=== PATIENT | female | born 1965 | race Caucasian/White ===

== ENCOUNTER → 2017-02-14 | Outpatient (CLI) | payer OTHER ==
[~2017-02-14] MED LIST: AMIT10TA6 PO; ASP81CT PO; ASPI-983 PO; CIPR-225 PO; CIPR500T78 PO; DICY20TA10 PO; DICY20TA57 PO; DOCU-143 PO; EZET1TAB21 PO; EZET1TAB44 PO; FENO145T2 PO; FISH OIL OMEGA1 EACH PO; FLUC200T45 PO; GABA-488 PO; GABA600T2 PO; GBPN300C PO; HYDR-1231 PO; HYDR-3781 PO; HYDR-3812 PO; HYDR-757 PO; HYDR12.5 PO; HYDR1TAB PO; HYOS0.1283 SL; IBP600T1 PO; INSU100V5 SQ; LEVE500T6 PO; LEVE500T99 PO; LEVO500T2 PO; LIRA0.6P SQ; LISI-552 PO; LISI1TAB PO; LISI1TAB8 PO; LISI20TA PO; MELO15TA39 PO; METF-380 PO; METF1000 PO; METR500T PO; MTF500T PO; OMEG-160 PO; OMEP20CA12 PO; ONDA-42 SL; ONDA4TAB8 PO; SITA1TAB3 PO; SITA1TAB6 PO; TAMS0.4C2 PO; TAMS0.4C98 PO; TMSL.4C PO; TRAM50TA2 PO; [UNRECOGNIZED DRUG - REMARK]
--- NOTE | 2017-02-14 18:04 | Diagnostic Imaging Report ---
EXAMINATION: Bilateral screening mammogram, 2D views with tomosynthesis The current study was also evaluated with a Computer Aided Detection (CAD) system. INDICATION: Screening. No current complaints stated on the questionnaire. COMPARISON: 06/13/2009. FINDINGS: There are scattered fibroglandular densities. There are multiple benign-appearing calcifications. Increased central right breast cluster of calcification is seen compared to 2008 with minimal heterogeneity. It is favored to be benign. However, better characterization with focal compression magnification views is recommended. The left breast demonstrates no suspicious lesion. IMPRESSION: Increased slightly heterogenous cluster of calcification in the central aspect of the right breast. Better characterization with focal compression magnification views is recommended. ACR BI-RADS Category 0: Incomplete. (Needs additional imaging evaluation). Result letter will be mailed to the patient. Note: At least 10% of breast cancer is not imaged by mammography. Dictated by: Dictated on workstation # [id number]
== END ==
LOC: RAD 09:15
PROVIDERS: ATTEND Nurse Practitioner Family
DX: Z12.31 Encounter for screening mammogram for malignant neoplasm of breast (principal)
CPT/HCPCS: 77067

== ENCOUNTER 2017-02-23 14:24 | Emergency (ER) | payer OTHER ==
[~2017-02-23] VITALS: Ht 157.5 cm; Wt 85.7 kg
[2017-02-23] MEDS ORDERED: SIMV40TA (15:03)
[2017-02-23] MEDS ORDERED: EZET10TA5 (15:03)
[2017-02-23] MEDS ORDERED: PANT40TA3 (15:03)
[2017-02-23] MEDS ORDERED: PROP15DR (15:03)
--- NOTE | 2017-02-23 15:39 | ED EENT ---
History of Present Illness General Chief Complaint: Dental Problems/Pain Stated Complaint: TOOTH PAIN Nursing Triage Note: C/O of rt lower jaw pain with swelling, hurts to swollow. Believes it is a tooth. HAs been trying to get in to dentist Source: patient, spouse Exam Limitations: no limitations History of Present Illness Time seen by provider: 15:39 Initial Comments 51-year-old female patient presents to the emergency room for complaints of right lower jaw pain and swelling. States she's been trying to get into a dentist for several weeks to have her tooth pulled but is unable to find anyone that will see her. Location Injury Occurred: denies known injury Timing/Duration: this morning Location: facial (right lower jaw), dental Prearrival Treatment: no prearrival treatment Modifying Factors: Worse With Other (worse with palpation and chewing) Allergies and Home Medications Allergies Coded Allergies: Phenytoin Sodium Extended (Unverified Allergy, Unknown, 02/23/17) Sulfa (Sulfonamide Antibiotics) (Unverified Allergy, Unknown, 01/02/16) phenytoin sodium (Unverified Allergy, Unknown, 08/09/15) Home Medications Amoxicillin 500 Mg Capsule, 1,000 MG PO TID, #42 Ref 0 Prescribed by: TERESA SANTIAGO on 02/23/17 1620 Aspirin 81 Mg Tablet.dr, 81 MG PO DAILY, (Reported) Ezetimibe 10 Mg Tablet, (Reported) Hydrochlorothiazide 12.5 Mg Capsule, 12.5 MG PO DAILY, (Reported) Insulin Determir 1,000 Units/10 Ml Soln, 28 UNITS SQ DAILY, (Reported) Insulin Determir 1,000 Units/10 Ml Soln, 30 UNITS SQ HS, (Reported) Levetiracetam 500 Mg Tablet, 500 MG PO BID, (Reported) Lisinopril 20 Mg Tablet, 20 MG PO DAILY, (Reported) Metformin HCl 1,000 Mg Tablet, 1,000 MG PO BID, (Reported) Eidson-3/Dha/Epa/Fish Oil 1 Each Capsule, 1,000 MG PO DAILY, (Reported) Omeprazole 20 Mg Capsule.dr, 20 MG PO DAILY, (Reported) Pantoprazole Sodium 40 Mg Tablet.dr, (Reported) Propylene Glycol/Peg 400 15 Ml Drops, (Reported) Simvastatin 40 Mg Tablet, (Reported) Review of Systems Constitutional: No chills, No dizziness, No fever, No malaise Eyes: No Symptoms Reported Ears: Denies Dizziness, Denies Pain, Denies Tinnitus Nose: denies congestion, denies epistaxis, denies pain Mouth: see HPI Throat: no symptoms reported Respiratory: no symptoms reported Cardiovascular: no symptoms reported Skin: no symptoms reported Neurological: No Symptoms Reported All Other Systems Reviewed Negative Unless Noted: Yes (Negative excepted noted.) Past Bjdpiok-Zjxhue-Qifotf Hx Patient Social History Alcohol Use: Denies Use Recreational Drug Use: No Smoking Status: Never a Smoker Recent Foreign Travel: No Contact w/Someone Who Travel: No Recent Infectious Disease Expo: No Recent Hopitalizations: No Immunizations Up To Date Tetanus Booster (TDap): More than 5yrs PED Vaccines UTD: No Seasonal Allergies Seasonal Allergies: No Surgeries HX Surgeries: Yes (c/s x2, bladder tie, cranial sx for tumor, lap louie, trigger finger) Surgeries: Abdominal, Bladder Surgery, Section, Gallbladder, Hysterectomy, Orthopedic Respiratory Hx Respiratory Disorders: No Cardiovascular Hx Cardiac Disorders: Yes Cardiac Disorders: High Cholesterol, Hypertension Neurological Hx Neurological Disorders: Yes Neurological Disorders: Brain Tumor, Neuropathy, Seizure Disorder Reproductive System Hx Reproductive Disorders: No 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, Menopausal Genitourinary Hx Genitourinary Disorders: Yes Genitourinary Disorders: Kidney Stones Gastrointestinal Hx Gastrointestinal Disorders: Yes Gastrointestinal Disorders: Diverticulosis Musculoskeletal Hx Musculoskeletal Disorders: Yes Musculoskeletal Disorders: Fibromyalgia Endocrine Hx Endocrine Disorders: Yes Endocrine Disorders: Diabetes, Insulin dep HEENT HX ENT Disorders: Yes HEENT Disorders: Macular Degeneration Cancer Hx Cancer: No Psychosocial Hx Psychiatric Problems: No Integumentary HX Skin/Integumentary Disorder: No Blood Transfusions Hx Blood Disorders: No Adverse Reaction to a Blood Tr: No Reviewed Nursing Assessment Reviewed/Agree w Nursing PMH: Yes Family Medical History Significant Family History: No Pertinent Family Hx Physical Exam Vital Signs Vital Sign - Last 12Hours 02/23/17 14:53 Temp 97.8 Pulse 100 Resp 18 B/P (MAP) 126/89 Pulse Ox 96 General Appearance: WD/WN, no apparent distress Eyes: bilateral eye normal inspection, bilateral eye PERRL, bilateral eye EOMI Ears: bilateral ear auricle normal, bilateral ear canal normal, bilateral ear TM normal Nose: normal inspection Mouth/Throat: pharynx normal, dental tenderness (right lower dental tenderness) , No excessive drooling, No mandibular swelling, No maxillary swelling Neck: full range of motion, supple, lymphadenopathy (R) (TTP.), No lymphadenopathy (L) Cardiovascular: regular rate, rhythm, no murmur Respiratory: lungs clear, normal breath sounds, no respiratory distress Neurologic/Psychiatric: alert, normal mood/affect, oriented x 3 Skin: normal color, warm/dry Progress/Results/Core Measures Results/Orders Vital Signs/I&O Blood Pressure Mean: 101 Departure Communication Progress Notes Patient seen and evaluated. Plan for discharge to home with oral amoxicillin. Patient states she has some hydrocodone from a previous surgery and does not need anything for pain. Impression Impression: Primary Impression: Dental infection Additional Impression: Dental caries Disposition: HOME, SELF-CARE Condition: Improved Departure-Patient Inst. Decision time for Depature: 15:55 Referrals: HERMILO SCHMIDT DDS,LOCAL PHYSICIAN (PCP) Primary Care Physician Patient Instructions: Dental Pain (DC) Add. Discharge Instructions: All discharge instructions reviewed with patient and/or family. Voiced understanding. Medications as instructed. Drink plenty of fluids. Ibuprofen 800 mg by mouth every 8 hours as needed for pain. Continue usual home medications. Soft diet. Ice pack or heating pads as needed for pain. Follow- up with the dentist of your choice or Dr. SCHMIDT for dental repair/ extraction. Return to the emergency department for worsened pain, swelling, difficulty swallowing, difficulty breathing, fever, or any other concerns. Scripts Amoxicillin (Amoxicillin) 500 Mg Capsule 1000 MG PO TID, #42 CAP 0 Refills Prov: TERESA SANTIAGO 02/23/17 TERESA SANTIAGO Feb 23, 2017 3:39 pm
[2017-02-23] MEDS ORDERED: AMOX500C2 PO ×2 (15:56→16:20)
[2017-02-23 17:40] VITALS: BP 137/81
--- OUTSIDE RECORDS SUMMARY | 2017-02-24 02:25 | XMS REPORT ---
Author Author SHERON WYNN Organization [employer] Address Unknown Phone Unavailable Care Team Providers Care Personalized Living Manager Name Role Phone SHERON WYNN CP Unavailable Allergies No Known Allergies Problems Problem Type Condition Code Onset Dates Condition Status Problem Renal and perinephric abscess 590.2 Active Problem Syncope and collapse 780.2 Active Problem Unspecified epilepsy without mention of intractable epilepsy 345.90 Active Problem Sciatica, right M54.31 Active Problem Renal stone N20.0 Active Problem Abdominal pain, unspecified abdominal location R10.9 Active Problem Epilepsy without status epilepticus, not intractable, unspecified G40.909 Active Problem Unspecified essential hypertension 401.9 Active Problem Type 2 diabetes mellitus with diabetic neuropathy E11.40 Active Problem Essential hypertension I10 Active Problem Thoracic or lumbosacral neuritis or radiculitis, unspecified 724.4 Active Problem Polyneuropathy in diabetes 357.2 Active Problem Headache 784.0 Active Problem Unspecified ganglion 727.43 Active Medications Medication Code System Code Instructions Start Date End Date Status Dosage Gabapentin [facility] [address]-56 300 MG Orally 3 times a day September 22, 2014 one tablet Results No Known Results Summary Purpose [employer] Submission
--- OUTSIDE RECORDS SUMMARY | 2017-02-24 02:26 | XMS REPORT ---
Author Author SHERON WYNN Organization [employer] Address Unknown Phone Unavailable Care Team Providers Care Panel Installer Name Role Phone SHERON WYNN CP Unavailable Allergies No Known Allergies Problems Problem Type Condition Code Onset Dates Condition Status Problem Type 2 diabetes mellitus with diabetic neuropathy E11.40 Active Problem Sciatica, right M54.31 Active Problem Renal stone N20.0 Active Problem Pain of upper abdomen R10.10 Active Problem Other acute pancreatitis K85.8 Active Problem Biliary dyskinesia K82.8 Active Problem Syncope, unspecified syncope type R55 Active Problem Abdominal pain, unspecified abdominal location R10.9 Active Problem Diverticulosis of large intestine without hemorrhage K57.30 Active Problem Chest pain, unspecified type R07.9 Active Problem Thoracic or lumbosacral neuritis or radiculitis, unspecified 724.4 Active Problem Renal and perinephric abscess 590.2 Active Problem Unspecified epilepsy without mention of intractable epilepsy 345.90 Active Problem Polyneuropathy in diabetes 357.2 Active Problem Epilepsy without status epilepticus, not intractable, unspecified G40.909 Active Problem Headache 784.0 Active Problem Essential hypertension I10 Active Medications No Known Medications Results No Known Results Summary Purpose [employer] Submission
--- OUTSIDE RECORDS SUMMARY | 2017-02-24 02:26 | XMS REPORT ---
Author Author SHERON WYNN [facility] Address [address] [place] [address] Care Team Providers Care Ornamental Bronze Worker Name Role Phone WYNN, SHERON Unavailable PROBLEMS Type Condition ICD9-CM Code EVS34-RB Code Onset Dates Condition Status SNOMED Code Problem Sciatica, right M54.31 Active 96133916 Problem Syncope, unspecified syncope type R55 Active 896784076 Problem Abdominal pain, unspecified abdominal location R10.9 Active 38374446 Problem Right knee injury, initial encounter S89.91XA Active 387078092 Problem Biliary dyskinesia K82.8 Active 580788781 Problem Diverticulosis of large intestine without hemorrhage K57.30 Active 468199960 Problem Chest pain, unspecified type R07.9 Active 26764290 Problem Pain of upper abdomen R10.10 Active 98550465 Problem Other acute pancreatitis K85.8 Active 830088909 Problem Polyneuropathy in diabetes 357.2 Active 18923858 Problem Headache 784.0 Active 94793164 Assessment Right knee injury, initial encounter S89.91XA Feb, Active 492342205 Problem Thoracic or lumbosacral neuritis or radiculitis, unspecified 724.4 Active 845779183 Problem Epilepsy without status epilepticus, not intractable, unspecified G40.909 Active 321554494 Problem Essential hypertension I10 Active 41819318 Problem Renal and perinephric abscess 590.2 Active 746594122 Problem Type 2 diabetes mellitus with diabetic neuropathy E11.40 Active 57171511 Problem Unspecified epilepsy without mention of intractable epilepsy 345.90 Active 72281089 Problem Renal stone N20.0 Active 04885242 ALLERGIES Substance Reaction Event Type Date Status SulfADIAZINE hives Drug Allergy Feb, Active Dilantin hives Drug Allergy Feb, Active SOCIAL HISTORY No smoking Hx information available PLAN OF CARE VITAL SIGNS Height 62 in 2016-03-07 Weight 189 lbs 2016-03-07 Heart Rate 83 bpm 2016-03-07 Respiratory Rate 16 2016-03-07 BMI 34.56 kg/m2 2016-03-07 Blood pressure systolic 130 mmHg 2016-03-07 Blood pressure diastolic 80 mmHg 2016-03-07 MEDICATIONS Medication Instructions Dosage Frequency Start Date End Date Duration Status hydrochlorothiazide-lisinopril 20-12.5 mg orally Once a day take 1 tablet 24h Aug, Active Gabapentin 300 MG Orally 3 times a day one tablet 8h Sep, Active Flexeril 10 mg by oral route 3 times a day 1 tablet 8h Sep, Active Keppra 500 MG Orally 2 times a day 1 tablet 12h Jun, Active Hydrochlorothiazide 12.5 MG Orally Once a day 1 capsule 24h Sep, 30 day(s) Active Metformin HCl 1000 MG Orally Twice a day 1 tablet with meals 12h November, Active Tamsulosin HCl 0.4 MG Orally Once a day 1 capsule 30 minutes after the same meal each day 24h Jun, Active Zofran ODT 4 MG Orally every 8 hrs as needed for nausea 1 tablet on the tongue and allow to dissolve November, Active Lisinopril 20 mg Orally Once a day 1 tablet 24h Sep, Active Levemir 100 UNIT/ML Subcutaneous 2 times a day 28 units in am & 30 units in pm 12h Jan, Active Fish Oil Concentrate 1000 mg 1 Capsule by Oral route 1 time per day Jul, Active Tramadol HCl 50 mg Orally every 8 hours, PRN abd pain 1 tablet November, Active Hydrocodone-Acetaminophen 5-325 MG Orally every 4 hrs 1 tablet as needed 4h Jan, Active Dicyclomine HCl 20 MG Orally Four times a day 1 tablet before meals and hs 6h Sep, Active Pen [place] 31G X 6 MM subcut Once a day inject 24h 30 Mar, 2015 Active Vytorin 10-40 MG Orally Once a day 1 tablet 24h Jun, Active amitriptyline 25 mg 1 tablet by Oral route 1 time per day take 1-2 hr before bed Aug, Active Ibuprofen 800 MG Orally Three times a day 1 tablet 8h Feb, Active Omeprazole 20 mg Orally 2 times a day take 1 capsule (20 mg) by oral route once daily before a meal 12h Aug, Active RESULTS No Results PROCEDURES Procedure Date Ordered Related Diagnosis Body Site Office Visit, Est Pt., Level 3 Mar 07, 2016 IMMUNIZATIONS No Known Immunizations
--- OUTSIDE RECORDS SUMMARY | 2017-02-24 02:26 | XMS REPORT ---
Author Author SHERON WYNN Organization [employer] Address Unknown Phone Unavailable Care Team Providers Care Lay Out Technician Name Role Phone SHERON WYNN CP Unavailable [...] Active Problem Unspecified ganglion 727.43 Active Medications No Known Medications Results No Known Results Summary Purpose [employer] Submission
--- OUTSIDE RECORDS SUMMARY | 2017-02-24 02:27 | XMS REPORT ---
Author Author SHERON WYNN Organization [employer] Address Unknown Phone Unavailable Care Team Providers Care Station Repairer Name Role Phone SHERON WYNN CP Unavailable Allergies, Adverse Reactions, Alerts Substance Reaction Event Type SulfADIAZINE hives Drug Allergy Dilantin hives Drug Allergy Problems Problem Type Condition Code Onset Dates Condition Status Problem Sciatica, right M54.31 Active Problem Syncope, unspecified syncope type R55 Active Problem Abdominal pain, unspecified abdominal location R10.9 Active Problem Right knee injury, initial encounter S89.91XA Active Problem Biliary dyskinesia K82.8 Active Problem Acute pain of right knee M25.561 Active Problem Diverticulosis of large intestine without hemorrhage K57.30 Active Problem Chest pain, unspecified type R07.9 Active Problem Pain of upper abdomen R10.10 Active Problem Other acute pancreatitis K85.8 Active Problem Polyneuropathy in diabetes 357.2 Active Problem Headache 784.0 Active Assessment Acute pain of right knee M25.561 Active Problem Thoracic or lumbosacral neuritis or radiculitis, unspecified 724.4 Active Problem Epilepsy without status epilepticus, not intractable, unspecified G40.909 Active Problem Essential hypertension I10 Active Problem Renal and perinephric abscess 590.2 Active Problem Type 2 diabetes mellitus with diabetic neuropathy E11.40 Active Problem Unspecified epilepsy without mention of intractable epilepsy 345.90 Active Problem Renal stone N20.0 Active Medications Medication Code System Code Instructions Start Date End Date Status Dosage Tamsulosin HCl [facility] [address]-71 0.4 MG Orally Once a day Jul 05, 2015 1 capsule 30 minutes after the same meal each day hydrochlorothiazide-lisinopril [facility] 0 20-12.5 mg orally Once a day Aug 25, 2014 take 1 tablet Fish Oil Concentrate [facility] [address] 1000 mg Jul 24, 2012 1 Capsule by Oral route 1 time per day Lisinopril [facility] [address]-90 20 mg Orally Once a day September 08, 2015 1 tablet Gabapentin [facility] [address]-05 300 MG Orally 3 times a day September 22, 2014 one tablet Keppra [facility] [address]-13 500 MG Orally 2 times a day Jun 15, 2014 1 tablet Hydrocodone-Acetaminophen [facility] [address]-36 5-325 MG Orally every 4 hrs January 26, 2016 1 tablet as needed Ibuprofen [facility] [address]-87 800 MG Orally Three times a day Mar 07, 2016 1 tablet Hydrochlorothiazide [facility] [address]-14 12.5 MG Orally Once a day September 08, 2015 1 capsule Vytorin [facility] [address]-31 10-40 MG Orally Once a day Jun 15, 2014 1 tablet Flexeril [place] 0 10 mg by oral route 3 times a day September 22, 2014 1 tablet amitriptyline [facility] [address]-25 25 mg Aug 25, 2014 1 tablet by Oral route 1 time per day take 1-2 hr before bed Levemir [facility] [address]-72 100 UNIT/ML Subcutaneous 2 times a day January 14, 2014 28 units in am & 30 units in pm Metformin HCl [facility] [address]-07 1000 MG Orally Twice a day November 24, 2015 1 tablet with meals Procedures Procedure Coding System Code Date Office Visit, Est Pt., Level 3 CPT-4 02038 Mar 29, 2016 Vital Signs Date/Time: Mar 29, 2016 Cardiac Monitoring Heart Rate 80 bpm Weight 194.0 lbs Height 62 in BMI 35.48 Index Blood Pressure Diastolic 78 mmHg Blood Pressure Systolic 140 mmHg Results No Known Results Summary Purpose [employer] Submission
--- OUTSIDE RECORDS SUMMARY | 2017-02-24 02:27 | XMS REPORT ---
Author Author SHERON WYNN Organization [employer] Address Unknown Phone Unavailable Care Team Providers Care Farm Operator Name Role Phone SHERON WYNN CP Unavailable Allergies No Known Allergies Problems Problem Type Condition Code Onset Dates Condition Status Problem Polyneuropathy in diabetes 357.2 Active Problem Unspecified ganglion 727.43 Active Problem Headache 784.0 Active Assessment Renal stone N20.0 Active Problem Thoracic or lumbosacral neuritis or radiculitis, unspecified 724.4 Active Problem Essential hypertension I10 Active Problem Epilepsy without status epilepticus, not intractable, unspecified G40.909 Active Problem Type 2 diabetes mellitus with diabetic neuropathy E11.40 Active Problem Unspecified epilepsy without mention of intractable epilepsy 345.90 Active Problem Renal and perinephric abscess 590.2 Active Problem Unspecified essential hypertension 401.9 Active Problem Syncope and collapse 780.2 Active Medications No Known Medications Procedures Procedure Coding System Code Date PATHOLOGY LAB PROCEDURE CPT-4 03538 Jun 20, 2015 Results No Known Results Summary Purpose [employer] Submission
--- OUTSIDE RECORDS SUMMARY | 2017-02-24 02:27 | XMS REPORT ---
Author Author SHERON WYNN Organization [employer] Address Unknown Phone Unavailable Care Team Providers Care Machine I Trimmer Name Role Phone SHERON WYNN CP Unavailable Allergies, Adverse Reactions, Alerts Substance Reaction Event Type SulfADIAZINE hives Drug Allergy Dilantin hives Drug Allergy Problems Problem Type Condition ICD-9 Code Onset Dates Condition Status Problem Headache 784.0 Active Problem Contact dermatitis and other eczema, due to unspecified cause 692.9 Active Problem Unspecified ganglion 727.43 Active Problem Dysuria 788.1 Active Problem Unspecified essential hypertension 401.9 Active Problem Cellulitis and abscess of face 682.0 Active Problem Unspecified epilepsy without mention of intractable epilepsy 345.90 Active Problem Renal and perinephric abscess 590.2 Active Problem Syncope and collapse 780.2 Active Problem Pain in joint, pelvic region and thigh 719.45 Active Assessment Cellulitis and abscess of face 682.0 Active Problem Thoracic or lumbosacral neuritis or radiculitis, unspecified 724.4 Active Problem Polyneuropathy in diabetes 357.2 Active Medications Medication Code System Code Instructions Start Date End Date Status Dosage Keppra [facility] [address]-82 500 mg Jun 15, 2014 1 tablet by Oral route 2 times per day Levemir [facility] [address]-88 100 unit/mL January 14, 2014 inject 5-30 Units 2 times per day 8units am 30 pm Victoza [facility] [address]-36 18 MG/3ML Subcutaneous Once a day 0.2 ml Fish Oil Concentrate [facility] [address] 1000 mg Jul 24, 2012 1 Capsule by Oral route 1 time per day Clindamycin HCl [facility] [address]-74 300 MG Orally every 8 hrs Feb 24, 2015 Mar 06, 2015 1 capsule Vytorin [facility] [address]-01 10-40 mg 1 tab(s) orally once a day Jun 15, 2014 1 tablet by Oral route 1 time per day Ibuprofen [facility] [address]-05 800 MG Orally Three times a day Feb 24, 2015 1 tablet Domo [facility] [address]-99 50-1,000 mg Jun 15, 2014 1 tablet by Oral route 2 times per day Procedures Procedure Coding System Code Date Office Visit, Yomi Pt., Level 2 CPT-4 88235 Feb 28, 2015 Vital Signs Date/Time: Feb 28, 2015 Temperature 98.2 F Weight 202 lbs Height 62 in BMI 36.94 Index Blood Pressure Diastolic 84 mmHg Blood Pressure Systolic 130 mmHg Cardiac Monitoring Heart Rate 80 bpm Results No Known Results Summary Purpose [employer] Submission
--- OUTSIDE RECORDS SUMMARY | 2017-02-24 02:27 | XMS REPORT ---
Author Author SHERON WYNN Organization [employer] Address Unknown Phone Unavailable Care Team Providers Care Curing Supervisor Name Role Phone SHERON WYNN CP Unavailable Allergies No Known Allergies Problems Problem Type Condition Code Onset Dates Condition Status Problem Polyneuropathy in diabetes 357.2 Active Problem Unspecified ganglion 727.43 Active Problem Headache 784.0 Active Assessment Left foot pain M79.672 Active Problem Thoracic or lumbosacral neuritis or [...] Medications Procedures Procedure Coding System Code Date X-RAY EXAM OF FOOT CPT-4 25474 May 03, 2015 Results No Known Results Summary Purpose [employer] Submission
--- OUTSIDE RECORDS SUMMARY | 2017-02-24 02:27 | XMS REPORT ---
Author Author SHERON WYNN [facility] Address [address] [place] [address] Care Team Providers Care Professor Of Violin Name Role Phone SHERON WYNN Unavailable PROBLEMS Type Condition ICD9-CM Code BUZ00-KO Code Onset Dates Condition Status SNOMED Code Problem Abdominal pain, unspecified abdominal location R10.9 Active 66618870 Problem Chest pain, unspecified type R07.9 Active 88081553 Problem Syncope, unspecified syncope type R55 Active 309040752 Problem Acute pain of right knee M25.561 Active 93033329 Assessment Acute pain of right knee M25.561 27 Mar, 2016 Active 110962966 Problem Right knee injury, initial encounter S89.91XA Active 048818344 Problem Other acute pancreatitis K85.8 Active 996123414 Problem Diverticulosis of large intestine without hemorrhage K57.30 Active 288322941 Problem Biliary dyskinesia K82.8 Active 375974390 Problem Pain of upper abdomen R10.10 Active 01434561 Problem Headache 784.0 Active 48790628 Problem Renal and perinephric abscess 590.2 Active 581840463 Problem Thoracic or lumbosacral neuritis or radiculitis, unspecified 724.4 Active 755621017 Problem Polyneuropathy in diabetes 357.2 Active 10806871 Problem Essential hypertension I10 Active 95658636 Problem Type 2 diabetes mellitus with diabetic neuropathy E11.40 Active 74448591 Problem Unspecified epilepsy without mention of intractable epilepsy 345.90 Active 80912228 Problem Renal stone N20.0 Active 88571401 Problem Epilepsy without status epilepticus, not intractable, unspecified G40.909 Active 562262457 Problem Sciatica, right M54.31 Active 48051397 ALLERGIES Unknown Allergies SOCIAL HISTORY No smoking Hx information available PLAN OF CARE VITAL SIGNS MEDICATIONS Unknown Medications RESULTS Name Result Date Reference Range MRI : Knee, Right w/o contrast 2016-04-07 Xray : Knee, Right 2016-04-07 PROCEDURES No Known procedures IMMUNIZATIONS No Known Immunizations
--- OUTSIDE RECORDS SUMMARY | 2017-02-24 02:27 | XMS REPORT ---
Author Author SHERON WYNN Organization [employer] Address Unknown Phone Unavailable Care Team Providers Care Help Desk Consultant Name Role Phone SHERON WYNN CP Unavailable [...]
--- OUTSIDE RECORDS SUMMARY | 2017-02-24 02:27 | XMS REPORT ---
Author Author SHERON WYNN [facility] eClinicalWorks Address Unknown Phone Unavailable Care Team Providers Care Drafter Seismograph Name Role Phone SHERON WYNN CP Unavailable Allergies, Adverse Reactions, Alerts Substance Reaction Event Type SulfADIAZINE hives Drug Allergy Dilantin hives Drug Allergy Problems Problem Type Condition Code Onset Dates Condition Status Problem Headache 784.0 Active Problem Renal and perinephric abscess 590.2 Active Problem Unspecified ganglion 727.43 Active Problem Type 2 diabetes mellitus with diabetic neuropathy E11.40 Active Problem Essential hypertension I10 Active Problem Renal stone N20.0 Active Problem Syncope and collapse 780.2 Active Problem Unspecified epilepsy without mention of intractable epilepsy 345.90 Active Problem Epilepsy without status epilepticus, not intractable, unspecified G40.909 Active Problem Unspecified essential hypertension 401.9 Active Assessment Renal stone N20.0 Active Problem Thoracic or lumbosacral neuritis or radiculitis, unspecified 724.4 Active Problem Polyneuropathy in diabetes 357.2 Active Medications Medication Code System Code Instructions Start Date End Date Status Dosage Keppra [facility] [address]-53 500 mg Jun 15, 2014 1 tablet by Oral route 2 times per day Vytorin [facility] [address]-97 10-40 mg 1 tab(s) orally once a day Jun 15, 2014 1 tablet by Oral route 1 time per day Levemir [facility] [address]-02 100 UNIT/ML Subcutaneous 2 times a day January 14, 2014 15 units in am & 30 units in pm Tamsulosin HCl [facility] [address]-57 0.4 MG Orally Once a day Jul 05, 2015 1 capsule 30 minutes after the same meal each day Victoza [facility] [address]-30 18 MG/3ML Subcutaneous Once a day 1.8 mg Fish Oil Concentrate [facility] 88479-91993 1000 mg Jul 24, 2012 1 Capsule by Oral route 1 time per day Janumet [facility] [address]-37 50-1,000 mg Jun 15, 2014 1 tablet by Oral route 2 times per day Ibuprofen [facility] [address]-01 800 MG Orally Three times a day Feb 24, 2015 1 tablet hydrochlorothiazide-lisinopril [facility] 0 20-12.5 mg orally Once a day Aug 25, 2014 take 1 tablet Pen [place] [facility] [address]-36 31G X 6 MM subcut Once a day Apr 06, 2015 inject Procedures Procedure Coding System Code Date Office Visit, Est Pt., Level 3 CPT-4 17636 Jul 05, 2015 URINALYSIS, AUTO, W/O SCOPE CPT-4 23546 Jul 05, 2015 Vital Signs Date/Time: Jul 05, 2015 Temperature 99.0 F Weight 203.0 lbs Height 62 in BMI 37.13 Index Blood Pressure Diastolic 88 mmHg Blood Pressure Systolic 116 mmHg Cardiac Monitoring Heart Rate 116 bpm Results Name Result Date Reference Range Unit Abnormality Flag UA LONG DIP (IN HOUSE) ----LAURYN trace [id number] ----NIT neg [id number] ----SG 1.025 20150705 ----KET neg [id number] ----SUZANNE neg [id number] ----GLU neg [id number] ----Odor no 20150705 ----pH 5.0 20150705 ----BLO trace-lysed 20150705 ----URO 0.2 20150705 ----Protein neg [id number] ----Lot # [id number] ----Exp date [id number] ----Clarity clear 20150705 ----Color yellow [id number] Summary Purpose eClinicalWorks Submission
--- OUTSIDE RECORDS SUMMARY | 2017-02-24 02:28 | XMS REPORT ---
Author Author SHERON WYNN [facility] eClinicalWorks Address Unknown Phone Unavailable Care Team Providers Care Lead Die Molder Name Role Phone SHERON WYNN CP Unavailable [...] Problem Unspecified essential hypertension 401.9 Active Assessment Diverticulitis of large intestine without perforation or abscess without bleeding K57.32 Active Problem Thoracic or lumbosacral neuritis or radiculitis, unspecified 724.4 Active Problem Polyneuropathy in diabetes 357.2 Active Medications Medication Code System Code Instructions Start Date End Date Status Dosage Metronidazole [facility] [address]-33 500 MG Orally Twice a day Aug 10, 2015 Aug 20, 2015 1 tablet Victoza [facility] [address]-97 18 MG/3ML Subcutaneous Once a day 1.8 mg Levemir [facility] [address]-81 100 UNIT/ML Subcutaneous 2 times a day January 14, 2014 15 units in am & 30 units in pm Fish Oil Concentrate [facility] [address]056 1000 mg Jul 24, 2012 1 Capsule by Oral route 1 time per day hydrochlorothiazide-lisinopril [facility] 0 20-12.5 mg orally Once a day Aug 25, 2014 take 1 tablet Ciprofloxacin HCl [facility] [address]-99 500 MG Orally Twice a day 1 tablet Cipro [facility] [address]-32 250 MG Orally every 12 hrs Aug 10, 2015 Aug 20, 2015 1 tablet Tamsulosin HCl [facility] [address]-90 0.4 MG Orally Once a day Jul 05, 2015 1 capsule 30 minutes after the same meal each day Janumet [facility] [address]-37 50-1,000 mg Jun 15, 2014 1 tablet by Oral route 2 times per day Metronidazole [facility] [address]-32 500 MG Orally Twice a day 1 tablet Vytorin [facility] [address]-38 10-40 mg 1 tab(s) orally once a day Jun 15, 2014 1 tablet by Oral route 1 time per day Hydrocodone-Acetaminophen [facility] [address]-75 5-325 MG Orally 4 times a day 1 tablet as needed Ibuprofen [facility] [address]-33 800 MG Orally Three times a day Feb 24, 2015 1 tablet Pen [place] [facility] [address]-53 31G X 6 MM subcut Once a day Apr 06, 2015 inject Keppra [facility] [address]-48 500 mg Jun 15, 2014 1 tablet by Oral route 2 times per day Procedures Procedure Coding System Code Date Office Visit, Est Pt., Level 3 CPT-4 45353 Aug 10, 2015 Vital Signs Date/Time: Aug 10, 2015 Temperature 97.6 F Weight 207.8 lbs Height 62 in BMI 38.00 Index Blood Pressure Diastolic 72 mmHg Blood Pressure Systolic 126 mmHg Cardiac Monitoring Heart Rate 86 bpm Results No Known Results Summary Purpose eClinicalWorks Submission
--- OUTSIDE RECORDS SUMMARY | 2017-02-24 02:28 | XMS REPORT ---
Author Author SHERON WYNN Organization [employer] Address Unknown Phone Unavailable Care Team Providers Care Chemical Mixer Name Role Phone SHERON WYNN CP Unavailable [...] Instructions Start Date End Date Status Dosage Levemir [facility] [address]-01 100 unit/mL January 14, 2014 inject 5-30 Units 2 times per day 8units am 30 pm Fish Oil Concentrate [facility] [address]777 1000 mg Jul 24, 2012 1 Capsule by Oral route 1 time per day Janumet [facility] [address]-50 50-1,000 mg Jun 15, 2014 1 tablet by Oral route 2 times per day Keppra [facility] [address]-93 500 mg Jun 15, 2014 1 tablet by Oral route 2 times per day Victoza [facility] [address]-62 18 MG/3ML Subcutaneous Once a day 0.2 ml Clindamycin HCl [facility] [address]-96 300 MG Orally every 8 hrs Feb 24, 2015 Mar 06, 2015 1 capsule Ibuprofen [facility] [address]-22 800 MG Orally Three times a day Feb 24, 2015 1 tablet Vytorin [facility] [address]-09 10-40 mg 1 tab(s) orally once a day Jun 15, 2014 1 tablet by Oral route 1 time per day Procedures Procedure Coding System Code Date ROCEPHIN 1 GM (IM) CPT-4 J0696 Feb 24, 2015 THER/PROPH/DIAG INJ, SC/IM CPT-4 10310 Feb 24, 2015 Office Visit, Est Pt., Level 3 CPT-4 40419 Feb 24, 2015 Vital Signs Date/Time: Feb 24, 2015 Temperature 98.6 F Weight 202.4 lbs Height 62 in BMI 37.02 Index Blood Pressure Diastolic 100 mmHg Blood Pressure Systolic 150 mmHg Cardiac Monitoring Heart Rate 84 bpm Results No Known Results Summary Purpose eClinicalWorks Submission
--- OUTSIDE RECORDS SUMMARY | 2017-02-24 02:28 | XMS REPORT ---
Author Author SHERON WYNN Organization [employer] Address Unknown Phone Unavailable Care Team Providers Care Mill Roll Operator Name Role Phone SHERON WYNN CP [...] 357.2 Active Problem Headache 784.0 Active Problem Thoracic or lumbosacral neuritis or radiculitis, unspecified 724.4 Active Problem Epilepsy without status epilepticus, not intractable, unspecified G40.909 Active Problem Essential hypertension I10 Active Problem Renal and perinephric abscess 590.2 Active Problem Type 2 diabetes mellitus with diabetic neuropathy E11.40 Active Problem Unspecified epilepsy without mention of intractable epilepsy 345.90 Active Problem Renal stone N20.0 Active Medications No Known Medications Results No Known Results Summary Purpose eClinicalWorks Submission
--- OUTSIDE RECORDS SUMMARY | 2017-02-24 02:28 | XMS REPORT ---
Author Author SHERON WYNN Organization [employer] Address Unknown Phone Unavailable Care Team Providers Care Delivery Stock Clerk Name Role Phone SHERON WYNN CP Unavailable Allergies No Known Allergies Problems Problem Type Condition Code Onset Dates Condition Status Problem Headache 784.0 Active Problem Contact dermatitis and other eczema, due to unspecified cause 692.9 Active Problem Unspecified ganglion 727.43 Active Problem Thoracic or lumbosacral neuritis or radiculitis, unspecified 724.4 Active Problem Polyneuropathy in diabetes 357.2 Active Problem Dysuria 788.1 Active Problem Unspecified essential hypertension 401.9 Active Problem Cellulitis and abscess of face 682.0 Active Problem Unspecified epilepsy without mention of intractable epilepsy 345.90 Active Problem Renal and perinephric abscess 590.2 Active Problem Syncope and collapse 780.2 Active Problem Pain in joint, pelvic region and thigh 719.45 Active Medications Medication Code System Code Instructions Start Date End Date Status Dosage Pen [place] [facility] [address]-53 31G X 6 MM subcut Once a day Apr 06, 2015 inject Levemir [facility] [address]-59 100 UNIT/ML Subcutaneous 2 times a day January 14, 2014 8 units in am & 30 units in pm Victoza [facility] [address]-92 18 MG/3ML Subcutaneous Once a day 1.8 mg Results No Known Results Summary Purpose eClinicalWorks Submission
--- OUTSIDE RECORDS SUMMARY | 2017-02-24 02:29 | XMS REPORT ---
Author Author SHERON WYNN Organization [employer] Address Unknown Phone Unavailable Care Team Providers Care Superintendent Stevedoring Name Role Phone SHERON WYNN CP Unavailable Allergies, Adverse Reactions, Alerts Substance Reaction Event Type SulfADIAZINE hives Drug Allergy Dilantin hives Drug Allergy Problems Problem Type Condition Code Onset Dates Condition Status Problem Polyneuropathy in diabetes 357.2 Active Problem Unspecified ganglion 727.43 Active Problem Headache 784.0 Active Problem Essential hypertension I10 Active Problem Epilepsy without status epilepticus, not intractable, unspecified G40.909 Active Problem Type 2 diabetes mellitus with diabetic neuropathy E11.40 Active Problem Unspecified epilepsy without mention of intractable epilepsy 345.90 Active Problem Renal and perinephric abscess 590.2 Active Problem Unspecified essential hypertension 401.9 Active Problem Syncope and collapse 780.2 Active Assessment Type 2 diabetes mellitus with diabetic neuropathy E11.40 Active Assessment Foot pain, left M79.672 Active Problem Thoracic or lumbosacral neuritis or radiculitis, unspecified 724.4 Active Medications Medication Code System Code Instructions Start Date End Date Status Dosage Keppra [facility] [address]-88 500 mg Jun 15, 2014 1 tablet by Oral route 2 times per day Gabapentin [facility] [address]-80 400 mg September 22, 2014 take 1 capsule by Oral route 3 times per day Fish Oil Concentrate [facility] [address]44-38549 1000 mg Jul 24, 2012 1 Capsule by Oral route 1 time per day Ibuprofen [facility] [address]-65 800 MG Orally Three times a day Feb 24, 2015 1 tablet Levemir [facility] [address]-17 100 UNIT/ML Subcutaneous 2 times a day January 14, 2014 15 units in am & 30 units in pm hydrochlorothiazide-lisinopril [facility] 0 20-12.5 mg orally Once a day Aug 25, 2014 take 1 tablet Pen [place] [facility] [address]-16 31G X 6 MM subcut Once a day Apr 06, 2015 inject Vytorin [facility] [address]-18 10-40 mg 1 tab(s) orally once a day Jun 15, 2014 1 tablet by Oral route 1 time per day Victoza [facility] [address]-75 18 MG/3ML Subcutaneous Once a day 1.8 mg Janumet [facility] [address]-50 50-1,000 mg Jun 15, 2014 1 tablet by Oral route 2 times per day metformin [place] 0 500 mg Aug 25, 2014 take 1 tablet by Oral route 1 time per day Procedures Procedure Coding System Code Date Office Visit, Est Pt., Level 3 CPT-4 43045 May 18, 2015 Vital Signs Date/Time: May 18, 2015 Temperature 97.8 F Weight 200 lbs Height 62 in BMI 36.58 Index Blood Pressure Diastolic 68 mmHg Blood Pressure Systolic 124 mmHg Cardiac Monitoring Heart Rate 68 bpm Results No Known Results Summary Purpose eClinicalWorks Submission
--- OUTSIDE RECORDS SUMMARY | 2017-02-24 02:29 | XMS REPORT ---
Author Author SHERON WYNN Organization [employer] Address Unknown Phone Unavailable Care Team Providers Care Audio Production Instructor Name Role Phone SHERON WYNN CP Unavailable [...] Active Problem Essential hypertension I10 Active Medications Medication Code System Code Instructions Start Date End Date Status Dosage Hydrocodone-Acetaminophen [facility] [address]-23 5-325 MG Orally every 4 hrs January 26, 2016 1 tablet as needed Results No Known Results Summary Purpose eClinicalWorks Submission
--- OUTSIDE RECORDS SUMMARY | 2017-02-24 02:29 | XMS REPORT ---
Author Author SHERON WYNN Organization e[employer] Address Unknown Phone Unavailable Care Team Providers Care Wool Broker Name Role Phone SHERON WYNN CP Unavailable [...] Problem Syncope and collapse 780.2 Active Assessment Essential hypertension I10 Active Assessment Left foot pain M79.672 Active Assessment Type 2 diabetes mellitus with diabetic neuropathy E11.40 Active Assessment Epilepsy without status epilepticus, not intractable, unspecified G40.909 Active Problem Thoracic or lumbosacral neuritis or radiculitis, unspecified 724.4 Active Medications Medication Code System Code Instructions Start Date End Date Status Dosage Victoza [facility] [address]-10 18 MG/3ML Subcutaneous Once a day 1.8 mg Levemir [facility] [address]-84 100 UNIT/ML Subcutaneous 2 times a day January 14, 2014 15 units in am & 30 units in pm hydrochlorothiazide-lisinopril [facility] 0 20-12.5 mg orally Once a day Aug 25, 2014 take 1 tablet Fish Oil Concentrate [facility] [address]93 1000 mg Jul 24, 2012 1 Capsule by Oral route 1 time per day Pen [place] [facility] [address]-59 31G X 6 MM subcut Once a day Apr 06, 2015 inject Janumet [facility] [address]-59 50-1,000 mg Jun 15, 2014 1 tablet by Oral route 2 times per day Keppra [facility] [address]-30 500 mg Jun 15, 2014 1 tablet by Oral route 2 times per day Ibuprofen [facility] [address]-58 800 MG Orally Three times a day Feb 24, 2015 1 tablet Vytorin [facility] [address]-67 10-40 mg 1 tab(s) orally once a day Jun 15, 2014 1 tablet by Oral route 1 time per day Procedures Procedure Coding System Code Date GLYCATED HEMOGLOBIN TEST CPT-4 92339 Apr 19, 2015 Office Visit, Est Pt., Level 3 CPT-4 31284 Apr 19, 2015 Vital Signs Date/Time: Apr 19, 2015 Temperature 98 F Weight 203 lbs Height 62 in BMI 37.13 Index Blood Pressure Diastolic 70 mmHg Blood Pressure Systolic 140 mmHg Cardiac Monitoring Heart Rate 74 bpm Results Name Result Date Reference Range Unit Abnormality Flag A1C (IN HOUSE) Summary Purpose eClinicalWorks Submission
--- OUTSIDE RECORDS SUMMARY | 2017-02-24 02:29 | XMS REPORT ---
Author Author SHERON WYNN Organization eClinicalWorks Address Unknown Phone Unavailable Care Team Providers Care Crimper Assembler Name Role Phone SHERON WYNN CP Unavailable [...] Start Date End Date Status Dosage Pen [place] [facility] [address]-65 31G X 6 MM subcut Once a day Apr 06, 2015 inject Levemir [facility] [address]-11 100 UNIT/ML Subcutaneous 2 times a day January 14, 2014 8 units in am & 30 units in pm Victoza [facility] [address]-46 18 MG/3ML Subcutaneous Once a day 1.8 mg Results No Known Results Summary Purpose eClinicalWorks Submission
--- OUTSIDE RECORDS SUMMARY | 2017-02-24 02:29 | XMS REPORT ---
Author Author SHERON WYNN Organization [employer] Address Unknown Phone Unavailable Care Team Providers Care Real Estate Processor Name Role Phone SHERON WYNN CP Unavailable Allergies No Known Allergies Problems Problem Type Condition Code Onset Dates Condition Status Problem Polyneuropathy in diabetes 357.2 Active Problem Unspecified ganglion 727.43 Active Problem Headache 784.0 Active Problem Thoracic [...] collapse 780.2 Active Medications No Known Medications Results No Known Results Summary Purpose eClinicalWorks Submission
--- OUTSIDE RECORDS SUMMARY | 2017-02-24 02:30 | XMS REPORT ---
Author Author SHERON WYNN [facility] eClinicalWorks Address Unknown Phone Unavailable Care Team Providers Care Line Cleaner Name Role Phone SHERON WYNN CP Unavailable Allergies, Adverse Reactions, Alerts Substance Reaction Event Type SulfADIAZINE hives Drug Allergy Dilantin hives Drug Allergy Problems Problem Type Condition Code Onset Dates Condition Status Problem Unspecified epilepsy without mention of intractable epilepsy 345.90 Active Problem Unspecified essential hypertension 401.9 Active Problem Syncope and collapse 780.2 Active Problem Abdominal pain, unspecified abdominal location R10.9 Active Problem Sciatica, right M54.31 Active Problem Diverticulosis of large intestine without hemorrhage K57.30 Active Problem Essential hypertension I10 Active Problem Epilepsy without status epilepticus, not intractable, unspecified G40.909 Active Problem Renal stone N20.0 Active Problem Type 2 diabetes mellitus with diabetic neuropathy E11.40 Active Problem Polyneuropathy in diabetes 357.2 Active Problem Headache 784.0 Active Assessment Diverticulosis of large intestine without hemorrhage K57.30 Active Problem Unspecified ganglion 727.43 Active Problem Thoracic or lumbosacral neuritis or radiculitis, unspecified 724.4 Active Problem Renal and perinephric abscess 590.2 Active Medications Medication Code System Code Instructions Start Date End Date Status Dosage Keppra [facility] [address]-65 500 MG Orally 2 times a day Jun 15, 2014 1 tablet Metronidazole [facility] [address]-77 500 MG Orally Twice a day November 07, 2015 November 17, 2015 1 tablet Fish Oil Concentrate [facility] [address]-93622 1000 mg Jul 24, 2012 1 Capsule by Oral route 1 time per day Vytorin [facility] [address]-37 10-40 MG Orally Once a day Jun 15, 2014 1 tablet Victoza [facility] [address]-02 18 MG/3ML Subcutaneous Once a day 1.8 mg Levemir [facility] [address]-52 100 UNIT/ML Subcutaneous 2 times a day January 14, 2014 18 units in am & 30 units in pm Lisinopril [facility] [address]-37 20 MG Orally Once a day September 08, 2015 1 tablet Mobic [facility] [address]-41 15 MG Orally Once a day September 22, 2014 1 tablet Cipro [facility] [address]-21 500 MG Orally Twice a day November 07, 2015 November 17, 2015 1 tablet Flexeril N[facility] 0 10 mg September 22, 2014 1 tablet by Oral route 3 times per day PRN muscle spasm Janumet [facility] [address]-04 50-1,000 mg Orally Twice a day Jun 15, 2014 1 tablet Omeprazole [facility] [address]-80 20 mg Orally 2 times a day Aug 25, 2014 take 1 capsule (20 mg) by oral route once daily before a meal Gabapentin [facility] [address]-87 300 MG Orally 3 times a day September 22, 2014 one tablet Hydrochlorothiazide [facility] [address]-71 12.5 MG Orally Once a day September 08, 2015 1 capsule Dicyclomine HCl [facility] [address]-15 20 MG Orally Four times a day September 08, 2015 1 tablet before meals and hs amitriptyline [facility] [address]-24 25 mg Aug 25, 2014 1 tablet by Oral route 1 time per day take 1-2 hr before bed Tamsulosin HCl [facility] [address]-57 0.4 MG Orally Once a day Jul 05, 2015 1 capsule 30 minutes after the same meal each day hydrochlorothiazide-lisinopril [facility] 0 20-12.5 mg orally Once a day Aug 25, 2014 take 1 tablet Pen [place] [facility] [address]-43 31G X 6 MM subcut Once a day Apr 06, 2015 inject Procedures Procedure Coding System Code Date Office Visit, Est Pt., Level 3 CPT-4 12690 November 07, 2015 Vital Signs Date/Time: November 07, 2015 Temperature 97.9 F Weight 201.0 lbs Height 62 in BMI 36.76 Index Blood Pressure Diastolic 80 mmHg Blood Pressure Systolic 130 mmHg Cardiac Monitoring Heart Rate 94 bpm Results No Known Results Summary Purpose eClinicalWorks Submission
--- OUTSIDE RECORDS SUMMARY | 2017-02-24 02:30 | XMS REPORT ---
Author Author SHERON WYNN [facility] [employer] Address Unknown Phone Unavailable Care Team Providers Care [employer] Name Role Phone SHERON WYNN CP Unavailable Allergies, Adverse Reactions, Alerts Substance Reaction Event Type SulfADIAZINE hives Drug Allergy Dilantin hives Drug Allergy Problems Problem Type Condition Code Onset Dates Condition Status Problem Polyneuropathy in diabetes 357.2 Active Problem Unspecified ganglion 727.43 Active Problem Headache 784.0 Active Assessment Renal and perinephric abscess 590.2 Active Problem Thoracic or lumbosacral neuritis or [...] Problem Syncope and collapse 780.2 Active Medications Medication Code System Code Instructions Start Date End Date Status Dosage Vytorin [facility] [address]-59 10-40 mg 1 tab(s) orally once a day Jun 15, 2014 1 tablet by Oral route 1 time per day Levaquin [facility] [address]-70 500 MG Orally Once a day [address] [facility] [address]-57 18 MG/3ML Subcutaneous Once a day 1.[address] [facility] [address]-05 100 UNIT/ML Subcutaneous 2 times a day January 14, 2014 15 units in am & 30 units in pm Ibuprofen [facility] [address]-99 800 MG Orally Three times a day Feb 24, [address] [facility] [address]-56 400 mg September 22, 2014 take 1 capsule by Oral route 3 times per day Keppra [facility] [address]-18 500 mg Jun 15, 2014 1 tablet by Oral route 2 times per day Pen Collison [facility] [address]-25 31G X 6 MM subcut Once a day Apr 06, [place] [address]-85 50-1,000 mg Jun 15, 2014 1 tablet by Oral route 2 times per day metformin NDC 0 500 mg Aug 25, 2014 take 1 tablet by Oral route 1 time per day hydrochlorothiazide-lisinopril NDC 0 20-12.5 mg orally Once a day Aug 25, 2014 take [place] [address] 1000 mg Jul 24, 2012 1 Capsule by Oral route 1 time per day Procedures Procedure Coding System Code Date URINALYSIS, AUTO, W/O SCOPE CPT-4 40435 Jun 21, 2015 Office Visit, Est Pt., Level 3 CPT-4 39230 Jun 21, 2015 Vital Signs Date/Time: Jun 21, 2015 Temperature 98.1 F Weight 203.1 lbs Height 62 in BMI 37.14 Index Blood Pressure Diastolic 72 mmHg Blood Pressure Systolic 130 mmHg Cardiac Monitoring Heart Rate 74 bpm Results Name Result Date Reference Range Unit Abnormality Flag UA LONG DIP (IN HOUSE) ----pH 5.0 20150621 ----BLO trace-lysed 20150621 ----SG 1.020 [id number] ----KET neg [id number] ----SUZANNE neg [id number] ----URO 0.2 [id number] ----Protein neg [id number] ----LAURYN neg [id number] ----NIT neg [id number] ----Clarity clear [id number] ----Color yellow [id number] ----Odor no [id number] ----GLU 1+ [id number] Summary Purpose [employer]ClinicalWorks Submission
--- OUTSIDE RECORDS SUMMARY | 2017-02-24 02:33 | XMS REPORT | Continuity of Care Document ---
Author Author [facility] Address Unknown Phone Unavailable Allergies Active Description Code Type Severity Reaction Onset Reported/Identified Relationship to Patient Clinical Status Yes Dilantin Drug Allergy 02/19/2011 Yes Dilantin Drug Allergy N/A N/A 02/19/2011 Yes sulfa drug Drug Allergy 02/19/2011 Yes phenytoin sodium [id number] Drug Allergy Unknown N/A 08/09/2015 Yes Phenytoin Sodium Extended [id number] Drug Allergy Unknown N /A 08/09/2015 Yes SULFA SULFA Unknown N/A 08/09/2015 Yes Sulfa (Sulfonamide Antibiotics) [id number] Drug Allergy Unknown N/A 01/02/2016 Medications Problems Date Dx Coded Attending Type Code Diagnosis Diagnosed By 03/18/2008 TAYLA ALONSO MD 250.00 DIABETES MELLITUS TYPE 2 03/18/2008 TAYLA ALONSO MD 250.80 HYPOGLY DIABETES UNSP 03/18/2008 TAYLA ALONSO MD 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 03/18/2008 250.00 DIABETES MELLITUS TYPE 2 03/18/2008 250.80 HYPOGLY DIABETES UNSP 03/18/2008 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 03/18/2008 TAYLA ALONSO MD 250.00 DIABETES MELLITUS TYPE 2 03/18/2008 TAYLA ALONSO MD 250.80 HYPOGLY DIABETES UNSP 03/18/2008 TAYLA ALONSO MD 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 03/18/2008 250.00 DIABETES MELLITUS TYPE 2 03/18/2008 250.80 HYPOGLY DIABETES UNSP 03/18/2008 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 03/18/2008 TAYLA ALONSO MD 250.00 DIABETES MELLITUS TYPE 2 03/18/2008 TAYLA ALONSO MD 250.80 HYPOGLY DIABETES UNSP 03/18/2008 TAYLA ALONSO MD 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 03/18/2008 250.00 DIABETES MELLITUS TYPE 2 03/18/2008 250.80 HYPOGLY DIABETES UNSP 03/18/2008 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 03/18/2008 250.00 DIABETES MELLITUS TYPE 2 03/18/2008 250.80 HYPOGLY DIABETES UNSP 03/18/2008 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 03/18/2008 ALCAZAR DO, MIKE K 250.00 DIABETES MELLITUS TYPE 2 03/18/2008 ALCAZAR DO, MIKE K 250.80 HYPOGLY DIABETES UNSP 03/18/2008 ALCAZAR DO, MIKE K 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 03/18/2008 ALCAZAR DO, MIKE K 250.00 DIABETES MELLITUS TYPE 2 03/18/2008 ALCAZAR DO, MIKE K 250.80 HYPOGLY DIABETES UNSP 03/18/2008 ALCAZAR DO, MIKE K 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 03/18/2008 ALCAZAR DO, MIKE K 250.00 DIABETES MELLITUS TYPE 2 03/18/2008 ALCAZAR DO, MIKE K 250.80 HYPOGLY DIABETES UNSP 03/18/2008 ALCAZAR DO, MIKE K 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 03/18/2008 ALCAZAR DO, MIKE K 250.00 DIABETES MELLITUS TYPE 2 03/18/2008 ALCAZAR DO, MIKE K 250.80 HYPOGLY DIABETES UNSP 03/18/2008 ALCAZAR DO, MIKE K 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 03/18/2008 SHERON WYNN APRN R 250.00 DIABETES MELLITUS TYPE 2 03/18/2008 SHERON WYNN APRN R 250.80 HYPOGLY DIABETES UNSP 03/18/2008 SHERON WYNN APRN R 789.00 COLI INFANTILE 03/18/2008 SHERON WYNN APRN R 250.00 DIABETES MELLITUS TYPE 2 03/18/2008 SHERON WYNN APRN R 250.80 HYPOGLY DIABETES UNSP 03/18/2008 SHERON WYNN APRN R 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 03/18/2008 WYNN SHERON BRUNSON R 250.00 DIABETES MELLITUS TYPE 2 03/18/2008 WYNN SHERON BRUNSON R 250.80 HYPOGLY DIABETES UNSP 03/18/2008 WYNN SHERON BRUNSON R 789.00 COLI INFANTILE 03/18/2008 ALCAZAR DO, MIKE K 250.00 DIABETES MELLITUS TYPE 2 03/18/2008 ALCAZAR DO, MIKE K 250.80 HYPOGLY DIABETES UNSP 03/18/2008 ALCAZAR DO, MIKE K 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 03/18/2008 WYNN BOY SHERON R 250.00 DIABETES MELLITUS TYPE 2 03/18/2008 TIANNA SHERON BRUNSON R 250.80 HYPOGLY DIABETES UNSP 03/18/2008 TIANNA LONGSHERON Rock 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 03/18/2008 TIANNA SHERON BRUNSON R 250.00 DIABETES MELLITUS TYPE 2 03/18/2008 TIANNA LONGSHERON Rock R 250.80 HYPOGLY DIABETES UNSP 03/18/2008 TIANNA SHERON BRUNSON 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 03/18/2008 ALCAZAR DO, MIKE K 250.00 DIABETES MELLITUS TYPE 2 03/18/2008 ALCAZAR DO, MIKE K 250.80 HYPOGLY DIABETES UNSP 03/18/2008 ALCAZAR DO, MIKE K 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 03/18/2008 ALCAZAR DO, MIKE K 250.00 DIABETES MELLITUS TYPE 2 03/18/2008 ALCAZAR DO, MIKE K 250.80 HYPOGLY DIABETES UNSP 03/18/2008 ALCAZAR DO, MIKE K 789.00 COLI INFANTILE 03/18/2008 TIANNA LONGSHERON Rock R 250.00 DIABETES MELLITUS TYPE 2 03/18/2008 TIANNA LONGSHERON Rock R 250.80 HYPOGLY DIABETES UNSP 03/18/2008 TIANNA LONGSHERON Rock R 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 03/18/2008 ALCAZAR DO, MIKE K 250.00 DIABETES MELLITUS TYPE 2 03/18/2008 ALCAZAR DO, MIKE K 250.80 HYPOGLY DIABETES UNSP 03/18/2008 ALCAZAR DO, MIKE K 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 03/18/2008 ALCAZAR DO, MIKE K 250.00 DIABETES MELLITUS TYPE 2 03/18/2008 ALCAZAR DO, MIKE K 250.80 HYPOGLY DIABETES UNSP 03/18/2008 ALCAZAR DO, MIKE K 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 03/18/2008 ALCAZAR DO, MIKE K 250.00 DIABETES MELLITUS TYPE 2 03/18/2008 ALCAZAR DO, MIKE K 250.80 HYPOGLY DIABETES UNSP 03/18/2008 ALCAZAR DO, MIKE K 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 03/18/2008 ALCAZAR DO, MIKE K 250.00 DIABETES MELLITUS TYPE 2 03/18/2008 ALCAZAR DO, MIKE K 250.80 HYPOGLY DIABETES UNSP 03/18/2008 ALCAZAR DO, MIKE K 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 03/18/2008 TIANNA LONGSHERON Rock R 250.00 DIABETES MELLITUS TYPE 2 03/18/2008 TIANNA BRUNSONSHERON R 250.80 HYPOGLY DIABETES UNSP 03/18/2008 TIANNA LONGSHERON Rock R 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 03/18/2008 TIANNA LONGSHERON Rock R 250.00 DIABETES MELLITUS TYPE 2 03/18/2008 TIANNA BRUNSONSHERON R 250.80 HYPOGLY DIABETES UNSP 03/18/2008 TIANNA LONGSHERON Rock R 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 03/18/2008 ALCAZAR DO, MIKE K 250.00 DIABETES MELLITUS TYPE 2 03/18/2008 ALCAZAR DO, MIKE K 250.80 HYPOGLY DIABETES UNSP 03/18/2008 ALCAZAR DO, MIKE K 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 06/25/2008 TAYLA ALONSO MD 401.1 ESSENTIAL HYPERTENSION BENIGN 06/25/2008 TAYLA ALONSO MD 788.41 URINARY FREQUENCY 06/25/2008 TAYLA ALONSO MD 788.43 NOCTURIA 06/25/2008 TAYLA ALONSO MD 788.63 URINARY URGENCY 06/25/2008 401.1 ESSENTIAL HYPERTENSION BENIGN 06/25/2008 788.41 URINARY FREQUENCY 06/25/2008 788.43 NOCTURIA 06/25/2008 788.63 URINARY URGENCY 06/25/2008 TAYLA ALONSO MD 401.1 ESSENTIAL HYPERTENSION BENIGN 06/25/2008 TAYLA ALONSO MD 788.41 URINARY FREQUENCY 06/25/2008 TAYLA ALONSO MD 788.43 NOCTURIA 06/25/2008 TAYLA ALONSO MD 788.63 URINARY URGENCY 06/25/2008 401.1 ESSENTIAL HYPERTENSION BENIGN 06/25/2008 788.41 URINARY FREQUENCY 06/25/2008 788.43 NOCTURIA 06/25/2008 788.63 URINARY URGENCY 06/25/2008 TAYLA ALONSO MD 401.1 ESSENTIAL HYPERTENSION BENIGN 06/25/2008 TAYLA ALONSO MD 788.41 URINARY FREQUENCY 06/25/2008 TAYLA ALONSO MD 788.43 NOCTURIA 06/25/2008 TAYLA ALONSO MD 788.63 URINARY URGENCY 06/25/2008 401.1 ESSENTIAL HYPERTENSION BENIGN 06/25/2008 788.41 URINARY FREQUENCY 06/25/2008 788.43 NOCTURIA 06/25/2008 788.63 URINARY URGENCY 06/25/2008 401.1 ESSENTIAL HYPERTENSION BENIGN 06/25/2008 788.41 URINARY FREQUENCY 06/25/2008 788.43 NOCTURIA 06/25/2008 788.63 URINARY URGENCY 06/25/2008 ALCAZAR DO, MIKE K 401.1 ESSENTIAL HYPERTENSION BENIGN 06/25/2008 ALCAZRA DO, MIKE K 788.41 URINARY FREQUENCY 06/25/2008 ALCAZAR DO, MIKE K 788.43 NOCTURIA 06/25/2008 ALCAZAR DO, MIKE K 788.63 URINARY URGENCY 06/25/2008 ALCAZAR DO, MIKE K 401.1 ESSENTIAL HYPERTENSION BENIGN 06/25/2008 ALCAZAR DO, MIKE K 788.41 URINARY FREQUENCY 06/25/2008 ALCAZAR DO, MIKE K 788.43 NOCTURIA 06/25/2008 ALCAZAR DO, MIKE K 788.63 URINARY URGENCY 06/25/2008 ALCAZAR DO, MIKE K 401.1 ESSENTIAL HYPERTENSION BENIGN 06/25/2008 ALCAZAR DO, MIKE K 788.41 URINARY FREQUENCY 06/25/2008 ALCAZAR DO, MIKE K 788.43 NOCTURIA 06/25/2008 ALCAZAR DO, MIKE K 788.63 URINARY URGENCY 06/25/2008 ALCAZAR DO, MIKE K 401.1 ESSENTIAL HYPERTENSION BENIGN 06/25/2008 ALCAZAR DO, MIKE K 788.41 URINARY FREQUENCY 06/25/2008 ALCAZAR DO, MIKE K 788.43 NOCTURIA 06/25/2008 ALCAZAR DO, MIKE K 788.63 URINARY URGENCY 06/25/2008 SHERON WYNN APRN R 401.1 ESSENTIAL HYPERTENSION BENIGN 06/25/2008 YWNNSHERON ARCHER APRN R 788.41 URINARY FREQUENCY 06/25/2008 WYNNSHERON ARCHER APRN R 788.43 NOCTURIA 06/25/2008 SHERON WYNN APRN R 788.63 URINARY URGENCY 06/25/2008 SHERON WYNN APRN R 401.1 ESSENTIAL HYPERTENSION BENIGN 06/25/2008 SHERON WYNN APRN R 788.41 URINARY FREQUENCY 06/25/2008 SHERON WYNN APRN R 788.43 NOCTURIA 06/25/2008 SHERON WYNN APRN R 788.63 URINARY URGENCY 06/25/2008 SHERON WYNN APRN R 401.1 ESSENTIAL HYPERTENSION BENIGN 06/25/2008 SHERON WYNN APRN R 788.41 URINARY FREQUENCY 06/25/2008 WYNN SHERON BRUNSON R 788.43 NOCTURIA 06/25/2008 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, SHERON R 788.63 URINARY URGENCY 06/25/2008 ALCAZAR DO, MKIE K 401.1 ESSENTIAL HYPERTENSION BENIGN 06/25/2008 ALCAZAR DO, MIKE K 788.41 URINARY FREQUENCY 06/25/2008 ALCAZAR DO, MIKE K 788.43 NOCTURIA 06/25/2008 ALCAZAR DO, MIKE K 788.63 URINARY URGENCY 06/25/2008 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 SHERON R 401.1 ESSENTIAL HYPERTENSION BENIGN 06/25/2008 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, SHERON R 788.41 URINARY FREQUENCY 06/25/2008 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, SHERON R 788.43 NOCTURIA 06/25/2008 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, SHERON R 788.63 URINARY URGENCY 06/25/2008 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, SHERON R 401.1 ESSENTIAL HYPERTENSION BENIGN 06/25/2008 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SHERON R 788.41 URINARY FREQUENCY 06/25/2008 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SHERON R 788.43 NOCTURIA 06/25/2008 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SHERON R 788.63 URINARY URGENCY 06/25/2008 ALCAZAR DO, MIKE K 401.1 ESSENTIAL HYPERTENSION BENIGN 06/25/2008 ALCAZAR DO, MIKE K 788.41 URINARY FREQUENCY 06/25/2008 ALCAZAR DO, MIKE K 788.43 NOCTURIA 06/25/2008 ALCAZAR DO, MIKE K 788.63 URINARY URGENCY 06/25/2008 ALCAZAR DO, MIKE K 401.1 ESSENTIAL HYPERTENSION BENIGN 06/25/2008 ALCAZAR DO, MIKE K 788.41 URINARY FREQUENCY 06/25/2008 ALCAZAR DO, MIKE K 788.43 NOCTURIA 06/25/2008 ALCAZAR DO, MIKE K 788.63 URINARY URGENCY 06/25/2008 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, SHERON R 401.1 ESSENTIAL HYPERTENSION BENIGN 06/25/2008 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SHERON R 788.41 URINARY FREQUENCY 06/25/2008 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SHERON R 788.43 NOCTURIA 06/25/2008 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, SHERON R 788.63 URINARY URGENCY 06/25/2008 ALCAZAR DO, MIKE K 401.1 ESSENTIAL HYPERTENSION BENIGN 06/25/2008 ALCAZAR DO, MIKE K 788.41 URINARY FREQUENCY 06/25/2008 ALCAZAR DO, MIKE K 788.43 NOCTURIA 06/25/2008 ALCAZAR DO, MIKE K 788.63 URINARY URGENCY 06/25/2008 ALCAZAR DO, MIKE K 401.1 ESSENTIAL HYPERTENSION BENIGN 06/25/2008 ALCAZAR DO, MIKE K 788.41 URINARY FREQUENCY 06/25/2008 ALCAZAR DO, MIKE K 788.43 NOCTURIA 06/25/2008 ALCAZAR DO, MIKE K 788.63 URINARY URGENCY 06/25/2008 ALCAZAR DO, MIKE K 401.1 ESSENTIAL HYPERTENSION BENIGN 06/25/2008 ALCAZAR DO, MIKE K 788.41 URINARY FREQUENCY 06/25/2008 ALCAZAR DO, MIKE K 788.43 NOCTURIA 06/25/2008 ALCAZAR DO, MIKE K 788.63 URINARY URGENCY 06/25/2008 ALCAZAR DO, MIKE K 401.1 ESSENTIAL HYPERTENSION BENIGN 06/25/2008 ALCAZAR DO, MIKE K 788.41 URINARY FREQUENCY 06/25/2008 ALCAZAR DO, MIKE K 788.43 NOCTURIA 06/25/2008 ALCAZAR DO, MIKE K 788.63 URINARY URGENCY 06/25/2008 SHERON WYNN APRN R 401.1 ESSENTIAL HYPERTENSION BENIGN 06/25/2008 SHERON WYNN APRN R 788.41 URINARY FREQUENCY 06/25/2008 SHERON WYNN APRN R 788.43 NOCTURIA 06/25/2008 SHERON WYNN APRN R 788.63 URINARY URGENCY 06/25/2008 SHERON WYNN APRN R 401.1 ESSENTIAL HYPERTENSION BENIGN 06/25/2008 SHERON WYNN APRN R 788.41 URINARY FREQUENCY 06/25/2008 SHERON WYNN APRN R 788.43 NOCTURIA 06/25/2008 SHERON WYNN APRN R 788.63 URINARY URGENCY 06/25/2008 ALCAZAR DO, MIKE K 401.1 ESSENTIAL HYPERTENSION BENIGN 06/25/2008 ALCAZAR DO, MIKE K 788.41 URINARY FREQUENCY 06/25/2008 ALCAZAR DO, MIKE K 788.43 NOCTURIA 06/25/2008 ALCAZAR DO, MIKE K 788.63 URINARY URGENCY 02/02/2011 Ot 571.8 CHRONIC LIVER DIS NEC 02/02/2011 Ot 789.00 ABDOMINAL PAIN, UNSPECIFIED SITE 02/19/2011 CELESTE SNOW, TAYLA 250.02 DIABETES MELLITUS TYPE 2 - UNCOMPLICATED, UNCONTROLLED 02/19/2011 TAYLA ALONSO MD 535.50 GASTRITIS UNSPEC 02/19/2011 TAYLA ALONSO MD 574.20 CALCULUS OF GALLBLADDER WITHOUT CHOLECYSTITIS WITHOUT OBSTRUCTION 02/19/2011 TAYLA ALONSO MD 787.1 HEARTBURN 02/19/2011 250.02 DIABETES MELLITUS TYPE 2 - UNCOMPLICATED, UNCONTROLLED 02/19/2011 535.50 GASTRITIS UNSPEC 02/19/2011 574.20 CALCULUS OF GALLBLADDER WITHOUT CHOLECYSTITIS WITHOUT OBSTRUCTION 02/19/2011 787.1 HEARTBURN 02/19/2011 TAYLA ALONSO MD 250.02 DIABETES MELLITUS TYPE 2 - UNCOMPLICATED, UNCONTROLLED 02/19/2011 TAYLA ALONSO MD 535.50 GASTRITIS UNSPEC 02/19/2011 TAYLA ALOSNO MD 574.20 CALCULUS OF GALLBLADDER WITHOUT CHOLECYSTITIS WITHOUT OBSTRUCTION 02/19/2011 TAYLA ALONSO MD 787.1 HEARTBURN 02/19/2011 250.02 DIABETES MELLITUS TYPE 2 - UNCOMPLICATED, UNCONTROLLED 02/19/2011 535.50 GASTRITIS UNSPEC 02/19/2011 574.20 CALCULUS OF GALLBLADDER WITHOUT CHOLECYSTITIS WITHOUT OBSTRUCTION 02/19/2011 787.1 HEARTBURN 02/19/2011 TAYLA ALONSO MD 250.02 DIABETES MELLITUS TYPE 2 - UNCOMPLICATED, UNCONTROLLED 02/19/2011 TAYLA ALONSO MD 535.50 GASTRITIS UNSPEC 02/19/2011 TAYLA ALONSO MD 574.20 CALCULUS OF GALLBLADDER WITHOUT CHOLECYSTITIS WITHOUT OBSTRUCTION 02/19/2011 TAYLA ALONSO MD 787.1 HEARTBURN 02/19/2011 250.02 DIABETES MELLITUS TYPE 2 - UNCOMPLICATED, UNCONTROLLED 02/19/2011 535.50 GASTRITIS UNSPEC 02/19/2011 574.20 CALCULUS OF GALLBLADDER WITHOUT CHOLECYSTITIS WITHOUT OBSTRUCTION 02/19/2011 787.1 HEARTBURN 02/19/2011 250.02 DIABETES MELLITUS TYPE 2 - UNCOMPLICATED, UNCONTROLLED 02/19/2011 535.50 GASTRITIS UNSPEC 02/19/2011 574.20 CALCULUS OF GALLBLADDER WITHOUT CHOLECYSTITIS WITHOUT OBSTRUCTION 02/19/2011 787.1 HEARTBURN 02/19/2011 MIKE ALCAZAR DO 250.02 DIABETES MELLITUS TYPE 2 - UNCOMPLICATED, UNCONTROLLED 02/19/2011 MIKE ALCAZAR DO 535.50 GASTRITIS UNSPEC 02/19/2011 MIKE ALCAZAR DO 574.20 CALCULUS OF GALLBLADDER WITHOUT CHOLECYSTITIS WITHOUT OBSTRUCTION 02/19/2011 ALCAZAR DO, MIKE K 787.1 HEARTBURN 02/19/2011 ALCAZAR DO, MIKE K 250.02 DIABETES MELLITUS TYPE 2 - UNCOMPLICATED, UNCONTROLLED 02/19/2011 ALCAZAR DO, MIKE K 535.50 GASTRITIS UNSPEC 02/19/2011 ALCAZAR DO, MIKE K 574.20 CALCULUS OF GALLBLADDER WITHOUT CHOLECYSTITIS WITHOUT OBSTRUCTION 02/19/2011 ALCAZAR DO, MIKE K 787.1 HEARTBURN 02/19/2011 ALCAZAR DO, MIKE K 250.02 DIABETES MELLITUS TYPE 2 - UNCOMPLICATED, UNCONTROLLED 02/19/2011 ALCAZAR DO, MIKE K 535.50 GASTRITIS UNSPEC 02/19/2011 ALCAZAR DO, MIKE K 574.20 CALCULUS OF GALLBLADDER WITHOUT CHOLECYSTITIS WITHOUT OBSTRUCTION 02/19/2011 ALCAZAR DO, MIKE K 787.1 HEARTBURN 02/19/2011 ALCAZAR DO, MIKE K 250.02 DIABETES MELLITUS TYPE 2 - UNCOMPLICATED, UNCONTROLLED 02/19/2011 ALCAZAR DO, MIKE K 535.50 GASTRITIS UNSPEC 02/19/2011 ALCAZAR DO, MIKE K 574.20 CALCULUS OF GALLBLADDER WITHOUT CHOLECYSTITIS WITHOUT OBSTRUCTION 02/19/2011 OTTONIEL OCAMPO, MIKE K 787.1 HEARTBURN 02/19/2011 SHERON WYNN APRN R 250.02 DIABETES MELLITUS TYPE 2 - UNCOMPLICATED, UNCONTROLLED 02/19/2011 WYNN SHERON BRUNSON R 535.50 GASTRITIS UNSPEC 02/19/2011 WYNN SHERON BRUNSON R 574.20 CALCULUS OF GALLBLADDER WITHOUT CHOLECYSTITIS WITHOUT OBSTRUCTION 02/19/2011 WYNN SHERON BRUNSON R 787.1 HEARTBURN 02/19/2011 SHERON WYNN APRN R 250.02 DIABETES MELLITUS TYPE 2 - UNCOMPLICATED, UNCONTROLLED 02/19/2011 WYNN SHERON BRUNSON R 535.50 GASTRITIS UNSPEC 02/19/2011 WYNN SHERON BRUNSON R 574.20 CALCULUS OF GALLBLADDER WITHOUT CHOLECYSTITIS WITHOUT OBSTRUCTION 02/19/2011 WYNN SHERON BRUNSON R 787.1 HEARTBURN 02/19/2011 WYNN SHERON BRUNSON R 250.02 DIABETES MELLITUS TYPE 2 - UNCOMPLICATED, UNCONTROLLED 02/19/2011 WYNN SHERON BRUNSON R 535.50 GASTRITIS UNSPEC 02/19/2011 WYNN SHERON BRUNSON R 574.20 CALCULUS OF GALLBLADDER WITHOUT CHOLECYSTITIS WITHOUT OBSTRUCTION 02/19/2011 WYNN SHERON BRUNSON R 787.1 HEARTBURN 02/19/2011 ALCAZAR DO, MIKE K 250.02 DIABETES MELLITUS TYPE 2 - UNCOMPLICATED, UNCONTROLLED 02/19/2011 ALCAZAR DO, MIKE K 535.50 GASTRITIS UNSPEC 02/19/2011 ALCAZAR DO, MIKE K 574.20 CALCULUS OF GALLBLADDER WITHOUT CHOLECYSTITIS WITHOUT OBSTRUCTION 02/19/2011 OTTONIEL OCAMPO MIKE K 787.1 HEARTBURN 02/19/2011 WYNN SHERON BRUNSON R 250.02 DIABETES MELLITUS TYPE 2 - UNCOMPLICATED, UNCONTROLLED 02/19/2011 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SHERON Rock R 535.50 GASTRITIS UNSPEC 02/19/2011 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, SHERON R 574.20 CALCULUS OF GALLBLADDER WITHOUT CHOLECYSTITIS WITHOUT OBSTRUCTION 02/19/2011 WYNN SHERON BRUNSON R 787.1 HEARTBURN 02/19/2011 WYNN SHERON BRUNSON R 250.02 DIABETES MELLITUS TYPE 2 - UNCOMPLICATED, UNCONTROLLED 02/19/2011 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SHERON Rock R 535.50 GASTRITIS UNSPEC 02/19/2011 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SHERON Rock R 574.20 CALCULUS OF GALLBLADDER WITHOUT CHOLECYSTITIS WITHOUT OBSTRUCTION 02/19/2011 WYNN SHERON BRUNSON R 787.1 HEARTBURN 02/19/2011 OTTONIEL OCAMPO, MIKE K 250.02 DIABETES MELLITUS TYPE 2 - UNCOMPLICATED, UNCONTROLLED 02/19/2011 ALCAZAR DO, MIKE K 535.50 GASTRITIS UNSPEC 02/19/2011 OTTONIEL OCAMPO, MIKE K 574.20 CALCULUS OF GALLBLADDER WITHOUT CHOLECYSTITIS WITHOUT OBSTRUCTION 02/19/2011 OTTONIEL OCAMPO MIKE K 787.1 HEARTBURN 02/19/2011 ALCAZAR DO MIKE K 250.02 DIABETES MELLITUS TYPE 2 - UNCOMPLICATED, UNCONTROLLED 02/19/2011 ALCAZAR DO, MIKE K 535.50 GASTRITIS UNSPEC 02/19/2011 ALCAZAR DO, MIKE K 574.20 CALCULUS OF GALLBLADDER WITHOUT CHOLECYSTITIS WITHOUT OBSTRUCTION 02/19/2011 OTTONIEL OCAMPO, MIKE K 787.1 HEARTBURN 02/19/2011 WYNN BOY SHERON R 250.02 DIABETES MELLITUS TYPE 2 - UNCOMPLICATED, UNCONTROLLED 02/19/2011 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, SHERON R 535.50 GASTRITIS UNSPEC 02/19/2011 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SHERON Rock R 574.20 CALCULUS OF GALLBLADDER WITHOUT CHOLECYSTITIS WITHOUT OBSTRUCTION 02/19/2011 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SHERON Rock R 787.1 HEARTBURN 02/19/2011 ALCAZAR DO, MIKE K 250.02 DIABETES MELLITUS TYPE 2 - UNCOMPLICATED, UNCONTROLLED 02/19/2011 ALCAZAR DO, MIKE K 535.50 GASTRITIS UNSPEC 02/19/2011 ALCAZAR DO, MIKE K 574.20 CALCULUS OF GALLBLADDER WITHOUT CHOLECYSTITIS WITHOUT OBSTRUCTION 02/19/2011 ALCAZAR DO, MIKE K 787.1 HEARTBURN 02/19/2011 ALCAZAR DO, MIKE K 250.02 DIABETES MELLITUS TYPE 2 - UNCOMPLICATED, UNCONTROLLED 02/19/2011 ALCAZAR DO, MIKE K 535.50 GASTRITIS UNSPEC 02/19/2011 ALCAZAR DO, MIKE K 574.20 CALCULUS OF GALLBLADDER WITHOUT CHOLECYSTITIS WITHOUT OBSTRUCTION 02/19/2011 ALCAZAR DO, MIKE K 787.1 HEARTBURN 02/19/2011 ALCAZAR DO, MIKE K 250.02 DIABETES MELLITUS TYPE 2 - UNCOMPLICATED, UNCONTROLLED 02/19/2011 ALCAZAR DO, MIKE K 535.50 GASTRITIS UNSPEC 02/19/2011 ALCAZAR DO, MIKE K 574.20 CALCULUS OF GALLBLADDER WITHOUT CHOLECYSTITIS WITHOUT OBSTRUCTION 02/19/2011 ALCAZAR DO MIKE K 787.1 HEARTBURN 02/19/2011 ALCAZAR DO, MIKE K 250.02 DIABETES MELLITUS TYPE 2 - UNCOMPLICATED, UNCONTROLLED 02/19/2011 ALCAZAR DO, MIKE K 535.50 GASTRITIS UNSPEC 02/19/2011 ALCAZAR DO, MIKE K 574.20 CALCULUS OF GALLBLADDER WITHOUT CHOLECYSTITIS WITHOUT OBSTRUCTION 02/19/2011 ALCAZAR DO MIKE K 787.1 HEARTBURN 02/19/2011 SHERON WYNN APRN R 250.02 DIABETES MELLITUS TYPE 2 - UNCOMPLICATED, UNCONTROLLED 02/19/2011 SHERON WYNN APRN 535.50 GASTRITIS UNSPEC 02/19/2011 SHERON WYNN APRN R 574.20 CALCULUS OF GALLBLADDER WITHOUT CHOLECYSTITIS WITHOUT OBSTRUCTION 02/19/2011 SHERON WYNN APRN R 787.1 HEARTBURN 02/19/2011 SHERON WYNN APRN 250.02 DIABETES MELLITUS TYPE 2 - UNCOMPLICATED, UNCONTROLLED 02/19/2011 SHERON WYNN APRN R 535.50 GASTRITIS UNSPEC 02/19/2011 SHERON WYNN APRN 574.20 CALCULUS OF GALLBLADDER WITHOUT CHOLECYSTITIS WITHOUT OBSTRUCTION 02/19/2011 SHERON WYNN APRN 787.1 HEARTBURN 02/19/2011 CHAYA ALCAZAR DOA K 250.02 DIABETES MELLITUS TYPE 2 - UNCOMPLICATED, UNCONTROLLED 02/19/2011 ALCAZAR DO, MIKE K 535.50 GASTRITIS UNSPEC 02/19/2011 ALCAZAR DO, MIKE K 574.20 CALCULUS OF GALLBLADDER WITHOUT CHOLECYSTITIS WITHOUT OBSTRUCTION 02/19/2011 ALCAZAR DO, MIKE K 787.1 HEARTBURN 03/06/2011 TAYLA ALONSO MD V67.9 UNSPECIFIED FOLLOW-UP EXAMINATION 03/06/2011 V67.9 UNSPECIFIED FOLLOW-UP EXAMINATION 03/06/2011 TAYLA ALONSO MD V67.9 UNSPECIFIED FOLLOW-UP EXAMINATION 03/06/2011 V67.9 UNSPECIFIED FOLLOW-UP EXAMINATION 03/06/2011 TAYLA ALONSO MD V67.9 UNSPECIFIED FOLLOW-UP EXAMINATION 03/06/2011 V67.9 UNSPECIFIED FOLLOW-UP EXAMINATION 03/06/2011 V67.9 UNSPECIFIED FOLLOW-UP EXAMINATION 03/06/2011 OTTONIEL DO, MIKE K V67.9 UNSPECIFIED FOLLOW-UP EXAMINATION 03/06/2011 ALCAZAR DO, MIKE K V67.9 UNSPECIFIED FOLLOW-UP EXAMINATION 03/06/2011 ALCAZAR DO, MIKE K V67.9 UNSPECIFIED FOLLOW-UP EXAMINATION 03/06/2011 ALCAZAR DO, MIKE K V67.9 UNSPECIFIED FOLLOW-UP EXAMINATION 03/06/2011 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, 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 V67.9 UNSPECIFIED FOLLOW-UP EXAMINATION 03/06/2011 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, 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 R V67.9 UNSPECIFIED FOLLOW-UP EXAMINATION 03/06/2011 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, 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 R V67.9 UNSPECIFIED FOLLOW-UP EXAMINATION 03/06/2011 ALCAZAR DO, MIKE K V67.9 UNSPECIFIED FOLLOW-UP EXAMINATION 03/06/2011 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, 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 R V67.9 UNSPECIFIED FOLLOW-UP EXAMINATION 03/06/2011 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, 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 R V67.9 UNSPECIFIED FOLLOW-UP EXAMINATION 03/06/2011 ALCAZAR DO, MIKE K V67.9 UNSPECIFIED FOLLOW-UP EXAMINATION 03/06/2011 ALCAZAR DO, MIKE K V67.9 UNSPECIFIED FOLLOW-UP EXAMINATION 03/06/2011 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, 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 V67.9 UNSPECIFIED FOLLOW-UP EXAMINATION 03/06/2011 ALCAZAR DO, MIKE K V67.9 UNSPECIFIED FOLLOW-UP EXAMINATION 03/06/2011 ALCAZAR DO, MIKE K V67.9 UNSPECIFIED FOLLOW-UP EXAMINATION 03/06/2011 ALCAZAR DO, MIKE K V67.9 UNSPECIFIED FOLLOW-UP EXAMINATION 03/06/2011 ALCAZAR DO, MIKE K V67.9 UNSPECIFIED FOLLOW-UP EXAMINATION 03/06/2011 WYNN SHERON BRUNSON V67.9 UNSPECIFIED FOLLOW-UP EXAMINATION 03/06/2011 WYNNSHERON ARCHER APRN V67.9 UNSPECIFIED FOLLOW-UP EXAMINATION 03/06/2011 ALCAZAR DO, MIKE K V67.9 UNSPECIFIED FOLLOW-UP EXAMINATION 03/11/2011 Ot 574.20 CHOLELITHIASIS NOS 03/11/2011 Ot 789.01 ABDOMINAL PAIN, RIGHT UPPER QUADRANT 03/20/2011 TAYLA ALONSO MD 789.01 ABDOMINAL PAIN RIGHT UPPER QUADRANT 03/20/2011 TAYLA ALONSO MD 789.07 ABDOMINAL PAIN GENERALIZED 03/20/2011 789.01 ABDOMINAL PAIN RIGHT UPPER QUADRANT 03/20/2011 789.07 ABDOMINAL PAIN GENERALIZED 03/20/2011 TAYLA ALONSO MD 789.01 ABDOMINAL PAIN RIGHT UPPER QUADRANT 03/20/2011 TAYLA ALONSO MD 789.07 ABDOMINAL PAIN GENERALIZED 03/20/2011 789.01 ABDOMINAL PAIN RIGHT UPPER QUADRANT 03/20/2011 789.07 ABDOMINAL PAIN GENERALIZED 03/20/2011 TAYLA ALONSO MD 789.01 ABDOMINAL PAIN RIGHT UPPER QUADRANT 03/20/2011 TAYLA ALONSO MD 789.07 ABDOMINAL PAIN GENERALIZED 03/20/2011 789.01 ABDOMINAL PAIN RIGHT UPPER QUADRANT 03/20/2011 789.07 ABDOMINAL PAIN GENERALIZED 03/20/2011 789.01 ABDOMINAL PAIN RIGHT UPPER QUADRANT 03/20/2011 789.07 ABDOMINAL PAIN GENERALIZED 03/20/2011 ALCAZAR DO MIKE K 789.01 ABDOMINAL PAIN RIGHT UPPER QUADRANT 03/20/2011 ALCAZAR DO, MIKE K 789.07 ABDOMINAL PAIN GENERALIZED 03/20/2011 ALCAZAR DO MIKE K 789.01 ABDOMINAL PAIN RIGHT UPPER QUADRANT 03/20/2011 ALCAZAR DO MIKE K 789.07 ABDOMINAL PAIN GENERALIZED 03/20/2011 ALCAZAR DO MIKE K 789.01 ABDOMINAL PAIN RIGHT UPPER QUADRANT 03/20/2011 ALCAZAR DO MIKE K 789.07 ABDOMINAL PAIN GENERALIZED 03/20/2011 ALCAZAR DO MIKE K 789.01 ABDOMINAL PAIN RIGHT UPPER QUADRANT 03/20/2011 ALCAZAR DO, MIKE K 789.07 ABDOMINAL PAIN GENERALIZED 03/20/2011 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SHERON R 789.01 ABDOMINAL PAIN RIGHT UPPER QUADRANT 03/20/2011 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, SHERON R 789.07 ABDOMINAL PAIN GENERALIZED 03/20/2011 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, SHERON R 789.01 ABDOMINAL PAIN RIGHT UPPER QUADRANT 03/20/2011 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, SHERON R 789.07 ABDOMINAL PAIN GENERALIZED 03/20/2011 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, SHERON R 789.01 ABDOMINAL PAIN RIGHT UPPER QUADRANT 03/20/2011 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, SHERON R 789.07 ABDOMINAL PAIN GENERALIZED 03/20/2011 ALCAZAR DO, MIKE K 789.01 ABDOMINAL PAIN RIGHT UPPER QUADRANT 03/20/2011 ALCAZAR DO, MIKE K 789.07 ABDOMINAL PAIN GENERALIZED 03/20/2011 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, SHERON R 789.01 ABDOMINAL PAIN RIGHT UPPER QUADRANT 03/20/2011 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, SHERON R 789.07 ABDOMINAL PAIN GENERALIZED 03/20/2011 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SHERON R 789.01 ABDOMINAL PAIN RIGHT UPPER QUADRANT 03/20/2011 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, SHERON R 789.07 ABDOMINAL PAIN GENERALIZED 03/20/2011 ALCAZAR DO, MIKE K 789.01 ABDOMINAL PAIN RIGHT UPPER QUADRANT 03/20/2011 ALCAZAR DO, MIKE K 789.07 ABDOMINAL PAIN GENERALIZED 03/20/2011 ALCAZAR DO, MIKE K 789.01 ABDOMINAL PAIN RIGHT UPPER QUADRANT 03/20/2011 ALCAZAR DO, MIEK K 789.07 ABDOMINAL PAIN GENERALIZED 03/20/2011 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SHERON R 789.01 ABDOMINAL PAIN RIGHT UPPER QUADRANT 03/20/2011 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, SHERON R 789.07 ABDOMINAL PAIN GENERALIZED 03/20/2011 ALCAZAR DO, MIKE K 789.01 ABDOMINAL PAIN RIGHT UPPER QUADRANT 03/20/2011 ALCAZAR DO, MIKE K 789.07 ABDOMINAL PAIN GENERALIZED 03/20/2011 ALCAZAR DO, MIKE K 789.01 ABDOMINAL PAIN RIGHT UPPER QUADRANT 03/20/2011 ALCAZAR DO, MIKE K 789.07 ABDOMINAL PAIN GENERALIZED 03/20/2011 ALCAZAR DO, MIKE K 789.01 ABDOMINAL PAIN RIGHT UPPER QUADRANT 03/20/2011 ALCAZAR DO, MIKE K 789.07 ABDOMINAL PAIN GENERALIZED 03/20/2011 ALCAZAR DO, MIKE K 789.01 ABDOMINAL PAIN RIGHT UPPER QUADRANT 03/20/2011 ALCAZAR DO, MIKE K 789.07 ABDOMINAL PAIN GENERALIZED 03/20/2011 TIANNA LONGN, SHERON R 789.01 ABDOMINAL PAIN RIGHT UPPER QUADRANT 03/20/2011 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, SHERON R 789.07 ABDOMINAL PAIN GENERALIZED 03/20/2011 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, SHERON R 789.01 ABDOMINAL PAIN RIGHT UPPER QUADRANT 03/20/2011 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, SHERON R 789.07 ABDOMINAL PAIN GENERALIZED 03/20/2011 ALCAZAR DO, MIKE K 789.01 ABDOMINAL PAIN RIGHT UPPER QUADRANT 03/20/2011 ALCAZAR DO, MIKE K 789.07 ABDOMINAL PAIN GENERALIZED 05/18/2011 TAYLA ALONSO MD 272.4 HYPERLIPIDEMIA 05/18/2011 272.4 HYPERLIPIDEMIA 05/18/2011 TAYLA ALONSO MD 272.4 HYPERLIPIDEMIA 05/18/2011 272.4 HYPERLIPIDEMIA 05/18/2011 TAYLA ALONSO MD 272.4 HYPERLIPIDEMIA 05/18/2011 272.4 HYPERLIPIDEMIA 05/18/2011 272.4 HYPERLIPIDEMIA 05/18/2011 ALCAZAR DO, MIKE K 272.4 HYPERLIPIDEMIA 05/18/2011 ALCAZAR DO, MIKE K 272.4 HYPERLIPIDEMIA 05/18/2011 ALCAZAR DO, MIKE K 272.4 HYPERLIPIDEMIA 05/18/2011 ALCAZAR DO, MIKE K 272.4 HYPERLIPIDEMIA 05/18/2011 WYNNGIANNI LONGN, SHERON R 272.4 HYPERLIPIDEMIA 05/18/2011 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, SHERON R 272.4 HYPERLIPIDEMIA 05/18/2011 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, SHERON R 272.4 HYPERLIPIDEMIA 05/18/2011 ALCAZAR DO, MIKE K 272.4 HYPERLIPIDEMIA 05/18/2011 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, SHERON R 272.4 HYPERLIPIDEMIA 05/18/2011 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, SHERON R 272.4 HYPERLIPIDEMIA 05/18/2011 ALCAZAR DO, MIKE K 272.4 HYPERLIPIDEMIA 05/18/2011 ALCAZAR DO, MIKE K 272.4 HYPERLIPIDEMIA 05/18/2011 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, SHERON R 272.4 HYPERLIPIDEMIA 05/18/2011 ALCAZAR DO, MIKE K 272.4 HYPERLIPIDEMIA 05/18/2011 ALCAZAR DO, MIKE K 272.4 HYPERLIPIDEMIA 05/18/2011 ALCAZAR DO, MIKE K 272.4 HYPERLIPIDEMIA 05/18/2011 ALCAZAR DO, MIKE K 272.4 HYPERLIPIDEMIA 05/18/2011 SHERON WYNN APRN R 272.4 HYPERLIPIDEMIA 05/18/2011 SHERON WYNN APRN 272.4 HYPERLIPIDEMIA 05/18/2011 ALCAZAR , MIKE K 272.4 HYPERLIPIDEMIA 03/11/2012 TAYLA ALONSO MD 401.9 HYPERTENSION (SYSTEMIC) 03/11/2012 TAYLA ALONSO MD 788.1 pain during urination (dysuria) 03/11/2012 401.9 HYPERTENSION (SYSTEMIC) 03/11/2012 788.1 pain during urination (dysuria) 03/11/2012 TAYLA ALONSO MD 401.9 HYPERTENSION (SYSTEMIC) 03/11/2012 TAYLA ALONSO MD 788.1 pain during urination (dysuria) 03/11/2012 401.9 HYPERTENSION (SYSTEMIC) 03/11/2012 788.1 pain during urination (dysuria) 03/11/2012 TAYLA ALONSO MD 401.9 HYPERTENSION (SYSTEMIC) 03/11/2012 TAYLA ALONSO MD 788.1 pain during urination (dysuria) 03/11/2012 401.9 HYPERTENSION (SYSTEMIC) 03/11/2012 788.1 pain during urination (dysuria) 03/11/2012 401.9 HYPERTENSION (SYSTEMIC) 03/11/2012 788.1 pain during urination (dysuria) 03/11/2012 ALCAZAR DO MIKE K 401.9 HYPERTENSION (SYSTEMIC) 03/11/2012 ALCAZAR DO, MIKE K 788.1 pain during urination (dysuria) 03/11/2012 ALCAZAR DO, MIKE K 401.9 HYPERTENSION (SYSTEMIC) 03/11/2012 OTTONIEL DO, MIKE K 788.1 pain during urination (dysuria) 03/11/2012 ALCAZAR DO, MIKE K 401.9 HYPERTENSION (SYSTEMIC) 03/11/2012 ALCAZAR DO, MIKE K 788.1 pain during urination (dysuria) 03/11/2012 ALCAZAR DO, MIKE K 401.9 HYPERTENSION (SYSTEMIC) 03/11/2012 ALCAZAR DO, MIKE K 788.1 pain during urination (dysuria) 03/11/2012 SHERON WYNN APRN 401.9 HYPERTENSION (SYSTEMIC) 03/11/2012 SHERON WYNN APRN 788.1 pain during urination (dysuria) 03/11/2012 SHERON WYNN APRN R 401.9 HYPERTENSION (SYSTEMIC) 03/11/2012 SHERON WYNN APRN R 788.1 pain during urination (dysuria) 03/11/2012 SHERON WYNN APRN R 401.9 HYPERTENSION (SYSTEMIC) 03/11/2012 SHERON WYNN APRN R 788.1 pain during urination (dysuria) 03/11/2012 ALCAZAR DO MIKE K 401.9 HYPERTENSION (SYSTEMIC) 03/11/2012 ALCAZAR DO MIKE K 788.1 pain during urination (dysuria) 03/11/2012 SHERON WYNN APRN R 401.9 HYPERTENSION (SYSTEMIC) 03/11/2012 SHERON WYNN APRN R 788.1 pain during urination (dysuria) 03/11/2012 SHERON WYNN APRN R 401.9 HYPERTENSION (SYSTEMIC) 03/11/2012 SHERON WYNN APRN R 788.1 pain during urination (dysuria) 03/11/2012 ALCAZAR DO MIKE K 401.9 HYPERTENSION (SYSTEMIC) 03/11/2012 ALCAZAR DO, MIKE K 788.1 pain during urination (dysuria) 03/11/2012 ALCAZAR DO, MIKE K 401.9 HYPERTENSION (SYSTEMIC) 03/11/2012 ALCAZAR DO, MIKE K 788.1 pain during urination (dysuria) 03/11/2012 SHERON WYNN APRN R 401.9 HYPERTENSION (SYSTEMIC) 03/11/2012 SHERON WYNN APRN R 788.1 pain during urination (dysuria) 03/11/2012 ALCAZAR DO, MIKE K 401.9 HYPERTENSION (SYSTEMIC) 03/11/2012 ALCAZAR DO, MKIE K 788.1 pain during urination (dysuria) 03/11/2012 ALCAZAR DO, MIKE K 401.9 HYPERTENSION (SYSTEMIC) 03/11/2012 ALCAZAR DO, MIKE K 788.1 pain during urination (dysuria) 03/11/2012 ALCAZAR DO, MIKE K 401.9 HYPERTENSION (SYSTEMIC) 03/11/2012 ALCAZAR DO, MIKE K 788.1 pain during urination (dysuria) 03/11/2012 ALCAZAR DO, MIKE K 401.9 HYPERTENSION (SYSTEMIC) 03/11/2012 ALCAZAR DO, MIKE K 788.1 pain during urination (dysuria) 03/11/2012 WYNN SHERON BRUNSON R 401.9 HYPERTENSION (SYSTEMIC) 03/11/2012 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SHERON R 788.1 pain during urination (dysuria) 03/11/2012 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SHERON R 401.9 HYPERTENSION (SYSTEMIC) 03/11/2012 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SHERON R 788.1 pain during urination (dysuria) 03/11/2012 ALCAZAR DO, MIKE K 401.9 HYPERTENSION (SYSTEMIC) 03/11/2012 ALCAZAR DO, MIKE K 788.1 pain during urination (dysuria) 07/24/2012 727.43 GANGLION LEFT WRIST 07/24/2012 CELESTE SNOW, TAYLA 727.43 GANGLION LEFT WRIST 07/24/2012 727.43 GANGLION LEFT WRIST 07/24/2012 727.43 GANGLION LEFT WRIST 07/24/2012 ALCAZAR DO, MIKE K 727.43 GANGLION LEFT WRIST 07/24/2012 ALCAZAR DO, MIKE K 727.43 GANGLION LEFT WRIST 07/24/2012 ALCAZAR DO, MIKE K 727.43 GANGLION LEFT WRIST 07/24/2012 ALCAZAR DO, MIKE K 727.43 GANGLION LEFT WRIST 07/24/2012 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SHERON R 727.43 GANGLION LEFT WRIST 07/24/2012 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SHERON R 727.43 GANGLION LEFT WRIST 07/24/2012 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SHERON R 727.43 GANGLION LEFT WRIST 07/24/2012 ALCAZAR DO, MIKE K 727.43 GANGLION LEFT WRIST 07/24/2012 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SHERON R 727.43 GANGLION LEFT WRIST 07/24/2012 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SHERON R 727.43 GANGLION LEFT WRIST 07/24/2012 ALCAZAR DO, MIKE K 727.43 GANGLION LEFT WRIST 07/24/2012 ALCAZAR DO, MIKE K 727.43 GANGLION LEFT WRIST 07/24/2012 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SHERON R 727.43 GANGLION LEFT WRIST 07/24/2012 ALCAZAR DO, MIKE K 727.43 GANGLION LEFT WRIST 07/24/2012 ALCAZAR DO, MIKE K 727.43 GANGLION LEFT WRIST 07/24/2012 ALCAZAR DO, MIKE K 727.43 GANGLION LEFT WRIST 07/24/2012 ALCAZAR DO, MIKE K 727.43 GANGLION LEFT WRIST 07/24/2012 SHERON WYNN APRN R 727.43 GANGLION LEFT WRIST 07/24/2012 SHERON WYNN APRN R 727.43 GANGLION LEFT WRIST 07/24/2012 ALCAZAR DO, MIKE K 727.43 GANGLION LEFT WRIST 09/30/2012 CELESTE SNOW, TAYLA 357.2 POLYNEUROPATHY DIABETIC 09/30/2012 357.2 POLYNEUROPATHY DIABETIC 09/30/2012 357.2 POLYNEUROPATHY DIABETIC 09/30/2012 ALCAZAR DO, MIKE K 357.2 POLYNEUROPATHY DIABETIC 09/30/2012 ALCAZAR DO, MIKE K 357.2 POLYNEUROPATHY DIABETIC 09/30/2012 ALCAZAR DO, MIKE K 357.2 POLYNEUROPATHY DIABETIC 09/30/2012 ALCAZAR DO, MIKE K 357.2 POLYNEUROPATHY DIABETIC 09/30/2012 SHERON WYNN APRN R 357.2 POLYNEUROPATHY DIABETIC 09/30/2012 SHERON WYNN APRN R 357.2 POLYNEUROPATHY DIABETIC 09/30/2012 SHERON WYNN APRN R 357.2 POLYNEUROPATHY DIABETIC 09/30/2012 ALCAZAR , MIKE K 357.2 POLYNEUROPATHY DIABETIC 09/30/2012 SHERON WYNN APRN R 357.2 POLYNEUROPATHY DIABETIC 09/30/2012 SHERON WYNN APRN R 357.2 POLYNEUROPATHY DIABETIC 09/30/2012 ALCAZAR DO, MIKE K 357.2 POLYNEUROPATHY DIABETIC 09/30/2012 ALCAZAR DO, MIKE K 357.2 POLYNEUROPATHY DIABETIC 09/30/2012 SHERON WYNN APRN R 357.2 POLYNEUROPATHY DIABETIC 09/30/2012 ALCAZAR DO, MIKE K 357.2 POLYNEUROPATHY DIABETIC 09/30/2012 ALCAZAR DO, MIKE K 357.2 POLYNEUROPATHY DIABETIC 09/30/2012 ALCAZAR DO, MIKE K 357.2 POLYNEUROPATHY DIABETIC 09/30/2012 ALCAZAR DO, MIKE K 357.2 POLYNEUROPATHY DIABETIC 09/30/2012 SHERON WYNN APRN R 357.2 POLYNEUROPATHY DIABETIC 09/30/2012 SHERON WYNN APRN R 357.2 POLYNEUROPATHY DIABETIC 09/30/2012 ALCAZAR DO MIKE K 357.2 POLYNEUROPATHY DIABETIC 12/09/2012 LUPE SNOW, PAO Swenson Ot 250.60 DIAB W NEURO MANIFEST, TYPE II OR UNSPEC 12/09/2012 PAO ANDRADE MD Ot 272.4 HYPERLIPIDEMIA NEC/NOS 12/09/2012 PAO ANDRADE MD Ot 345.90 EPILEPSY UNSPEC W/O MENTION INTRACTABLE 12/09/2012 PAO ANDRADE MD Ot 357.2 NEUROPATHY IN DIABETES 12/09/2012 PAO ANDRADE MD Ot 401.9 HYPERTENSION NOS 12/09/2012 PAO ANDRADE MD Ot 593.9 RENAL URETERAL DIS NOS 12/09/2012 PAO ANDRADE MD Ot 786.52 PAINFUL RESPIRATION 12/09/2012 PAO ANDRADE MD Ot V03.82 PROPHYLACTIC VACC AGAINST STREPTOCOCCUS 12/09/2012 PAO ANDRADE MD Ot V12.41 HX BENIGN NEOPLASM/BRAIN 12/09/2012 PAO ANDRADE MD Ot V58.69 OTH MED,LT,CURRENT USE 12/11/2012 780.2 fainting (syncope) 12/11/2012 780.2 fainting (syncope) 12/11/2012 MIKE ALCAZAR DO 780.2 fainting (syncope) 12/11/2012 MIKE ALCAZAR DO 780.2 fainting (syncope) 12/11/2012 MIKE ALCAZAR DO 780.2 fainting (syncope) 12/11/2012 MIKE ALCAZAR DO 780.2 fainting (syncope) 12/11/2012 SHERON WYNN APRN 780.2 fainting (syncope) 12/11/2012 SHERON WYNN APRN 780.2 fainting (syncope) 12/11/2012 SHERON WYNN APRN 780.2 fainting (syncope) 12/11/2012 MIKE ALCAZAR DO 780.2 fainting (syncope) 12/11/2012 SHERON WYNN APRN 780.2 fainting (syncope) 12/11/2012 SHERON WYNN APRN 780.2 fainting (syncope) 12/11/2012 MIKE ALCAZAR DO 780.2 fainting (syncope) 12/11/2012 MIKE ALCAZAR DO 780.2 fainting (syncope) 12/11/2012 SHERON WYNN APRN 780.2 fainting (syncope) 12/11/2012 ALCAZAR DO, MIKE K 780.2 fainting (syncope) 12/11/2012 ALCAZAR DO, MIKE K 780.2 fainting (syncope) 12/11/2012 ALCAZAR DO, MIKE K 780.2 fainting (syncope) 12/11/2012 ALCAZAR DO, MIKE K 780.2 fainting (syncope) 12/11/2012 WYNNSHERON ARCHER APRN 780.2 fainting (syncope) 12/11/2012 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SHERON Rock R 780.2 fainting (syncope) 12/11/2012 ALCAZAR DO, MIKE K 780.2 fainting (syncope) 02/23/2013 784.0 HEADACHE 02/23/2013 ALCAZAR DO, MIKE K 784.0 HEADACHE 02/23/2013 ALCAZAR DO, MIKE K 784.0 HEADACHE 02/23/2013 ALCAZAR DO, MIKE K 784.0 HEADACHE 02/23/2013 ALCAZAR DO, MIKE K 784.0 HEADACHE 02/23/2013 WYNN BOY, SHERON R 784.0 HEADACHE 02/23/2013 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, SHERON R 784.0 HEADACHE 02/23/2013 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, SHERON R 784.0 HEADACHE 02/23/2013 ALCAZAR DO, MIKE K 784.0 HEADACHE 02/23/2013 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, SHERON R 784.0 HEADACHE 02/23/2013 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, SHERON R 784.0 HEADACHE 02/23/2013 ALCAZAR DO, MIKE K 784.0 HEADACHE 02/23/2013 ALCAZAR DO, MIKE K 784.0 HEADACHE 02/23/2013 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, SHERON R 784.0 HEADACHE 02/23/2013 ALCAZAR DO, MIKE K 784.0 HEADACHE 02/23/2013 ALCAZAR DO, MIKE K 784.0 HEADACHE 02/23/2013 ALCAZAR DO, MIKE K 784.0 HEADACHE 02/23/2013 ALCAZAR DO, MIKE K 784.0 HEADACHE 02/23/2013 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, SHERON R 784.0 HEADACHE 02/23/2013 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, SHERON R 784.0 HEADACHE 02/23/2013 ALCAZAR DO, MIKE K 784.0 HEADACHE 07/15/2013 ALCAZAR DO, MIKE K 719.45 PAIN- HIP 07/15/2013 WYNN SHERON BRUNSON 719.45 PAIN- HIP 07/15/2013 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, SHERON Mercado 719.45 PAIN- HIP 07/15/2013 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, SHERON Mercado 719.45 PAIN- HIP 07/15/2013 ALCAZAR DO, MIKE K 719.45 PAIN- HIP 07/15/2013 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, SHERON Mercado 719.45 PAIN- HIP 07/15/2013 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SHERON Rock 719.45 PAIN- HIP 07/15/2013 ALCAZAR DO, MIKE K 719.45 PAIN- HIP 07/15/2013 ALCAZAR DO, MIKE K 719.45 PAIN- HIP 07/15/2013 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SHERON 719.45 PAIN- HIP 07/15/2013 ALCAZAR DO, MIKE K 719.45 PAIN- HIP 07/15/2013 ALCAZAR DO, MIKE K 719.45 PAIN- HIP 07/15/2013 ALCAZAR DO, MIKE K 719.45 PAIN- HIP 07/15/2013 ALCAZAR DO, MIKE K 719.45 PAIN- HIP 07/15/2013 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SHERON 719.45 PAIN- HIP 07/15/2013 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, SHERON Mercado 719.45 PAIN- HIP 07/15/2013 ALCAZAR DO, MIKE K 719.45 PAIN- HIP 10/19/2013 ALCAZAR DO, MIKE K 692.9 DERMATITIS CONTACT UNSPECIFIED 10/19/2013 SHERON WYNN APRN 692.9 DERMATITIS CONTACT UNSPECIFIED 10/19/2013 SHERON WYNN APRN 692.9 DERMATITIS CONTACT UNSPECIFIED 10/19/2013 ALCAZAR DO, MIKE K 692.9 DERMATITIS CONTACT UNSPECIFIED 10/19/2013 ALCAZAR DO, MIKE K 692.9 DERMATITIS CONTACT UNSPECIFIED 10/19/2013 WYNN SHERON BRUNSON 692.9 DERMATITIS CONTACT UNSPECIFIED 10/19/2013 ALCAZAR DO, MIKE K 692.9 DERMATITIS CONTACT UNSPECIFIED 10/19/2013 ALCAZAR DO, MIKE K 692.9 DERMATITIS CONTACT UNSPECIFIED 10/19/2013 ALCAZAR DO, MIKE K 692.9 DERMATITIS CONTACT UNSPECIFIED 10/19/2013 ALCAZAR DO, MIKE K 692.9 DERMATITIS CONTACT UNSPECIFIED 10/19/2013 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, SHERON R 692.9 DERMATITIS CONTACT UNSPECIFIED 10/19/2013 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SHERON Rock R 692.9 DERMATITIS CONTACT UNSPECIFIED 10/19/2013 ALCAZAR DO, MIKE K 692.9 DERMATITIS CONTACT UNSPECIFIED 11/10/2013 STEVE AL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 Ot 592.0 CALCULUS OF KIDNEY 11/10/2013 STEVE AL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 Ot 724.2 LUMBAGO 11/16/2013 WYNN SHERON BRUNSON R 590.2 KIDNEY STONES 11/16/2013 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SHERON R 590.2 KIDNEY STONES 11/16/2013 ALCAZAR DO, MIKE K 590.2 KIDNEY STONES 11/16/2013 ALCAZAR DO, MIKE K 590.2 KIDNEY STONES 11/16/2013 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SHERON R 590.2 KIDNEY STONES 11/16/2013 ALCAZAR DO, MIKE K 590.2 KIDNEY STONES 11/16/2013 ALCAZAR DO, MIKE K 590.2 KIDNEY STONES 11/16/2013 ALCAZAR DO, MIKE K 590.2 KIDNEY STONES 11/16/2013 ALCAZAR DO, MIKE K 590.2 KIDNEY STONES 11/16/2013 WYNN SHERON BRUNSON R 590.2 KIDNEY STONES 11/16/2013 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, SHERON R 590.2 KIDNEY STONES 11/16/2013 ALCAZAR DO, MIKE K 590.2 KIDNEY STONES 11/28/2013 MARNIE SNOW, PAULO T Ot 592.1 CALCULUS OF URETER 11/28/2013 MARNIE SNOW, PAULO T Ot 789.09 ABDOMINAL PAIN, OTHER SPECIFIED SITE 06/16/2014 OTTONIEL OCAMPO MIKE K 345.90 SEIZURE DISORDER 06/16/2014 ALCAZAR , MIKE K 345.90 SEIZURE DISORDER 06/16/2014 WYNNSHERON ARCHER APRN R 345.90 SEIZURE DISORDER 06/16/2014 WYNN SHERON BRUNSON R 345.90 SEIZURE DISORDER 06/16/2014 ALCAZAR DO MIKE K 345.90 SEIZURE DISORDER 06/29/2014 SHERON WYNN CFNP Ot 592.0 07/06/2014 SHERON WYNN CFMIKE Ot 592.0 08/03/2014 SHERON WYNN APRN 724.4 BACK PAIN WITH RADIATION 08/03/2014 SHERON WYNN APRN 724.4 BACK PAIN WITH RADIATION 08/03/2014 MIKE ALCAZAR DO 724.4 BACK PAIN WITH RADIATION 06/19/2015 Ot 789.00 06/19/2015 Ot 562.10 06/19/2015 Ot 593.2 06/19/2015 WNYNSHERON ARCHER R CFNP Ot 784.0 06/19/2015 WYNN, SHERON R CFNP Ot V12.41 06/19/2015 WYNN, SHERON R CFNP Ot 784.0 06/19/2015 WYNN, SHERON R CFNP Ot V12.41 06/19/2015 WYNN, SHERON R CFNP Ot 592.0 06/19/2015 WYNN SHERON R CFNP Ot 592.0 06/19/2015 STEVE AL APRN Ot K44.9 DIAPHRAGMATIC HERNIA WITHOUT OBSTRUCTION 06/19/2015 STEVE AL APRN Ot K57.90 DVRTCLOS OF INTEST, PART UNSP, W/O PERF 06/19/2015 STEVE AL APRN Ot N20.2 CALCULUS OF KIDNEY WITH CALCULUS OF URET 06/19/2015 Ot 789.00 06/19/2015 Ot 562.10 06/19/2015 Ot 593.2 06/19/2015 WYNN SHERON R CFNP Ot 784.0 06/19/2015 WYNN SHERON R CFNP Ot V12.41 06/19/2015 WYNN SHERON R CFNP Ot 784.0 06/19/2015 WYNNSHERON R CFNP Ot V12.41 06/19/2015 WYNNSHERON R CFNP Ot 592.0 06/19/2015 WYNNSHERON R CFNP Ot 592.0 08/10/2015 MARNIE SNOW, PAULO Weldon Ot K57.32 DVTRCLI OF LG INT W/O PERFORATION OR ABS 08/10/2015 MARNIE SNOW, PAULO Weldon Ot Z87.442 PERSONAL HISTORY OF URINARY CALCULI 09/19/2015 Ot 789.00 09/19/2015 Ot 562.10 09/19/2015 Ot 593.2 09/19/2015 WYNNSHERON R CFNP Ot 784.0 09/19/2015 WYNN, SHERON R CFNP Ot V12.41 09/19/2015 WYNN, SHERON R CFNP Ot 784.0 09/19/2015 WYNN, SHERON R CFNP Ot V12.41 09/19/2015 WYNN, SHERON R CFNP Ot 592.0 09/19/2015 WYNN, SHERON R CFNP Ot 592.0 09/20/2015 DARLENE SNOW, ALEXANDRA Lewis Ot E11.9 TYPE 2 DIABETES MELLITUS WITHOUT COMPLIC 09/20/2015 DARLENE SNOW, ALEXANDRA Lewis Ot R00.0 TACHYCARDIA, UNSPECIFIED 09/20/2015 DARLENE SNOW, ALEXANDRA Lewis Ot R07.89 OTHER CHEST PAIN 09/20/2015 DARLENE SNOW, ALEXANDRA Lewis Ot R10.13 EPIGASTRIC PAIN 09/20/2015 DARLENE SNOW, ALEXANDRA Lewis Ot Z79.4 FPC (CURRENT) USE OF INSULIN 09/20/2015 Ot 789.00 09/20/2015 Ot 562.10 09/20/2015 Ot 593.2 09/20/2015 WYNN, SHERON R CFNP Ot 784.0 09/20/2015 WYNN, SHERON R CFNP Ot V12.41 09/20/2015 WYNN, SHERON R CFNP Ot 784.0 09/20/2015 WYNN, SHERON R CFNP Ot V12.41 09/20/2015 WYNN, SHERON R CFNP Ot 592.0 09/20/2015 WYNN, SHERON R CFNP Ot 592.0 09/20/2015 Ot 789.00 09/20/2015 Ot 562.10 09/20/2015 Ot 593.2 09/20/2015 WYNN, SHERON R CFNP Ot 784.0 09/20/2015 WYNN, SHERON R CFNP Ot V12.41 09/20/2015 WYNN, SHERON R CFNP Ot 784.0 09/20/2015 WYNN, SHERON R CFNP Ot V12.41 09/20/2015 WYNN, SHERON R CFNP Ot 592.0 09/20/2015 WYNN, SHERON R CFNP Ot 592.0 10/10/2015 Ot E11.9 TYPE 2 DIABETES MELLITUS WITHOUT COMPLIC 10/10/2015 Ot I10 ESSENTIAL (PRIMARY) HYPERTENSION 10/10/2015 Ot R10.13 EPIGASTRIC PAIN 10/10/2015 Ot 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 10/11/2015 Ot E11.9 10/11/2015 Ot I10 10/11/2015 Ot R10.13 10/11/2015 Ot Z79.4 10/13/2015 ABDIRASHID JC DO Ot R10.13 10/14/2015 ABDIRASHID JC DO Ot R10.13 10/19/2015 Ot E11.9 10/19/2015 Ot I10 10/19/2015 Ot R10.13 10/19/2015 Ot Z79.4 12/12/2015 SHERON WYNN CFMIKE Ot K85.8 OTHER ACUTE PANCREATITIS 12/15/2015 Ot 789.00 ABDOMINAL PAIN, UNSPECIFIED SITE 12/15/2015 Ot 562.10 DIVERTICULOSIS COLON (W/O MENT OF HEMORR 12/15/2015 Ot 593.2 CYST OF KIDNEY, ACQUIRED 12/15/2015 SHERON WYNN CFNP Ot 784.0 HEADACHE 12/15/2015 SHERON WYNN CFNP Ot V12.41 HX BENIGN NEOPLASM/BRAIN 12/15/2015 WYNNSHERON ARCHER CFNP Ot 784.0 HEADACHE 12/15/2015 SHERON WYNN CFNP Ot V12.41 HX BENIGN NEOPLASM/BRAIN 12/15/2015 SHERON WYNN CFNP Ot 592.0 CALCULUS OF KIDNEY 12/15/2015 SHERON WYNN CFNP Ot 592.0 CALCULUS OF KIDNEY 12/15/2015 [place] ABDIRASHID OCAMPO Kurt Ot R10.13 EPIGASTRIC PAIN 12/15/2015 SHERON WYNN CFNP Ot K85.8 OTHER ACUTE PANCREATITIS 12/15/2015 ABDIRASHID JC DO K Ot R10.11 RIGHT UPPER QUADRANT PAIN 12/15/2015 Ot 789.00 ABDOMINAL PAIN, UNSPECIFIED SITE 12/15/2015 Ot 562.10 DIVERTICULOSIS COLON (W/O MENT OF HEMORR 12/15/2015 Ot 593.2 CYST OF KIDNEY, ACQUIRED 12/15/2015 SHERON WYNN CFNP Ot 784.0 HEADACHE 12/15/2015 SHERON WYNN CFNP Ot V12.41 HX BENIGN NEOPLASM/BRAIN 12/15/2015 SHERON WYNN CFNP Ot 784.0 HEADACHE 12/15/2015 SHERON WYNN R CFNP Ot V12.41 HX BENIGN NEOPLASM/BRAIN 12/15/2015 WYNNSHERON ARCHER CFNP Ot 592.0 CALCULUS OF KIDNEY 12/15/2015 WYNNSHERON ARCHER R CFNP Ot 592.0 CALCULUS OF KIDNEY 12/15/2015 HOSEA JUANCHO OCAMPOA K Ot R10.13 EPIGASTRIC PAIN 12/15/2015 SHERON WYNN R CFNP Ot K85.8 OTHER ACUTE PANCREATITIS 12/16/2015 Ot 789.00 ABDOMINAL PAIN, UNSPECIFIED SITE 12/16/2015 Ot 562.10 DIVERTICULOSIS COLON (W/O MENT OF HEMORR 12/16/2015 Ot 593.2 CYST OF KIDNEY, ACQUIRED 12/16/2015 SHERON WYNN R CFNP Ot 784.0 HEADACHE 12/16/2015 SHERON WYNN R CFNP Ot V12.41 HX BENIGN NEOPLASM/BRAIN 12/16/2015 WYNNSHERON ARCHER R CFNP Ot 784.0 HEADACHE 12/16/2015 SHERON WYNN R CFNP Ot V12.41 HX BENIGN NEOPLASM/BRAIN 12/16/2015 WYNNSHERON ARCHER R CFNP Ot 592.0 CALCULUS OF KIDNEY 12/16/2015 SHERON WYNN R CFNP Ot 592.0 CALCULUS OF KIDNEY 12/16/2015 HOSEA JUANCHO OCAMPOA K Ot R10.13 EPIGASTRIC PAIN 12/16/2015 SHERON WYNN CFNP Ot K85.8 OTHER ACUTE PANCREATITIS 12/16/2015 ALEXANDRA COLON MD Ot E86.0 DEHYDRATION 12/16/2015 DARLENE SNOW, ALEXANDRA Lewis Ot R42 DIZZINESS AND GIDDINESS 12/16/2015 ALEXANDRA COLON MD Ot R55 SYNCOPE AND COLLAPSE 12/16/2015 Ot 789.00 ABDOMINAL PAIN, UNSPECIFIED SITE 12/16/2015 Ot 562.10 DIVERTICULOSIS COLON (W/O MENT OF HEMORR 12/16/2015 Ot 593.2 CYST OF KIDNEY, ACQUIRED 12/16/2015 SHERON WYNN R CFNP Ot 784.0 HEADACHE 12/16/2015 TIANNA SHERON R CFNP Ot V12.41 HX BENIGN NEOPLASM/BRAIN 12/16/2015 SHERON WYNN Jess CFNP Ot 784.0 HEADACHE 12/16/2015 SHERON WYNN Jess CFNP Ot V12.41 HX BENIGN NEOPLASM/BRAIN 12/16/2015 WYNNSHERON ARCHER Jess CFNP Ot 592.0 CALCULUS OF KIDNEY 12/16/2015 SHERON WYNN R CFNP Ot 592.0 CALCULUS OF KIDNEY 12/16/2015 JUANCHO JC DOA K Ot R10.13 EPIGASTRIC PAIN 12/16/2015 TIANNA SHERON Mercado CFNP Ot K85.8 OTHER ACUTE PANCREATITIS 12/19/2015 JUANCHO JC DOA K Ot R10.11 RIGHT UPPER QUADRANT PAIN 12/19/2015 DARLENE SNOW, ALEXANDRA Lewis Ot E86.0 DEHYDRATION 12/19/2015 DARLENE SNOW, ALEXANDRA Lewis Ot R42 DIZZINESS AND GIDDINESS 12/19/2015 DARLENE SNOW, ALEXANDRA Lewis Ot R55 SYNCOPE AND COLLAPSE 12/23/2015 TIANNASHERON CFNP Ot R10.10 UPPER ABDOMINAL PAIN, UNSPECIFIED 12/23/2015 SHERON WYNN Jess CFNP Ot R10.10 UPPER ABDOMINAL PAIN, UNSPECIFIED 01/02/2016 Ot 789.00 ABDOMINAL PAIN, UNSPECIFIED SITE 01/02/2016 Ot 562.10 DIVERTICULOSIS COLON (W/O MENT OF HEMORR 01/02/2016 Ot 593.2 CYST OF KIDNEY, ACQUIRED 01/02/2016 SHERON WYNN Jess CFNP Ot 784.0 HEADACHE 01/02/2016 TIANNA SHERON Mercado CFNP Ot V12.41 HX BENIGN NEOPLASM/BRAIN 01/02/2016 WYNNSHERON ARCHER Jess CFNP Ot 784.0 HEADACHE 01/02/2016 SHERON WYNN R CFNP Ot V12.41 HX BENIGN NEOPLASM/BRAIN 01/02/2016 SHERON WYNN Jess CFNP Ot 592.0 CALCULUS OF KIDNEY 01/02/2016 TIANNA SHERON R CFNP Ot 592.0 CALCULUS OF KIDNEY 01/02/2016 JUANCHO JC DOA K Ot R10.13 EPIGASTRIC PAIN 01/02/2016 TIANNA SHERON Mercado CFNP Ot K85.8 OTHER ACUTE PANCREATITIS 01/02/2016 TIANNASHERON CFNP Ot R10.10 UPPER ABDOMINAL PAIN, UNSPECIFIED 01/02/2016 ABDIRASHID JC DO Ot R10.13 EPIGASTRIC PAIN 01/02/2016 SHERON WYNN Ot K85.8 OTHER ACUTE PANCREATITIS 01/02/2016 SHERON WYNN Ot R10.10 UPPER ABDOMINAL PAIN, UNSPECIFIED 01/02/2016 PAM ROSALESC, ALI FACP CCDS Ot E11.9 TYPE 2 DIABETES MELLITUS WITHOUT COMPLIC 01/02/2016 PAM ROSALESC, ALI FACP CCDS Ot E78.5 HYPERLIPIDEMIA, UNSPECIFIED 01/02/2016 PAM SNOW FACC, ALI FACP CCDS Ot G40.909 EPILEPSY, UNSP, NOT INTRACTABLE , WITHOUT 01/02/2016 PAM ROSALESC, ALI FACP CCDS Ot I10 ESSENTIAL (PRIMARY) HYPERTENSION 01/02/2016 PAM ROSALESC, ALI FACP CCDS Ot R07.9 CHEST PAIN, UNSPECIFIED 01/02/2016 PAM ROSALESC, ALI FACP CCDS Ot R55 SYNCOPE AND COLLAPSE 01/02/2016 PAM SNOW FACC, ALI FACP CCDS Ot Z79.899 OTHER FPC (CURRENT) DRUG THERAPY 01/03/2016 Ot E11.9 TYPE 2 DIABETES MELLITUS WITHOUT COMPLIC 01/03/2016 Ot I10 ESSENTIAL (PRIMARY) HYPERTENSION 01/03/2016 Ot R10.13 EPIGASTRIC PAIN 01/03/2016 Ot 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 01/03/2016 SHERON WYNN CFMIKE Ot K85.8 OTHER ACUTE PANCREATITIS 01/19/2016 PAM SNOW FACC, KIAH FACP CCDS Ot E11.9 TYPE 2 DIABETES MELLITUS WITHOUT COMPLIC 01/19/2016 PAM SNOW FACC, ALI FACP CCDS Ot E78.5 HYPERLIPIDEMIA, UNSPECIFIED 01/19/2016 PAM ROSALESC, ALI FACP CCDS Ot G40.909 EPILEPSY, UNSP, NOT INTRACTABLE , WITHOUT 01/19/2016 PAM ROSALESC, ALI FACP CCDS Ot I10 ESSENTIAL (PRIMARY) HYPERTENSION 01/19/2016 PAM ROSALESC, ALI FACP CCDS Ot R07.9 CHEST PAIN, UNSPECIFIED 01/19/2016 PAM ROSALESC, ALI FACP CCDS Ot R55 SYNCOPE AND COLLAPSE 01/19/2016 PAM ROSALESC, ALI FACP CCDS Ot Z79.899 OTHER SALES DEVELOPMENT CONSULTANT (CURRENT) DRUG THERAPY 01/23/2016 BERTIN SMITH DO Ot K87 DISORD OF GB, BILIARY TRAC AND PANCREAS 01/23/2016 BERTIN SMITH DO Ot Z01.818 ENCOUNTER FOR OTHER PREPROCEDURAL EXAMIN 01/24/2016 BERTIN SMITH DO Ot K87 DISORD OF GB, BILIARY TRAC AND PANCREAS 01/24/2016 BERTIN SMITH DO Ot Z01.818 ENCOUNTER FOR OTHER PREPROCEDURAL EXAMIN 01/26/2016 BERTIN SMITH DO Ot E11.9 TYPE 2 DIABETES MELLITUS WITHOUT COMPLIC 01/26/2016 BERTIN SMITH DO Ot K81.1 CHRONIC CHOLECYSTITIS 01/26/2016 BERTIN SMITH DO Ot K82.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 01/28/2016 DIETER OLMOS DO Ot L29.8 OTHER PRURITUS 01/28/2016 DIETER OLMOS DO Ot Z90.49 ACQUIRED ABSENCE OF OTHER SPECIFIED PART 01/28/2016 Ot 789.00 ABDOMINAL PAIN, UNSPECIFIED SITE 01/28/2016 Ot 562.10 DIVERTICULOSIS COLON (W/O MENT OF HEMORR 01/28/2016 Ot 593.2 CYST OF KIDNEY, ACQUIRED 01/28/2016 SHERON WYNN Ot 784.0 HEADACHE 01/28/2016 SHERON WYNN CFNP Ot V12.41 HX BENIGN NEOPLASM/BRAIN 01/28/2016 SHERON WYNN CFNP Ot 784.0 HEADACHE 01/28/2016 SHERON WYNN CFNP Ot V12.41 HX BENIGN NEOPLASM/BRAIN 01/28/2016 SHERON WYNN CFNP Ot 592.0 CALCULUS OF KIDNEY 01/28/2016 SHERON WYNN CFNP Ot 592.0 CALCULUS OF KIDNEY 01/28/2016 ABDIRASHID JC DO Ot R10.13 EPIGASTRIC PAIN 01/28/2016 SHERON WYNN CFNP Ot K85.8 OTHER ACUTE PANCREATITIS 01/28/2016 SHERON WYNN Ot R10.10 UPPER ABDOMINAL PAIN, UNSPECIFIED 01/30/2016 DIETER OLMOS DO Ot G89.18 OTHER ACUTE POSTPROCEDURAL PAIN 01/30/2016 DIETER OLMOS DO, Ot K57.30 DVRTCLOS OF LG INT W/O PERFORATION OR AB 01/30/2016 DIETER OLMOS DO Ot L29.8 OTHER PRURITUS 01/30/2016 DIETER OLMOS DO Ot Z90.49 ACQUIRED ABSENCE OF OTHER SPECIFIED PART 02/02/2016 BERTIN SMITH DO Ot E11.9 TYPE 2 DIABETES MELLITUS WITHOUT COMPLIC 02/02/2016 BERTIN SMITH DO, Ot K81.1 CHRONIC CHOLECYSTITIS 02/22/2016 BERTIN SMITH DO, Ot K87 DISORD OF GB, BILIARY TRAC AND PANCREAS 02/22/2016 BERTIN SMITH DO, Ot Z01.818 ENCOUNTER FOR OTHER PREPROCEDURAL EXAMIN 04/09/2016 SHERON WYNN CFNP Ot M25.561 PAIN IN RIGHT KNEE 04/12/2016 SHERON WYNN CFNP Ot M25.561 PAIN IN RIGHT KNEE 02/14/2017 SHERON WYNN CFNP Ot 784.0 HEADACHE 02/14/2017 SHERON WYNN CFNP Ot V12.41 HX BENIGN NEOPLASM/BRAIN 02/14/2017 SHERON WYNN CFNP Ot 784.0 HEADACHE 02/14/2017 SHERON WYNN CFNP Ot V12.41 HX BENIGN NEOPLASM/BRAIN 02/14/2017 SHERON WYNN CFNP Ot 592.0 CALCULUS OF KIDNEY 02/14/2017 SHERON WYNN CFNP Ot 592.0 CALCULUS OF KIDNEY 02/14/2017 ABDIRASHID JC DO Ot R10.13 EPIGASTRIC PAIN 02/14/2017 SHERON WYNN CFNP Ot K85.8 OTHER ACUTE PANCREATITIS 02/14/2017 SHERON WYNN CFNP Ot R10.10 UPPER ABDOMINAL PAIN, UNSPECIFIED 02/14/2017 SHERON WYNN CFNP Ot M25.561 PAIN IN RIGHT KNEE Procedures Code Description [place] [address] MICRO ALBUMIN-IN HOUSE 05/27/2012 80095 A1C (IN-HOUSE) 10856 ROUTINE VENIPUNCTURE 06/24/2012 01106 CBC 06/24/2012 03741 LIPID PANEL 06/24 93778 CMP 06/24/2012 6145041 GFR CALC (RESULT ONLY) 06/24/2012 45372 GANGLION CYST-ASP/INJ 07/24/2012 85055 A1C (IN-HOUSE) 28809 A1C (IN-HOUSE) 39975 MRI BRAIN W/O & W/DYE 03/30/2013 50493 A1C (IN-HOUSE) 23972 UA LONG DIP 11/[address] ABDOMEN & PELVIS W/O CONTRAST 11/17/2013 17196 UA LONG DIP 12/01 23061 ROUTINE VENIPUNCTURE 12/09/2013 29852 A1C (IN-HOUSE) 03069 MICRO ALBUMIN-IN HOUSE 12/09/2013 9831395 GFR CALC (RESULT ONLY) 12/09/2013 27566 CMP 12/09/2013 87712 LIPID PANEL 12/09 42302 UA LONG DIP 12/28 96945 UA LONG DIP 01/19 43009 UA LONG DIP 02/[address] ABDOMEN & PELVIS W/O CONTRAST 03/30/2014 44507 A1C (IN-HOUSE) 89319 UA LONG DIP 06/01 74514 GLUCOSE FINGER STICK 06/01/2014 04841 MRI SPINE (LUMBAR) W/O CONTRAST 08/07/2014 40568 A1C (IN-HOUSE) Results Encounters ACCT No. Visit Date/Time Discharge Status Pt. Type Provider Facility Loc./Unit Complaint [id number] 10/20/2014 08:54:00 10/20/2014 23: 59:59 CLS Outpatient MIKE ALCAZAR DO [id number] 09/22/2014 08:14:00 09/22/2014 23: 59:59 CLS Outpatient SHERON WYNN APRN [id number] 08/03/2014 11:20:00 08/03/2014 23: 59:59 CLS Outpatient SHERON WYNN APRN [id number] 06/29/2014 12:45:00 06/29/2014 23: 59:59 CLS Outpatient MIKE ALCAZAR DO [id number] 06/01/2014 13:49:00 06/01/2014 23: 59:59 CLS Outpatient ALCAZAR DOMIKE Kurt [id number] 04/05/2014 15:38:00 04/05/2014 23: 59:59 CLS Outpatient ALCAZAR DOMIKE Kurt [id number] 02/18/2014 10:59:00 02/18/2014 23: 59:59 CLS Outpatient ALCAZAR DO MIKE Hicks [id number] 01/19/2014 14:49:00 01/19/2014 23: 59:59 CLS Outpatient WYNN BOYSHERON [id number] 12/28/2013 10:30:00 12/28/2013 23: 59:59 CLS Outpatient ALCAZAR DO MIKE Hicks [id number] 12/09/2013 09:10:00 12/09/2013 23: 59:59 CLS Outpatient ALCAZAR DO MIKE Hicks [id number] 12/01/2013 09:20:00 12/01/2013 23: 59:59 CLS Outpatient WYNN BOYSHERON [id number] 11/16/2013 10:48:00 11/16/2013 23: 59:59 CLS Outpatient WYNN BOYSHERON [id number] 10/19/2013 10:35:00 10/19/2013 23: 59:59 CLS Outpatient ALCAZAR DO MIKE Hicks [id number] 09/04/2013 00:00:00 09/04/2013 23: 59:59 CLS Outpatient TIANNA BRUNSONSHERON [id number] 07/29/2013 00:00:00 07/29/2013 23: 59:59 CLS Outpatient WYNN BOYSHERON [id number] 07/15/2013 09:15:00 07/15/2013 23: 59:59 CLS Outpatient ALCAZAR DO MIKE Hicks [id number] 07/07/2013 00:00:00 07/07/2013 23: 59:59 CLS Outpatient WYNN BOYSHERON [id number] 05/21/2013 13:18:00 05/21/2013 23: 59:59 CLS Outpatient ALCAZAR DO MIKE Hicks [id number] 04/20/2013 12:09:00 04/20/2013 23: 59:59 CLS Outpatient ALCAZAR DOMIKE [id number] 03/30/2013 13:39:00 03/30/2013 23: 59:59 CLS Outpatient ALCAZAR DO MIKE Hicks [id number] 09/30/2012 08:52:00 09/30/2012 23: 59:59 CLS Outpatient TAYLA ALONSO MD [id number] 07/24/2012 09:43:00 07/24/2012 23: 59:59 CLS Outpatient [id number] 06/24/2012 09:32:00 06/24/2012 23: 59:59 CLS Outpatient TAYLA ALONSO MD [id number] 05/27/2012 14:31:00 05/27/2012 23: 59:59 CLS Outpatient [id number] 03/11/2012 08:56:00 03/11/2012 23: 59:59 CLS Outpatient TAYLA ALONSO MD [id number] 02/23/2013 14:44:00 Document Registration [id number] 12/11/2012 10:12:00 Document Registration [id number] 02/14/2017 09:15:00 2016 23:59:59 CLS Outpatient LILLIAM RODRIGUES [facility] RAD SCREENING [id number] 04/07/2016 09:54:00 2015 23:59:59 CLS Outpatient SHERON WYNN [facility] RAD ACUTE PAIN OF RT KNEE [id number] 01/28/2016 00:23:00 2015 03:36:00 DIS Emergency DIETER OLMOS DO [facility] ER STOMACH PAIN POST SURGERY [id number] 01/26/2016 05:48:00 2015 14:30:00 DIS Outpatient BERTIN SMITH DO [facility] SDC ABNORMAL EJECTION FRACTION [id number] 01/23/2016 10:23:00 2015 10:36:00 DIS Outpatient BERTIN SMITH DO [facility] PREOP ABNORMAL EJECTION FRACTION [id number] 01/02/2016 07:59:00 2015 15:30:00 DIS Outpatient PAM SNOW FACCKIAH FACP CCDS [facility] CATH ANGINA,SYNCOPE,SOB [id number] 12/22/2015 10:17:00 2015 23:59:59 CLS Outpatient SHERON WYNN [facility] CARD PAIN OF UPPER ABDOMEN [id number] 12/16/2015 19:36:00 2015 21:33:00 DIS Emergency ALEXANDRA COLON MD [facility] ER PASSED OUT/DIZZY/NAUSEA/PAIN IN LOWER BACK [id number] 12/15/2015 18:14:00 2015 22:04:00 DIS Emergency HOSEA ABDIRASHID OCAMPO [facility] ER CHEST PAIN/NUMBNESS/VOMITTING [id number] 12/09/2015 09:36:00 2015 23:59:59 CLS Outpatient SHERON WYNN [facility] RAD ACUTE PANCREATITIS [id number] 10/13/2015 08:17:00 2015 23:59:59 CLS Outpatient HOSEA ABDIRASHID Kurt [facility] RAD EPIGASTRIC PAIN [id number] 09/19/2015 20:24:00 2015 00:24:00 DIS Emergency ALEXANDRA COLON MD [facility] ER CP [id number] 08/09/2015 22:17:00 2015 00:59:00 DIS Emergency PAULO DYE MD [facility] ER LOWER ABD PAIN [id number] 06/19/2015 18:56:00 2014 20:14:00 DIS Emergency STEVE AL APRN [facility] ER LOW BACK PAIN/VOMITING [id number] 03/29/2014 13:10:00 2013 23:59:59 CLS Outpatient SHERON WYNN [facility] RAD RENAL STONE SEARCH [id number] 11/28/2013 13:54:00 2013 16:49:00 DIS Emergency PAULO DYE MD [facility] ER BACK PAIN-KIDNEY STONES [id number] 11/16/2013 15:05:00 2013 23:59:59 CLS Outpatient SHERON WYNN [facility] RAD RENAL STONE [id number] 11/10/2013 15:22:00 2013 17:21:00 DIS Emergency STEVE AL APRN [facility] ER BACK PAIN [id number] 09/30/2013 10:17:00 2013 23:59:59 CLS Outpatient [id number] 04/13/2013 11:23:00 2012 23:59:59 CLS Outpatient SHERON WYNN [facility] RAD CHRONIC HEADACHES, HX BRAIN TUMOR [id number] 04/13/2013 08:19:00 2012 23:59:59 CLS Outpatient SHERON WYNN [facility] LAB CHRONIC HEADACHES,HX TUMOR W SHAILA [id number] 12/06/2012 17:03:00 2012 12:00:00 DIS Inpatient LUPE SNOW, PAO Swenson [facility] CSD SYNCOPE,CHEST PAIN [id number] 10/09/2015 22:26:00 Document Registration [id number] 03/28/2011 11:07:00 Document Registration [id number] 03/26/2011 07:39:00 Document Registration [id number] 03/10/2011 23:11:00 Document Registration [id number] 02/02/2011 20:46:00 Document Registration
== END 2017-02-23 17:40 | disposition home or self-care (01) ==
LOC: EDUNIT# 14:24 → ER 14:26
DX: K04.7 Periapical abscess without sinus (principal); K02.9 Dental caries, unspecified; E11.40 Type 2 diabetes mellitus with diabetic neuropathy, unspecified; G40.909 Epilepsy, unspecified, not intractable, without status epilepticus; E78.00 Pure hypercholesterolemia, unspecified; I10 Essential (primary) hypertension; Z87.59 Personal history of other complications of pregnancy, childbirth and the puerperium; Z79.82 Long term (current) use of aspirin; Z79.84 Long term (current) use of oral hypoglycemic drugs; Z79.4 Long term (current) use of insulin; Z86.03 Personal history of neoplasm of uncertain behavior; Z86.2 Personal history of diseases of the blood and blood-forming organs and certain disorders involving the immune mechanism; Z90.710 Acquired absence of both cervix and uterus; Z87.442 Personal history of urinary calculi
CPT/HCPCS: 99282

== ENCOUNTER → 2017-03-07 | Outpatient (CLI) | payer OTHER ==
[~2017-03-07] MED LIST changes: +AMOX500C2 PO; +EZET10TA5; +PANT40TA3; +PROP15DR; +SIMV40TA
--- NOTE | 2017-03-07 22:57 | Diagnostic Imaging Report ---
Unilateral diagnostic right mammogram INDICATION: Abnormal mammogram The current study was also evaluated with a Computer Aided Detection (CAD) system. The mammogram performed on 02/14/17 noted that there had been an increase in the calcifications in the central right breast. On this exam, magnification views of the calcifications in the 2 o'clock position of the right breast roughly 8 CM from the nipple were obtained. These calcifications do not have a threatening appearance and I do suspect that they are benign. However, as they have developed in the interval since the prior exam of 2008 it may prove worthwhile to have a short-term (6 month) followup mammogram for continued evaluation. IMPRESSION: The calcifications in the 2 o'clock position in the right breast are most likely benign. Recommendations as above. ACR BI-RADS Category 3: Probably benign findings. Result letter will be mailed to the patient. Note: At least 10% of breast cancer is not imaged by mammography. Dictated by: Dictated on workstation # [id number]
== END ==
LOC: RAD 07:47
PROVIDERS: ATTEND Nurse Practitioner Family
DX: R92.8 Other abnormal and inconclusive findings on diagnostic imaging of breast (principal)

== ENCOUNTER → 2017-08-02 | Outpatient (CLI) | payer BC ==
[~2017-08-02] MED LIST changes: +ACHD5005 PO; +GADOBUTROL 10 MMOL/10 ML (GADAVIST) VIAL IV ONE; -HYDR-3812 PO
--- NOTE | 2017-08-02 08:57 | Diagnostic Imaging Report ---
PROCEDURE: MR imaging cervical spine without contrast. TECHNIQUE: Multiplanar, multisequence MR imaging of the cervical spine was performed without contrast. INDICATION: Fall with neck pain and left arm pain. No prior studies are available for comparison. Curvature and alignment of the cervical spine is normal. Vertebral body marrow signal is normal. No geographic marrow lesion is seen. There does appear to be significant degenerative disease at C4-C5 and C5-C6 levels with disc space narrowing and desiccation as well as marginal osteophyte formation. The cervical cord demonstrates homogeneous signal intensity and normal morphology. C2-C3: No central canal or neuroforaminal stenosis is identified. C3-C4: No significant central canal or neuroforaminal stenosis is identified. C4-C5: Broad-based disc/osteophyte complex is seen. There is a prominent midline disc bulge/osteophyte indenting the ventral thecal sac and producing significant central canal stenosis. AP dimension of the canal are 5 mm. Uubv-[id number]-[id number] bilateral neural foraminal stenosis is also noted due to uncovertebral joint degenerative change. C5-C6: Broad-based disc/osteophyte complex does indent the ventral thecal sac producing moderate central canal stenosis. There is also moderate bilateral neural foraminal stenosis. C6-C7: No significant central canal stenosis is seen. There does appear to be moderate left neural foraminal stenosis due to uncovertebral joint degenerative change. C7-T1: No central canal or neuroforaminal stenosis is detected. IMPRESSION: Multilevel cervical spondylosis with multilevel central canal or neuroforaminal stenosis, most marked C4-C5 and C5-C6 levels. Dictated by: Dictated on workstation # [id number]
--- NOTE | 2017-08-02 09:22 | Diagnostic Imaging Report ---
PROCEDURE: MRI lumbar spine with and without contrast. TECHNIQUE: Multiplanar, multisequence MRI of the lumbar spine was performed with and without contrast. INDICATION: Fall with back pain and bilateral leg pain. No prior studies are available for comparison. Curvature and alignment of the lumbar spine is normal. Vertebral body heights are maintained. No acute compression fracture seen. No geographic marrow lesion is detected. There is fairly normal height and signal intensity to the lumbar discs apart from mild disc space narrowing desiccation at L3-L4 level. The conus is unremarkable at the L1 level. T12-L1: Unremarkable. L1-L2: Unremarkable. L2-L3: Unremarkable. L3-L4: There is broad-based disc bulging and hypertrophic facet changes and ligamentous thickening. AP dimensions of the canal remain within normal limits. There is some narrowing of the lateral recesses bilaterally. Mild bilateral neural foraminal narrowing is also present. L4-L5: Hypertrophic facet degenerative changes are noted. There is also ligamentous thickening. This in combination with broad-based disc/osteophyte complex does create moderate trefoil stenosis of the central canal. There is also bilateral lateral recess stenosis and moderate bilateral neural foraminal stenosis. L5-S1: Degenerative facet changes are noted. Central canal is widely patent. The neural foramina are patent. Postcontrast acquisitions were also performed. No abnormal enhancement is identified. IMPRESSION: Degenerative disc and facet disease, greatest at L3-L4 and L4-L5 levels with central canal and neuroforaminal stenosis, described level by level above. No acute compression fracture is detected. Dictated by: Dictated on workstation # [id number]
== END ==
LOC: RAD 07:21
PROVIDERS: ATTEND Student in an Organized Health Care Education/Training Program
DX: M48.02 Spinal stenosis, cervical region (principal); M51.26 Other intervertebral disc displacement, lumbar region; M51.36 Other intervertebral disc degeneration, lumbar region; M47.817 Spondylosis without myelopathy or radiculopathy, lumbosacral region
CPT/HCPCS: 72141; 72158

== ENCOUNTER → 2017-08-22 | Outpatient (CLI) | payer BC ==
[~2017-08-22] MED LIST changes: -GADOBUTROL 10 MMOL/10 ML (GADAVIST) VIAL IV ONE
--- NOTE | 2017-08-22 17:13 | Diagnostic Imaging Report ---
INDICATION: Right breast aspirations. Patient presents for six-month followup. COMPARISON: Correlation is made with prior mammogram from 02/14/2017. EXAMINATION: 3D CC, MLO and 90 degree lateral views were obtained. FINDINGS: The calcifications in the upper and slightly inner right breast at mid depth appear to be stable. There are additional benign-appearing calcifications scattered throughout the right breast. Intramammary lymph node is stable. Right axilla is unremarkable. IMPRESSION: BI-RADS 3 Stable right breast calcifications in the upper inner aspect. Followup in six months is recommended to confirm stability. ACR BI-RADS Category 3: Probably benign findings. Result letter will be mailed to the patient. Note: At least 10% of breast cancer is not imaged by mammography. Dictated by: Dictated on workstation # [id number]
== END ==
LOC: RAD 07:59
PROVIDERS: ATTEND Nurse Practitioner Family
DX: R92.1 Mammographic calcification found on diagnostic imaging of breast (principal)

== ENCOUNTER → 2018-04-28 | Outpatient (CLI) | payer BC ==
[~2018-04-28] MED LIST changes: +HYDR-4226 PO; +METF-399 PO; -METF1000 PO
--- NOTE | 2018-04-28 20:14 | Diagnostic Imaging Report ---
INDICATION: Six-month followup of right breast calcifications. COMPARISON: Correlation is made with prior mammograms from 08/22/2017 as well as 02/14/2017. TECHNIQUE: 2D and 3D bilateral diagnostic mammography was performed with computer-aided detection (CAD) system. FINDINGS: Both breasts remain heterogeneously dense, limiting the sensitivity of mammography. The calcifications noted just medial to the nipple line on the CC view appear to be stable. These appear to be superiorly located on the MLO view. No associated soft tissue mass is seen. There are scattered benign calcifications bilaterally. Intramammary lymph node in the far posterior right breast is stable. No spiculated mass is seen. The axillae are unremarkable. IMPRESSION: Stable right breast calcifications. There are no mammographic features suspicious for malignancy. Patient may return to routine annual screening mammography. ACR BI-RADS Category 2: Benign findings. Result letter will be mailed to the patient. Note: At least 10% of breast cancer is not imaged by mammography. Dictated by: Dictated on workstation # [id number]
== END ==
LOC: RAD 13:45
PROVIDERS: ATTEND Student in an Organized Health Care Education/Training Program
DX: R92.1 Mammographic calcification found on diagnostic imaging of breast (principal)
CPT/HCPCS: 77066

== ENCOUNTER 2018-11-28 21:52 | Emergency (ER) | payer BC ==
[~2018-11-28] VITALS: Ht 160 cm; Wt 86.2 kg
[~2018-11-28 21:52] MED LIST changes: -GABA600T2 PO; +GBPN600T PO
[2018-11-28] MEDS ORDERED: DOXYCYCLINE 100 MG (VIBRAMYCIN) TABLET PO STA (23:05)
[2018-11-28] MEDS ORDERED: DOXY100T2 PO (23:12)
--- NOTE | 2018-11-28 23:12 | ED Integumentary General ---
General Chief Complaint: Skin/Wound Problems Stated Complaint: POSSIBLE SPIDER BITE Nursing Triage Note: PT AMB TO TRIAGE WITH COMPLAINT OF POSS SPIDER BITE ON RIGHT ARM PIT. STATES SHE NOTICED THE AREA OF CONCERN YESTERDAY. Source: patient Exam Limitations: no limitations History of Present Illness Date Seen by Provider: November 28, 2018 Time Seen by Provider: 23:00 Initial Comments Here with report of what she believes is a spider bite under her right arm in the area the arm pit on the chest wall. Onset 3 days ago or so. Does have a central core that appears to be black and surrounded by erythema. No fever or chills. Denies other injury or concerns. Timing/Duration: getting worse, other (3 days) Severity: moderate Location: torso Possible Cause: insect bite Associated Symptoms: change in skin texture, edema; No fever Allergies and Home Medications Allergies Coded Allergies: Phenytoin Sodium Extended (Unverified Allergy, Unknown, 02/23/17) Sulfa (Sulfonamide Antibiotics) (Unverified Allergy, Unknown, 01/02/16) phenytoin sodium (Unverified Allergy, Unknown, 08/09/15) Home Medications Amoxicillin 500 Mg Capsule, 1,000 MG PO TID Prescribed by: TERESA SANTIAGO on 02/23/17 1620 Aspirin 81 Mg Tablet., 81 MG PO DAILY, (Reported) Hydrochlorothiazide 12.5 Mg Capsule, 12.5 MG PO DAILY, (Reported) Insulin Determir 1,000 Units/10 Ml Soln, 28 UNITS SQ DAILY, (Reported) Insulin Determir 1,000 Units/10 Ml Soln, 30 UNITS SQ HS, (Reported) Levetiracetam 500 Mg Tablet, 500 MG PO BID, (Reported) Lisinopril 20 Mg Tablet, 20 MG PO DAILY, (Reported) Metformin HCl 1,000 Mg Tablet, 1,000 MG PO BID, (Reported) [place]-3/Dha/Epa/Fish Oil 1 Each Capsule, 1,000 MG PO DAILY, (Reported) Omeprazole 20 Mg Capsule., 20 MG PO DAILY, (Reported) Patient Home Medication List Home Medication List Reviewed: Yes Review of Systems Review of Systems Constitutional: see HPI; No chills, No fever Respiratory: no symptoms reported Cardiovascular: no symptoms reported Skin: see HPI, change in color, lesions Past Ullqaig-Ixptkn-Plrqfz Hx Past Med/Social Hx: Reviewed Nursing Past Med/Soc Hx Patient Social History Alcohol Use: Denies Use Recreational Drug Use: No Smoking Status: Never a Smoker Recent Foreign Travel: No Contact w/Someone Who Travel: No Recent Infectious Disease Expo: No Recent Hopitalizations: No Immunizations Up To Date Tetanus Booster (TDap): More than 5yrs PED Vaccines UTD: No Seasonal Allergies Seasonal Allergies: No Past Medical History Surgeries: Yes (c/s x2, bladder tie, cranial sx for tumor, lap louie, trigger finger) Abdominal, Bladder Surgery, Section, Gallbladder, Hysterectomy, Orthopedic Respiratory: No Cardiac: Yes High Cholesterol, Hypertension Neurological: Yes Brain Tumor, Neuropathy, Seizure Disorder 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, Menopausal Kidney Stones Gastrointestinal: Yes Diverticulosis Musculoskeletal: Yes Fibromyalgia Endocrine: Yes Diabetes, Insulin dep Macular Degeneration Cancer: No Psychosocial: No Integumentary: No Blood Disorders: No Adverse Reaction/Blood Tranf: No Family Medical History Reviewed Nursing Family Hx No Pertinent Family Hx Physical Exam Vital Signs Vital Signs - First Documented 11/28/18 22:10 Temp 98.3 Pulse 112 Resp 20 B/P (MAP) 132/78 (96) Pulse Ox 96 O2 Delivery Room Air Capillary Refill : Less Than 3 Seconds General Appearance: WD/WN, no apparent distress Cardiovascular: regular rate, rhythm, no murmur Respiratory: lungs clear, normal breath sounds Skin: warm/dry, other (lesion) Skin Problem Location: torso (right axilla/chest wall) Skin Problem Character: erythema, lesion (1 cm central core of blackened or darkened tissue surrounded by Nat 2 cm of erythema. No obvious fluctuance.) Progress/Results/Core Measures Results/Orders My Orders Orders - ALEXANDRA COLON MD Vibramycin 100mg Po (11/28/18 23:05) Vital Signs/I&O 11/28/18 22:10 Temp 98.3 Pulse 112 Resp 20 B/P (MAP) 132/78 (96) Pulse Ox 96 O2 Delivery Room Air Blood Pressure Mean: 96 Progress Progress Note : Progress Note Seen and evaluated. Wound evaluated in does appear to look like a brown recluse spider bite. She does have some surrounding erythema and is diabetic so we will go ahead and initiate doxycycline. She will use topical antibiotic as well. She is instructed to follow-up with her for referral to wound care as well. Discharged home with return precautions. Patient verbalize understanding instructions and agreement with plan. Departure Impression Primary Impression: Spider bite Qualified Codes: T63.304A - Toxic effect of unspecified spider venom, undetermined, initial encounter Disposition: 01 HOME, SELF-CARE Condition: Improved Departure-Patient Inst. Decision time for Depature: 23:10 Referrals: KEKE BRUNSON MD (PCP/Family) Primary Care Physician Patient Instructions: Spider Bites Add. Discharge Instructions: All discharge instructions reviewed with patient and/or family. Voiced understanding. Take medications as directed. Follow-up with your Dr. in a few days for recheck. You may use antibiotic ointment and Band-Aid over the wound twice daily for the next several days and then as needed. It is okay to shower and wash wound daily. If this is a brown recluse spider bite, the wound will take weeks to heal. Return for worse pain, swelling, increasing redness, fever, weakness or other concerns as needed. Scripts Doxycycline Hyclate (Doxycycline Hyclate) 100 Mg Tablet 100 MG PO BID, #14 TAB 0 Refills Prov: ALEXANDRA COLON MD 11/28/18 ALEXANDRA COLON MD November 28, 2018 23:12
[2018-11-28 23:15] VITALS: BP 130/76
--- OUTSIDE RECORDS SUMMARY | 2018-11-29 01:00 | XMS REPORT ---
Author Author Richard Ng Organization [facility] Address [address] [place], [place] [id number] Care Team Providers Care Packager Machine Name Role Phone Richard Ng PCP Allergies and Adverse Reactions Name Reaction Notes Dilantin SULFA (SULFONAMIDE ANTIBIOTICS) Plan of Treatment Planned Activity Comments Planned Date Planned Time Plan/Goal Nerve conduction studies; 9-10 studies 10/13/2018 12:00 AM Needle Electromyography, each extremity, complete 10/13/2018 12:00 AM Medications Active Name Start Date Estimated Completion Date SIG Comments Neurontin 100 mg oral capsule take 1 capsule (100 mg) by oral route 3 times per day Lipitor 40 mg oral tablet take 1 tablet (40 mg) by oral route once daily lisinopril-hydrochlorothiazide 20-25 mg oral tablet take 1 tablet by oral route once daily Levemir FlexTouch U-100 Insuln 100 unit/mL (3 mL) subcutaneous insulin pen inject by subcutaneous route per prescriber's instructions. Insulin dosing requires individualization. metformin 1,000 mg oral tablet extended release 24hr take 1 tablet by oral route 2 times a day Novolog PenFill U-100 Insulin 100 unit/mL subcutaneous cartridge inject by subcutaneous route per prescriber's instructions. Insulin dosing requires individualization. Protonix 20 mg oral tablet,delayed release (DR/EC) take 1 tablet (20 mg) by oral route once daily Keppra 500 mg oral tablet take 1 tablet (500 mg) by oral route 2 times per day Problem List Not available. Vital Signs Date Time BP-Sys(mm[Hg] BP-Kim(mm[Hg]) HR(bpm) RR(rpm) Temp WT HT HC BMI BSA BMI Percentile O2 Sat(%) 10/13/2018 2:08:00 PM 136 mmHg 85 mmHg 117 bpm 97.5 F 196 lbs 63 in 34.7195 kg/m 1.9879 m 96 % Social History Not available. History of Procedures Not available. Results Summary Not available. History Of Immunizations Not available. History of Past Illness Name Date of Onset Comments Diabetes Contracture, left hand Brain tumor Hypertension Sacral radiculopathy Oct 13 2018 2:10PM Tibial neuropathy, right Oct 13 2018 2:10PM Payers Insurance Name Company Name Plan Name Plan Number Policy Number Policy Group Number Start Date [facility] [id number] N/A History of Encounters Visit Date Visit Type Provider 10/13/2018 Procedures Richardjudi Ng DO
--- OUTSIDE RECORDS SUMMARY | 2018-11-29 01:00 | XMS REPORT ---
Author Author Migration, Doctor Organization [facility] Address Unknown Phone Unavailable Care Team Providers Care Travertine Installer Name Role Phone Migration, Doctor Unavailable Unavailable PROBLEMS Type Condition ICD9-CM Code ZNX13-QW Code Onset Dates Condition Status SNOMED Code Problem Thoracic or lumbosacral neuritis or radiculitis, unspecified 724.4 Active 323486529 Problem Headache 784.0 Active 55755038 Problem Polyneuropathy in diabetes 357.2 Active 05740040 Problem Renal and perinephric abscess 590.2 Active 333352910 Problem Type 2 diabetes mellitus with diabetic neuropathy E11.40 Active 14752003 Problem Unspecified epilepsy without mention of intractable epilepsy 345.90 Active 01185798 Problem Epilepsy without status epilepticus, not intractable, unspecified G40.909 Active 211036424 Problem Essential hypertension I10 Active 84384193 Problem Abdominal pain, unspecified abdominal location R10.9 Active 12818037 Problem Chest pain, unspecified type R07.9 Active 61479517 Problem Syncope, unspecified syncope type R55 Active 612501846 Problem Right knee injury, initial encounter S89.91XA Active 616612438 Problem Sciatica, right M54.31 Active 60901536 Problem Acute pain of right knee M25.561 Active 70093764 Problem Renal stone N20.0 Active 60300003 Problem Diverticulosis of large intestine without hemorrhage K57.30 Active 048751954 Problem Other acute pancreatitis K85.8 Active 631461440 Problem Pain of upper abdomen R10.10 Active 48070296 Problem Biliary dyskinesia K82.8 Active 087336820 ALLERGIES No Information ENCOUNTERS Encounter Location Date Diagnosis [facility] [address] [id number] [place] [id number] Jan, Dental examination Z01.20 and Dental caries K02.9 [facility] [address] [facility] [id number] [place] [address] Sep, [facility] [address] [id number] [id number] Aug, [facility] [address]00565[address], [place] [address] May, [facility] [address]65100[place], [place] [address] Apr, [facility] [id number] [place] [id number] Apr, [facility] [id number] [place] [address] [id number] Mar, Acute pain of right knee M25.561 [facility] [id number] [place] [address] [id number] Mar, Acute pain of right knee M25.561 [facility] [address]00565100[place], [place] [address] Mar, [facility] [id number] [place] [address] [id number] Feb, Right knee injury, initial encounter S89.91XA [facility] [id number] [place] [address] [id number] Feb, [facility] [id number] [place] [address] [id number] Jan, [facility] [id number] [place] [id number] Jan, [facility] [id number] [place] [id number] Dec, [place] [facility] [address] [id number] [id number] Dec, Chest pain, unspecified type R07.9 ; Type 2 diabetes mellitus with diabetic neuropathy E11.40 ; Essential hypertension I10 ; Syncope, unspecified syncope type R55 and Hyperlipidemia, unspecified hyperlipidemia type E78.5 [facility] [id number] [place] [id number] Dec, Biliary dyskinesia K82.8 [facility] [id number] [place] [id number] Dec, [facility] [id number] [place] [address] [id number] 10 Dec, 2015 Pain of upper abdomen R10.10 [facility] [place] [id number] [place] [address] [id number] 09 Dec, 2015 Pain of upper abdomen R10.10 and Nausea and vomiting, unspecified intactability, vomiting of unspecified type R11.2 [facility] [place] [id number] [place] [address] [id number] Dec, Other acute pancreatitis K85.8 [facility] [place] [id number] [place] [address] [id number] Dec, Other acute pancreatitis K85.8 [facility] [place] [id number] [place] [address] [id number] November, Type 2 diabetes mellitus with diabetic neuropathy E11.40 [facility] [place] [id number] [place] [address] [id number] November, Other acute pancreatitis K85.8 and Type 2 diabetes mellitus with diabetic neuropathy E11.40 [facility] [id number] [place] [address] [id number] November, Acute pancreatitis, unspecified pancreatitis type K85.9 and Type 2 diabetes mellitus with diabetic neuropathy E11.40 [facility] [id number] [place] [address] [id number] November, Abdominal pain, unspecified abdominal location R10.9 [facility] [id number] [place] [address] [id number] November, Diverticulosis of large intestine without hemorrhage K57.30 [facility] [id number] [place] [address] [id number] Oct, [facility] [id number] [place] [address] [id number] Oct, [facility] [id number] [place] [address] Oct, [facility] [id number] [place] [address] [id number] Oct, Chest pain R07.9 ; Type 2 diabetes mellitus with diabetic neuropathy E11.40 ; H. pylori infection A04.8 and UTI (urinary tract infection) N39.0 [facility] [id number] [place] [id number] Oct, [facility] [id number] [place] [address] [id number] Sep, Chest pain R07.9 [facility] [address]65100[place], [place] [address] Sep, [facility] [id number] [place] [address] [id number] Sep, [facility] [id number] [place] [address] [id number] Sep, Abdominal pain, unspecified abdominal location R10.9 and Sciatica, right M54.31 [address]00565100[place] [id number] Sep, [facility] [id number] [place] [address] [id number] Aug, [facility] [id number] [place] [address] Aug, [facility] [id number] [place] [address] [id number] Aug, Diverticulitis of large intestine without perforation or abscess without bleeding K57.32 [facility] [id number] [place] [address] [id number] Jun, Renal stone N20.0 [facility] [id number] [place] [address] [id number] 15 Jun, 2015 Renal and perinephric abscess 590.2 [facility] [id number] [place] [address] [id number] 14 Jun, 2015 Renal stone N20.0 [place] [id number] [place] [address] [id number] 11 May, 2015 Foot pain, left M79.672 and Type 2 diabetes mellitus with diabetic neuropathy E11.40 [facility] [address] [place] [address] Apr, Left foot pain M79.672 [facility] [address] [id number] [place] [id number] Apr, [facility] [id number] [place] [id number] Apr, Type 2 diabetes mellitus with diabetic neuropathy E11.40 ; Left foot pain M79.672 ; Essential hypertension I10 and Epilepsy without status epilepticus, not intractable, unspecified G40.909 [facility] [place] [id number] [place] [id number] Apr, [facility] [address] [id number] [id number] Mar, [facility] [id number] [place] [address] [id number] Feb, Cellulitis and abscess of face 682.0 [facility] [address] [place] [address] [id number] Feb, Cellulitis and abscess of face 682.0 [facility] [id number] [place] [address] Oct, [facility] [id number] [place] [address] Oct, [facility] [id number] [place] [address] Sep, [facility] [address]00565100[place] [id number] Sep, [facility] [address]65100[place], [place] [address] Aug, [facility] [address] [id number] [place] [id number] Aug, [facility] [id number] [place] [address] Aug, [facility] [id number] [place] [address] Aug, [facility] [id number] [place] [address] Aug, [facility] [address] [id number] [place] [id number] Jul, [facility] [place] [facility] [address] [facility] [id number] [place] [address] Jul, [facility] [address] [id number] [place] [id number] Jun, [facility] [place] [facility] [address] [facility] [id number], [place] [address] Jun, [facility] [place] [facility] [address] [id number], [place] [address] Jun, [facility] [address] [id number] [place] [id number] Jun, [facility] [address] [id number] [place] [id number] Jun, [facility] [place] [facility] [address]65[address], [place] [address] Jun, [facility] [address] [facility] [id number] [place] [id number] May, [facility] [place] [facility] [address] [facility] [id number], [place] [address] May, [facility] [address] [facility] [id number] [place] [id number] Mar, [facility] [place] [facility] [address] [facility] [id number], [place] [address] Mar, [facility] [address] [facility] [id number] [place] [id number] Mar, [facility] [place] [facility] [address] [facility] [id number], [place] [address] Mar, [facility] [address] [facility] [id number] [place] [id number] Feb, [facility] [place] [facility] [address] [facility] [id number], [place] [address] Feb, [facility] [address] [facility] [id number] [place] [id number] Feb, [facility] [place] [facility] [address] [id number] [place] [address] Feb, [facility] [address] [id number] [place] [id number] Jan, [facility] [place] [facility] [address] [facility] [id number] [place] [address] Jan, [facility] [address] [id number] [place] [id number] Jan, [facility] [address] [id number] [place] [id number] Jan, [facility] [place] [facility] [address] [facility] [id number] [place] [address] Jan, [facility] [place] [facility] [address] [facility] [id number] [place] [address] Jan, [facility] [address] [id number] [place] [id number] Dec, [facility] [place] [facility] [address] [facility] [id number], [place] [address] Dec, [facility] [address] [facility] [id number] [place] [id number] Dec, [facility] [place] [facility] [address] [facility] [id number], [place] [address] Dec, [facility] [address] [id number] [place] [id number] Dec, [facility] [place] [facility] [address] [facility] [id number], [place] [address] Dec, [facility] [address] [id number] [place] [id number] November, [facility] [place] [facility] [address] [facility] [id number], [place] [address] November, [facility] [address] [facility] [id number] [place] [id number] November, [facility] [place] [facility] [address] [facility] [id number], [place] [address] November, [facility] [address] [id number] [place] [id number] November, [facility] [address] [id number] [place] [address] November, [facility] [address] [id number] [place] [id number] Oct, [facility] [place] [facility] [address] [id number] [place] [address] Oct, [facility] [address] [id number] [place] [id number] Sep, [facility] [place] [facility] [address] [facility] [id number] [place] [address] Sep, [facility] [place] [facility] [address] [facility] [id number] [place] [address] Aug, [facility] [place] [facility] [address] [facility] [id number] [place] [address] Aug, [facility] [address] [id number] [place] [id number] Aug, [facility] [place] [facility] [address] [facility] [id number], [place] [address] Aug, [facility] [place] [facility] [address] [facility] [id number], [place] [address] Jul, [facility] [place] [facility] [address] [facility] [id number], [place] [address] Jul, [facility] [address] [id number] [place] [id number] Jul, [facility] [place] [facility] [address] [id number], [place] [address] Jul, [facility] [place] [facility] [address] [facility] [id number] [place] [address] Jul, [facility] [address] [id number] [place] [id number] Jul, [facility] [address] [id number] [place] [id number] Jul, [facility] [address] [facility] [id number], [place] [address] Jul, [facility] [place] [facility] [address] [facility] [id number], [place] [address] Jul, [facility] [address] [facility] [id number], [place] [address] Jul, [facility] [place] [address] [facility] [id number] [place] [id number] Jun, [facility] [address] [facility] [id number][place] [address] Jun, [facility] [place] [facility] [address] [facility] [id number], [place] [address] Jun, [facility] [address] [facility] [id number], [place] [address] Jun, [facility] [place] [address] [facility] [id number] [place] [id number] May, [facility] [address] [facility] [id number], [place] [address] May, [facility] [place] [address] [facility] [id number] [place] [id number] May, [facility] [address] [facility] [id number], [place] [address] May, [facility] [place] [address] [id number] [place] [id number] Apr, [facility] [address] [facility] [id number], [place] [address] Apr, [facility] [address] [id number] [place] [id number] Mar, [facility] [address] [id number] [place] [id number] Feb, [facility] [place] [address] [id number] [place] [id number] Feb, [facility] [address] [id number] [place] 135[address] Feb, [facility] [address] [id number] [place] [id number] Jan, [facility] [address] [id number] [place] 564264584 Dec, [facility] [address] [id number] [place] [id number] Dec, [facility] [address] [id number] [place] [id number] Dec, [facility] [address] [id number] [place] [id number] November, [facility] [address] [facility] [id number], [place] [address] November, [facility] [address] [id number] [place] [id number] November, [facility] [address] [id number] [place] [id number] Oct, [facility] [address] [id number] [place] [id number] Oct, [facility] [address] [id number] [place] [id number] Sep, [facility] [address] [id number] [place] [id number] Jul, [facility] [address] [facility] [id number], [place] [address] Jun, [facility] [address] [facility] [id number], [place] [address] Jun, [facility] [address] [id number] [place] [id number] Jun, [facility] [address] [id number] [place] [id number] Jun, [facility] [address] [id number] [place] [id number] Jun, [facility] [address] [facility] [id number], [place] [address] Jun, [facility] [address] [id number] [place] [id number] Jun, [facility] [address] [facility] [id number], [place] [address] Jun, [facility] [address] [id number] [place] [id number] Jun, [facility] [address] [facility] [id number], [place] [address] Jun, [facility] [address] [id number] [place] [id number] May, [facility] [address] [id number] [place] [id number] May, [facility] [address] [facility] [id number], [place] [address] May, [facility] [address], [place] [address] May, [facility] [address] [facility] [id number], [place] [address] May, [facility] [address] [id number] [place] [id number] May, [facility] [address] [id number] [place] [id number] Mar, [facility] [address] [id number] [place] [id number] Mar, [facility] [address] [id number] [place] [id number] Mar, [facility] [address] [id number] [place] [id number] Feb, [facility] [address] [id number] [place] [id number] Feb, [facility] [address] [id number] [place] [id number] Dec, [facility] [address] [id number] [place] [id number] November, [facility] [address] [id number] [place] [id number] November, [facility] [address] [id number] [place] [id number] November, [facility] [address] [id number] [place] [address] November, [facility] [address] [id number] [place] 820[address] November, [facility] [address] [id number] [place] [id number] Oct, [facility] [address] [id number] [place] [id number] Jul, [facility] [address] [id number] [place] [id number] Jul, [facility] [place] [facility] [address] [facility] [id number], [place] [address] Jun, [facility] [place] [facility] [address] [id number] [address] May, [facility] [place] [facility] [address]65[address], [place] [address] May, [facility] [place] [facility] [address] [id number], [place] [address] May, [facility] [place] [facility] [address]00565100[place], [place] [address] May, [facility] [place] [facility] [address]00565100[place], [place] [address] 14 Apr, 2011 [facility] [place] [facility] [address] [id number], [place] [address] 14 Apr, 2011 [facility] [place] [facility] [address] [id number], [place] [address] 14 Apr, 2011 [facility] [place] [facility] [address] [facility] [id number], [place] [address] 13 Mar, 2011 [facility] [place] [facility] [address]00565100[place], [place] [address] Feb, [facility] [address] [facility] [id number] [place] [address] Jun, [facility] [address] [facility] [id number] [place] [address] Jun, [facility] [address] [facility] [id number] [place] [address] Jun, IMMUNIZATIONS No Known Immunizations SOCIAL HISTORY Never Assessed REASON FOR VISIT EMR-[facility] [place] PLAN OF CARE VITAL SIGNS MEDICATIONS Unknown Medications RESULTS No Results PROCEDURES No Known procedures INSTRUCTIONS MEDICATIONS ADMINISTERED No Known Medications MEDICAL (GENERAL) HISTORY Type Description Date Medical History type II diabetes Medical History hypertension Medical History hyperlipidemia Medical History seizures Medical History epilepsy Medical History chronic pain--back Medical History kidney stones Medical History diverticulosis Surgical History section x 2 1989, 1990 Surgical History hysterectomy-partial 1995 Surgical History bladder surgery (tied up) 1995 Surgical History trigger finger release-Right hand 1999 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
--- OUTSIDE RECORDS SUMMARY | 2018-11-29 01:01 | XMS REPORT ---
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 Name Role Phone Migration, Doctor Unavailable Unavailable PROBLEMS Type Condition ICD9-CM Code LSN22-AI Code Onset Dates Condition Status SNOMED Code Problem Thoracic or lumbosacral neuritis or radiculitis, unspecified 724.4 Active 105050715 Problem Headache 784.0 Active 14997231 Problem Polyneuropathy in diabetes 357.2 Active 97863057 Problem Renal and perinephric abscess 590.2 Active 405196994 Problem Type 2 diabetes mellitus with diabetic neuropathy E11.40 Active 87042732 Problem Unspecified epilepsy without mention of intractable epilepsy 345.90 Active 03761402 Problem Epilepsy without status epilepticus, not intractable, unspecified G40.909 Active 213293030 Problem Essential hypertension I10 Active 67714403 Problem Abdominal pain, unspecified abdominal location R10.9 Active 03817958 Problem Chest pain, unspecified type R07.9 Active 89263620 Problem Syncope, unspecified syncope type R55 Active 694962254 Problem Right knee injury, initial encounter S89.91XA Active 737601071 Problem Sciatica, right M54.31 Active 92613382 Problem Acute pain of right knee M25.561 Active 46950431 Problem Renal stone N20.0 Active 43216207 Problem Diverticulosis of large intestine without hemorrhage K57.30 Active 493826151 Problem Other acute pancreatitis K85.8 Active 730360647 Problem Pain of upper abdomen R10.10 Active 14240209 Problem Biliary dyskinesia K82.8 Active [id number] ALLERGIES No Information ENCOUNTERS Encounter Location Date Diagnosis [facility] [address] [id number] [place] [id number] Jan, Dental examination Z01.20 and Dental caries K02.9 [facility] [address] [facility] [id number] [place] [address] Sep, [facility] [address] [id number] [id number] Aug, [facility] [address]00565100[place], [place] [address] May, [facility] [address]00565100[place], [place] [address] Apr, [facility] [id number], [place] [id number] Apr, [facility] [id number] [place] [address] [id number] Mar, Acute pain of right knee M25.561 [facility] [id number] [place] [address] [id number] Mar, Acute pain of right knee M25.561 [facility] [address]00565100[place], [place] [address] Mar, [facility] [id number] [place] [address] [id number] Feb, Right knee injury, initial encounter S89.91XA [facility] [id number] [place] [address] [id number] Feb, [facility] [id number] [place] [address] [id number] Jan, [facility] [id number], [place] [id number] Jan, [facility] [id number], [place] [address] Dec, [place] [address] [facility] [address] [id number], [place] [address] Dec, Chest pain, unspecified type R07.9 ; Type 2 diabetes mellitus with diabetic neuropathy E11.40 ; Essential hypertension I10 ; Syncope, unspecified syncope type R55 and Hyperlipidemia, unspecified hyperlipidemia type E78.5 [facility] [id number], [place] [address]453 Dec, Biliary dyskinesia K82.8 [facility] [id number], [place] [id number] Dec, [facility] [id number] [place] [address] [id number] 10 Dec, 2015 Pain of upper abdomen R10.10 [facility] [place] [id number] [place] [address] [id number] 09 Dec, 2015 Pain of upper abdomen R10.10 and Nausea and vomiting, unspecified intactability, vomiting of unspecified type R11.2 [facility] [place] [id number] [place] [address] [id number] Dec, Other acute pancreatitis K85.8 [facility] [place] [id number] [place] [address] [id number] Dec, Other acute pancreatitis K85.8 [facility] [place] [id number] [place] [address] [id number] November, Type 2 diabetes mellitus with diabetic neuropathy E11.40 [facility] [place] [id number] [place] [address] [id number] November, Other acute pancreatitis K85.8 and Type 2 diabetes mellitus with diabetic neuropathy E11.40 [facility] [id number] [place] [address] [id number] November, Acute pancreatitis, unspecified pancreatitis type K85.9 and Type 2 diabetes mellitus with diabetic neuropathy E11.40 [facility] [id number] [place] [address] [id number] November, Abdominal pain, unspecified abdominal location R10.9 [facility] [id number] [place] [address] [id number] November, Diverticulosis of large intestine without hemorrhage K57.30 [facility] [id number] [place] [address] [id number] Oct, [facility] [id number] [place] [address] [id number] Oct, [facility] [id number] [place] [address] Oct, [facility] [id number] [place] [address] [id number] Oct, Chest pain R07.9 ; Type 2 diabetes mellitus with diabetic neuropathy E11.40 ; H. pylori infection A04.8 and UTI (urinary tract infection) N39.0 [facility] [id number], [place] [id number] Oct, [facility] [id number] [place] [address] [id number] Sep, Chest pain R07.9 [facility] [address]00565100[place], [place] [address] Sep, [facility] [id number] [place] [address] [id number] Sep, [facility] [id number] [place] [address] [id number] Sep, Abdominal pain, unspecified abdominal location R10.9 and Sciatica, right M54.31 [address]00565100[place] [id number] Sep, [facility] [id number] [place] [address] [id number] Aug, [facility] [id number] [place] [address] Aug, [facility] [id number] [place] [address] [id number] Aug, Diverticulitis of large intestine without perforation or abscess without bleeding K57.32 [facility] [id number] [place] [address] [id number] Jun, Renal stone N20.0 [facility] [id number] [place] [address] [id number] 15 Jun, 2015 Renal and perinephric abscess 590.2 [facility] [id number] [place] [address] [id number] 14 Jun, 2015 Renal stone N20.0 [place] [id number] [place] [address] [id number] 11 May, 2015 Foot pain, left M79.672 and Type 2 diabetes mellitus with diabetic neuropathy E11.40 [facility] [address] [place] [address] Apr, Left foot pain M79.672 [facility] [address] [id number], [place] [id number] Apr, [facility] [id number], [place] [id number] Apr, Type 2 diabetes mellitus with diabetic neuropathy E11.40 ; Left foot pain M79.672 ; Essential hypertension I10 and Epilepsy without status epilepticus, not intractable, unspecified G40.909 [facility] [place] [id number], [place] [id number] Apr, [facility] [address] [id number] [address] Mar, [facility] [id number] [place] [address] [id number] Feb, Cellulitis and abscess of face 682.0 [facility] [address] [place] [address] [id number] Feb, Cellulitis and abscess of face 682.0 [facility] [address] [place] [address] Oct, [facility] [id number] [place] [address] Oct, [facility] [id number] [place] [address] Sep, [facility] [address]00565100[place] [id number] Sep, [facility] [address]65100[place], [place] [address] Aug, [facility] [address] [id number], [place] [id number] Aug, [facility] [id number] [place] [address] Aug, [facility] [id number] [place] [address] Aug, [facility] [id number] [place] [address] Aug, [facility] [address] [id number] [place] [id number] Jul, [facility] [place] [facility] [address] [facility] [id number] [place] [address] Jul, [facility] [address] [id number] [place] [id number] Jun, [facility] [place] [facility] [address] [facility] [id number], [place] [address] Jun, [facility] [place] [facility] [address] [id number], [place] [address] Jun, [facility] [address] [id number] [place] [id number] Jun, [facility] [address] [id number] [place] [id number] Jun, [facility] [place] [facility] [address]00565100[place], [place] [address] Jun, [facility] [address] [facility] [id number], [place] [id number] May, [facility] [place] [facility] [address] [facility] [id number], [place] [address] May, [facility] [address] [facility] [id number], [place] [id number] Mar, [facility] [place] [facility] [address] [facility] [id number], [place] [address] Mar, [facility] [address] [facility] [id number], [place] [id number] Mar, [facility] [place] [facility] [address] [facility] [id number], [place] [address] Mar, [facility] [address] [facility] [id number], [place] [id number] Feb, [facility] [place] [facility] [address] [facility] [id number], [place] [address] Feb, [facility] [address] [facility] [id number], [place] [id number] Feb, [facility] [place] [facility] [address] [id number] [place] [address] Feb, [facility] [address] [id number] [place] [id number] Jan, [facility] [place] [facility] [address] [facility] [id number] [place] [address] Jan, [facility] [address] [id number] [place] [id number] Jan, [facility] [address] [id number] [place] [id number] Jan, [facility] [place] [facility] [address] [facility] [id number] [place] [address] Jan, [facility] [place] [facility] [address] [facility] [id number] [place] [address] Jan, [facility] [address] [id number] [place] [id number] Dec, [facility] [place] [facility] [address] [facility] [id number], [place] [address] Dec, [facility] [address] [facility] [id number] [place] [id number] Dec, [facility] [place] [facility] [address] [facility] [id number], [place] [address] Dec, [facility] [address] [id number] [place] [id number] Dec, [facility] [place] [facility] [address] [facility] [id number], [place] [address] Dec, [facility] [address] [id number] [place] [id number] November, [facility] [place] [facility] [address] [facility] [id number][place] [address] November, [facility] [address] [facility] [id number] [place] [id number] November, [facility] [place] [facility] [address] [facility] [id number], [place] [address] November, [facility] [address] [id number] [place] [id number] November, [facility] [address] [id number] [place] [address] November, [facility] [address] [id number] [place] [id number] Oct, [facility] [place] [facility] [address] [id number] [place] [address] Oct, [facility] [address] [id number] [place] [id number] Sep, [facility] [place] [facility] [address] [facility] [id number] [place] [address] Sep, [facility] [place] [facility] [address] [facility] [id number] [place] [address] Aug, [facility] [place] [facility] [address] [facility] [id number] [place] [address] Aug, [facility] [address] [id number], [place] [id number] Aug, [facility] [place] [facility] [address] [facility] [id number], [place] [address] Aug, [facility] [place] [facility] [address] [facility] [id number], [place] [address] Jul, [facility] [place] [facility] [address] [facility] [id number], [place] [address] Jul, [facility] [address] [id number], [place] 648686011 Jul, [facility] [place] [facility] [address] [id number], [place] [address] Jul, [facility] [place] [facility] [address] [facility] [id number] [place] [address] Jul, [facility] [address] [id number], [place] [id number] Jul, [facility] [address] [id number], [place] 604759380 Jul, [facility] [address] [facility] [id number], [place] [address] Jul, [facility] [place] [facility] [address] [facility] [id number], [place] [address] Jul, [facility] [address] [facility] [id number], [place] [address] Jul, [facility] [place] [address] [facility] [id number], [place] 568808083 Jun, [facility] [address] [facility] [id number], [place] [address] Jun, [facility] [place] [facility] [address] [facility] [id number], [place] [address] Jun, [facility] [address] [facility] [id number], [place] [address] Jun, [facility] [place] [address] [facility] [id number], [place] [id number] May, [facility] [address] [facility] [id number], [place] [address] May, [facility] [place] [address] [facility] [id number], [place] [id number] May, [facility] [address] [facility] [id number], [place] [address] May, [facility] [place] [address] [id number], [place] 105969273 Apr, [facility] [address] [facility] [id number], [place] [address] Apr, [facility] [address] [id number], [place] 899970187 Mar, [facility] [address] [id number], [place] [id number] Feb, [facility] [place] [address] [id number], [place] 808800136 Feb, [facility] [address] [id number] [place] 836920938 Feb, [facility] [address] [id number] [place] 290997553 Jan, [facility] [address] [id number] [place] 999803081 Dec, [facility] [address] [id number] [place] 363524630 Dec, [facility] [address] [id number] [place] [id number] Dec, [facility] [address] [id number] [place] 036917282 November, [facility] [address] [facility] [id number], [place] [address] November, [facility] [address] [id number] [place] 595891485 November, [facility] [address] [id number] [place] 383227340 Oct, [facility] [address] [id number] [place] 179121022 Oct, [facility] [address] [id number] [place] 058167665 Sep, [facility] [address] [id number] [place] 120871196 Jul, [facility] [address] [facility] [id number], [place] [address] Jun, [facility] [address] [facility] [id number], [place] [address] Jun, [facility] [address] [id number] [place] [id number] Jun, [facility] [address] [id number] [place] 968289111 Jun, [facility] [address] [id number] [place] [id number] Jun, [facility] [address] [facility] [id number], [place] [address] Jun, [facility] [address] [id number] [place] 674681858 Jun, [facility] [address] [facility] [id number], [place] [address] Jun, [facility] [address] [id number] [place] 717781173 Jun, [facility] [address] [facility] [id number], [place] [address] Jun, [facility] [address] [id number] [place] [id number] May, [facility] [address] [id number], [place] 424582140 May, [facility] [address] [facility] [id number], [place] [address] May, [facility] [address]00565100[place], [place] [address] May, [facility] [address] [facility] [id number], [place] [address] May, [facility] [address] [id number], [place] 640061842 May, [facility] [address] [id number], [place] 499247568 Mar, [facility] [address] [id number], [place] 652054079 Mar, [facility] [address] [id number], [place] 597491979 Mar, [facility] [address] [id number] [place] [id number] Feb, [facility] [address] [id number] [place] 350063674 Feb, [facility] [address] [id number] [place] 607032176 Dec, [facility] [address] [id number] [place] 658267495 November, [facility] [address] [id number] [place] [id number] November, [facility] [address] [id number] [place] [id number] November, [facility] [address] [id number] [place] [address]961824[address] November, [facility] [address] [id number] [place] 2534880[address] November, [facility] [address] [id number] [place] [id number] Oct, [facility] [address] [id number] [place] 620336162 Jul, [facility] [address] [id number] [place] [id number] Jul, [facility] [place] [facility] [address] [facility] [id number], [place] [address] Jun, [facility] [place] [facility] [address] [id number], [place] [address] May, [facility] [place] [facility] [address]00565100[place], [place] [address] May, [facility] [place] [facility] [address] [id number], [place] [address] May, [facility] [place] [facility] [address]00565100[place], [place] [address] May, [facility] [place] [facility] [address]00565100[place], [place] [address] 14 Apr, 2011 [facility] [place] [facility] [address] [id number], [place] [address] 14 Apr, 2011 [facility] [place] [facility] [address] [id number], [place] [address] 14 Apr, 2011 [facility] [place] [facility] [address] [facility] [id number], [place] [address] 13 Mar, 2011 [facility] [place] [facility] [address]00565100[place], [place] [address] Feb, [facility] [address] [facility] [id number] [place] [address] Jun, [facility] [address] [facility] [id number] [place] [address] Jun, [facility] [address] [facility] [id number] [place] [address] Jun, IMMUNIZATIONS No Known Immunizations SOCIAL HISTORY Never Assessed REASON FOR VISIT EMR-[facility] PLAN OF CARE VITAL [...] Hospitalization History above listed Hospitalization History Via [facility]--7 days in ICU-new tumors seen on brain scan 2012
--- OUTSIDE RECORDS SUMMARY | 2018-11-29 01:02 | XMS REPORT ---
Author Author Migration, Doctor Organization [facility] Address Unknown Phone Unavailable Care Team Providers Care Cto Name Role Phone Migration, Doctor Unavailable Unavailable PROBLEMS Type Condition ICD9-CM Code TTL10-ZB Code Onset Dates Condition Status SNOMED Code Problem Thoracic or lumbosacral neuritis or radiculitis, unspecified 724.4 Active 618363968 Problem Headache 784.0 Active 15347665 Problem Polyneuropathy in diabetes 357.2 Active 16928018 Problem Renal and perinephric abscess 590.2 Active 857405987 Problem Type 2 diabetes mellitus with diabetic neuropathy E11.40 Active 41411442 Problem Unspecified epilepsy without mention of intractable epilepsy 345.90 Active 51261821 Problem Epilepsy without status epilepticus, not intractable, unspecified G40.909 Active 433383208 Problem Essential hypertension I10 Active 57594587 Problem Abdominal pain, unspecified abdominal location R10.9 Active 01274735 Problem Chest pain, unspecified type R07.9 Active 25091372 Problem Syncope, unspecified syncope type R55 Active 412227123 Problem Right knee injury, initial encounter S89.91XA Active 965822124 Problem Sciatica, right M54.31 Active 07169923 Problem Acute pain of right knee M25.561 Active 52899172 Problem Renal stone N20.0 Active 39512015 Problem Diverticulosis of large intestine without hemorrhage K57.30 Active 910378979 Problem Other acute pancreatitis K85.8 Active 229289525 Problem Pain of upper abdomen R10.10 Active 96035292 Problem Biliary dyskinesia K82.8 Active 864976399 ALLERGIES No Information ENCOUNTERS Encounter Location Date Diagnosis [facility] [address] [employer] [address] [id number] [place] [id number] Jan, Dental examination Z01.20 and Dental caries K02.9 [facility] [address] [facility] [id number] [place] [address] Sep, [facility] [employer] [address] [id number] [id number] Aug, [facility] [address]005[address], [place] [address] May, [facility] [address]00565[address], [place] [address] Apr, [facility] [id number], [place] [id number] Apr, [facility] [id number] [place] [address] [id number] Mar, Acute pain of right knee M25.561 [facility] [id number] [place] [address] [id number] Mar, Acute pain of right knee M25.561 [facility] [address]65[address], [place] [address] Mar, [facility] [id number] [place] [address] [id number] Feb, Right knee injury, initial encounter S89.91XA [facility] [id number] [place] [address] [id number] Feb, [facility] [id number] [place] [address] [id number] Jan, [facility] [id number], [place] [id number] Jan, [facility] [id number], [place] [address] Dec, [address] [address] [facility] [address] [id number] [id number] Dec, Chest pain, unspecified type R07.9 ; Type 2 diabetes mellitus with diabetic neuropathy E11.40 ; Essential hypertension I10 ; Syncope, unspecified syncope type R55 and Hyperlipidemia, unspecified hyperlipidemia type E78.5 [facility] [id number], [place] [id number] Dec, Biliary dyskinesia K82.8 [facility] [id number], [place] [id number] Dec, [facility] [id number] [place] [address] [id number] 10 Dec, 2015 Pain of upper abdomen R10.10 [facility] [facility] [id number] [place] [address] [id number] 09 Dec, 2015 Pain of upper abdomen R10.10 and Nausea and vomiting, unspecified intactability, vomiting of unspecified type R11.2 [facility] [id number] [place] [address] [id number] Dec, Other acute pancreatitis K85.8 [facility] [place] [id number] [place] [address] [id number] Dec, Other acute pancreatitis K85.8 [facility] [id number] [place] [address] [id number] November, Type 2 diabetes mellitus with diabetic neuropathy E11.40 [facility] [id number] [place] [address] [id number] November, Other acute pancreatitis K85.8 and Type 2 diabetes mellitus with diabetic neuropathy E11.40 [facility] [id number] [place] [address] [id number] November, Acute pancreatitis, unspecified pancreatitis type K85.9 and Type 2 diabetes mellitus with diabetic neuropathy E11.40 [facility] [id number] [place] [address] [id number] November, Abdominal pain, unspecified abdominal location R10.9 [facility] [id number] [place] [address] [id number] November, Diverticulosis of large intestine without hemorrhage K57.30 [facility] [id number] [place] [address] [id number] Oct, [facility] [id number] [place] [address] [id number] Oct, [facility] [id number] [place] [address] Oct, [facility] [id number] [place] [address] [id number] Oct, Chest pain R07.9 ; Type 2 diabetes mellitus with diabetic neuropathy E11.40 ; H. pylori infection A04.8 and UTI (urinary tract infection) N39.0 [facility] [id number], [place] [id number] Oct, [facility] [id number] [place] [address] [id number] Sep, Chest pain R07.9 [facility] [address]00565[address], [place] [address] Sep, [facility] [id number] [place] [address] [id number] Sep, [facility] [id number] [place] [address] [id number] Sep, Abdominal pain, unspecified abdominal location R10.9 and Sciatica, right M54.31 [address] [id number] Sep, [facility] [id number] [place] [address] [id number] Aug, [facility] [id number] [place] [address] Aug, [facility] [id number] [place] [address] [id number] Aug, Diverticulitis of large intestine without perforation or abscess without bleeding K57.32 [facility] [id number] [place] [address] [id number] Jun, Renal stone N20.0 [facility] [id number] [place] [address] [id number] 15 Jun, 2015 Renal and perinephric abscess 590.2 [facility] [id number] [place] [address] [id number] 14 Jun, 2015 Renal stone N20.0 [place] [id number] [place] [address] [id number] 11 May, 2015 Foot pain, left M79.672 and Type 2 diabetes mellitus with diabetic neuropathy E11.40 [facility] [address] [place] [address] Apr, Left foot pain M79.672 [facility] [address] [id number] [id number] Apr, [facility] [id number], [place] [id number] Apr, Type 2 diabetes mellitus with diabetic neuropathy E11.40 ; Left foot pain M79.672 ; Essential hypertension I10 and Epilepsy without status epilepticus, not intractable, unspecified G40.909 [facility] [facility] [id number], [place] [id number] Apr, [facility] [address] [id number] [id number] Mar, [facility] [id number] [place] [address] [id number] Feb, Cellulitis and abscess of face 682.0 [facility] [id number] [place] [address] [id number] Feb, Cellulitis and abscess of face 682.0 [facility] [id number] [place] [address] Oct, [facility] [id number] [place] [address] Oct, [facility] [id number] [place] [address] Sep, [facility] [address]00565100[place], [place] [id number] Sep, [facility] [address], [place] [address] Aug, [facility] [address] [id number], [place] [id number] Aug, [facility] [id number] [place] [address] Aug, [facility] [id number] [place] [address] Aug, [facility] [id number] [place] [address] Aug, [facility] [address] [id number] [place] [id number] Jul, [facility] [place] [facility] [address] [facility] [id number] [place] [address] Jul, [facility] [address] [id number] [place] [id number] Jun, [facility] [place] [facility] [address] [facility] [id number], [place] [address] Jun, [facility] [place] [facility] [address] [id number], [place] [address] Jun, [facility] [address] [id number] [place] [id number] Jun, [facility] [address] [id number] [place] [id number] Jun, [facility] [place] [facility] [address], [place] [address] Jun, [facility] [address] [facility] [place] [id number], [place] [id number] May, [facility] [place] [facility] [address] [facility] [id number], [place] [address] May, [facility] [address] [facility] [place] [id number][place] [id number] Mar, [facility] [place] [facility] [address] [facility] [id number], [place] [address] Mar, [facility] [address] [facility] [place] [id number], [place] [id number] Mar, [facility] [place] [facility] [address] [facility] [id number], [place] [address] Mar, [facility] [address] [facility] [place] [id number], [place] [id number] Feb, [facility] [place] [facility] [address] [facility] [id number], [place] [address] Feb, [facility] [address] [facility] [place] [id number], [place] [id number] Feb, [facility] [place] [facility] [address] [id number] [place] [address] Feb, [facility] [address] [id number] [place] [id number] Jan, [facility] [place] [facility] [address] [facility] [id number] [place] [address] Jan, [facility] [address] [id number] [place] [id number] Jan, [facility] [address] [id number] [place] [id number] Jan, [facility] [place] [facility] [address] [facility] [id number] [place] [address] Jan, [facility] [place] [facility] [address] [facility] [id number] [place] [address] Jan, [facility] [address] [id number] [place] [id number] Dec, [facility] [place] [facility] [address] [facility] [id number], [place] [address] Dec, [facility] [address] [facility] [place] [id number] [place] [id number] Dec, [facility] [place] [facility] [address] [facility] [id number], [place] [address] Dec, [facility] [address] [id number] [place] [id number] Dec, [facility] [place] [facility] [address] [facility] [id number], [place] [address] Dec, [facility] [address] [id number] [place] [id number] November, [facility] [place] [facility] [address] [facility] [id number], [place] [address] November, [facility] [address] [facility] [place] [id number] [place] [id number] November, [facility] [place] [facility] [address] [facility] [id number], [place] [address] November, [facility] [address] [id number] [place] [id number] November, [facility] [address] [id number] [place] [address] November, [facility] [address] [id number] [place] [id number] Oct, [facility] [place] [facility] [address] [id number] [place] [address] Oct, [facility] [address] [id number] [place] [id number] Sep, [facility] [place] [facility] [address] [facility] [id number] [place] [address] Sep, [facility] [place] [facility] [address] [facility] [id number] [place] [address] Aug, [facility] [place] [facility] [address] [facility] [id number] [place] [address] Aug, [facility] [address] [id number], [place] [id number] Aug, [facility] [place] [facility] [address] [facility] [id number], [place] [address] Aug, [facility] [place] [facility] [address] [facility] [id number], [place] [address] Jul, [facility] [place] [facility] [address] [facility] [id number], [place] [address] Jul, [facility] [address] [id number], [place] [id number] Jul, [facility] [place] [facility] [address] [id number], [place] [address] Jul, [facility] [place] [facility] [address] [facility] [id number] [place] [address] Jul, [facility] [address] [id number], [place] [id number] Jul, [facility] [address] [id number], [place] [id number] Jul, [facility] [address] [facility] [id number], [place] [address] Jul, [facility] [place] [facility] [address] [facility] [id number], [place] [address] Jul, [facility] [address] [facility] [id number], [place] [address] Jul, [facility] [place] [facility] [address] [facility] [place] [id number], [place] 832628090 Jun, [facility] [address] [facility] [id number], [place] [address] Jun, [facility] [place] [facility] [address] [facility] [id number], [place] [address] Jun, [facility] [address] [facility] [id number], [place] [address] Jun, [facility] [place] [facility] [address] [facility] [place] [id number], [place] 946644634 May, [facility] [address] [facility] [id number], [place] [address] May, [facility] [place] [facility] [address] [facility] [place] [id number], [place] 194053635 May, [facility] [address] [facility] [id number], [place] [address] May, [facility] [place] [address] [id number], [place] [id number] Apr, [facility] [address] [facility] [id number], [place] [address] Apr, [facility] [address] [id number], [place] [id number] Mar, [facility] [address] [id number], [place] 034875650 Feb, [facility] [place] [address] [id number], [place] 553138612 Feb, [facility] [address] [id number] [place] [id number] Feb, [facility] [address] [id number] [place] [id number] Jan, [facility] [address] [id number] [place] [id number] Dec, [facility] [address] [id number] [place] 050619098 Dec, [facility] [address] [id number] [place] 938763935 Dec, [facility] [address] [id number] [place] [id number] November, [facility] [address] [facility] [id number], [place] [address] November, [facility] [address] [id number] [place] [id number] November, [facility] [address] [id number] [place] [id number] Oct, [facility] [address] [id number] [place] [id number] Oct, [facility] [address] [id number] [place] [id number] Sep, [facility] [address] [id number] [place] [id number] Jul, [facility] [address] [facility] [id number], [place] [address] Jun, [facility] [place] [address] [facility] [id number], [place] [address] Jun, [facility] [address] [id number] [place] [id number] Jun, [facility] [address] [id number] [place] [id number] Jun, [facility] [address] [id number] [place] [id number] Jun, [facility] [address] [facility] [id number], [place] [address] Jun, [facility] [address] [id number] [place] [id number] Jun, [facility] [address] [facility] [id number], [place] [address] Jun, [facility] [address] [id number] [place] [id number] Jun, [facility] [address] [facility] [id number], [place] [address] Jun, [facility] [address] [id number] [place] [id number] May, [facility] [address] [id number], [place] 147365286 May, [facility] [address] [facility] [id number], [place] [address] May, [facility] [address]00565[address], [place] [address] May, [facility] [address] [facility] [id number], [place] [address] May, [facility] [address] [id number], [place] [id number] May, [facility] [address] [id number], [place] [id number] Mar, [facility] [address] [id number], [place] [id number] Mar, [facility] [address] [id number], [place] [id number] Mar, [facility] [address] [id number] [place] [id number] Feb, [facility] [address] [id number] [place] [id number] Feb, [facility] [address] [id number] [place] [id number] Dec, [facility] [address] [id number] [place] [id number] November, [facility] [address] [id number] [place] [id number] November, [facility] [address] [id number] [place] [id number] November, [facility] [address] [id number] [place] [id number] November, [facility] [address] [id number] [place] [id number] November, [facility] [address] [id number] [place] [id number] Oct, [facility] [address] [id number] [place] [id number] Jul, [facility] [address] [id number] [place] [id number] Jul, [facility] [place] [facility] [address] [facility] [id number], [place] [address] Jun, [facility] [place] [facility] [address] [id number], [place] [address] May, [facility] [place] [facility] [address]00565100[place], [place] [address] May, [facility] [place] [facility] [address] [id number], [place] [address] May, [facility] [place] [facility] [address]00565100[place], [place] [address] May, [facility] [place] [facility] [address]00565100[place], [place] [address] 14 Apr, 2011 [facility] [place] [facility] [address] [id number], [place] [address] 14 Apr, 2011 [facility] [place] [facility] [address] [id number], [place] [address] 14 Apr, 2011 [facility] [place] [facility] [address] [facility] [id number], [place] [address] 13 Mar, 2011 [facility] [place] [facility] [address]00565100[place], [place] [address] Feb, [facility] [address] [facility] [id number] [place] [address] Jun, [facility] [address] [facility] [id number], [place] [address] Jun, [facility] [address] [facility] [id number] [place] [address] Jun, IMMUNIZATIONS No Known Immunizations SOCIAL HISTORY Never Assessed REASON FOR VISIT [facility] [place] PLAN OF CARE VITAL SIGNS MEDICATIONS Medication Instructions Dosage Frequency Start Date End Date Duration Status hydrochlorothiazide-lisinopril 20-12.5 mg take 1 tablet by oral route once daily Aug, Active Mobic 7.5 mg take 1 Tablet by Oral route 2 times per day Sep, Active amitriptyline 25 mg 1 tablet by Oral route 1 time per day take 1-2 hr before bed Aug, Active Flexeril 10 mg 1 tablet by Oral route 3 times per day PRN muscle spasm Sep, Active Keppra 500 mg 1 tablet by Oral route 2 times per day Jun, Active Vytorin 10-40 mg 1 tablet by Oral route 1 time per day Jun, Active Omeprazole 20 mg take 1 capsule (20 mg) by oral route once daily before a meal Aug, Active Cipro 500 mg 1 tablet by Oral route every 12 hours for 7 day(s) November, Active Gabapentin 400 mg take 1 capsule by Oral route 3 times per day Sep, Active metformin 500 mg take 1 tablet by Oral route 1 time per day Aug, Active Fish Oil Concentrate 1000 mg 1 Capsule by Oral route 1 time per day Jul, Active Levemir 100 unit/mL inject 5-30 Units 2 times per day 8units am 30 pm Jan, Active Janumet 50-1,000 mg 1 tablet by Oral route 2 times per day Jun, Active Parafon Forte DSC 500 mg 1 tablet by Oral route 2 times per day Sep, Active RESULTS No Results PROCEDURES No Known procedures [...] History above listed Hospitalization History [facility]--7 days in ICU-new tumors seen on brain scan 2012
--- OUTSIDE RECORDS SUMMARY | 2018-11-29 01:02 | XMS REPORT ---
Author Author NICO LONDON [facility] Address [address] [place] [address] Care Team Providers Care Tile Trimmer Name Role Phone NUNU LONDONARDO Unavailable PROBLEMS Type Condition ICD9-CM Code DXL42-RN Code Onset Dates Condition Status SNOMED Code Problem Abdominal pain, unspecified abdominal location R10.9 Active 39391535 Problem Syncope, unspecified syncope type R55 Active 917045269 Problem Chest pain, unspecified type R07.9 Active 47275528 Problem Acute pain of right knee M25.561 Active 29658404 Problem Right knee injury, initial encounter S89.91XA Active 832557469 Problem Other acute pancreatitis K85.8 Active 947762857 Problem Diverticulosis of large intestine without hemorrhage K57.30 Active 587415929 Problem Biliary dyskinesia K82.8 Active 491937932 Problem Pain of upper abdomen R10.10 Active 04982708 Problem Renal and perinephric abscess 590.2 Active 440091613 Problem Polyneuropathy in diabetes 357.2 Active 46936591 Problem Headache 784.0 Active 85930678 Problem Thoracic or lumbosacral neuritis or radiculitis, unspecified 724.4 Active 662159258 Problem Essential hypertension I10 Active 75253271 Problem Epilepsy without status epilepticus, not intractable, unspecified G40.909 Active 853824716 Problem Unspecified epilepsy without mention of intractable epilepsy 345.90 Active 79420567 Problem Renal stone N20.0 Active 85455735 Problem Type 2 diabetes mellitus with diabetic neuropathy E11.40 Active 00225584 Problem Sciatica, right M54.31 Active 50317973 ALLERGIES Substance Reaction Event Type Date Status SulfADIAZINE hives Drug Allergy Jan, Active Dilantin hives Drug Allergy Jan, Active ENCOUNTERS Encounter Location Date Diagnosis [facility] [address] [id number] [place] [id number] Jan, Dental examination Z01.20 and Dental caries K02.9 [facility] [address] [facility] [id number], [place] [address] Sep, [address] [id number][place] [id number] Aug, [facility] [address]00565100[place], [place] [address] May, [facility] [address]00565100[place], [place] [address] Apr, [facility] [address] [id number][place] [id number] Apr, [facility] [id number] [place] [address] [id number] Mar, Acute pain of right knee M25.561 [facility] [id number] [place] [address] [id number] Mar, Acute pain of right knee M25.561 [facility] [address]00565100[place], [place] [address] Mar, [facility] [id number] [place] [address] [id number] Feb, Right knee injury, initial encounter S89.91XA [facility] [id number] [place] [address] [id number] Feb, [facility] [address] [id number][place] [id number] Jan, [facility] [address] [id number][place] [id number] Jan, [facility] [address] [facility] [id number][place] [address] Dec, [facility] [address] [id number][place] [id number] Dec, Chest pain, unspecified type R07.9 ; Type 2 diabetes mellitus with diabetic neuropathy E11.40 ; Essential hypertension I10 ; Syncope, unspecified syncope type R55 and Hyperlipidemia, unspecified hyperlipidemia type E78.5 [facility] [id number] [place] [address] [id number] Dec, Biliary dyskinesia K82.8 [facility] [place] [id number] [place] [address] [id number] Dec, [facility] [place] [id number] [place] [address] [id number] Dec, Pain of upper abdomen R10.10 [facility] [place] [id number] [place] [address] [id number] Dec, Pain of upper abdomen R10.10 and Nausea and vomiting, unspecified intactability, vomiting of unspecified type R11.2 [facility] [place] [id number] [place] [address] [id number] Dec, Other acute pancreatitis K85.8 [facility] [place] [id number] [place] [address] [id number] Dec, Other acute pancreatitis K85.8 [facility] [place] [id number] [place] [address] [id number] November, Type 2 diabetes mellitus with diabetic neuropathy E11.40 [facility] [place] [id number] [place] [address] [id number] November, Other acute pancreatitis K85.8 and Type 2 diabetes mellitus with diabetic neuropathy E11.40 [facility] [place] [id number] [place] [address] [id number] November, Acute pancreatitis, unspecified pancreatitis type K85.9 and Type 2 diabetes mellitus with diabetic neuropathy E11.40 [facility] [id number] [place] [address] [id number] November, Abdominal pain, unspecified abdominal location R10.9 [facility] [place] [id number] [place] [address] [id number] November, Diverticulosis of large intestine without hemorrhage K57.30 [facility] [place] [id number] [place] [address] [id number] Oct, [facility] [id number] [place] [address] [id number] Oct, [facility] [id number] [place] [address] Oct, [place] [id number][place] [address] Oct, Chest pain R07.9 ; Type 2 diabetes mellitus with diabetic neuropathy E11.40 ; H. pylori infection A04.8 and UTI (urinary tract infection) N39.0 [facility] [id number][place] [id number] Oct, [facility] [id number] [place] [address] [id number] Sep, Chest pain R07.9 [facility] [address]00565100[place], [place] [address] Sep, [facility] [id number] [place] [address] [id number] Sep, [facility] [id number] [place] [address] [id number] Sep, Abdominal pain, unspecified abdominal location R10.9 and Sciatica, right M54.[address] [id number][place] [id number] Sep, [facility] [id number] [place] [address] [id number] Aug, [place] [address] [place] [address] Aug, [facility] [id number] [place] [address] [id number] Aug, Diverticulitis of large intestine without perforation or abscess without bleeding K57.32 [facility] [id number] [place] [address] [id number] Jun, Renal stone N20.0 [facility] [id number] [place] [address] [id number] Jun, Renal and perinephric abscess 590.2 [facility] [id number] [place] [address] [id number] 14 Jun, 2015 Renal stone N20.0 [facility] [id number], [place] [id number] May, Foot pain, left M79.672 and Type 2 diabetes mellitus with diabetic neuropathy E11.40 [facility] [address]00565100[place], [place] [address] Apr, Left foot pain M79.672 [facility] [place] [facility] [id number], [place] [id number] Apr, [facility] [id number] [place] [address] [id number] Apr, Type 2 diabetes mellitus with diabetic neuropathy E11.40 ; Left foot pain M79.672 ; Essential hypertension I10 and Epilepsy without status epilepticus, not intractable, unspecified G40.909 [facility] [id number], [place] [id number] Apr, [facility] [place] [id number], [place] [id number] Mar, [facility] [id number] [place] [address] [id number] Feb, Cellulitis and abscess of face 682.0 [facility] [id number] [place] [address] [id number] Feb, Cellulitis and abscess of face 682.0 [facility] [id number] [place] [address] Oct, [facility] [address]00565100[place], [place] [address] Oct, [facility] [address]00565100[place], [place] [address] Sep, [facility] [id number], [place] [id number] Sep, [facility] [id number] [place] [address] Aug, [facility] [id number] [place] [address] [id number] Aug, [facility] [id number] [place] [address] Aug, [facility] [place] [facility] [address] [facility] [id number], [place] [address] Aug, [facility] [place] [facility] [address] [facility] [id number], [place] [address] Aug, [facility] [address] [facility] [id number][place] [id number] Jul, [facility] [place] [facility] [address] [facility] [id number][place] [address] Jul, [facility] [address] [facility] [id number], [place] [id number] Jun, [facility] [place] [facility] [address] [facility] [id number], [place] [address] Jun, [facility] [place] [facility] [address]00565100[place], [place] [address] Jun, [facility] [id number], [place] [id number] Jun, [facility] [address] [id number], [place] [id number] Jun, [facility] [address]00565100[place], [place] [address] Jun, [facility] [address] [id number], [place] [id number] May, [facility] [place] [facility] [address] [id number], [place] [address] May, [facility] [address] [facility] [id number], [place] [id number] Mar, [facility] [place] [facility] [address] [facility] [id number], [place] [address] Mar, [facility] [address] [facility] [id number], [place] [id number] Mar, [facility] [place] [facility] [address] [id number], [place] [address] Mar, [facility] [address] [id number], [place] [id number] Feb, [facility] [place] [facility] [address] [id number] [place] [address] Feb, [facility] [address] [id number] [place] [id number] Feb, [facility] [place] [facility] [address] [facility] [id number] [place] [address] Feb, [facility] [address] [id number] [place] [id number] Jan, [facility] [place] [facility] [address] [id number] [place] [address] Jan, [facility] [address] [id number] [place] [id number] Jan, [facility] [address] [id number] [place] [id number] Jan, [facility] [place] [facility] [address] [facility] [id number] [place] [address] Jan, [facility] [place] [facility] [address] [facility] [id number] [place] [address] Jan, [facility] [address] [id number] [place] [id number] Dec, [facility] [place] [facility] [address] [facility] [id number][place] [address] Dec, [facility] [address] [id number] [place] [id number] Dec, [facility] [place] [facility] [address] [facility] [id number] [place] [address] Dec, [facility] [address] [id number] [place] [id number] Dec, [facility] [place] [facility] [address] [facility] [id number] [place] [address] Dec, [facility] [address] [id number] [place] [id number] November, [facility] [place] [facility] [address] [facility] [id number], [place] [address] November, [facility] [address] [id number] [place] [id number] November, [facility] [address] [id number] [place] [address] November, [facility] [address] [id number] [place] [id number] November, [facility] [place] [facility] [address] [facility] [id number] [place] [address] November, [facility] [address] [id number] [place] [id number] Oct, [facility] [place] [facility] [address] [facility] [id number] [place] [address] Oct, [facility] [address] [id number] [place] [id number] Sep, [facility] [place] [facility] [address] [facility] [id number] [place] [address] Sep, [facility] [place] [facility] [address] [facility] [id number] [place] [address] Aug, [facility] [place] [facility] [address] [facility] [id number] [place] [address] Aug, [facility] [address] [facility] [id number][place] [id number] Aug, [facility] [place] [facility] [address] [facility] [id number], [place] [address] Aug, [facility] [place] [facility] [address] [facility] [id number], [place] [address] Jul, [facility] [place] [facility] [address] [id number], [place] [address] Jul, [facility] [address] [id number] [place] [id number] Jul, [facility] [place] [facility] [address] [facility] [id number], [place] [address] Jul, [facility] [place] [facility] [address] [id number], [place] [address] Jul, [facility] [address] [id number], [place] [id number] Jul, [facility] [address] [facility] [id number], [place] [id number] Jul, [facility] [address] [facility] [id number], [place] [address] Jul, [facility] [place] [facility] [address] [facility] [id number], [place] [address] Jul, [facility] [address] [facility] [id number], [place] [address] Jul, [facility] [address] [facility] [id number], [place] [id number] Jun, [facility] [address]65100[place], [place] [address] Jun, [facility] [place] [facility] [address] [facility] [id number][place] [address] Jun, [facility] [address] [facility] [id number], [place] [address] Jun, [facility] [address] [facility] [id number], [place] [id number] May, [facility] [address] [facility] [id number], [place] [address] May, [facility] [address] [facility] [id number], [place] [id number] May, [facility] [place] [facility] [address] [facility] [id number], [place] [address] May, [facility] [address] [facility] [id number], [place] 923794003 Apr, [facility] [place] [facility] [address] [facility] [id number], [place] [address] Apr, [facility] [address] [facility] [id number], [place] [id number] Mar, [facility] [address] [id number] [place] [id number] Feb, [facility] [address] [id number] [place] [id number] Feb, [facility] [address] [id number] [place] [id number] Feb, [facility] [address] [id number] [place] [id number] Jan, [facility] [address] [id number] [place] [id number] Dec, [facility] [address] [id number] [place] [id number] Dec, [facility] [address] [id number] [place] [id number] Dec, [facility] [address] [id number] [place] [id number] November, [facility] [address] [facility] [id number], [place] [address] November, [facility] [address] [id number] [place] [id number] November, [facility] [address] [id number] [place] [id number] Oct, [facility] [address] [id number] [place] [id number] Oct, [facility] [address] [id number] [place] [id number] Sep, [facility] [address] [id number] [place] [id number] Jul, [facility] [address] [facility] [id number], [place] [address] Jun, [facility] [address] [facility] [id number], [place] [address] Jun, [facility] [address] [id number] [place] [id number] Jun, [facility] [address] [id number] [place] [id number] Jun, [facility] [address] [id number], [place] 239391516 Jun, [facility] [address] [facility] [id number], [place] [address] Jun, [facility] [address] [id number], [place] [id number] Jun, [facility] [address] [facility] [id number][place] [address] Jun, [facility] [address] [id number], [place] 847901698 Jun, [facility] [address] [id number] [address] Jun, [facility] [address] [id number], [place] [id number] May, [facility] [address] [id number], [place] 624436396 May, [facility] [address]00565100[place], [place] [address] May, [facility] [address] [place] [address] May, [facility] [address]00565100[place], [place] [address] May, [facility] [address] [id number], [place] 154444480 May, [facility] [address] [id number], [place] 957659647 Mar, [facility] [address] [id number], [place] [id number] Mar, [facility] [address] [id number], [place] [id number] Mar, [facility] [address] [id number], [place] [id number] Feb, [facility] [address] [id number], [place] [id number] Feb, [facility] [address] [id number] [place] [id number] Dec, [facility] [address] [id number] [place] [id number] November, [facility] [address] [id number] [place] [id number] November, [facility] [address] [id number] [place] [id number] November, [facility] [address] [id number] [place] [id number] November, [facility] [address] [id number] [place] [id number] November, [facility] [address] [id number] [place] [id number] Oct, [facility] [address] [id number] [place] [id number] Jul, [facility] [address] [id number] [place] [id number] Jul, [facility] [place] [facility] [address] [id number] [address] Jun, [facility] [place] [facility] [id number] [place] [address] May, [facility] [place] [facility] [id number] [place] [address] May, [facility] [place] [facility] [id number] [place] [address] May, [facility] [place] [facility] [address]00565100[place], [place] [address] May, [facility] [place] [facility] [id number] [place] [address] Apr, [facility] [place] [facility] [id number] [place] [address] Apr, [facility] [place] [facility] [address] [id number], [place] [address] Apr, [facility] [place] [facility] [address] [facility] [id number] [place] [address] Mar, [facility] [address] [facility] [id number], [place] [address] Feb, [facility] [address] [facility] [id number] [address] Jun, [place] [address] [facility] [id number] [address] Jun, [facility] [address] [facility] [id number], [place] [address] Jun, IMMUNIZATIONS No Known Immunizations SOCIAL HISTORY Never Assessed REASON FOR VISIT VANCE PLAN OF CARE Activity Details Follow Up prn Reason:STEFANO VITAL SIGNS Height 62 in 2018-01-28 Blood pressure systolic 110 mmHg 2018-01-28 Blood pressure diastolic 61 mmHg 2018-01-28 MEDICATIONS Medication Instructions Dosage Frequency Start Date End Date Duration Status Ibuprofen 800 MG Orally Three times a day 1 tablet 8h Feb, Not-Taking hydrochlorothiazide-lisinopril 20-12.5 mg orally Once a day take 1 tablet 24h Aug, Not-Taking Levemir 100 UNIT/ML Subcutaneous 2 times a day 31 in AM and 33 in PM 12h Jan, Active Lisinopril 20 mg Orally Once a day 1 tablet 24h Sep, Not-Taking Tamsulosin HCl 0.4 MG Orally Once a day 1 capsule 30 minutes after the same meal each day 24h Jun, Not-Taking Flexeril 10 mg by oral route 3 times a day 1 tablet 8h Sep, Not-Taking Lipitor Active Fish Oil Concentrate 1000 mg 1 Capsule by Oral route 1 time per day Jul, Not-Taking Pen [place] 31G X 6 MM subcut Once a day inject 24h Mar, Not-Taking Gabapentin 300 MG Orally 3 times a day one tablet 8h Sep, Not-Taking NovoLog Active Keppra 500 MG Take 1 tablet by mouth twice a day as directed by physician. 90 Active Pantoprazole Sodium Active Metformin HCl Active Hydrochlorothiazide 12.5 MG Orally Once a day 1 capsule 24h Sep, 30 day(s) Not-Taking Zofran ODT 4 MG Orally every 8 hrs as needed for nausea 1 tablet on the tongue and allow to dissolve November, Not-Taking amitriptyline 25 mg 1 tablet by Oral route 1 time per day take 1-2 hr before bed 18 Aug, 2014 Not-Taking Hydrocodone-Acetaminophen 5-325 MG Orally every 4 hrs 1 tablet as needed 4h 21 Jan, 2016 Not-Taking Omeprazole 20 mg Orally 2 times a day take 1 capsule (20 mg) by oral route once daily before a meal 12h 18 Aug, 2014 Not-Taking Vytorin 10-40 MG Orally Once a day 1 tablet 24h 09 Jun, 2014 Not-Taking Metformin HCl 1000 MG Orally Twice a day 1 tablet with meals 12h November, Not-Taking Dicyclomine HCl 20 MG Orally Four times a day 1 tablet before meals and hs 6h Sep, Not-Taking RESULTS No Results PROCEDURES Procedure Date Ordered Result Body Site LTD ORAL EVALUATION - PROBLEM FOCUS January 28, 2018 INTRAORL-PERIAPICAL 1 FILM 18020 January 28, 2018 EXTRAC ERUPTED TOOTH/EXPOSED ROOT January 28, 2018 BITEWING - SINGLE FILM January 28, 2018 INSTRUCTIONS MEDICATIONS ADMINISTERED No Known Medications MEDICAL [...] Hospitalization History above listed Hospitalization History [facility]--7 days in ICU-new tumors seen on brain scan 2012
--- OUTSIDE RECORDS SUMMARY | 2018-11-29 01:03 | XMS REPORT ---
Author Author SHERON WYNN [facility] Address [address] [place] [address] Care Team Providers Care Slot Shift Manager Name Role Phone WYNN, SHERON Unavailable PROBLEMS Type Condition ICD9-CM Code [id number] Code Onset Dates Condition Status SNOMED Code Problem Abdominal pain, unspecified abdominal location R10.9 Active 44091270 Problem Syncope, unspecified syncope type R55 Active 895938968 Problem Chest pain, unspecified type R07.9 Active 87890215 Problem Acute pain of right knee M25.561 Active 30115004 Problem Right knee injury, initial encounter S89.91XA Active 680680625 Problem Other acute pancreatitis K85.8 Active 987243094 Problem Diverticulosis of large intestine without hemorrhage K57.30 Active 469550540 Problem Biliary dyskinesia K82.8 Active 193907199 Problem Pain of upper abdomen R10.10 Active 32878515 Problem Renal and perinephric abscess 590.2 Active 154526201 Problem Polyneuropathy in diabetes 357.2 Active 67219651 Problem Headache 784.0 Active 79934759 Problem Thoracic or lumbosacral neuritis or radiculitis, unspecified 724.4 Active 207661081 Problem Essential hypertension I10 Active 62546636 Problem Epilepsy without status epilepticus, not intractable, unspecified G40.909 Active 639238490 Problem Unspecified epilepsy without mention of intractable epilepsy 345.90 Active 32103749 Problem Renal stone N20.0 Active 46317686 Problem Type 2 diabetes mellitus with diabetic neuropathy E11.40 Active 11582178 Problem Sciatica, right M54.31 Active 76466350 ALLERGIES No Information SOCIAL HISTORY Never Assessed PLAN OF CARE VITAL SIGNS MEDICATIONS Unknown Medications RESULTS No Results PROCEDURES No Known procedures IMMUNIZATIONS No Known Immunizations MEDICAL (GENERAL) HISTORY Type Description Date Medical [...] Surgical History Heart Cath, normal results 02/2016 Hospitalization History Via [facility]--7 days in ICU-new tumors seen on brain scan 2012
--- OUTSIDE RECORDS SUMMARY | 2018-11-29 01:04 | XMS REPORT ---
Author Author SHERON WYNN [facility] Address [address] [place] [address] Care Team Providers Care Coil Connector Repairer Name Role Phone WYNN, SHERON Unavailable PROBLEMS Type Condition ICD9-CM Code VFJ03-HA Code Onset Dates Condition Status SNOMED Code Problem Abdominal pain, unspecified abdominal location R10.9 Active 93009746 Problem Syncope, unspecified syncope type R55 Active 890551485 Problem Chest pain, unspecified type R07.9 Active 98759943 Problem Acute pain of right knee M25.561 Active 62482817 Problem Right knee injury, initial encounter S89.91XA Active 116560843 Problem Other acute pancreatitis K85.8 Active 242768181 Problem Diverticulosis of large intestine without hemorrhage K57.30 Active 472383016 Problem Biliary dyskinesia K82.8 Active 057132028 Problem Pain of upper abdomen R10.10 Active 19991453 Problem Renal and perinephric abscess 590.2 Active 033220904 Problem Polyneuropathy in diabetes 357.2 Active 40948956 Problem Headache 784.0 Active 20567371 Problem Thoracic or lumbosacral neuritis or radiculitis, unspecified 724.4 Active 457174806 Problem Essential hypertension I10 Active 44907053 Problem Epilepsy without status epilepticus, not intractable, unspecified G40.909 Active 553737211 Problem Unspecified epilepsy without mention of intractable epilepsy 345.90 Active 73296391 Problem Renal stone N20.0 Active 86471630 Problem Type 2 diabetes mellitus with diabetic neuropathy E11.40 Active 05881018 Problem Sciatica, right M54.31 Active 44477590 ALLERGIES No Information SOCIAL HISTORY Never Assessed [...] Cath, normal results 02/2016 Hospitalization History [facility]--7 days in ICU-new tumors seen on brain scan 2012
--- OUTSIDE RECORDS SUMMARY | 2018-11-29 01:04 | XMS REPORT ---
Author Author SHERON WYNN [facility] Address [address] [place] [address] Care Team Providers Care Spanish Tutor Name Role Phone SHERON WYNN Unavailable PROBLEMS Type Condition ICD9-CM Code QQT81-VP Code Onset Dates Condition Status SNOMED Code Problem Abdominal pain, unspecified abdominal location R10.9 Active 46339181 Problem Syncope, unspecified syncope type R55 Active 566433959 Problem Chest pain, unspecified type R07.9 Active 50479602 Problem Acute pain of right knee M25.561 Active 52462909 Problem Right knee injury, initial encounter S89.91XA Active 694712443 Problem Other acute pancreatitis K85.8 Active 350121924 Problem Diverticulosis of large intestine without hemorrhage K57.30 Active 625859573 Problem Biliary dyskinesia K82.8 Active 586896644 Problem Pain of upper abdomen R10.10 Active 86910976 Problem Renal and perinephric abscess 590.2 Active 795762861 Problem Polyneuropathy in diabetes 357.2 Active 73971495 Problem Headache 784.0 Active 87267092 Problem Thoracic or lumbosacral neuritis or radiculitis, unspecified 724.4 Active 093242156 Problem Essential hypertension I10 Active 26062674 Problem Epilepsy without status epilepticus, not intractable, unspecified G40.909 Active 189250699 Problem Unspecified epilepsy without mention of intractable epilepsy 345.90 Active 40252362 Problem Renal stone N20.0 Active 99173357 Problem Type 2 diabetes mellitus with diabetic neuropathy E11.40 Active 43105401 Problem Sciatica, right M54.31 Active 92890631 ALLERGIES Unknown Allergies SOCIAL HISTORY No smoking Hx information available PLAN OF CARE VITAL SIGNS MEDICATIONS Unknown Medications RESULTS No Results PROCEDURES No Known procedures IMMUNIZATIONS No Known Immunizations
--- OUTSIDE RECORDS SUMMARY | 2018-11-29 01:09 | XMS REPORT | Continuity of Care Document ---
Author Organization Unknown Address Unknown Allergies Active Description Code Type Severity Reaction Onset Reported/Identified Relationship to Patient Clinical Status Yes Dilantin Drug Allergy 02/19/2011 Yes Dilantin Drug Allergy N/A N/A 02/19/2011 Yes sulfa drug Drug Allergy 02/19/2011 Yes phenytoin sodium [id number] Drug Allergy Unknown N/A 08/09/2015 Yes SULFA SULFA Unknown N/A 08/09/2015 Yes Sulfa (Sulfonamide Antibiotics) [id number] Drug Allergy Unknown N/A 01/02/2016 Yes Phenytoin Sodium Extended [id number] Drug Allergy Unknown N/A 02/23/2017 Medications There is no data. Problems Date Dx Coded Attending Type Code [...] HYPOGLY DIABETES UNSP 03/18/2008 SHERON WYNN APRN 789.00 COLI INFANTILE 03/18/2008 SHERON WYNN APRN R 250.00 DIABETES MELLITUS TYPE 2 03/18/2008 SHERON WYNN APRN R 250.80 HYPOGLY DIABETES UNSP 03/18/2008 SHERON WYNN APRN 789.00 COLI INFANTILE 03/18/2008 SHERON WYNN APRN R 250.00 DIABETES MELLITUS TYPE 2 03/18/2008 SHERON WYNN APRN R 250.80 HYPOGLY DIABETES UNSP 03/18/2008 SHERON WYNN APRN 789.00 COLI INFANTILE 03/18/2008 ALCAZAR DO, MIKE K 250.00 DIABETES MELLITUS TYPE 2 03/18/2008 ALCAZAR DO, MIKE K 250.80 HYPOGLY DIABETES UNSP 03/18/2008 ALCAZAR DO, MIKE K 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 03/18/2008 SHERON WYNN APRN R 250.00 DIABETES MELLITUS TYPE 2 03/18/2008 WYNN ASSISTANT BUYER, SHERON R 250.80 HYPOGLY DIABETES UNSP 03/18/2008 TIANNA LONGSHERON Rock R 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 03/18/2008 TIANNA LONGSHERON Rock R 250.00 DIABETES MELLITUS TYPE 2 03/18/2008 TIANNA LONGSHERON Rock R 250.80 HYPOGLY DIABETES UNSP 03/18/2008 TIANNA LONGSHERON Rock 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 03/18/2008 ALCAZAR DO, MIKE [...] SHERON WYNN APRN R 788.43 NOCTURIA 06/25/2008 WYNN ASSISTANT BUYER, SHERON R 788.63 URINARY URGENCY 06/25/2008 ALCAZAR DO, MIKE K 401.1 ESSENTIAL HYPERTENSION BENIGN 06/25/2008 ALCAZAR DO, MIKE K 788.41 URINARY FREQUENCY 06/25/2008 ALCAZAR DO, MIKE K 788.43 NOCTURIA 06/25/2008 ALCAZAR DO, MIKE K 788.63 URINARY URGENCY 06/25/2008 WYNN ASSISTANT BUYER SHERON R 401.1 ESSENTIAL HYPERTENSION BENIGN 06/25/2008 WYNN ASSISTANT BUYER, SHERON R 788.41 URINARY FREQUENCY 06/25/2008 WYNN ASSISTANT BUYER, SHERON R 788.43 NOCTURIA 06/25/2008 WYNN ASSISTANT BUYER, SHERON R 788.63 URINARY URGENCY 06/25/2008 WYNN ASSISTANT BUYER, SHERON R 401.1 ESSENTIAL HYPERTENSION BENIGN 06/25/2008 WYNN ASSISTANT BUYERSHERON R 788.41 URINARY FREQUENCY 06/25/2008 WYNN ASSISTANT BUYER, SHERON R 788.43 NOCTURIA 06/25/2008 WYNN ASSISTANT BUYER SHERON R 788.63 URINARY URGENCY 06/25/2008 ALCAZAR [...] MIKE K 788.63 URINARY URGENCY 06/25/2008 WYNN ASSISTANT BUYER SHERON R 401.1 ESSENTIAL HYPERTENSION BENIGN 06/25/2008 WYNN ASSISTANT BUYER, SHERON R 788.41 URINARY FREQUENCY 06/25/2008 WYNN ASSISTANT BUYER, SHERON R 788.43 NOCTURIA 06/25/2008 WYNN ASSISTANT BUYER, SHERON R 788.63 URINARY URGENCY 06/25/2008 ALCAZAR [...] OF GALLBLADDER WITHOUT CHOLECYSTITIS WITHOUT OBSTRUCTION 02/19/2011 MIKE ALCAZAR DO 787.1 HEARTBURN 02/19/2011 ALCAZAR DO, MIKE K [...] DO, MIKE K 787.1 HEARTBURN 02/19/2011 ALCAZAR DO MIKE K 250.02 DIABETES MELLITUS TYPE 2 - UNCOMPLICATED, UNCONTROLLED 02/19/2011 ALCAZAR DO, MIKE K 535.50 GASTRITIS UNSPEC 02/19/2011 ALCAZAR DO MIKE K 574.20 CALCULUS OF GALLBLADDER WITHOUT CHOLECYSTITIS WITHOUT OBSTRUCTION 02/19/2011 OTTONIEL OCAMPO MIKE K 787.1 HEARTBURN 02/19/2011 SHERON WYNN [...] WYNN APRN R 535.50 GASTRITIS UNSPEC 02/19/2011 WYNN SHERON BRUNSON R 574.20 CALCULUS OF GALLBLADDER WITHOUT CHOLECYSTITIS WITHOUT OBSTRUCTION 02/19/2011 SHERON WYNN APRN R 787.1 HEARTBURN 02/19/2011 SHERON WYNN APRN R 250.02 DIABETES MELLITUS TYPE 2 - UNCOMPLICATED, UNCONTROLLED 02/19/2011 SHERON WYNN APRN R 535.50 GASTRITIS UNSPEC 02/19/2011 WYNN SHERON BRUNSON R 574.20 CALCULUS OF GALLBLADDER WITHOUT CHOLECYSTITIS WITHOUT OBSTRUCTION 02/19/2011 SHERON WYNN APRN R 787.1 HEARTBURN 02/19/2011 ALCAZAR DO, MIKE K 250.02 DIABETES MELLITUS TYPE 2 - UNCOMPLICATED, UNCONTROLLED 02/19/2011 ALCAZAR DO, MIKE K 535.50 GASTRITIS UNSPEC 02/19/2011 ALCAZAR DO, MIKE K 574.20 CALCULUS OF GALLBLADDER WITHOUT CHOLECYSTITIS WITHOUT OBSTRUCTION 02/19/2011 OTTONIEL OCAMPO MIKE K 787.1 HEARTBURN 02/19/2011 WYNN SHERON BRUNSON R 250.02 DIABETES MELLITUS TYPE 2 - UNCOMPLICATED, UNCONTROLLED 02/19/2011 WYNN BOY SHERON R 535.50 GASTRITIS UNSPEC 02/19/2011 WYNN ASSISTANT BUYER SHERON R 574.20 CALCULUS OF GALLBLADDER WITHOUT CHOLECYSTITIS WITHOUT OBSTRUCTION 02/19/2011 WYNN SHERON BRUNSON R 787.1 HEARTBURN 02/19/2011 WYNN SHERON BRUNSON R 250.02 DIABETES MELLITUS TYPE 2 - UNCOMPLICATED, UNCONTROLLED 02/19/2011 WYNN ASSISTANT BUYERSHERON Rock R 535.50 GASTRITIS UNSPEC 02/19/2011 WYNN ASSISTANT BUYERSHERON Rock R 574.20 CALCULUS OF GALLBLADDER WITHOUT CHOLECYSTITIS WITHOUT OBSTRUCTION 02/19/2011 WYNN SHERON BRUNSON R 787.1 HEARTBURN 02/19/2011 OTTONIEL OCAMPO MIKE K 250.02 DIABETES MELLITUS TYPE 2 - UNCOMPLICATED, UNCONTROLLED 02/19/2011 ALCAZAR DO, MIKE K 535.50 GASTRITIS UNSPEC 02/19/2011 OTTONIEL OCAMPO, MIKE K 574.20 CALCULUS OF GALLBLADDER WITHOUT CHOLECYSTITIS WITHOUT OBSTRUCTION 02/19/2011 OTTONIEL OCAMPO MIKE K 787.1 HEARTBURN 02/19/2011 ALCAZAR DO, MIKE K 250.02 DIABETES MELLITUS TYPE 2 - UNCOMPLICATED, UNCONTROLLED 02/19/2011 ALCAZAR DO, MIKE K 535.50 GASTRITIS UNSPEC 02/19/2011 OTTONIEL OCAMPO, MIKE K 574.20 CALCULUS OF GALLBLADDER WITHOUT CHOLECYSTITIS WITHOUT OBSTRUCTION 02/19/2011 OTTONIEL OCAMPO, MIKE K 787.1 HEARTBURN 02/19/2011 WYNN ASSISTANT BUYER, SHERON R 250.02 DIABETES MELLITUS TYPE 2 - UNCOMPLICATED, UNCONTROLLED 02/19/2011 WYNN BOY, SHERON R 535.50 GASTRITIS UNSPEC 02/19/2011 WYNN ASSISTANT BUYERSHERON Rock R 574.20 CALCULUS OF GALLBLADDER WITHOUT [...] ALCAZAR DO, MIKE K 787.1 HEARTBURN 02/19/2011 SHERON WYNN [...] 02/19/2011 SHERON WYNN APRN 787.1 HEARTBURN 02/19/2011 OTTONIEL OCAMPO MIKE K 250.02 DIABETES MELLITUS TYPE 2 - UNCOMPLICATED, UNCONTROLLED 02/19/2011 ALCAZAR DO, MIKE K 535.50 GASTRITIS UNSPEC 02/19/2011 ALCAZAR DO, MIKE K 574.20 CALCULUS OF GALLBLADDER WITHOUT CHOLECYSTITIS WITHOUT OBSTRUCTION 02/19/2011 OTTONIEL DO MIKE K 787.1 HEARTBURN 03/06/2011 CELESTE SNOW, TAYLA V67.9 UNSPECIFIED FOLLOW-UP EXAMINATION 03/06/2011 V67.9 UNSPECIFIED FOLLOW- UP EXAMINATION 03/06/2011 TAYLA ALONSO MD V67.9 UNSPECIFIED FOLLOW-UP EXAMINATION 03/06/2011 V67.9 UNSPECIFIED FOLLOW- UP EXAMINATION 03/06/2011 TAYLA ALONSO MD V67.9 UNSPECIFIED FOLLOW-UP EXAMINATION 03/06/2011 V67.9 UNSPECIFIED FOLLOW- UP EXAMINATION 03/06/2011 V67.9 UNSPECIFIED FOLLOW- UP EXAMINATION 03/06/2011 OTTONIEL DO, MIKE K V67.9 UNSPECIFIED FOLLOW-UP EXAMINATION 03/06/2011 ALCAZAR DO, MIKE K V67.9 UNSPECIFIED FOLLOW-UP EXAMINATION 03/06/2011 ALCAZAR DO, MIKE K V67.9 UNSPECIFIED FOLLOW-UP EXAMINATION 03/06/2011 ALCAZAR DO, MIKE K V67.9 UNSPECIFIED FOLLOW-UP EXAMINATION 03/06/2011 WYNN ASSISTANT BUYERSHERON Rock V67.9 UNSPECIFIED FOLLOW-UP EXAMINATION 03/06/2011 WYNN ASSISTANT BUYERSHERON Rock R V67.9 UNSPECIFIED FOLLOW-UP EXAMINATION 03/06/2011 WYNN ASSISTANT BUYER, SHERON R V67.9 UNSPECIFIED FOLLOW-UP EXAMINATION 03/06/2011 ALCAZAR DO, MIKE K V67.9 UNSPECIFIED FOLLOW-UP EXAMINATION 03/06/2011 WYNN ASSISTANT BUYER, SHERON R V67.9 UNSPECIFIED FOLLOW-UP EXAMINATION 03/06/2011 WYNN ASSISTANT BUYER, SHERON R V67.9 UNSPECIFIED FOLLOW-UP EXAMINATION 03/06/2011 ALCAZAR DO, MIKE K V67.9 UNSPECIFIED FOLLOW-UP EXAMINATION 03/06/2011 ALCAZAR DO, MIKE K V67.9 UNSPECIFIED FOLLOW-UP EXAMINATION 03/06/2011 WYNN ASSISTANT BUYER, SHERON R V67.9 UNSPECIFIED FOLLOW-UP EXAMINATION 03/06/2011 ALCAZAR DO, MIKE K V67.9 UNSPECIFIED FOLLOW-UP EXAMINATION 03/06/2011 ALCAZAR DO, MIKE K V67.9 UNSPECIFIED FOLLOW-UP EXAMINATION 03/06/2011 ALCAZAR DO, MIKE K V67.9 UNSPECIFIED FOLLOW-UP EXAMINATION 03/06/2011 ALCAZAR DO, MIKE K V67.9 UNSPECIFIED FOLLOW-UP EXAMINATION 03/06/2011 TIANNA LONGSHERON Rock V67.9 UNSPECIFIED FOLLOW-UP EXAMINATION 03/06/2011 TIANNA LONGSHERON Rock V67.9 UNSPECIFIED FOLLOW-UP EXAMINATION 03/06/2011 ALCAZAR DO, [...] 03/20/2011 789.07 ABDOMINAL PAIN GENERALIZED 03/20/2011 ALCAZAR DO, [...] MIKE K 789.07 ABDOMINAL PAIN GENERALIZED 03/20/2011 WYNNGIANNI LONGNSHERON R 789.01 ABDOMINAL PAIN RIGHT UPPER QUADRANT 03/20/2011 WYNN ASSISTANT BUYER, SHERON R 789.07 ABDOMINAL PAIN GENERALIZED 03/20/2011 WYNN ASSISTANT BUYER, SHERON R 789.01 ABDOMINAL PAIN RIGHT UPPER QUADRANT 03/20/2011 WYNNGIANNI LONGN, SHERON R 789.07 ABDOMINAL PAIN GENERALIZED 03/20/2011 WYNN ASSISTANT BUYER, SHERON R 789.01 ABDOMINAL PAIN RIGHT UPPER QUADRANT 03/20/2011 WYNN ASSISTANT BUYER, SHERON R 789.07 ABDOMINAL PAIN GENERALIZED 03/20/2011 ALCAZAR DO, MIKE K 789.01 ABDOMINAL PAIN RIGHT UPPER QUADRANT 03/20/2011 ALCAZAR DO, MIKE K 789.07 ABDOMINAL PAIN GENERALIZED 03/20/2011 TIANNA LONGNSHERON R 789.01 ABDOMINAL PAIN RIGHT UPPER QUADRANT 03/20/2011 TIANNA LONGNSHERON R 789.07 ABDOMINAL PAIN GENERALIZED 03/20/2011 TIANNA LONGNSHERON R 789.01 ABDOMINAL PAIN RIGHT UPPER QUADRANT 03/20/2011 WYNN ASSISTANT BUYER, SHERON R 789.07 ABDOMINAL PAIN GENERALIZED 03/20/2011 ALCAZAR DO, MIKE K 789.01 ABDOMINAL PAIN RIGHT UPPER QUADRANT 03/20/2011 ALCAZAR DO, MIKE K 789.07 ABDOMINAL PAIN GENERALIZED 03/20/2011 ALCAZAR DO, MIKE K 789.01 ABDOMINAL PAIN RIGHT UPPER QUADRANT 03/20/2011 ALCAZAR DO, MIKE K 789.07 ABDOMINAL PAIN GENERALIZED 03/20/2011 TIANNA LONGSHERON Rock R 789.01 ABDOMINAL PAIN RIGHT UPPER QUADRANT 03/20/2011 WYNNGIANNI LONGNSHERON R 789.07 ABDOMINAL PAIN GENERALIZED 03/20/2011 ALCAZAR [...] 789.01 ABDOMINAL PAIN RIGHT UPPER QUADRANT 03/20/2011 TIANNA LONGN, SHERON R 789.07 ABDOMINAL PAIN GENERALIZED 03/20/2011 TIANNA LONGN, SHERON R 789.01 ABDOMINAL PAIN RIGHT UPPER QUADRANT 03/20/2011 TIANNA LONGN, SHERON R 789.07 ABDOMINAL PAIN GENERALIZED 03/20/2011 [...] ALCAZAR DO, MIKE K 272.4 HYPERLIPIDEMIA 05/18/2011 TIANNA LONGN, SHERON R 272.4 HYPERLIPIDEMIA 05/18/2011 TIANNA LONGSHERON Rock R 272.4 HYPERLIPIDEMIA 05/18/2011 TIANNA LONGSHERON Rock R 272.4 HYPERLIPIDEMIA 05/18/2011 ALCAZAR DO, MIKE K 272.4 HYPERLIPIDEMIA 05/18/2011 TIANNA LONGN, SHERON R 272.4 HYPERLIPIDEMIA 05/18/2011 WYNN ASSISTANT BUYER, SHERON R 272.4 HYPERLIPIDEMIA 05/18/2011 ALCAZAR DO, MIKE K 272.4 HYPERLIPIDEMIA 05/18/2011 ALCAZAR DO, MIKE K 272.4 HYPERLIPIDEMIA 05/18/2011 WYNN ASSISTANT BUYER, SHERON R 272.4 HYPERLIPIDEMIA 05/18/2011 ALCAZAR DO, MIKE K 272.4 HYPERLIPIDEMIA 05/18/2011 ALCAZAR DO, MIKE K 272.4 HYPERLIPIDEMIA 05/18/2011 ALCAZAR DO, MIKE K 272.4 HYPERLIPIDEMIA 05/18/2011 ALCAZAR DO, MIKE K 272.4 HYPERLIPIDEMIA 05/18/2011 SHERON WYNN APRN 272.4 HYPERLIPIDEMIA 05/18/2011 SHERON WYNN APRN 272.4 HYPERLIPIDEMIA 05/18/2011 MIKE ALCAZAR DO K 272.4 HYPERLIPIDEMIA 03/11/2012 TAYLA ALONSO MD [...] 03/11/2012 788.1 pain during urination (dysuria) 03/11/2012 OTTONIEL OCAMPO MIKE K 401.9 HYPERTENSION (SYSTEMIC) 03/11/2012 ALCAZAR DO, MIKE K 788.1 pain during urination (dysuria) 03/11/2012 OTTONIEL DO, MIKE K 401.9 HYPERTENSION (SYSTEMIC) 03/11/2012 OTTONIEL DO MIKE K 788.1 pain during urination (dysuria) 03/11/2012 ALCAZAR DO, MIKE K 401.9 HYPERTENSION (SYSTEMIC) 03/11/2012 ALCAZAR DO, MIKE K 788.1 pain during urination (dysuria) 03/11/2012 OTTONIEL OCAMPO, MIKE K 401.9 HYPERTENSION (SYSTEMIC) 03/11/2012 OTTONIEL OCAMPO, MIKE K 788.1 pain during urination (dysuria) 03/11/2012 SHERON WYNN APRN 401.9 HYPERTENSION (SYSTEMIC) 03/11/2012 SHERON WYNN APRN 788.1 pain during urination (dysuria) 03/11/2012 WYNN ASSISTANT BUYER, SHERON R 401.9 HYPERTENSION (SYSTEMIC) 03/11/2012 SHERON WYNN [...] pain during urination (dysuria) 03/11/2012 ALCAZAR DO, IMKE K 401.9 HYPERTENSION (SYSTEMIC) 03/11/2012 ALCAZAR DO, [...] K 788.1 pain during urination (dysuria) 03/11/2012 WYNNSHERON ARCHER APRN R 401.9 HYPERTENSION (SYSTEMIC) 03/11/2012 WYNN SHERON BRUNSON R 788.1 pain during urination (dysuria) 03/11/2012 WYNN SHERON BRUNSON R 401.9 HYPERTENSION (SYSTEMIC) 03/11/2012 WYNN SHERON BRUNSON R 788.1 pain during urination (dysuria) 03/11/2012 [...] K 727.43 GANGLION LEFT WRIST 07/24/2012 WYNN ASSISTANT BUYERSHERON R 727.43 GANGLION LEFT WRIST 07/24/2012 WYNN ASSISTANT BUYERSHERON R 727.43 GANGLION LEFT WRIST 07/24/2012 WYNN ASSISTANT BUYERSHERON R 727.43 GANGLION LEFT WRIST 07/24/2012 ALCAZAR DO, MIKE K 727.43 GANGLION LEFT WRIST 07/24/2012 WYNN ASSISTANT BUYERSHERON Rock R 727.43 GANGLION LEFT WRIST 07/24/2012 WYNN ASSISTANT BUYERSHERON R 727.43 GANGLION LEFT WRIST 07/24/2012 ALCAZAR DO, MIKE K 727.43 GANGLION LEFT WRIST 07/24/2012 ALCAZAR DO, MIKE K 727.43 GANGLION LEFT WRIST 07/24/2012 WYNN ASSISTANT BUYERSHERON R 727.43 GANGLION LEFT WRIST 07/24/2012 ALCAZAR DO, MIKE K 727.43 GANGLION LEFT WRIST 07/24/2012 ALCAZAR DO, MIKE K 727.43 GANGLION LEFT WRIST 07/24/2012 ALCAZAR DO, MIKE K 727.43 GANGLION LEFT WRIST 07/24/2012 ALCAZAR DO, MIKE K 727.43 GANGLION LEFT WRIST 07/24/2012 SHERON WYNN APRN R 727.43 GANGLION LEFT WRIST 07/24/2012 SHERON WYNN APRN R 727.43 GANGLION LEFT WRIST 07/24/2012 ALCAZAR , MIKE K 727.43 GANGLION LEFT WRIST 09/30/2012 [...] WYNN APRN R 357.2 POLYNEUROPATHY DIABETIC 09/30/2012 OTTONIEL OCAMPO, MIKE K 357.2 POLYNEUROPATHY DIABETIC 09/30/2012 SHERON [...] ALCAZAR , MIKE K 357.2 POLYNEUROPATHY DIABETIC 12/09/2012 LUPE [...] NEOPLASM/BRAIN 12/09/2012 PAO ANDRADE MD Ot V58.69 OT MED,LT,CURRENT USE 12/11/2012 780.2 fainting (syncope) 12/11/2012 [...] MIKE ALCAZAR DO 780.2 fainting (syncope) 12/11/2012 ALCAZAR DO, MIKE K 780.2 fainting (syncope) 12/11/2012 ALCAZAR DO, MIKE K 780.2 fainting (syncope) 12/11/2012 ALCAZAR DO, MIKE K 780.2 fainting (syncope) 12/11/2012 WYNN ASSISTANT BUYER, SHERON R 780.2 fainting (syncope) 12/11/2012 WYNN ASSISTANT BUYER, SHERON R 780.2 fainting (syncope) 12/11/2012 ALCAZAR DO, MIKE K 780.2 fainting (syncope) 02/23/2013 784.0 HEADACHE 02/23/2013 ALCAZAR DO, MIKE K 784.0 HEADACHE 02/23/2013 ALCAZAR DO, MIKE K 784.0 HEADACHE 02/23/2013 ALCAZAR DO, MIKE K 784.0 HEADACHE 02/23/2013 ALCAZAR DO, MIKE K 784.0 HEADACHE 02/23/2013 WYNN ASSISTANT BUYER, SHERON R 784.0 HEADACHE 02/23/2013 WYNN ASSISTANT BUYER, SHERON R 784.0 HEADACHE 02/23/2013 WYNN ASSISTANT BUYER, SHERON R 784.0 HEADACHE 02/23/2013 ALCAZAR DO, MIKE K 784.0 HEADACHE 02/23/2013 WYNN ASSISTANT BUYER, SHERON R 784.0 HEADACHE 02/23/2013 WYNN ASSISTANT BUYER, SHERON R 784.0 HEADACHE 02/23/2013 ALCAZAR DO, MIKE K 784.0 HEADACHE 02/23/2013 ALCAZAR DO, MIKE K 784.0 HEADACHE 02/23/2013 WYNN ASSISTANT BUYER, SHERON R 784.0 HEADACHE 02/23/2013 ALCAZAR DO, MIKE K 784.0 HEADACHE 02/23/2013 ALCAZAR DO, MIKE K 784.0 HEADACHE 02/23/2013 ALCAZAR DO, MIKE K 784.0 HEADACHE 02/23/2013 ALCAZAR DO, MIKE K 784.0 HEADACHE 02/23/2013 WYNN ASSISTANT BUYER, SHERON R 784.0 HEADACHE 02/23/2013 WYNN ASSISTANT BUYER, SHERON R 784.0 HEADACHE 02/23/2013 ALCAZAR DO, MIKE K 784.0 HEADACHE 07/15/2013 ALCAZAR DO, MIKE K 719.45 PAIN- HIP 07/15/2013 WYNN ASSISTANT BUYER, SHERON R 719.45 PAIN- HIP 07/15/2013 WYNN ASSISTANT BUYER, SHERON Mercado 719.45 PAIN- HIP 07/15/2013 WYNN ASSISTANT BUYER, SHERON Mercado 719.45 PAIN- HIP 07/15/2013 ALCAZAR DO, MIKE K 719.45 PAIN- HIP 07/15/2013 WYNN ASSISTANT BUYER, SHERON Mercado 719.45 PAIN- HIP 07/15/2013 WYNN ASSISTANT BUYER, SHERON Mercado 719.45 PAIN- HIP 07/15/2013 ALCAZAR DO, MIKE K 719.45 PAIN- HIP 07/15/2013 ALCAZAR DO, MIKE K 719.45 PAIN- HIP 07/15/2013 WYNN ASSISTANT BUYER, SHERON Mercado 719.45 PAIN- HIP 07/15/2013 ALCAZAR DO, MIKE K 719.45 PAIN- HIP 07/15/2013 ALCAZAR DO, MIKE K 719.45 PAIN- HIP 07/15/2013 ALCAZAR DO, MIKE K 719.45 PAIN- HIP 07/15/2013 ALCAZAR DO, MIKE K 719.45 PAIN- HIP 07/15/2013 WYNN ASSISTANT BUYER, SHERON Mercado 719.45 PAIN- HIP 07/15/2013 WYNN ASSISTANT BUYER, SHERON Mercado 719.45 PAIN- HIP 07/15/2013 ALCAZAR DO, MIKE K 719.45 PAIN- HIP 10/19/2013 ALCAZAR DO, MIKE K 692.9 DERMATITIS CONTACT UNSPECIFIED 10/19/2013 WYNN ASSISTANT BUYERSHERON Rock 692.9 DERMATITIS CONTACT UNSPECIFIED 10/19/2013 WYNN ASSISTANT BUYERSHERON 692.9 DERMATITIS CONTACT UNSPECIFIED 10/19/2013 ALCAZAR DO, MIKE K 692.9 DERMATITIS CONTACT UNSPECIFIED 10/19/2013 ALCAZAR DO, MIKE K 692.9 DERMATITIS CONTACT UNSPECIFIED 10/19/2013 WYNN ASSISTANT BUYERSHERON 692.9 DERMATITIS CONTACT UNSPECIFIED 10/19/2013 ALCAZAR DO, MIKE K 692.9 DERMATITIS CONTACT UNSPECIFIED 10/19/2013 ALCAZAR DO, MIKE K 692.9 DERMATITIS CONTACT UNSPECIFIED 10/19/2013 ALCAZAR DO, MIKE K 692.9 DERMATITIS CONTACT UNSPECIFIED 10/19/2013 ALCAZAR DO, MIKE K 692.9 DERMATITIS CONTACT UNSPECIFIED 10/19/2013 WYNN ASSISTANT BUYER, SHERON R 692.9 DERMATITIS CONTACT UNSPECIFIED 10/19/2013 WYNN ASSISTANT BUYERSHERON Rock R 692.9 DERMATITIS CONTACT UNSPECIFIED 10/19/2013 ALCAZAR DO, MIKE K 692.9 DERMATITIS CONTACT UNSPECIFIED 11/10/2013 STEVE AL ASSISTANT BUYER Ot 592.0 CALCULUS OF KIDNEY 11/10/2013 STEVE AL ASSISTANT BUYER Ot 724.2 LUMBAGO 11/16/2013 WYNN SHERON BRUNSON R 590.2 KIDNEY STONES 11/16/2013 WYNN ASSISTANT BUYERSHERON R 590.2 KIDNEY STONES 11/16/2013 ALCAZAR DO, MIKE K 590.2 KIDNEY STONES 11/16/2013 ALCAZAR DO, MIKE K 590.2 KIDNEY STONES 11/16/2013 WYNN ASSISTANT BUYERSHERON R 590.2 KIDNEY STONES 11/16/2013 ALCAZAR DO, MIKE K 590.2 KIDNEY STONES 11/16/2013 ALCAZAR DO, MIKE K 590.2 KIDNEY STONES 11/16/2013 ALCAZAR DO, MIKE K 590.2 KIDNEY STONES 11/16/2013 ALCAZAR DO, MIKE K 590.2 KIDNEY STONES 11/16/2013 WYNN ASSISTANT BUYERSHERON Rock R 590.2 KIDNEY STONES 11/16/2013 WYNN ASSISTANT BUYER, SHERON R 590.2 KIDNEY STONES 11/16/2013 ALCAZAR DO, MIKE K 590.2 KIDNEY STONES 11/28/2013 MARNIE SNOW, PAULO T Ot 592.1 CALCULUS OF URETER 11/28/2013 MARNIE SNOW, PAULO T Ot 789.09 ABDOMINAL PAIN, OTHER SPECIFIED SITE 06/16/2014 OTTONIEL OCAMPO MIKE K 345.90 SEIZURE DISORDER 06/16/2014 ALCAZAR DO MIKE K 345.90 SEIZURE DISORDER 06/16/2014 WYNNSHERON ARCHER APRN R 345.90 SEIZURE DISORDER 06/16/2014 WYNN SHERON BRUNSON R 345.90 SEIZURE DISORDER 06/16/2014 ALCAZAR DO MIKE K 345.90 SEIZURE DISORDER 06/29/2014 SHERON WYNN CFNP Ot 592.0 07/06/2014 SHERON WYNN CFMIKE Ot 592.0 08/03/2014 SHERON WYNN APRN 724.4 BACK PAIN WITH RADIATION 08/03/2014 WYNN SHERON BRUNSON 724.4 BACK PAIN WITH RADIATION 08/03/2014 MIKE ALCAZAR DO K 724.4 BACK PAIN WITH RADIATION 06/19/2015 Ot 789.00 06/19/2015 Ot 562.10 06/19/2015 Ot 593.2 06/19/2015 WYNNSHERON ARCHER R CFNP Ot 784.0 06/19/2015 WYNN, SHERON R CFNP Ot V12.41 06/19/2015 WYNN, SHERON R CFNP Ot 784.0 06/19/2015 WYNN, SHERON R CFNP Ot V12.41 06/19/2015 WYNN, SHERON R CFNP Ot 592.0 06/19/2015 WYNN, SHERON R CFNP Ot 592.0 06/19/2015 STEVE AL APRN Ot K44.9 DIAPHRAGMATIC HERNIA WITHOUT OBSTRUCTION 06/19/2015 STEVE AL APRN Ot K57.90 DVRTCLOS OF INTEST, PART UNSP, W/O PERF 06/19/2015 STEVE AL APRN Ot N20.2 CALCULUS OF KIDNEY WITH CALCULUS OF URET 06/19/2015 Ot 789.00 06/19/2015 Ot 562.10 06/19/2015 Ot 593.2 06/19/2015 WYNN, SHERON R CFNP Ot 784.0 06/19/2015 WYNN, SHERON R CFNP Ot V12.41 06/19/2015 WYNN, SHERON R CFNP Ot 784.0 06/19/2015 WYNN, SHERON R CFNP Ot V12.41 06/19/2015 WYNN, SHERON R CFNP Ot 592.0 06/19/2015 WYNN, SHERON R CFNP Ot 592.0 08/10/2015 MARNIE SNOW, PAULO Weldon Ot K57.32 DVTRCLI OF LG INT W/O PERFORATION OR ABS 08/10/2015 MARNIE SNOW, PAULO Weldon Ot Z87.442 PERSONAL HISTORY OF URINARY CALCULI 09/19/2015 Ot 789.00 09/19/2015 Ot 562.10 09/19/2015 Ot 593.2 09/19/2015 WYNNSHERON R CFNP Ot 784.0 09/19/2015 WYNNSHERON R CFNP Ot V12.41 09/19/2015 WYNN, SHERON [...] Lewis Ot R07.89 OTHER CHEST PAIN 09/20/2015 ALEXANDRA COLON MD Ot R10.13 EPIGASTRIC PAIN 09/20/2015 DARLENE SNOW, ALEXANDRA Lewis Ot Z79.4 TICKET TAKER (CURRENT) USE OF INSULIN 09/20/2015 Ot 789.00 [...] Ot R10.13 EPIGASTRIC PAIN 10/10/2015 Ot Z79.4 TICKET TAKER (CURRENT) USE OF INSULIN 10/11/2015 Ot E11.9 10/11/2015 Ot I10 10/11/2015 Ot R10.13 10/11/2015 Ot Z79.4 10/13/2015 ABDIRASHID JC DO Ot R10.13 10/14/2015 ABDIRASHID JC DO Ot R10.13 10/19/2015 Ot E11.9 10/19/2015 Ot I10 10/19/2015 Ot R10.13 10/19/2015 Ot Z79.4 12/12/2015 SHERON WYNN CFNP Ot K85.8 OTHER ACUTE PANCREATITIS 12/15/2015 Ot [...] CFNP Ot K85.8 OTHER ACUTE PANCREATITIS 12/15/2015 HOSEAABDIRASHID Chamberlain DO K Ot R10.11 RIGHT UPPER QUADRANT PAIN 12/15/2015 Ot 789.00 ABDOMINAL PAIN, UNSPECIFIED SITE 12/15/2015 Ot 562.10 DIVERTICULOSIS COLON (W/O MENT OF HEMORR 12/15/2015 Ot 593.2 CYST OF KIDNEY, ACQUIRED 12/15/2015 SHERON WYNN CFNP Ot 784.0 HEADACHE 12/15/2015 SHERON WYNN CFNP Ot V12.41 HX BENIGN NEOPLASM/BRAIN 12/15/2015 WYNN, SHERON R CFNP Ot 784.0 HEADACHE 12/15/2015 SHERON WYNN R CFNP Ot V12.41 HX BENIGN NEOPLASM/BRAIN 12/15/2015 SHERON WYNN R CFNP Ot 592.0 CALCULUS OF KIDNEY 12/15/2015 SHERON WYNN R CFNP Ot 592.0 CALCULUS OF KIDNEY 12/15/2015 HOSEAJUANCHO Chamberlain DOA K Ot R10.13 EPIGASTRIC PAIN 12/15/2015 SHERON [...] CFNP Ot 592.0 CALCULUS OF KIDNEY 12/16/2015 HOSEAJUANCHO Chamberlani DOA K Ot R10.13 EPIGASTRIC PAIN 12/16/2015 SHERON WYNN CFNP Ot K85.8 OTHER ACUTE PANCREATITIS 12/16/2015 DARLENE SNOW, ALEXANDRA Lewis Ot E86.0 DEHYDRATION 12/16/2015 DARLENE SNOW, ALEXANDRA Lewis Ot R42 DIZZINESS AND GIDDINESS 12/16/2015 DARLENE SNOW, ALEXANDRA Lewis Ot R55 SYNCOPE AND COLLAPSE 12/16/2015 Ot 789.00 ABDOMINAL PAIN, UNSPECIFIED SITE 12/16/2015 Ot 562.10 DIVERTICULOSIS COLON (W/O MENT OF HEMORR 12/16/2015 Ot 593.2 CYST OF KIDNEY, ACQUIRED 12/16/2015 SHERON WYNN R CFNP Ot 784.0 HEADACHE 12/16/2015 SHERON WYNN R CFNP Ot V12.41 HX BENIGN NEOPLASM/BRAIN 12/16/2015 SHERON WYNN CFNP Ot 784.0 HEADACHE 12/16/2015 SHERON WYNN CFNP Ot V12.41 HX BENIGN NEOPLASM/BRAIN 12/16/2015 SHERON WYNN Jess CFNP Ot 592.0 CALCULUS OF KIDNEY 12/16/2015 SHERON WYNN R CFNP Ot 592.0 CALCULUS OF KIDNEY 12/16/2015 HOSEA OCAMPO ABDIRASHID K Ot R10.13 EPIGASTRIC PAIN 12/16/2015 SHERON WYNN Jess CFNP Ot K85.8 OTHER ACUTE PANCREATITIS 12/19/2015 HOSEA [place]CM[place]O ABDIRASHID K Ot R10.11 RIGHT UPPER QUADRANT PAIN [...] CYST OF KIDNEY, ACQUIRED 01/02/2016 SHERON WYNN CFNP Ot 784.0 HEADACHE 01/02/2016 SHERON WYNN Jess CFNP Ot V12.41 HX BENIGN NEOPLASM/BRAIN 01/02/2016 SHERON WYNN Jess CFNP Ot 784.0 HEADACHE 01/02/2016 SHERON WYNN Jess CFNP Ot V12.41 HX BENIGN NEOPLASM/BRAIN 01/02/2016 SHERON WYNN Jess CFNP Ot 592.0 CALCULUS OF KIDNEY 01/02/2016 SHERON WYNN Jess CFNP Ot 592.0 CALCULUS OF KIDNEY 01/02/2016 HOSEA OCAMPO, ABDIRASHID K Ot R10.13 EPIGASTRIC PAIN 01/02/2016 SHERON WYNN Jess CFNP Ot K85.8 OTHER ACUTE PANCREATITIS 01/02/2016 TIANNASHERON CFNP Ot R10.10 UPPER ABDOMINAL PAIN, UNSPECIFIED 01/02/2016 ABDIRASHID JC DO Ot R10.13 EPIGASTRIC PAIN 01/02/2016 SHERON WYNN CFNP Ot K85.8 OTHER ACUTE PANCREATITIS 01/02/2016 SHERON WYNN CFNP Ot R10.10 UPPER ABDOMINAL PAIN, UNSPECIFIED 01/02/2016 PAM ROSALESC, ALI FACP CCDS Ot E11.9 TYPE 2 DIABETES MELLITUS WITHOUT COMPLIC 01/02/2016 PAM ROSALESC, ALI FACP CCDS Ot E78.5 HYPERLIPIDEMIA, UNSPECIFIED 01/02/2016 PAM ROSALESC, ALI FACP CCDS Ot G40.909 EPILEPSY, UNSP, NOT INTRACTABLE, WITHOUT 01/02/2016 PAM SNOW FACC, ALI FACP CCDS Ot I10 ESSENTIAL (PRIMARY) HYPERTENSION 01/02/2016 PAM ROSALESC, ALI FACP CCDS Ot R07.9 CHEST PAIN, UNSPECIFIED 01/02/2016 PAM SNOW FACC, ALI FACP CCDS Ot R55 SYNCOPE AND COLLAPSE 01/02/2016 PAM SNOW FACC, ALI FACP CCDS Ot Z79.899 OTHER TICKET TAKER (CURRENT) DRUG THERAPY 01/03/2016 Ot E11.9 TYPE 2 DIABETES MELLITUS WITHOUT COMPLIC 01/03/2016 Ot I10 ESSENTIAL (PRIMARY) HYPERTENSION 01/03/2016 Ot R10.13 EPIGASTRIC PAIN 01/03/2016 Ot Z79.4 GROUP HOME (CURRENT) USE OF INSULIN 01/03/2016 SHERON WYNN CFNP Ot K85.8 OTHER ACUTE PANCREATITIS 01/19/2016 PAM SNOW FACC, ALI FACP CCDS Ot E11.9 TYPE 2 DIABETES MELLITUS WITHOUT COMPLIC 01/19/2016 PAM SNOW FACC, ALI FACP CCDS Ot E78.5 HYPERLIPIDEMIA, UNSPECIFIED 01/19/2016 PAM SNOW FACC, ALI FACP CCDS Ot G40.909 EPILEPSY, UNSP, NOT INTRACTABLE, WITHOUT 01/19/2016 PAM SNOW FACC, ALI FACP CCDS Ot I10 ESSENTIAL (PRIMARY) HYPERTENSION 01/19/2016 PAM SNOW FACC, ALI FACP CCDS Ot R07.9 CHEST PAIN, UNSPECIFIED 01/19/2016 PAM ROSALESC, ALI FACP CCDS Ot R55 SYNCOPE AND COLLAPSE 01/19/2016 PAM SNOW FACC, ALI FACP CCDS Ot Z79.899 OTHER GROUP HOME (CURRENT) DRUG THERAPY 01/23/2016 BERTIN SMITH DO Ot K87 DISORD OF GB, BILIARY TRAC AND PANCREAS 01/23/2016 BERTIN SMITH DO Ot Z01.818 ENCOUNTER FOR OTHER PREPROCEDURAL EXAMIN 01/24/2016 BERTIN SMITH DO, Ot K87 DISORD OF GB, BILIARY TRAC AND PANCREAS 01/24/2016 BERTIN SMITH DO, Ot Z01.818 ENCOUNTER FOR [...] 593.2 CYST OF KIDNEY, ACQUIRED 01/28/2016 SHERON YWNNNP Ot 784.0 HEADACHE 01/28/2016 SHERON WYNN CFNP Ot V12.41 HX BENIGN NEOPLASM/BRAIN 01/28/2016 SHERON WYNN CFNP Ot 784.0 HEADACHE 01/28/2016 SHERON WYNN CFNP Ot V12.41 HX BENIGN NEOPLASM/BRAIN 01/28/2016 SHERON WYNN Ot 592.0 CALCULUS OF KIDNEY 01/28/2016 SHERON WYNN CFNP Ot 592.0 CALCULUS OF KIDNEY 01/28/2016 ABDIRASHID JC DO Ot R10.13 EPIGASTRIC PAIN 01/28/2016 SHERON WYNN Ot K85.8 OTHER ACUTE PANCREATITIS 01/28/2016 SHERON WYNN CFNP Ot R10.10 UPPER ABDOMINAL PAIN, UNSPECIFIED 01/30/2016 DIETER OLMOS DO Ot G89.18 OTHER ACUTE POSTPROCEDURAL PAIN 01/30/2016 DIETER OLMOS DO Ot K57.30 DVRTCLOS OF LG INT W/O PERFORATION OR AB 01/30/2016 DIETER OLMOS DO Ot L29.8 OTHER PRURITUS 01/30/2016 DIETER OLMOS DO, Ot Z90.49 ACQUIRED ABSENCE OF OTHER SPECIFIED PART 02/02/2016 BERTIN SMITH DO Ot E11.9 TYPE 2 DIABETES MELLITUS WITHOUT COMPLIC 02/02/2016 BERTIN SMITH DO Ot K81.1 CHRONIC CHOLECYSTITIS 02/22/2016 BERTIN SMITH [...] Ot R10.10 UPPER ABDOMINAL PAIN, UNSPECIFIED 02/14/2017 SHEORN WYNN CFNP Ot M25.561 PAIN IN RIGHT KNEE 02/23/2017 SHERON WYNN CFNP Ot 784.0 HEADACHE 02/23/2017 SHREON WYNN R CFNP Ot V12.41 HX BENIGN NEOPLASM/BRAIN 02/23/2017 WYNNSHERNO ARCHER R CFNP Ot 784.0 HEADACHE 02/23/2017 WYNNSHERON ARCHER R CFNP Ot V12.41 HX BENIGN NEOPLASM/BRAIN 02/23/2017 WYNNSHERON ARCHER R CFNP Ot 592.0 CALCULUS OF KIDNEY 02/23/2017 WYNNSHERON Orellana R CFNP Ot 592.0 CALCULUS OF KIDNEY 02/23/2017 HOSEACnitia OCAMPO ABDIRASHID K Ot R10.13 EPIGASTRIC PAIN 02/23/2017 WYNNSHERON ARCHER R CFNP Ot K85.8 OTHER ACUTE PANCREATITIS 02/23/2017 WYNNSHERON ARCHER R CFNP Ot R10.10 UPPER ABDOMINAL PAIN, UNSPECIFIED 02/23/2017 WYNNSHERON ARCHER R CFNP Ot M25.561 PAIN IN RIGHT KNEE 02/23/2017 LILLIAM RODRIGUES Ot Z12.31 ENCNTR SCREEN MAMMOGRAM FOR MALIGNANT NE 02/23/2017 SHERON WYNN R CFNP Ot 784.0 HEADACHE 02/23/2017 WYNNSHERON ARCHER R CFNP Ot V12.41 HX BENIGN NEOPLASM/BRAIN 02/23/2017 WYNNSHERON R CFNP Ot 784.0 HEADACHE 02/23/2017 WYNN, SHERON R CFNP Ot V12.41 HX BENIGN NEOPLASM/BRAIN 02/23/2017 WYNNSHERON ARCHER R CFNP Ot 592.0 CALCULUS OF KIDNEY 02/23/2017 WYNN SHERON R CFNP Ot 592.0 CALCULUS OF KIDNEY 02/23/2017 JUANCHO JC DOA K Ot R10.13 EPIGASTRIC PAIN 02/23/2017 WYNNSHERON ARCHER R CFNP Ot K85.8 OTHER ACUTE PANCREATITIS 02/23/2017 WYNNSHERON ARCHER R CFNP Ot R10.10 UPPER ABDOMINAL PAIN, UNSPECIFIED 02/23/2017 WYNNSHERON ARCHER R CFNP Ot M25.561 PAIN IN RIGHT KNEE 02/23/2017 LILLIAM RODRIGUES Ot Z12.31 ENCNTR SCREEN MAMMOGRAM FOR MALIGNANT NE 02/23/2017 TEREAS AGUAYO Ot E11.40 TYPE 2 DIABETES MELLITUS WITH DIABETIC N 02/23/2017 TERESA AGUAYO Ot E78.00 PURE HYPERCHOLESTEROLEMIA, UNSPECIFIED 02/23/2017 TERESA AGUAYO Ot G40.909 EPILEPSY, UNSP, NOT INTRACTABLE, WITHOUT 02/23/2017 TERESA AGUAYO Ot I10 ESSENTIAL (PRIMARY) HYPERTENSION 02/23/2017 TERESA AGUAYO Ot K02.9 DENTAL CARIES, UNSPECIFIED 02/23/2017 TERESA AGUAYO Ot K04.7 PERIAPICAL ABSCESS WITHOUT SINUS 02/23/2017 TERESA AGUAYO Ot R68.84 JAW PAIN 02/23/2017 TERESA AGUAYO Ot Z79.4 TICKET TAKER (CURRENT) USE OF INSULIN 02/23/2017 TERESA AGUAYO Ot Z79.82 TICKET TAKER (CURRENT) USE OF ASPIRIN 02/23/2017 TERESA AGUAYO Ot Z79.84 TICKET TAKER (CURRENT) USE OF ORAL HYPOGLYC 02/23/2017 TERESA AGUAYO Ot Z86.03 PERSONAL HISTORY OF NEOPLASM OF UNCERTAI 02/23/2017 TERESA AGUAYO Ot Z86.2 PRSNL HISTORY OF DIS OF THE BLD/BLD-FORM 02/23/2017 TERESA AGUAYO Ot Z87.442 PERSONAL HISTORY OF URINARY CALCULI 02/23/2017 TERESA AGUAYO Ot Z87.59 PERSONAL HISTORY OF COMP OF PREG, CHLDBR 02/23/2017 TERESA AGUAYO Ot Z90.710 ACQUIRED ABSENCE OF BOTH CERVIX AND UTER 02/26/2017 TERESA AGUAYO Ot E11.40 TYPE 2 DIABETES MELLITUS WITH DIABETIC N 02/26/2017 TERESA AGUAYO Ot E78.00 PURE HYPERCHOLESTEROLEMIA, UNSPECIFIED 02/26/2017 TERESA AGUAYO Ot G40.909 EPILEPSY, UNSP, NOT INTRACTABLE, WITHOUT 02/26/2017 TERESA AGUAYO Ot I10 ESSENTIAL (PRIMARY) HYPERTENSION 02/26/2017 TERESA AGUAYO Ot K02.9 DENTAL CARIES, UNSPECIFIED 02/26/2017 TERESA AGUAYO Ot K04.7 PERIAPICAL ABSCESS WITHOUT SINUS 02/26/2017 TERESA AGUAYO Ot R68.84 JAW PAIN 02/26/2017 TERESA AGUAYO Ot Z79.4 TICKET TAKER (CURRENT) USE OF INSULIN 02/26/2017 TERESA AGUAYO Ot Z79.82 GROUP HOME (CURRENT) USE OF ASPIRIN 02/26/2017 TERESA AGUAYO Ot Z79.84 TICKET TAKER (CURRENT) USE OF ORAL HYPOGLYC 02/26/2017 TERESA AGUAYO Ot Z86.03 PERSONAL HISTORY OF NEOPLASM OF UNCERTAI 02/26/2017 TERESA AGUAYO Ot Z86.2 PRSNL HISTORY OF DIS OF THE BLD/BLD-FORM 02/26/2017 TERESA AGUAYO Ot Z87.442 PERSONAL HISTORY OF URINARY CALCULI 02/26/2017 TERESA AGUAYO Ot Z87.59 PERSONAL HISTORY OF COMP OF PREG, CHLDBR 02/26/2017 TERESA AGUAYO Ot Z90.710 ACQUIRED ABSENCE OF BOTH CERVIX AND UTER 04/24/2017 SHERON WYNN CFNP Ot 784.0 HEADACHE 04/24/2017 SHERON WYNN CFNP Ot V12.41 HX BENIGN NEOPLASM/BRAIN 04/24/2017 SHERON WYNN CFNP Ot 784.0 HEADACHE 04/24/2017 SHERON WYNN CFNP Ot V12.41 HX BENIGN NEOPLASM/BRAIN 04/24/2017 SHERON WYNN CFNP Ot 592.0 CALCULUS OF KIDNEY 04/24/2017 SHERON WYNN CFNP Ot 592.0 CALCULUS OF KIDNEY 04/24/2017 HOSEA DO, ABDIRASHID K Ot R10.13 EPIGASTRIC PAIN 04/24/2017 SHERON WYNN CFNP Ot K85.8 OTHER ACUTE PANCREATITIS 04/24/2017 SHERON WYNN CFNP Ot R10.10 UPPER ABDOMINAL PAIN, UNSPECIFIED 04/24/2017 SHERON WYNN CFNP Ot M25.561 PAIN IN RIGHT KNEE 04/24/2017 LILLIAM RODRIGUES Ot Z12.31 ENCNTR SCREEN MAMMOGRAM FOR MALIGNANT NE 04/24/2017 LILLIAM RODRIGUES Ot R92.8 OTH ABN AND INCONCLUSIVE FINDINGS ON DX 04/25/2017 TERESA AGUAYO Ot E11.40 TYPE 2 DIABETES MELLITUS WITH DIABETIC N 04/25/2017 TERESA AGUAYO Ot E78.00 PURE HYPERCHOLESTEROLEMIA, UNSPECIFIED 04/25/2017 TERESA AGUAYO Ot G40.909 EPILEPSY, UNSP, NOT INTRACTABLE, WITHOUT 04/25/2017 TERESA AGUAYO Ot I10 ESSENTIAL (PRIMARY) HYPERTENSION 04/25/2017 TERESA AGUAYO Ot K02.9 DENTAL CARIES, UNSPECIFIED 04/25/2017 TERESA AGUAYO Ot K04.7 PERIAPICAL ABSCESS WITHOUT SINUS 04/25/2017 TERESA AGUAYO Ot R68.84 JAW PAIN 04/25/2017 TERESA AGUAYO Ot Z79.4 TICKET TAKER (CURRENT) USE OF INSULIN 04/25/2017 TERESA AGUAYO Ot Z79.82 GROUP HOME (CURRENT) USE OF ASPIRIN 04/25/2017 TERESA AGUAYO Ot Z79.84 TICKET TAKER (CURRENT) USE OF ORAL HYPOGLYC 04/25/2017 TERESA AGUAYO Ot Z86.03 PERSONAL HISTORY OF NEOPLASM OF UNCERTAI 04/25/2017 TERESA AGUAYO Ot Z86.2 PRSNL HISTORY OF DIS OF THE BLD/BLD-FORM 04/25/2017 TERESA AGUAYO Ot Z87.442 PERSONAL HISTORY OF URINARY CALCULI 04/25/2017 TERESA AGUAYO Ot Z87.59 PERSONAL HISTORY OF COMP OF PREG, CHLDBR 04/25/2017 TERESA AGUAYO Ot Z90.710 ACQUIRED ABSENCE OF BOTH CERVIX AND UTER 08/02/2017 SHERON WYNN CFNP Ot 784.0 HEADACHE 08/02/2017 SHERON WYNN CFNP Ot V12.41 HX BENIGN NEOPLASM/BRAIN 08/02/2017 SHERON WYNN CFNP Ot 784.0 HEADACHE 08/02/2017 SHERON WYNN CFNP Ot V12.41 HX BENIGN NEOPLASM/BRAIN 08/02/2017 SHERON WYNN CFNP Ot 592.0 CALCULUS OF KIDNEY 08/02/2017 SHERON WYNN CFNP Ot 592.0 CALCULUS OF KIDNEY 08/02/2017 ABDIRASHID JC DO Ot R10.13 EPIGASTRIC PAIN 08/02/2017 SHERON WYNN CFNP Ot K85.8 OTHER ACUTE PANCREATITIS 08/02/2017 SHERON WYNN CFNP Ot R10.10 UPPER ABDOMINAL PAIN, UNSPECIFIED 08/02/2017 SHERON WYNN Jess CFMIKE Ot M25.561 PAIN IN RIGHT KNEE 08/02/2017 LILLIAM RODRIGUES Ot Z12.31 ENCNTR SCREEN MAMMOGRAM FOR MALIGNANT NE 08/02/2017 LILLIAM RODRIGUES Ot R92.8 OTH ABN AND INCONCLUSIVE FINDINGS ON DX 08/06/2017 NANNETTE SNOW, ASHLEYAMEN H Ot M47.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 08/06/2017 NANNETTE SNOW, BENJAMEN H Ot M48.02 SPINAL STENOSIS, CERVICAL REGION 08/06/2017 NANNETTE SNOW BENJAMEN H Ot M51.26 OTHER INTERVERTEBRAL DISC DISPLACEMENT, 08/06/2017 NANNETTE SNOW, ASHLEYAMEN H Ot M51.36 OTHER INTERVERTEBRAL DISC DEGENERATION, 08/23/2017 LILLIAM RODRIGUES Ot R92.1 MAMMOGRAPHIC CALCIFCN FOUND ON DIAGNOSTI 04/24/2018 NANNETTE SNOW, BENJAMEN H Ot M47.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 04/24/2018 NANNETTE SNOW BENJAMEN H Ot M48.02 SPINAL STENOSIS, CERVICAL REGION 04/24/2018 NANNETTE SNOW BENJAMEN H Ot M51.26 OTHER INTERVERTEBRAL DISC DISPLACEMENT, 04/24/2018 NANNETTE SNOW, BENJAMEN H Ot M51.36 OTHER INTERVERTEBRAL DISC DEGENERATION, 04/24/2018 LILLIAM RODRIGUES Ot R92.1 MAMMOGRAPHIC CALCIFCN FOUND ON DIAGNOSTI 04/24/2018 NANNETTE SNOW, BENJAMEN H Ot M47.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 04/24/2018 NANNETTE SNOW BENJAMEN H Ot M48.02 SPINAL STENOSIS, CERVICAL REGION 04/24/2018 NANNETTE SNOW, BENJAMEN H Ot M51.26 OTHER INTERVERTEBRAL DISC DISPLACEMENT, 04/24/2018 NANNETTE SNOW BENJAMEN H Ot M51.36 OTHER INTERVERTEBRAL DISC DEGENERATION, 04/24/2018 LILLIAM RODRIGUES Ot R92.1 MAMMOGRAPHIC CALCIFCN FOUND ON DIAGNOSTI 04/28/2018 NANNETTE SNOW BENJAMEN H Ot M47.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 04/28/2018 NANNETTE SNOW BENJAMEN H Ot M48.02 SPINAL STENOSIS, CERVICAL REGION 04/28/2018 NANNETTE SNOW BENJAMEN H Ot M51.26 OTHER INTERVERTEBRAL DISC DISPLACEMENT, 04/28/2018 NANNETTE SNOW, [facility] Ot M51.36 OTHER INTERVERTEBRAL DISC DEGENERATION, 04/28/2018 LILLIAM RODRIGUES Ot R92.1 MAMMOGRAPHIC CALCIFCN FOUND ON DIAGNOSTI 04/30/2018 NANNETTE SNOW, KEKE Ot R92.1 MAMMOGRAPHIC CALCIFCN FOUND ON DIAGNOSTI 05/12/2018 NANNETTE SNOW, KEKE Ronquillo Ot R92.1 MAMMOGRAPHIC CALCIFCN FOUND ON DIAGNOSTI Procedures Code [place] [address] MICRO ALBUMIN-IN HOUSE 05/27/2012 89425 A1C (IN-HOUSE) 05/27/2012 30737 ROUTINE VENIPUNCTURE 06/24/2012 58077 CBC 06/24/2012 92541 LIPID PANEL 06/24/2012 38068 CMP 06/24/2012 6327907 GFR CALC (RESULT ONLY) 06/24/2012 04455 GANGLION CYST-ASP/INJ 07/24/2012 46237 A1C (IN-HOUSE) 09/30/2012 10614 A1C (IN-HOUSE) 02/23/2013 06323 MRI BRAIN W/O & W/DYE 03/30/2013 25800 A1C (IN-HOUSE) 07/15/2013 42166 UA LONG DIP 11/16/[address] ABDOMEN & PELVIS W/O CONTRAST 11/17/2013 76490 UA LONG DIP 12/01/2013 12805 ROUTINE VENIPUNCTURE 12/09/2013 98055 A1C (IN-HOUSE) 12/09/2013 50722 MICRO ALBUMIN-IN HOUSE 12/09/2013 4230435 GFR CALC (RESULT ONLY) 12/09/2013 34698 CMP 12/09/2013 29539 LIPID PANEL 12/09/2013 95421 UA LONG DIP 12/28/2013 13128 UA LONG DIP 01/19/2014 52477 UA LONG DIP 02/18/[address] ABDOMEN & PELVIS W/O CONTRAST 03/30/2014 04158 A1C (IN-HOUSE) 06/01/2014 70430 UA LONG DIP 06/01/2014 21838 GLUCOSE FINGER STICK 06/01/2014 45176 MRI SPINE (LUMBAR) W/O CONTRAST 08/07/2014 22688 A1C (IN-HOUSE) 10/20/2014 Results There is no data. Encounters ACCT No. Visit Date/Time Discharge Status Pt. Type Provider Facility Loc./Unit Complaint [id number] 10/13/2018 14:59:56 10/13/2018 23:59:59 CLS Outpatient Richard Ng [id number] 11/28/2018 21:53:00 11/28/2018 23:16:00 DIS Emergency ALEXANDRA COLON MD [facility] ER POSSIBLE SPIDER BITE [id number] 04/28/2018 13:45:00 04/28/2018 23:59:59 CLS Outpatient KEKE BRUNSON MD [facility] RAD ABN MAMMO R92.8 [id number] 08/22/2017 07:59:00 08/22/2017 23:59:59 CLS Outpatient LILLIAM RODRIGUES [facility] RAD 6 MONTH F/U [id number] 08/02/2017 07:21:00 08/02/2017 23:59:59 CLS Outpatient KEKE BRUNSON MD [facility] RAD CERVICAL STENOSIS [id number] 03/07/2017 07:47:00 03/07/2017 23:59:59 CLS Outpatient LILLIAM RODRIGUES [facility] RAD DENSE BREAST [id number] 02/23/2017 14:26:00 02/23/2017 17:40:00 DIS Emergency TERESA AGUAYO [facility] ER TOOTH PAIN [id number] 02/14/2017 09:15:00 02/14/2017 23:59:59 CLS Outpatient LILLIAM RODRIGUES [facility] RAD SCREENING [id number] 04/07/2016 09:54:00 04/07/2016 23:59:59 CLS Outpatient SHERON WYNN [facility] RAD ACUTE PAIN OF RT KNEE [id number] 01/28/2016 00:23:00 01/28/2016 03:36:00 DIS Emergency DIETER OLMOS DO [facility] ER STOMACH PAIN POST SURGERY [id number] 01/26/2016 05:48:00 01/26/2016 14:30:00 DIS Outpatient BERTIN SMITH DO [facility] SDC ABNORMAL EJECTION FRACTION [id number] 01/23/2016 10:23:00 01/23/2016 10:36:00 DIS Outpatient BERTIN SMITH DO [facility] PREOP ABNORMAL EJECTION FRACTION [id number] 01/02/2016 07:59:00 01/02/2016 15:30:00 DIS Outpatient PAM SNOW FACC, KIAH SALDAÑA CCDS [facility] CATH ANGINA,SYNCOPE,SOB [id number] 12/22/2015 10:17:00 12/22/2015 23:59:59 CLS Outpatient SHERON WYNN [facility] CARD PAIN OF UPPER ABDOMEN [id number] 12/16/2015 19:36:00 12/16/2015 21:33:00 DIS Emergency ALEXANDRA COLON MD [facility] ER PASSED OUT/DIZZY/NAUSEA/PAIN IN LOWER BACK [id number] 12/15/2015 18:14:00 12/15/2015 22:04:00 DIS Emergency ABDIRASHID JC DO [facility] ER CHEST PAIN/NUMBNESS/VOMITTING [id number] 12/09/2015 09:36:00 12/09/2015 23:59:59 CLS Outpatient SHERON WYNN [facility] RAD ACUTE PANCREATITIS [id number] 10/13/2015 08:17:00 10/13/2015 23:59:59 CLS Outpatient ABDIRASHID JC DO [facility] RAD EPIGASTRIC PAIN [id number] 09/19/2015 20:24:00 09/20/2015 00:24:00 DIS Emergency ALEXANDRA COLON MD [facility] ER CP [id number] 08/09/2015 22:17:00 08/10/2015 00:59:00 DIS Emergency PAULO DYE MD [facility] ER LOWER ABD PAIN [id number] 06/19/2015 18:56:00 06/19/2015 20:14:00 DIS Emergency STEVE AL APRN [facility] ER LOW BACK PAIN/VOMITING [id number] 03/29/2014 13:10:00 03/29/2014 23:59:59 CLS Outpatient SHERON WYNN [facility] RAD RENAL STONE SEARCH [id number] 11/28/2013 13:54:00 11/28/2013 16:49:00 DIS Emergency PAULO DYE MD [facility] ER BACK PAIN-KIDNEY STONES [id number] 11/16/2013 15:05:00 11/16/2013 23:59:59 CLS Outpatient SHERON WYNN [facility] RAD RENAL STONE [id number] 11/10/2013 15:22:00 11/10/2013 17:21:00 DIS Emergency STEVE AL APRN [facility] ER BACK PAIN [id number] 09/30/2013 10:17:00 09/30/2013 23:59:59 CLS Outpatient [id number] 04/13/2013 11:23:00 04/13/2013 23:59:59 CLS Outpatient SHERON WYNN [facility] RAD CHRONIC HEADACHES, HX BRAIN TUMOR [id number] 04/13/2013 08:19:00 04/13/2013 23:59:59 CLS Outpatient SHERON WYNN [facility] LAB CHRONIC HEADACHES,HX TUMOR W SHAILA [id number] 12/06/2012 17:03:00 12/09/2012 12:00:00 DIS Inpatient PAO ANDRADE MD [facility] CSD SYNCOPE,CHEST PAIN [id number] 10/09/2015 22:26:00 Document Registration [id number] 03/28/2011 11:07:00 Document Registration [id number] 03/26/2011 07:39:00 Document Registration [id number] 03/10/2011 23:11:00 Document Registration [id number] 02/02/2011 20:46:00 Document Registration [id number] 10/20/2014 08:54:00 10/20/2014 23:59:59 CLS Outpatient MIKE ALCAZAR DO [id number] 09/22/2014 08:14:00 09/22/2014 23:59:59 CLS Outpatient SHERON WYNN APRN [id number] 08/03/2014 11:20:00 08/03/2014 23:59:59 CLS Outpatient TIANNA BRUNSONSHERON [id number] 06/29/2014 12:45:00 06/29/2014 23:59:59 CLS Outpatient ALCAZAR DOMIKE Kurt [id number] 06/01/2014 13:49:00 06/01/2014 23:59:59 CLS Outpatient ALCZAAR DOMIKE Kurt [id number] 04/05/2014 15:38:00 04/05/2014 23:59:59 CLS Outpatient ALCAZAR DOMIKE Kurt [id number] 02/18/2014 10:59:00 02/18/2014 23:59:59 CLS Outpatient ALCAZAR DO MIKE Hicks [id number] 01/19/2014 14:49:00 01/19/2014 23:59:59 CLS Outpatient TIANNA BRUNSONSHERON [id number] 12/28/2013 10:30:00 12/28/2013 23:59:59 CLS Outpatient ALCAZAR DO MIKE Hicks [id number] 12/09/2013 09:10:00 12/09/2013 23:59:59 CLS Outpatient ALCAZAR DO MIKE Hicks [id number] 12/01/2013 09:20:00 12/01/2013 23:59:59 CLS Outpatient TIANNA LONGSHERON [place] [id number] 11/16/2013 10:48:00 11/16/2013 23:59:59 CLS Outpatient TIANNA LONGSHERON [place] [id number] 10/19/2013 10:35:00 10/19/2013 23:59:59 CLS Outpatient ALCAZAR DO MIKE Hicks [id number] 09/04/2013 00:00:00 09/04/2013 23:59:59 CLS Outpatient TIANNA LONGSHERON [place] [id number] 07/29/2013 00:00:00 07/29/2013 23:59:59 CLS Outpatient TIANNA LONGSHERON [place] [id number] 07/15/2013 09:15:00 07/15/2013 23:59:59 CLS Outpatient ALCAZAR DO MIKE Hicks [id number] 07/07/2013 00:00:00 07/07/2013 23:59:59 CLS Outpatient TIANNA LONGSHERON [place] [id number] 05/21/2013 13:18:00 05/21/2013 23:59:59 CLS Outpatient ALCAZAR DO, MIKE K [id number] 04/20/2013 12:09:00 04/20/2013 23:59:59 CLS Outpatient MIKE ALCAZAR DO [id number] 03/30/2013 13:39:00 03/30/2013 23:59:59 CLS Outpatient MIKE ALCAZAR DO [id number] 09/30/2012 08:52:00 09/30/2012 23:59:59 CLS Outpatient TAYLA ALONSO MD [id number] 07/24/2012 09:43:00 07/24/2012 23:59:59 CLS Outpatient [id number] 06/24/2012 09:32:00 06/24/2012 23:59:59 CLS Outpatient TAYLA ALONSO MD [id number] 05/27/2012 14:31:00 05/27/2012 23:59:59 CLS Outpatient [id number] 03/11/2012 08:56:00 03/11/2012 23:59:59 CLS Outpatient TAYLA ALONSO MD [id number] 02/23/2013 14:44:00 Document Registration [id number] 12/11/2012 10:12:00 Document Registration
== END 2018-11-28 23:16 | disposition home or self-care (01) ==
LOC: EDUNIT# 21:52 → ER 21:53
DX: S40.861A Insect bite (nonvenomous) of right upper arm, initial encounter (principal); S20.361A Insect bite (nonvenomous) of right front wall of thorax, initial encounter; E78.00 Pure hypercholesterolemia, unspecified; I10 Essential (primary) hypertension; G40.909 Epilepsy, unspecified, not intractable, without status epilepticus; E11.40 Type 2 diabetes mellitus with diabetic neuropathy, unspecified; M79.7 Fibromyalgia; Z86.011 Personal history of benign neoplasm of the brain; Z87.19 Personal history of other diseases of the digestive system; Z87.442 Personal history of urinary calculi; Z88.2 Allergy status to sulfonamides; Z88.8 Allergy status to other drugs, medicaments and biological substances; Z79.82 Long term (current) use of aspirin; Z79.4 Long term (current) use of insulin; Z98.890 Other specified postprocedural states; Z90.710 Acquired absence of both cervix and uterus; W57.XXXA Bitten or stung by nonvenomous insect and other nonvenomous arthropods, initial encounter
CPT/HCPCS: 99283

== ENCOUNTER → 2019-05-15 | Outpatient (CLI) | payer BC ==
[~2019-05-15] MED LIST changes: +DOXY100T2 PO; -OMEP20CA12 PO; +OMEP20CA13 PO
--- NOTE | 2019-05-18 09:38 | Diagnostic Imaging Report ---
INDICATION: Routine screening. COMPARISON: 04/28/2018 and 02/14/2017. TECHNIQUE: 2D and 3D bilateral screening mammography was performed with CAD. FINDINGS: Scattered fibroglandular densities are identified bilaterally. Scattered benign-appearing calcifications are identified in both breasts. The circumscribed ovoid nodule in the posterior right breast appears stable. The intraparenchymal lymph node in the posterior left breast is stable. No spiculated mass or malignant appearing microcalcifications are seen. The axillae are unremarkable. IMPRESSION: No mammographic features suspicious for malignancy are identified. ACR BI-RADS Category 2: Benign findings. Result letter will be mailed to the patient. Note: At least 10% of breast cancer is not imaged by mammography. Dictated by: Dictated on workstation # [id number]
== END ==
LOC: RAD 14:00
PROVIDERS: ATTEND Student in an Organized Health Care Education/Training Program
DX: Z12.31 Encounter for screening mammogram for malignant neoplasm of breast (principal)
CPT/HCPCS: 77067

== ENCOUNTER 2019-06-09 06:47 | Day surgery (SDC) | payer BC, OTHER ==
[~2019-06-09] VITALS: Ht 157 cm; Wt 92.0 kg
[2019-06-09] VITALS (14 sets, daily range): BP systolic 96–126; BP diastolic 67–83
[2019-06-09] MEDS ORDERED: NS IV 1000 ML 1,000 ML ONE (06:56)
[2019-06-09] MEDS ORDERED: LIDOCAINE 1% INJ 20 ML 20 ML VIAL ONE (06:56)
[2019-06-09] MEDS ORDERED: HEParin (CATH LAB) 2,000 ML IV ONE (06:56)
[2019-06-09] MEDS ORDERED: NS IV 1000 ML 1,000 ML IV SCH ×2 (07:00→09:14)
[2019-06-09 07:17] LABS: HEMOGLOBIN 12.9 G/DL (11.5-16.0); MEAN PLATELET VOLUME 9.1 FL (7.4-10.4); RED CELL DISTRIBUTION WIDTH 12.5 % (10.0-14.5); WHITE BLOOD COUNT 8.9 10^3/uL (4.3-11.0)
[2019-06-09] MEDS ORDERED: ATOR40TA70 PO (07:33)
[2019-06-09] MEDS ORDERED: LORA-714 PO (07:33)
[2019-06-09] MEDS ORDERED: LISI1TAB8 PO (07:33)
[2019-06-09] MEDS ORDERED: INSU100I14 SQ (07:33)
[2019-06-09] MEDS ORDERED: INSU100V5 SQ (07:33)
[2019-06-09 07:38] LABS: INR 0.8 (0.8-1.4); PROTHROMBIN TIME PATIENT 11.7 SEC (12.2-14.7)
[2019-06-09] MEDS ORDERED: MIDAZOLAM 5 MG/5 ML (VERSED) VIAL ONE (07:41)
[2019-06-09] MEDS ORDERED: fentaNYL INJECTION 100 MCG/2 ML AMP ONE (07:41)
[2019-06-09 07:44] LABS: ALBUMIN 4.5 GM/DL (3.2-4.5); BILIRUBIN,TOTAL 0.4 MG/DL (0.1-1.0); CALCIUM 9.4 MG/DL (8.5-10.1); CREATININE SERUM 0.96 MG/DL (0.60-1.30); POTASSIUM 3.9 MMOL/L (3.6-5.0); TOTAL PROTEIN 7.3 GM/DL (6.4-8.2)
--- NOTE | 2019-06-09 09:14 | Cardiac Procedure Note-CS/ASA ---
Pre-Procedure Note Pre-Op Procedure Note H&P Reviewed The H&P was reviewed, patient examined and no changes noted. Date H&P Reviewed: Jun 09, 2019 Time H&P Reviewed: 08:45 Conscious Sedation Pre-Proced Time 08:45 ASA Score 3 For ASA 3 and 4: Consider anesthesia and medical clearance. Also, for patients with a history of failed moderate sedation consider anesthesia. Airway Lungs Heart ASA score ASA 1: a normal healthy patient ASA 2: a patient with a mild systemic disease (mid diabetes, controlled hypertension, obesity ASA 3: a patient with a severe systemic disease that limits activity (angina, COPD, prior Myocardial infarction) ASA 4: a patient with an incapacitating disease that is a constant threat to life (CHF, renal failure) ASA 5: a moribund patient not expected to survive 24 hrs. (ruptured aneurysm) ASA 6: a declared brain- patient whose organs are being harvested. For emergent operations, add the letter E after the classification Mallampati Classification Grade 2 Sedation Plan Analgesia, Amnesia, Plan communicated to team members, Discussed options with patient/fam, Discussed risks with patient/fam The patient is an appropriate candidate to undergo the planned procedure, sedation, and anesthesia. The patient immediately re-assessed prior to indication. KIAH OROZCO MD FACP FAC CCDS Jun 09, 2019 09:14 POS
[2019-06-09] MEDS ORDERED: PATIENT MAY USE OWN MEDS, ALL PO SCH (09:15)
--- NOTE | 2019-06-09 09:19 | Discharge Inst-Cardiology ---
Discharge Inst-Cardiac Discharge Medications Continued Medications: Aspirin (Aspirin EC) 81 Mg Tablet.dr 81 MG PO DAILY, TAB Atorvastatin Calcium (Atorvastatin Calcium) 40 Mg Tablet 40 MG PO DAILY, TAB Insulin Aspart (Novolog Flexpen) 300 Units/3 Ml Solution 10 UNITS SQ AC, EA Insulin Determir (Levemir) 1,000 Units/10 Ml Soln 55 UNITS SQ HS, EA Levetiracetam (Keppra) 500 Mg Tablet 500 MG PO BID, TAB Lisinopril/Hydrochlorothiazide (Lisinopril-Hctz 20-12.5 mg Tab) 1 Each Tablet 1 EACH PO DAILY, TAB Loratadine (Loratadine) 10 Mg Tab.rapdis 10 MG PO DAILY, TAB Pantoprazole Sodium (Pantoprazole Sodium) 40 Mg Tablet. Discontinued Medications: Metformin HCl (Metformin HCl) 1,000 Mg Tablet 1000 MG PO BID, TAB Patient Instructions Patient Instructions: Hold Metformin until the evening of 06/11/19, then resume previous home dose KIAH OROZCO MD FACP FAC CCDS Jun 09, 2019 09:19 POS
--- NOTE | 2019-06-09 09:19 | Discharge Inst-Post CATH ---
Discharge Inst-CATH/EP Post Cardiac Cath/EP D/C Inst Follow Up/Plan F/u with Dr Gerardo in 1 week ACTIVITY * Go Home directly and rest. * Limit activity of the leg (or wrist if it was used) for 7 days including aerobics, swimming, jogging, bicycling, etc. * Restrict stair-climbing for 7 days if possible, if not, climb up with your no n-cath leg, then bring together on the same step. * Avoid lifting, pushing, pulling or excessive movement of the affected ext remity for 7 days. * Customary sexual activity may be resumed after 2 days-use caution not to use a position that strains or causes pain to the affected extremity. * No driving for 24 hours. * NO SMOKING. * Avoid straining for bowel movements for 7 days. * Gentle walking on level ground is allowed. * Returning to work will depend on the type of procedure and the results. Your doctor will discuss this with you. CALL YOUR DOCTOR FOR ANY OF THE FOLLOWING: *If bleeding from the puncture site occurs- Apply gentle pressure to site with clean cloth and call your doctor or EMS. * If a knot or lump forms under the skin, increases in size, or causes pain. * If bruising appears to be worsening or moving further down your leg instead of disappearing. * Temperature above 101 F. CARE OF YOUR GROIN INCISION; * Bruising or purple discoloration of the skin near the puncture site is common. * You may shower only, no bathtub bathing for 5 days. Be careful to avoid slipping as your leg may feel stiff. * If a closure device was used on your femoral artery, please see the attached guide regarding care of the device and your leg. * Leave dressing on FOR 24 hours. CARE OF YOUR WRIST INCISION; * Bruising or purple discoloration of the skin near the puncture site is common. * You may shower. * DO NOT submerge wrist. * Leave dressing on FOR 24 hours. KIAH GERARDO MD [facility] Jun 09, 2019 09:19 POS
--- NOTE | 2019-06-09 12:20 | NUR ---
UP ON SIDE OF BED AND THEN TO STANDING POSITION WITH ASSIST. C/O RIGHT LEG FEELING NUMB AND IS UNABLE TO SUPPORT HERSELF ON RIGHT LEG. ASSISTED BACK TO BED. IS ABLE TO LIFT RIGHT LEG APPROX 8 INCHES OFF MATTRESS AND IS ABLE TO BEND AT KNEE. LEG WARM, SKIN PALE PINK, CAP REFILL <3 SECONDS LEG AND FEET. NO CHANGE IN PEDAL PULSES. PT STATES SHE HAS HAD PREVIOUS BACK SURGERY. CONTACTED DR OROZCO, REPORT GIVEN. ORDER RECEIVED FOR GROIN ULTRASOUND.
--- NOTE | 2019-06-09 12:30 | NUR ---
Evin PIMENTEL, [employer] RN, HERE TO ASSESS PT. ASSISTED UP TO SIDE OF BED, THEN TO STANDING POSITION PREVIOUSLY DONE. CONTINUES TO C/O SOME RIGHT LEG NUMBNESS, AND IS LESS STEADY ON RIGHT LEG. ENCOURAGED AND REASSURED BY Evin PIMENTEL RN THAT SHE IS OK FOR DISMISSAL AFTER ULTRASOUND RULE OUT.
--- NOTE | 2019-06-09 12:36 | CARDIAC CATHETERIZATION ---
DATE OF SERVICE: 06/09/2019 CARDIAC CATHETERIZATION REPORT The patient is a 54-year-old lady, who has multiple coronary artery disease risk factors and who has been experiencing chest discomfort, palpitations and one episode of syncope. Cardiac catheterization was carried out to evaluate for coronary artery disease and cardiomyopathy. Informed consent was obtained. DESCRIPTION OF PROCEDURE: She was brought to the cardiac catheterization laboratory in a fasting state. Right groin was prepared and draped in the usual sterile fashion. Lidocaine 1% was used for local anesthesia. Modified Seldinger technique was used to advance a 5-Bermudian sheath in right femoral artery, 5-Bermudian JR4 catheter was used for left coronary angiography, 5-[place]ermudian JR4 catheter was used for right coronary angiography, 5-Bermudian pigtail catheter was used for left heart catheterization and left ventricular angiography. Angiography of the right femoral artery was carried out through the sheath. Mynx was used to achieve hemostasis. She tolerated the procedure well. HEMODYNAMICS: Left ventricular end-diastolic pressure following coronary angiography was 14 mmHg. There was no significant pressure gradient on pullback across the aortic valve. Ascending aortic pressure was 123/99 with a mean of 98 mmHg. LEFT VENTRICULAR ANGIOGRAPHY: Left ventricular angiography was carried out in the right anterior oblique projection. Global left ventricular systolic function is normal. Left ventricular ejection fraction approximately 60%. No significant mitral regurgitation is seen. CORONARY ANGIOGRAPHY: Left main coronary artery is free of significant disease. Left anterior descending artery is free of significant disease. Left circumflex artery is dominant and free of significant disease. Right coronary artery is small and nondominant and does not exhibit significant disease. CONCLUSIONS: 1. Angiographically normal coronary arteries. 2. Normal global left ventricular systolic function with an ejection fraction approximately 60%. 3. Mild elevation of left ventricular end-diastolic pressure. DISCUSSION AND RECOMMENDATIONS: Based on the results of the study, chest discomfort does not appear to be of coronary origin. Risk factor modification is advised and was discussed. Outpatient followup is advised. Job ID: [id number] DocumentID: [id number] Dictated Date: 06/09/2019 09:12:08 Manager R D Date: 06/09/2019 12:36:18 Dictated By: KIAH OROZCO MD, MA, FACP, FACC,
--- NOTE | 2019-06-09 13:20 | NUR ---
HAS HAS ULTRASOUND OF RIGHT GROIN. Nishant HUGHES US TECH, STATES ULTRASOUND DOES NOT SHOW ANY PROBLEM. PT DISMISSED PER WITH ASSIST WITH TO PRIVATE VEHICLE. TRANSFERS SELF FROM WC TO CAR WITH MINIMAL ASSIST.
--- NOTE | 2019-06-09 14:52 | Diagnostic Imaging Report ---
INDICATION: Post heart catheter. Right groin pain. FINDINGS: Color Doppler imaging shows normal flow in the right femoral artery and veins. No evidence of pseudoaneurysm or AV fistula. No significant hematoma. IMPRESSION: Normal right groin Doppler ultrasound. Dictated by: Dictated on workstation # [id number]
--- OUTSIDE RECORDS SUMMARY | 2019-07-04 02:36 | XMS REPORT ---
Author Author Bianca WYNN [facility] Address [address] [place] [address] Care Team Providers Care Cutter Finisher Name Role Phone SHERON WYNN Unavailable PROBLEMS Type Condition ICD9-CM Code TDP73-XU Code Onset Dates Condition S tatus SNOMED Code Problem Thoracic or lumbosacral neuritis or radiculitis, unspecifi ed 724.4 Active 569890228 Problem Headache 784.0 Active 44453392 Problem Polyneuropathy in diabetes 357.2 Act kamryn 48859027 Problem Renal and perinephric abscess 590.2 Active 771038969 Problem Type 2 diabetes mellitus with diabetic neuropathy E11.40 Active 30369815 Problem Unspecified epilepsy without mention of intractable epilep sy 345.90 Active 24271014 Problem Epilepsy without status epilepticus, not intract able, unspecified G40.909 Active 539873805 Problem Essential hypertension I10 Active 56877762 Problem Abdominal pain, unspecified abdominal location R10 .9 Active 44263874 Problem Chest pain, unspecified type R07.9 A ctive 02490046 Problem Syncope, unspecified syncope type R55 Active 047536696 Problem Right knee injury, initial encounter S89.91XA Active 717886361 Problem Sciatica, right M54.31 Active 2305 6005 Problem Acute pain of right knee M25.561 Activ e 88295827 Problem Renal stone N20.0 Active 78158751 Problem Diverticulosis of large intestine without hemorrhage K57.30 Active 287056627 Problem Other acute pancreatitis K85.8 Activ e 347805085 Problem Pain of upper abdomen R10.10 Active 69436474 Problem Biliary dyskinesia K82.8 Active 1 [id number] ALLERGIES No Information ENCOUNTERS Encounter Location Date Diagnosis [address] [id number] [place] [id number] Jan, Dental examination Z01.20 and Dental car ies K02.9 [facility] [address] [facility] [id number] [address] [place] [address] Sep, [facility] [address] [id number] [id number] Aug, [facility] [address] [facility] [id number] [address] [place] [address] May, [facility] [address] [facility] [id number] [address] [place] [address] Apr, [facility] [address] [id number] [place] [id number] Apr, [facility] [address] [id number] [place] [id number] Mar, Acute pain of right knee M25.561 [facility] [address] [id number] [place] [id number] Mar, Acute pain of right knee M25.561 [facility] [address] [facility] [id number] [address] [place] [address] Mar, [facility] [address] [id number] [place] [id number] Feb, Right knee injury, initial encounter S89 .91XA [facility] [address] [id number] [place] [id number] Feb, [facility] [address] [id number] [place] [id number] Jan, [facility] [address] [id number] [place] [id number] Jan, [facility] [address] [id number] [place] [id number] Dec, [facility] [address] [id number] [id number] Dec, Chest pain, unspecified type R07.9 ; Typ e 2 diabetes mellitus with diabetic neuropathy E11.40 ; Essential hypertension I10 ; Syncope, unspecified syncope type R55 and Hyperlipidemia, unspecified hyperlipidemia type E78.5 [facility] [address] [id number] [place] [id number] Dec, Biliary dyskinesia K82.8 [facility] [place] [address] [id number] [place] [id number] Dec, [facility] [place] [address] [id number] [place] [id number] Dec, Pain of upper abdomen R10.10 [facility] [place] [address] [id number] [place] [id number] Dec, Pain of upper abdomen R10.10 and Nausea and vomiting, unspecified intactability, vomiting of unspecified type R11.2 [facility] [place] [address] [id number] [place] [id number] Dec, Other acute pancreatitis K85.8 [facility] [place] [address] [facility] [id number] [place] [id number] Dec, Other acute pancreatitis K85.8 [facility] [place] [address] [facility] [id number] [place] [id number] November, Type 2 diabetes mellitus with diabetic n europathy E11.40 [facility] [address] [id number] [place] [id number] November, Other acute pancreatitis K85.8 and Type 2 diabetes mellitus with diabetic neuropathy E11.40 [facility] [place] [address] [id number] [place] [id number] November, Acute pancreatitis, unspecified pancreat itis type K85.9 and Type 2 diabetes mellitus with diabetic neuropathy E11.40 [facility] [address] [id number] [place] [id number] November, Abdominal pain, unspecified abdominal lo cation R10.9 [facility] [place] [address] [id number] [place] [id number] November, Diverticulosis of large intestine withou t hemorrhage K57.30 [facility] [address] [facility] [id number] [place] [id number] Oct, [facility] [address] [facility] [id number] [place], [place] [id number] Oct, [facility] [address] [facility] [id number] [address] [place] [address] Oct, [facility] [place] [address] [id number] [place] [id number] Oct, Chest pain R07.9 ; Type 2 diabetes cordell larry with diabetic neuropathy E11.40 ; H. pylori infection A04.8 and UTI (urinary tract infection) N39.0 [facility] [place] [address] [id number] [place] [id number] Oct, [facility] [address] [id number] [place] [id number] Sep, Chest pain R07.9 [facility] [address] [facility] [id number] [address] [place] [address] Sep, [facility] [place] [address] [id number] [place] [id number] Sep, [facility] [place] [address] [facility] [id number] [place] [id number] Sep, Abdominal pain, unspecified abdominal lo cation R10.9 and Sciatica, right M54.31 [facility] [address] [facility] [address] [id number] [id number] Sep, [facility] [place] [address] [facility] [id number] [place] [id number] Aug, [facility] [address] [facility] [id number] [address] [place] [address] Aug, [facility] [place] [address] [id number] [place] [id number] Aug, Diverticulitis of large intestine withou t perforation or abscess without bleeding K57.32 [facility] [place] [address] [id number] [place] [id number] Jun, Renal stone N20.0 [facility] [place] [address] [id number] [place] [id number] Jun, Renal and perinephric abscess 590.2 [facility] [place] [address] [id number] [place] [id number] Jun, Renal stone N20.0 [facility] [address] [facility] [id number] [place] [id number] May, Foot pain, left M79.672 and Type 2 diabe alyssa mellitus with diabetic neuropathy E11.40 [facility] [address] [facility] [id number] [address] [place] [address] Apr, Left foot pain M79.672 [facility] [address] [facility] [id number] [place] [id number] Apr, [facility] [address] [facility] [id number] [place] [id number] Apr, Type 2 diabetes mellitus with diabetic n europathy E11.40 ; Left foot pain M79.672 ; Essential hypertension I10 and Epilepsy without status epilepticus, not intractable, unspecified G40.909 [facility] [id number] [place] [id number] Apr, [place] [address] [place] [id number] [place] [id number] Mar, [facility] [id number] [place] [id number] Feb, Cellulitis and abscess of face 682.0 [facility] [id number] [place] [id number] Feb, Cellulitis and abscess of face 682.0 [facility] [address] [id number] [address] [place] [address] Oct, [facility] [address] [id number] [address] [place] [address] Oct, [facility] [address] [facility] [id number] [address] [place] [address] Sep, [facility] [id number] [place] [id number] Sep, [facility] [address] [facility] [id number] [address] [place] [address] Aug, [facility] [id number] [place] [address], [place] [id number] Aug, [facility] [address] [id number] [address] [place] [address], [place] [address] Aug, [facility] [address] [id number] [address] [place] [address], [place] [address] Aug, [facility] [address] [id number] [address] [place] [address], [place] [address] Aug, [facility] SAM [address] [id number] [place] [id number] Jul, [facility] [address] [id number] [address] [place] [address], [place] [address] Jul, [facility] SAM [address] [id number] [place] [id number] Jun, [facility] [address] [facility] [id number] [address] [place] [address], [place] [address] Jun, [facility] [address] [id number] [address] [place] [address], [place] [address] Jun, [facility] SAM [address] [id number] [place] [id number] Jun, [facility] [address] [id number] [place] [id number] Jun, [facility] [address] [facility] [id number] [address] [place] [address], [place] [address] Jun, [facility] SAM [address] [id number] [place] [id number] May, [facility] [address] [id number] [address] [place] [address], [place] [address] May, [facility] [address] [id number] [place] [id number] Mar, [facility] [address] [id number] [address] [place] [address], [place] [address] Mar, [facility] [address] [id number] [place] [id number] Mar, [facility] [address] [id number] [address] [place] [address], [place] [address] Mar, [facility] SAM [address] [id number] [place] [id number] Feb, [facility] [address] [id number] [address] [place] [address], [place] [address] Feb, [facility] SAM [address] [id number] [place] [id number] Feb, [facility] [address] [id number] [address] [place] [address], [place] [address] Feb, [facility] SAM [address] [id number] [place] [id number] Jan, [facility] [address] [id number] [address] [place] [address], [place] [address] Jan, [facility] SAM [address] [id number] [place] [id number] Jan, [facility] SAM [address] [id number] [place] [id number] Jan, [facility] [address] [id number] [address] [place] [address], [place] [address] Jan, [facility] [address] [id number] [address] [place] [address], [place] [address] Jan, [facility] SAM [address] [id number] [place] [id number] Dec, [facility] [address] [id number] [address] [place] [address], [place] [address] Dec, [facility] SAM [address] [id number] [place], [place] [id number] Dec, [facility] [address] [id number] [address] [place] [address], [place] [address] Dec, [facility] SAM [address] [id number] [place] [id number] Dec, [facility] [address] [id number] [address] [place] [address], [place] [address] Dec, [facility] SAM [address] [id number] [place], [place] [id number] November, [facility] [address] [id number] [facility] [address] November, [facility] SAM [address] [id number] [place] [id number] November, [facility] [address] [id number] [address] [place] [address], [place] [address] November, [facility] SAM [address] [id number] [place], [place] [id number] November, [facility] [address] [id number] [address] [place] [address], [place] [address] November, [facility] SAM [address] [id number] [place], [place] [id number] Oct, [facility] [address] [id number] [address] [place] [address], [place] [address] Oct, [facility] SAM [address] [id number] [place] [id number] Sep, [facility] [address] [id number] [address] [place] [address] Sep, [facility] [address] [id number] [address] [place] [address], [place] [address] Aug, [facility] [address] [id number] [address] [place] [address] Aug, [facility] [address] [id number] [place] [id number] Aug, [facility] [address] [id number] [address] [place] [address], [place] [address] Aug, [facility] [address] [id number] [address] [place] [address], [place] [address] Jul, [facility] [address] [id number] [address] [place] [address] Jul, [facility] [address] [id number] [place] [id number] Jul, [facility] [address] [id number] [address] [place] [address], [place] [address] Jul, [facility] [address] [id number] [address] [place] [address], [place] [address] Jul, [facility] [address] [id number] [place] [id number] Jul, [facility] [address] [id number] [place] [id number] Jul, [facility] [address] [id number] [address] [place] [address], [place] [address] Jul, [facility] [address] [id number] [address] [place] [address], [place] [address] Jul, [facility] [address] [id number] [address] [place] [address], [place] [address] Jul, [facility] [place] [address] [id number] [place] [id number] Jun, [facility] [address] [id number] [address] [place] [address], [place] [address] Jun, [facility] [address] [id number] [address] [place] [address], [place] [address] Jun, [facility] [address] [id number] [address] [place] [address], [place] [address] Jun, [facility] [address] [id number] [place] [id number] May, [facility] [address] [id number] [address] [place] [address], [place] [address] May, [facility] [address] [id number] [place] [id number] May, [facility] [address] [id number] [address] [place] [address], [place] [address] May, [facility] SAM [address] [id number] [place] [id number] Apr, [facility] [place] [facility] [address] [facility] [id number] [address] [place] [address] Apr, [facility] [address] [id number] [place] [id number] Mar, [facility] [address] [id number] [place], [place] [id number] Feb, [facility] [address] [id number] [place] [id number] Feb, [facility] [address] [id number] [place] [id number] Feb, [facility] [address] [id number] [place] [id number] Jan, [facility] [address] [id number] [place], [place] [id number] Dec, [facility] [address] [id number] [place], [place] [id number] Dec, [facility] [address] [id number] [place], [place] S [id number] Dec, [facility] [address] [id number] [place] [id number] November, [facility] [address] [facility] [id number] [address] [place] [address] November, [facility] [address] [id number] [place] [id number] November, [facility] [address] [id number] [place], [place] [id number] Oct, [facility] [address] [id number] [place] [id number] Oct, [facility] [address] [id number] [place], [place] S [id number] Sep, [facility] [address] [id number] [place], [place] [id number] Jul, [facility] [address] [facility] [id number] [address] [place] [address] Jun, [facility] [address] [id number] [address] [place] [address], [place] [address] Jun, [facility] SAM [address] [id number] [place] [id number] Jun, [facility] [address] [id number] [place] [id number] Jun, [facility] [address] [id number] [place] [id number] Jun, [facility] [address] [id number] [facility] [address] Jun, [facility] [address] [id number] [place] [id number] Jun, [facility] [address] [facility] [id number] [address] [place] [address], [place] [address] Jun, [facility] [address] [id number] [place] [id number] Jun, [facility] [address] [id number] [address] [place] [address], [place] [address] Jun, [facility] [address] [id number] [place] [id number] May, [facility] [address] [id number] [place] [id number] May, [facility] [address] [facility] [id number] [address] [place] [address], [place] [address] May, [facility] [address] [id number] [address] [place] [address] May, [facility] [address] [id number] [address] [place] [address], [place] [address] May, [facility] [address] [id number] [place] [id number] May, [facility] [address] [id number] [place] [id number] Mar, [facility] [address] [id number] [place], [place] [id number] Mar, [facility] [address] [id number] [place], [place] [id number] Mar, [facility] [address] [id number] [place], [place] [id number] Feb, [facility] [address] [id number] [place], [place] [id number] Feb, [facility] [address] [id number] [place], [place] [id number] Dec, [facility] [address] [id number] [place], [place] S [id number] November, [facility] [address] [id number] [place], [place] S [id number] November, [facility] [address] [id number] S[place], [place] [id number] November, [facility] [address] [id number] [place], [place] S [id number] November, [facility] [address] [id number] [place] [id number] November, [facility] [address] [id number] [place], [place] S [id number] Oct, [facility] [address] [id number] [place], [place] S [id number] Jul, [facility] [address] [id number] [place] [id number] Jul, [facility] [address] [facility] [id number] [address] [place] [address] Jun, [facility] [address] [facility] [id number] [address] [place] [address] May, [facility] [address] [facility] [id number] [address] [place] [address] May, [facility] [address] [facility] [id number] [address] [place] [phone] May, [facility] [address] [facility] [id number] [address] [place] [phone] May, [facility] [address] [facility] [id number] [address] [place] [phone] 14 Apr, 2011 [facility] [address] [id number] [address] [place] [phone] 14 Apr, 2011 [facility] [address] [facility] [id number] [address] [place] [phone] 14 Apr, 2011 [facility] [address] [id number] [address] [place] [phone] 13 Mar, 2011 [facility] [address] [facility] [id number] [address] [place] [phone] Feb, [facility] [address] [facility] [id number] [address] [place] [phone] Jun, [facility] [address] [facility] [id number] [address] [place] [phone] Jun, [facility] [address] [facility] [id number] [address] [place] [phone] Jun, IMMUNIZATIONS No Known Immunizations SOCIAL HISTORY Never Assessed REASON FOR VISIT PLAN OF CARE VITAL SIGNS Height 62 in 2013-12-09 Weight 209.8 lbs 2013-12-09 Temperature 98.2 degrees Fahrenheit 2013-12-09 Heart Rate 76 bpm 2013-12-09 Respiratory Rate 16 2013-12-09 Blood pressure systolic 110 mmHg 2013-12-09 Blood pressure diastolic 72 mmHg 2013-12-09 MEDICATIONS Unknown Medications RESULTS No Results PROCEDURES Procedure Date Ordered Result Body Site GLYCATED HEMOGLOBIN TEST December 09, 2013 MICROALBUMIN, SEMIQUANT December 09, 2013 LIPID PANEL December 09, 2013 COMPREHEN METABOLIC PANEL December 09, 2013 VENIPUNCT, ROUTINE* December 09, 2013 INSTRUCTIONS MEDICATIONS ADMINISTERED No Known Medications MEDICAL [...] 02/2016 Surgical History Heart Cath, normal results 2015 Surgical History Cyst removed left hand 12/2017 Hospitalization History above listed Hospitalization History [facility]--7 days in ICU-new tumors seen on brain scan 2012
--- OUTSIDE RECORDS SUMMARY | 2019-07-04 02:36 | XMS REPORT ---
Author Author Bianca WYNN [facility] Address [address] [place] [address] Care Team Providers Care Body Design Checker Name Role Phone SHERON WYNN Unavailable PROBLEMS Type Condition ICD9-CM Code [id number] Code Onset Dates Condition S tatus SNOMED Code Problem Thoracic or lumbosacral neuritis or radiculitis, unspecifi ed 724.4 Active 275480914 Problem Headache 784.0 Active 27028483 Problem Polyneuropathy in diabetes 357.2 Act kamryn 00243341 Problem Renal and perinephric abscess 590.2 Active 242067894 Problem Type 2 diabetes mellitus with diabetic neuropathy E11.40 Active 08828903 Problem Unspecified epilepsy without mention of intractable epilep sy 345.90 Active 44546095 Problem Epilepsy without status epilepticus, not intract able, unspecified G40.909 Active 022374451 Problem Essential hypertension I10 Active 11083847 Problem Abdominal pain, unspecified abdominal location R10 .9 Active 72735486 Problem Chest pain, unspecified type R07.9 A ctive 72693047 Problem Syncope, unspecified syncope type R55 Active 286534709 Problem Right knee injury, initial encounter S89.91XA Active 960866873 Problem Sciatica, right M54.31 Active 2305 6005 Problem Acute pain of right knee M25.561 Activ e 88898650 Problem Renal stone N20.0 Active 80648597 Problem Diverticulosis of large intestine without hemorrhage K57.30 Active 104067499 Problem Other acute pancreatitis K85.8 Activ e 495382461 Problem Pain of upper abdomen R10.10 Active 86317694 Problem Biliary dyskinesia K82.8 Active 1 [id number] ALLERGIES No Information ENCOUNTERS Encounter Location Date Diagnosis [facility] [address] [id number] [place] [id number] Jan, Dental examination Z01.20 and Dental car ies K02.9 [facility] [address] [facility] [id number] [address] [place] [phone] Sep, [facility] [address] [id number] [id number] Aug, [facility] [address] [facility] [id number] [address] [place] [phone] May, [facility] [address] [facility] [id number] [address] [place] [address] Apr, [facility] [address] [id number] [place] [id number] Apr, [facility] [address] [id number] [place] [id number] Mar, Acute pain of right knee M25.561 [facility] [address] [id number] [place] [id number] Mar, Acute pain of right knee M25.561 [facility] [address] [facility] [id number] [address] [place] [address] Mar, [facility] [address] [id number] [place] [id number] Feb, Right knee injury, initial encounter S89 .91XA [facility] [address] [id number] [place] [id number] Feb, [facility] [address] [id number] [place] [id number] Jan, [facility] [address] [id number] [place] [id number] Jan, [facility] [address] [id number] [place] [id number] Dec, [facility] [address] [id number][place] [id number] Dec, Chest pain, unspecified type R07.9 ; Typ e 2 diabetes mellitus with diabetic neuropathy E11.40 ; Essential hypertension I10 ; Syncope, unspecified syncope type R55 and Hyperlipidemia, unspecified hyperlipidemia type E78.5 [facility] [address] [id number] [place] [id number] Dec, Biliary dyskinesia K82.8 [facility] [place] [address] [id number] [place] [id number] Dec, [facility] [place] [address] [id number] [place] [id number] Dec, Pain of upper abdomen R10.10 [facility] [place] [address] [id number] [place] [id number] Dec, Pain of upper abdomen R10.10 and Nausea and vomiting, unspecified intactability, vomiting of unspecified type R11.2 [facility] [place] [address] [id number] [place] [id number] Dec, Other acute pancreatitis K85.8 [facility] [place] [address] [facility] [id number] [place] [id number] Dec, Other acute pancreatitis K85.8 [facility] [place] [address] [facility] [id number] [place] [id number] November, Type 2 diabetes mellitus with diabetic n europathy E11.40 [facility] [address] [id number] [place] [id number] November, Other acute pancreatitis K85.8 and Type 2 diabetes mellitus with diabetic neuropathy E11.40 [facility] [place] [address] [id number] [place] [id number] November, Acute pancreatitis, unspecified pancreat itis type K85.9 and Type 2 diabetes mellitus with diabetic neuropathy E11.40 [facility] [address] [id number] [place] [id number] November, Abdominal pain, unspecified abdominal lo cation R10.9 [facility] [place] [address] [id number] [place] [id number] November, Diverticulosis of large intestine withou t hemorrhage K57.30 [facility] [address] [facility] [id number] [place] [id number] Oct, [facility] [address] [facility] [id number] [place] [id number] Oct, [facility] [address] [facility] [id number] [address] [place] [phone] Oct, [facility] [place] [address] [id number] [place] [id number] Oct, Chest pain R07.9 ; Type 2 diabetes cordell larry with diabetic neuropathy E11.40 ; H. pylori infection A04.8 and UTI (urinary tract infection) N39.0 [facility] [place] [address] [id number] [place] [id number] Oct, [facility] [address] [id number] [place] [id number] Sep, Chest pain R07.9 [facility] [address] [facility] [id number] [address] [place] [address] Sep, [facility] [place] [address] [id number] [place] [id number] Sep, [facility] [place] [address] [facility] [id number] [place] [id number] Sep, Abdominal pain, unspecified abdominal lo cation R10.9 and Sciatica, right M54.31 [facility] [place] [address] [address] [facility] [address] [id number][place] [id number] Sep, [facility] [place] [address] [facility] [id number] [place] [id number] Aug, [facility] [address] [facility] [id number] [address] [place] [address] Aug, [facility] [place] [address] [id number] [place] [id number] Aug, Diverticulitis of large intestine withou t perforation or abscess without bleeding K57.32 [facility] [address] [id number] [place] [id number] Jun, Renal stone N20.0 [facility] [place] [address] [id number] [place] [id number] Jun, Renal and perinephric abscess 590.2 [facility] [place] [address] [id number] [place] [id number] Jun, Renal stone N20.0 [facility] [address] [facility] [id number] [place] [id number] May, Foot pain, left M79.672 and Type 2 diabe alyssa mellitus with diabetic neuropathy E11.40 [facility] [address] [facility] [id number] [address] [place] [address] Apr, Left foot pain M79.672 [facility] [address] [facility] [id number] [place] [id number] Apr, [facility] [address] [facility] [id number] [place] [id number] Apr, Type 2 diabetes mellitus with diabetic n europathy E11.40 ; Left foot pain M79.672 ; Essential hypertension I10 and Epilepsy without status epilepticus, not intractable, unspecified G40.909 [facility] [id number] [place] [id number] Apr, [place] [id number] [place] [id number] [place] [id number] Mar, [facility] [id number] [place] [id number] Feb, Cellulitis and abscess of face 682.0 [facility] [id number] [place] [id number] Feb, Cellulitis and abscess of face 682.0 [facility] [address] [place] [id number] [address] [place] [phone] Oct, [facility] [address] [place] [id number] [address] [place] [phone] Oct, [facility] [address] [facility] [id number] [address] [place] [phone] Sep, [facility] [id number] [place] [id number] Sep, [facility] [address] [facility] [id number] [address] [place] [phone] Aug, [facility] [address] [place] [id number] [place] [address], [place] [id number] Aug, [facility] [address] [id number] [address] [place] [address], [place] [address] Aug, [facility] [address] [id number] [address] [place] [address], [place] [address] Aug, [facility] [address] [id number] [address] [place] [address], [place] [address] Aug, [facility] [address] [id number] [place] [id number] Jul, [facility] [address] [id number] [address] [place] [address], [place] [address] Jul, [facility] [address] [id number] [place] [id number] Jun, [facility] [address] [facility] [id number] [address] [place] [address], [place] [address] Jun, [facility] [address] [id number] [address] [place] [address], [place] [address] Jun, [facility] [address] [id number] [place] [id number] Jun, [facility] [address] [id number] [place] [id number] Jun, [facility] [address] [facility] [id number] [address] [place] [address], [place] [address] Jun, [facility] [address] [id number] [place] [id number] May, [facility] [address] [id number] [address] [place] [address], [place] [address] May, [facility] [address] [id number] [place] [id number] Mar, [facility] [address] [id number] [address] [place] [address], [place] [address] Mar, [facility] [address] [id number] [place] [id number] Mar, [facility] [address] [id number] [address] [place] [address], [place] [address] Mar, [facility] [address] [id number] [place] [id number] Feb, [facility] [address] [id number] [address] [place] [address], [place] [address] Feb, [facility] [address] [id number] [place] [id number] Feb, [facility] [address] [id number] [address] [place] [address], [place] [address] Feb, [facility] [address] [id number] [place] [id number] Jan, [facility] [address] [id number] [address] [place] [address], [place] [address] Jan, [facility] [address] [id number] [place], [place] [id number] Jan, [facility] [address] [id number] [place] [id number] Jan, [facility] [address] [id number] [address] [place] [address], [place] [address] Jan, [facility] [address] [id number] [address] [place] [address], [place] [address] Jan, [facility] [address] [id number] [place] [id number] Dec, [facility] [address] [id number] [address] [place] [address], [place] [address] Dec, [facility] [address] [id number] [place] [id number] Dec, [facility] [address] [id number] [address] [place] [address], [place] [address] Dec, [facility] [address] [id number] [place] [id number] Dec, [facility] [address] [id number] [address] [place] [address], [place] [address] Dec, [facility] [address] [id number] [place] [id number] November, [facility] [address] [id number] [facility] [place] [address] November, [facility] SAM [address] [id number] [place] [id number] November, [facility] [address] [id number] [address] [place] [address], [place] [address] November, [facility] [address] [id number] [place] [id number] November, [facility] [address] [id number] [address] [place] [address], [place] [address] November, [facility] [address] [id number] [place] [id number] Oct, [facility] [address] [id number] [address] [place] [address], [place] [address] Oct, [facility] [address] [id number] [place], [place] [id number] Sep, [facility] [address] [id number] [address] [place] [id number] Sep, [facility] [address] [id number] [address] [place] [address], [place] [address] Aug, [facility] [address] [id number] [address] [place] [phone] Aug, [facility] [address] [id number] [place] [id number] Aug, [facility] [address] [id number] [address] [place] [address], [place] [address] Aug, [facility] [address] [id number] [address] [place] [address], [place] [address] Jul, [facility] [address] [id number] [address] [place] [address] Jul, [facility] [address] [id number] [place] [id number] Jul, [facility] [address] [id number] [address] [place] [address], [place] [address] Jul, [facility] [address] [id number] [address] [place] [address], [place] [address] Jul, [facility] [address] [id number] [place] [id number] Jul, [facility] [address] [id number] [place] [id number] Jul, [facility] [address] [id number] [address] [place] [address], [place] [address] Jul, [facility] [address] [id number] [address] [place] [address], [place] [address] Jul, [facility] [address] [id number] [address] [place] [address], [place] [address] Jul, [facility] [place] [address] [id number] [place] [id number] Jun, [facility] [address] [id number] [address] [place] [address], [place] [address] Jun, [facility] [address] [id number] [address] [place] [address], [place] [address] Jun, [facility] [address] [id number] [address] [place] [address], [place] [address] Jun, [facility] [address] [id number] [place] [id number] May, [facility] [address] [id number] [address] [place] [address], [place] [address] May, [facility] [address] [id number] [place] [id number] May, [facility] [address] [id number] [address] [place] [address], [place] [address] May, [facility] [address] [id number] [place] [id number] Apr, [facility] [address] [facility] [id number] [address] [place] [address] Apr, [facility] [address] [id number] [place] [id number] Mar, [facility] [address] [id number] [place], [place] [id number] Feb, [facility] [address] [id number] [place] [id number] Feb, [facility] [address] [id number] [place] [id number] Feb, [facility] [address] [id number] [place], [place] [id number] Jan, [facility] [address] [id number] [place] [id number] Dec, [facility] [address] [id number] [place], [place] [id number] Dec, [facility] [address] [id number] [place] [id number] Dec, [facility] [address] [id number] [place] [id number] November, [facility] [address] [facility] [id number] [address] [place] [address] November, [facility] [address] [id number] [place] [id number] November, [facility] [address] [id number] [place] [id number] Oct, [facility] [address] [id number] [place], [place] [id number] Oct, [facility] [address] [id number] [place] [id number] Sep, [facility] [address] [id number] [place], [place] [id number] Jul, [facility] [address] [facility] [id number] [address] [place] [id number] Jun, [facility] [address] [id number] [address] [place] [address], [place] [address] Jun, [facility] [address] [id number] [place] [id number] Jun, [facility] [address] [id number] [place] [id number] Jun, [facility] [address] [id number] [place] [id number] Jun, [facility] [address] [id number] [facility] [place] [address] Jun, [facility] [address] [id number] [place] [id number] Jun, [facility] [address] [facility] [id number] [address] [place] [address], [place] [address] Jun, [facility] [address] [id number] [place] [id number] Jun, [facility] [address] [id number] [address] [place] [address], [place] [address] Jun, [facility] [address] [id number] [place] [id number] May, [facility] [address] [id number] [place] [id number] May, [facility] [address] [facility] [id number] [address] [place] [address], [place] [address] May, [facility] [address] [id number] [address] [place] [address] May, [facility] [address] [id number] [address] [place] [address], [place] [address] May, [facility] [address] [id number] [place] [id number] May, [facility] [address] [id number] [place] [id number] Mar, [facility] [address] [id number] [place], [place] [id number] Mar, [facility] [address] [id number] [place], [place] [id number] Mar, [facility] [address] [id number] [place], [place] [id number] Feb, [facility] [address] [id number] [place], [place] [id number] Feb, [facility] [address] [id number] [place] [id number] Dec, [facility] [address] [id number] [place], [place] [id number] November, [facility] [address] [id number] [place], [place] S [id number] November, [facility] [address] [id number] [place] [id number] November, [facility] [address] [id number] [place], [place] [id number] November, [facility] [address] [id number] [place], [place] [id number] November, [facility] [address] [id number] [place], [place] [id number] Oct, [facility] [address] [id number] [place] [id number] Jul, [facility] [address] [id number] [place], [place] [id number] Jul, [facility] [address] [facility] [id number] [address] [place] [address] Jun, [facility] [address] [facility] [id number] [address] [place] [id number] May, [facility] [address] [facility] [id number] [address] [place] [address] May, [facility] [address] [facility] [id number] [address] [place] [address] May, [facility] [address] [facility] [id number] [address] [place] [address] May, [facility] [address] [id number] [address] [place] [address] 14 Apr, 2011 [facility] [address] [id number] [address] [place] [address] 14 Apr, 2011 [facility] [address] [id number] [address] [place] [address] 14 Apr, 2011 [facility] [address] [id number] [address] [place] [id number] 13 Mar, 2011 [facility] [address] [id number] [address] [place] [id number] 15 Feb, 2011 [facility] [address] [id number] [address] [place] [id number] Jun, [facility] [address] [facility] [id number] [address] [place] [id number] Jun, [facility] [address] [facility] [id number] [address] [place] [id number] Jun, IMMUNIZATIONS No Known Immunizations SOCIAL HISTORY Never Assessed REASON FOR VISIT PLAN OF CARE VITAL SIGNS MEDICATIONS Unknown [...] Hospitalization History above listed Hospitalization History [facility]--7 days in ICU-new tumors seen on brain scan 2012
--- OUTSIDE RECORDS SUMMARY | 2019-07-04 02:37 | XMS REPORT ---
Author Author Bianca WYNN [facility] Address [address] [place] [address] Care Team Providers Care Detective [employer] Name Role Phone SHERON WYNN Unavailable PROBLEMS Type Condition ICD9-CM Code AQT04-KR Code Onset Dates Condition S tatus SNOMED Code Problem Thoracic or lumbosacral neuritis or radiculitis, unspecifi ed 724.4 Active 903473853 Problem Headache 784.0 Active 67306387 Problem Polyneuropathy in diabetes 357.2 Act kamryn 69011699 Problem Renal and perinephric abscess 590.2 Active 618282998 Problem Type 2 diabetes mellitus with diabetic neuropathy E11.40 Active 71736289 Problem Unspecified epilepsy without mention of intractable epilep sy 345.90 Active 85921041 Problem Epilepsy without status epilepticus, not intract able, unspecified G40.909 Active 986474044 Problem Essential hypertension I10 Active 87303727 Problem Abdominal pain, unspecified abdominal location R10 .9 Active 42511192 Problem Chest pain, unspecified type R07.9 A ctive 72377143 Problem Syncope, unspecified syncope type R55 Active 683969974 Problem Right knee injury, initial encounter S89.91XA Active 530807900 Problem Sciatica, right M54.31 Active 2305 6005 Problem Acute pain of right knee M25.561 Activ e 88345297 Problem Renal stone N20.0 Active 93733564 Problem Diverticulosis of large intestine without hemorrhage K57.30 Active 146513512 Problem Other acute pancreatitis K85.8 Activ e 909833164 Problem Pain of upper abdomen R10.10 Active 16380602 Problem Biliary dyskinesia K82.8 Active 1 [id number] ALLERGIES No Information ENCOUNTERS Encounter Location Date Diagnosis [id number] [id number] [place] [id number] Jan, Dental examination Z01.20 and Dental car ies K02.9 [facility] [address] [facility] [id number] [address] [place] [address] Sep, [facility] [address] [id number] [id number] Aug, [facility] [address] [facility] [id number] [address] [place] [address] May, [facility] [address] [facility] [id number] [address] [place] [address] Apr, [facility] [address] [id number] [place] [id number] Apr, [facility] [address] [id number] [place] [id number] Mar, Acute pain of right knee M25.561 [facility] [address] [id number] [place] [id number] Mar, Acute pain of right knee M25.561 [facility] [address] [facility] [id number] [address] [place] [address] Mar, [facility] [address] [id number] [place] [id number] Feb, Right knee injury, initial encounter S89 .91XA [facility] [address] [id number] [place] [id number] Feb, [facility] [address] [id number] [place] [id number] Jan, [facility] [address] [id number] [place] [id number] Jan, [facility] [address] [id number] [place] [id number] Dec, [facility] [address] [id number] [id number] Dec, Chest pain, unspecified type R07.9 ; Typ e 2 diabetes mellitus with diabetic neuropathy E11.40 ; Essential hypertension I10 ; Syncope, unspecified syncope type R55 and Hyperlipidemia, unspecified hyperlipidemia type E78.5 [facility] [address] [id number] [place] [id number] Dec, Biliary dyskinesia K82.8 [facility] [place] [address] [id number] [place] [id number] Dec, [facility] [place] [address] [id number] [place] [id number] Dec, Pain of upper abdomen R10.10 [facility] [place] [address] [id number] [place] [id number] Dec, Pain of upper abdomen R10.10 and Nausea and vomiting, unspecified intactability, vomiting of unspecified type R11.2 [facility] [place] [address] [id number] [place] [id number] Dec, Other acute pancreatitis K85.8 [facility] [place] [address] [facility] [id number] [place] [id number] Dec, Other acute pancreatitis K85.8 [facility] [place] [address] [facility] [id number] [place] [id number] November, Type 2 diabetes mellitus with diabetic n europathy E11.40 [facility] [address] [id number] [place] [id number] November, Other acute pancreatitis K85.8 and Type 2 diabetes mellitus with diabetic neuropathy E11.40 [facility] [place] [address] [id number] [place] [id number] November, Acute pancreatitis, unspecified pancreat itis type K85.9 and Type 2 diabetes mellitus with diabetic neuropathy E11.40 [facility] [address] [id number] [place] [id number] November, Abdominal pain, unspecified abdominal lo cation R10.9 [facility] [place] [address] [id number] [place] [id number] November, Diverticulosis of large intestine withou t hemorrhage K57.30 [facility] [address] [facility] [id number] [place] [id number] Oct, [facility] [address] [facility] [id number] [place], [place] [id number] Oct, [facility] [address] [facility] [id number] [address] [place] [address] Oct, [facility] [place] [address] [id number] [place] [id number] Oct, Chest pain R07.9 ; Type 2 diabetes cordell larry with diabetic neuropathy E11.40 ; H. pylori infection A04.8 and UTI (urinary tract infection) N39.0 [facility] [place] [address] [id number] [place] [id number] Oct, [facility] [address] [id number] [place] [id number] Sep, Chest pain R07.9 [facility] [address] [facility] [id number] [address] [place] [address] Sep, [facility] [place] [address] [id number] [place] [id number] Sep, [facility] [place] [address] [facility] [id number] [place] [id number] Sep, Abdominal pain, unspecified abdominal lo cation R10.9 and Sciatica, right M54.31 [facility] [id number] [facility] [address] [id number] [id number] Sep, [facility] [place] [address] [facility] [id number] [place] [id number] Aug, [facility] [address] [facility] [id number] [address] [place] [address] Aug, [facility] [place] [address] [id number] [place] [id number] Aug, Diverticulitis of large intestine withou t perforation or abscess without bleeding K57.32 [facility] [address] [id number] [place] [id number] Jun, Renal stone N20.0 [facility] [place] [address] [id number] [place] [id number] Jun, Renal and perinephric abscess 590.2 [facility] [place] [address] [id number] [place] [id number] Jun, Renal stone N20.0 [facility] [address] [facility] [id number] [place] [id number] May, Foot pain, left M79.672 and Type 2 diabe alyssa mellitus with diabetic neuropathy E11.40 [facility] [address] [facility] [id number] [address] [place] [address] Apr, Left foot pain M79.672 [facility] [address] [facility] [id number] [place] [id number] Apr, [facility] [address] [facility] [id number] [place] [id number] Apr, Type 2 diabetes mellitus with diabetic n europathy E11.40 ; Left foot pain M79.672 ; Essential hypertension I10 and Epilepsy without status epilepticus, not intractable, unspecified G40.909 [facility] [id number] [place] [id number] Apr, [id number] [place] [id number] Mar, [facility] [id number] [place] [id number] Feb, Cellulitis and abscess of face 682.0 [facility] [id number] [place] [id number] Feb, Cellulitis and abscess of face 682.0 [facility] [id number] [address] [place] [address] Oct, [facility] [address] [id number] [address] [place] [address] Oct, [facility] [address] [facility] [id number] [address] [place] [address] Sep, [facility] [id number] [place] [id number] Sep, [facility] [address] [facility] [id number] [address] [place] [address] Aug, [facility] [id number] [place] [address], [place] [id number] Aug, [facility] [address] [id number] [address] [place] [address], [place] [address] Aug, [facility] [address] [id number] [address] [place] [address], [place] [address] Aug, [facility] [address] [id number] [address] [place] [address], [place] [address] Aug, [facility] [address] [id number] [place] [id number] Jul, [facility] [address] [id number] [address] [place] [address], [place] [address] Jul, [facility] [address] [id number] [place] [id number] Jun, [facility] [address] [facility] [id number] [address] [place] [address], [place] [address] Jun, [facility] [address] [id number] [address] [place] [address], [place] [address] Jun, [facility] [address] [id number] [place] [id number] Jun, [facility] [address] [id number] [place] [id number] Jun, [facility] [address] [facility] [id number] [address] [place] [address], [place] [address] Jun, [facility] [address] [id number] [place] [id number] May, [facility] [address] [id number] [address] [place] [address], [place] [address] May, [facility] [address] [id number] [place] [id number] Mar, [facility] [address] [id number] [address] [place] [address], [place] [address] Mar, [facility] [address] [id number] [place] [id number] Mar, [facility] [address] [id number] [address] [place] [address], [place] [address] Mar, [facility] [address] [id number] [place] [id number] Feb, [facility] [address] [id number] [address] [place] [address], [place] [address] Feb, [facility] [address] [id number] [place] [id number] Feb, [facility] [address] [id number] [address] [place] [address], [place] [address] Feb, [facility] [address] [id number] [place] [id number] Jan, [facility] [address] [id number] [address] [place] [address], [place] [address] Jan, [facility] [address] [id number] [place] [id number] Jan, [facility] [address] [id number] [place] [id number] Jan, [facility] [address] [id number] [address] [place] [address], [place] [address] Jan, [facility] [address] [id number] [address] [place] [address], [place] [address] Jan, [facility] [address] [id number] [place] [id number] Dec, [facility] [address] [id number] [address] [place] [address], [place] [address] Dec, [facility] [address] [id number] [place] [id number] Dec, [facility] [address] [id number] [address] [place] [address], [place] [address] Dec, [facility] [address] [id number] [place] [id number] Dec, [facility] [address] [id number] [address] [place] [address], [place] [address] Dec, [facility] [address] [id number] [place], [place] [id number] November, [facility] [address] [id number] [facility] [place] [address] November, [facility] [address] [id number] [place] [id number] November, [facility] [address] [id number] [address] [place] [address], [place] [address] November, [facility] [address] [id number] [place] [id number] November, [facility] [address] [id number] [address] [place] [address], [place] [address] November, [facility] SAM [address] [id number] [place] [id number] Oct, [facility] [address] [id number] [address] [place] [address], [place] [address] Oct, [facility] [address] [id number] [place], [place] [id number] Sep, [facility] [address] [id number] [address] [place] [address] Sep, [facility] [address] [id number] [address] [place] [address], [place] [address] Aug, [facility] [address] [id number] [address] [place] [address] Aug, [facility] [address] [id number] [place] [id number] Aug, [facility] [address] [id number] [address] [place] [address], [place] [address] Aug, [facility] [address] [id number] [address] [place] [address], [place] [address] Jul, [facility] [address] [id number] [address] [place] [address] Jul, [facility] [address] [id number] [place] [id number] Jul, [facility] [address] [id number] [address] [place] [address], [place] [address] Jul, [facility] [address] [id number] [address] [place] [address], [place] [address] Jul, [facility] [address] [id number] [place] [id number] Jul, [facility] [address] [id number] [place] [id number] Jul, [facility] [address] [id number] [address] [place] [address], [place] [address] Jul, [facility] [address] [id number] [address] [place] [address], [place] [address] Jul, [facility] [address] [id number] [address] [place] [address], [place] [address] Jul, [facility] [place] [address] [id number] [place] [id number] Jun, [facility] [address] [id number] [address] [place] [address], [place] [address] Jun, [facility] [address] [id number] [address] [place] [address], [place] [address] Jun, [facility] [address] [id number] [address] [place] [address], [place] [address] Jun, [facility] [address] [id number] [place] [id number] May, [facility] [address] [id number] [address] [place] [address], [place] [address] May, [facility] [address] [id number] [place] [id number] May, [facility] [address] [id number] [address] [place] [address], [place] [address] May, [facility] [address] [id number] [place] [id number] Apr, [facility] [address] [facility] [id number] [address] [place] [address] Apr, [facility] [address] [id number] [place] [id number] Mar, [facility] [address] [id number] [place] [id number] Feb, [facility] [address] [id number] [place], [place] [id number] Feb, [facility] [address] [id number] [place] [id number] Feb, [facility] [address] [id number] [place], [place] [id number] Jan, [facility] [address] [id number] [place], [place] [id number] Dec, [facility] [address] [id number] [place] [id number] Dec, [facility] [address] [id number] [place], [place] [id number] Dec, [facility] [address] [id number] [place], [place] [id number] November, [facility] [address] [facility] [id number] [address] [place] [address] November, [facility] [address] [id number] [place] [id number] November, [facility] [address] [id number] [place] [id number] Oct, [facility] [address] [id number] [place], [place] [id number] Oct, [facility] [address] [id number] [place], [place] [id number] Sep, [facility] [address] [id number] [place], [place] S [id number] Jul, [facility] [address] [facility] [id number] [address] [place] [address] Jun, [facility] [address] [id number] [address] [place] [address], [place] [address] Jun, [facility] [address] [id number] [place], [place] [id number] Jun, [facility] [address] [id number] [place] [id number] Jun, [facility] [address] [id number] [place], [place] [id number] Jun, [facility] [address] [id number] [facility] [place] [address] Jun, [facility] [address] [id number] [place] [id number] Jun, [facility] [address] [facility] [id number] [address] [place] [address], [place] [address] Jun, [facility] [address] [id number] [place] [id number] Jun, [facility] [address] [id number] [address] [place] [address], [place] [address] Jun, [facility] [address] [id number] [place] [id number] May, [facility] [address] [id number] [place] [id number] May, [facility] [address] [facility] [id number] [address] [place] [address], [place] [address] May, [facility] [address] [id number] [address] [place] [address] May, [facility] [address] [id number] [address] [place] [address], [place] [address] May, [facility] [address] [id number] [place] [id number] May, [facility] [address] [id number] [place] [id number] Mar, [facility] [address] [id number] [place], [place] S [id number] Mar, [facility] [address] [id number] [place], K S [id number] Mar, [facility] [address] [id number] [place] [id number] Feb, [facility] [address] [id number] [place], [place] [id number] Feb, [facility] [address] [id number] [place], [place] S [id number] Dec, [facility] [address] [id number] [place], [place] [id number] November, [facility] [address] [id number] [place] [id number] November, [facility] [address] [id number] [place], [place] [id number] November, [facility] [address] [id number] [place] [id number] November, [facility] [address] [id number] [place] [id number] November, [facility] [address] [id number] [place], [place] [id number] Oct, [facility] [address] [id number] [place], [place] [id number] Jul, [facility] [address] [id number] [place] [id number] Jul, [facility] [address] [facility] [id number] [address] [place] [address] Jun, [facility] [address] [facility] [id number] [address] [place] [address] May, [facility] [address] [facility] [id number] [address] [place] [address] May, [facility] [address] [facility] [id number] [address] [place] [address] May, [facility] [address] [facility] [id number] [address] [place] [address] May, [facility] [address] [facility] [id number] [address] [place] [address] 14 Apr, 2011 [facility] [address] [facility] [id number] [address] [place] [phone] 14 Apr, 2011 [facility] [address] [facility] [id number] [address] [place] [phone] 14 Apr, 2011 [facility] [address] [facility] [id number] [address] [place] [phone] 13 Mar, 2011 [facility] [address] [facility] [id number] [address] [place] [phone] 15 Feb, 2011 [facility] [address] [facility] [id number] [address] [place] [id number] Jun, [facility] [address] [facility] [id number] [address] [place] [phone] Jun, [facility] [address] [facility] [id number] [address] [place] [phone] Jun, IMMUNIZATIONS No Known Immunizations SOCIAL HISTORY Never Assessed REASON FOR VISIT PLAN OF CARE VITAL SIGNS Height 62 in 2013-12-01 Weight 211.6 lbs 2013-12-01 Temperature 99 degrees Fahrenheit 2013-12-01 Heart Rate 88 bpm 2013-12-01 Respiratory Rate 20 2013-12-01 Blood pressure systolic 122 mmHg 2013-12-01 Blood pressure diastolic 80 mmHg 2013-12-01 MEDICATIONS Unknown Medications RESULTS No Results PROCEDURES Procedure Date Ordered Result Body Site URINALYSIS, AUTO, W/O SCOPE December 01, 2013 INSTRUCTIONS MEDICATIONS ADMINISTERED No Known Medications [...] Hospitalization History above listed Hospitalization History [facility]--7 days in ICU-new tumors seen on brain scan 2012
--- OUTSIDE RECORDS SUMMARY | 2019-07-04 02:37 | XMS REPORT ---
Author Author Bianca WYNN [facility] Address [address] [place] [address] Care Team Providers Care Plate Painter Name Role Phone SHERON WYNN Unavailable PROBLEMS Type Condition ICD9-CM Code HQS44-HQ Code Onset Dates Condition S tatus SNOMED Code Problem Thoracic or lumbosacral neuritis or radiculitis, unspecifi ed 724.4 Active 938972974 Problem Headache 784.0 Active 96583357 Problem Polyneuropathy in diabetes 357.2 Act kamryn 37215823 Problem Renal and perinephric abscess 590.2 Active 069034741 Problem Type 2 diabetes mellitus with diabetic neuropathy E11.40 Active 29537972 Problem Unspecified epilepsy without mention of intractable epilep sy 345.90 Active 91999772 Problem Epilepsy without status epilepticus, not intract able, unspecified G40.909 Active 547071537 Problem Essential hypertension I10 Active 43098690 Problem Abdominal pain, unspecified abdominal location R10 .9 Active 29146734 Problem Chest pain, unspecified type R07.9 A ctive 91530091 Problem Syncope, unspecified syncope type R55 Active 059175445 Problem Right knee injury, initial encounter S89.91XA Active 342684322 Problem Sciatica, right M54.31 Active 2305 6005 Problem Acute pain of right knee M25.561 Activ e 03952923 Problem Renal stone N20.0 Active 26165904 Problem Diverticulosis of large intestine without hemorrhage K57.30 Active 297390344 Problem Other acute pancreatitis K85.8 Activ e 699710709 Problem Pain of upper abdomen R10.10 Active 60042740 Problem Biliary dyskinesia K82.8 Active 1 [id number] ALLERGIES No Information ENCOUNTERS Encounter Location Date Diagnosis [facility] [id number] [id number] [place] [id number] Jan, Dental examination Z01.20 and Dental car ies K02.9 [facility] [address] [facility] [id number] [address] [place] [address] Sep, [facility] [address] [id number] [id number] Aug, [facility] [address] [facility] [id number] [address] [place] [address] May, [facility] [address] [facility] [id number] [address] [place] [address] Apr, [facility] [address] [id number] [place] [id number] Apr, [facility] [address] [id number] [place] [id number] Mar, Acute pain of right knee M25.561 [facility] [address] [id number] [place] [id number] Mar, Acute pain of right knee M25.561 [facility] [address] [facility] [id number] [address] [place] [address] Mar, [facility] [address] [id number] [place] [id number] Feb, Right knee injury, initial encounter S89 .91XA [facility] [address] [id number] [place] [id number] Feb, [facility] [address] [id number] [place] [id number] Jan, [facility] [address] [id number] [place] [id number] Jan, [facility] [address] [id number] [place] [id number] Dec, [facility] [address] [id number][place] [id number] Dec, Chest pain, unspecified type R07.9 ; Typ e 2 diabetes mellitus with diabetic neuropathy E11.40 ; Essential hypertension I10 ; Syncope, unspecified syncope type R55 and Hyperlipidemia, unspecified hyperlipidemia type E78.5 [facility] [address] [id number] [place] [id number] Dec, Biliary dyskinesia K82.8 [facility] [place] [address] [id number] [place] [id number] Dec, [facility] [place] [address] [id number] [place] [id number] Dec, Pain of upper abdomen R10.10 [facility] [place] [address] [id number] [place] [id number] Dec, Pain of upper abdomen R10.10 and Nausea and vomiting, unspecified intactability, vomiting of unspecified type R11.2 [facility] [place] [address] [id number] [place] [id number] Dec, Other acute pancreatitis K85.8 [facility] [place] [address] [facility] [id number] [place] [id number] Dec, Other acute pancreatitis K85.8 [facility] [place] [address] [facility] [id number] [place] [id number] November, Type 2 diabetes mellitus with diabetic n europathy E11.40 [facility] [address] [id number] [place] [id number] November, Other acute pancreatitis K85.8 and Type 2 diabetes mellitus with diabetic neuropathy E11.40 [facility] [place] [address] [id number] [place] [id number] November, Acute pancreatitis, unspecified pancreat itis type K85.9 and Type 2 diabetes mellitus with diabetic neuropathy E11.40 [facility] [address] [id number] [place] [id number] November, Abdominal pain, unspecified abdominal lo cation R10.9 [facility] [place] [address] [id number] [place] [id number] November, Diverticulosis of large intestine withou t hemorrhage K57.30 [facility] [address] [facility] [id number] [place] [id number] Oct, [facility] [address] [facility] [id number] [place], [place] [id number] Oct, [facility] [address] [facility] [id number] [address] [place] [address] Oct, [facility] [place] [address] [id number] [place] [id number] Oct, Chest pain R07.9 ; Type 2 diabetes cordell larry with diabetic neuropathy E11.40 ; H. pylori infection A04.8 and UTI (urinary tract infection) N39.0 [facility] [place] [address] [id number] [place] [id number] Oct, [facility] [address] [id number] [place] [id number] Sep, Chest pain R07.9 [facility] [address] [facility] [id number] [address] [place] [address] Sep, [facility] [place] [address] [id number] [place] [id number] Sep, [facility] [place] [address] [facility] [id number] [place] [id number] Sep, Abdominal pain, unspecified abdominal lo cation R10.9 and Sciatica, right M54.31 [facility] [address] [facility] [address] [id number][place] [id number] Sep, [facility] [place] [address] [facility] [id number] [place] [id number] Aug, [facility] [address] [facility] [id number] [address] [place] [address] Aug, [facility] [place] [address] [id number] [place] [id number] Aug, Diverticulitis of large intestine withou t perforation or abscess without bleeding K57.32 [facility] [address] [id number] [place] [id number] Jun, Renal stone N20.0 [facility] [place] [address] [id number] [place] [id number] Jun, Renal and perinephric abscess 590.2 [facility] [place] [address] [id number] [place] [id number] Jun, Renal stone N20.0 [facility] [address] [facility] [id number] [place] [id number] May, Foot pain, left M79.672 and Type 2 diabe alyssa mellitus with diabetic neuropathy E11.40 [facility] [address] [facility] [id number] [address] [place] [address] Apr, Left foot pain M79.672 [facility] [address] [facility] [id number] [place] [id number] Apr, [facility] [address] [facility] [id number] [place] [id number] Apr, Type 2 diabetes mellitus with diabetic n europathy E11.40 ; Left foot pain M79.672 ; Essential hypertension I10 and Epilepsy without status epilepticus, not intractable, unspecified G40.909 [facility] [id number] [place] [id number] Apr, [facility] [address] [address] [place] [id number] [place] [id number] Mar, [facility] [id number] [place] [id number] Feb, Cellulitis and abscess of face 682.0 [facility] [id number] [place] [id number] Feb, Cellulitis and abscess of face 682.0 [facility] [id number] [place] [address] Oct, [facility] [address] [id number] [address] [place] [address] Oct, [facility] [address] [facility] [id number] [address] [place] [address] Sep, [facility] [id number] [place] [id number] Sep, [facility] [address] [facility] [id number] [address] [place] [address] Aug, [facility] [address] [id number] [place] [address], [place] [id number] Aug, [facility] [address] [id number] [address] [place] [address], [place] [address] Aug, [facility] [address] [id number] [address] [place] [address], [place] [address] Aug, [facility] [address] [id number] [address] [place] [address], [place] [address] Aug, [facility] [address] [id number] [place] [id number] Jul, [facility] [address] [id number] [address] [place] [address], [place] [address] Jul, [facility] SAM [address] [id number] [place] [id number] Jun, [facility] [address] [facility] [id number] [address] [place] [address], [place] [address] Jun, [facility] [address] [id number] [address] [place] [address], [place] [address] Jun, [facility] SAM [address] [id number] [place] [id number] Jun, [facility] SAM [address] [id number] [place] [id number] Jun, [facility] [address] [facility] [id number] [address] [place] [address], [place] [address] Jun, [facility] SAM [address] [id number] [place] [id number] May, [facility] [address] [id number] [address] [place] [address], [place] [address] May, [facility] SAM [address] [id number] [place] [id number] Mar, [facility] [address] [id number] [address] [place] [address], [place] [address] Mar, [facility] SAM [address] [id number] [place] [id number] Mar, [facility] [address] [id number] [address] [place] [address], [place] [address] Mar, [facility] SAM [address] [id number] [place], [place] [id number] Feb, [facility] [address] [id number] [address] [place] [address], [place] [address] Feb, [facility] SAM [address] [id number] [place], [place] [id number] Feb, [facility] [address] [id number] [address] [place] [address], [place] [address] Feb, [facility] SAM [address] [id number] [place], [place] [id number] Jan, [facility] [address] [id number] [address] [place] [address], [place] [address] Jan, [facility] SAM [address] [id number] [place] [id number] Jan, [facility] SAM [address] [id number] [place], [place] [id number] Jan, [facility] [address] [id number] [address] [place] [address], [place] [address] Jan, [facility] [address] [id number] [address] [place] [address], [place] [address] Jan, [facility] SAM [address] [id number] [place], [place] [id number] Dec, [facility] [address] [id number] [address] [place] [address], [place] [address] Dec, [facility] SAM [address] [id number] [place] [id number] Dec, [facility] [address] [id number] [address] [place] [address], [place] [address] Dec, [facility] SAM [address] [id number] [place], [place] [id number] Dec, [facility] [address] [id number] [address] [place] [address], [place] [address] Dec, [facility] SAM [address] [id number] [place], [place] [id number] November, [facility] [address] [id number] [facility] [address] November, [facility] SAM [address] [id number] [place], [place] [id number] November, [facility] [address] [id number] [address] [place] [address], [place] [address] November, [facility] SAM [address] [id number] [place], [place] [id number] November, [facility] [address] [id number] [address] [place] [address], [place] [address] November, [facility] SAM [address] [id number] [place], [place] [id number] Oct, [facility] [address] [id number] [address] [place] [address], [place] [address] Oct, [facility] SAM [address] [id number] [place], [place] [id number] Sep, [facility] [address] [id number] [address] [place] [address] Sep, [facility] [address] [id number] [address] [place] [address], [place] [address] Aug, [facility] [address] [id number] [address] [place] [address] Aug, [facility] [address] [id number] [place] [id number] Aug, [facility] [address] [id number] [address] [place] [address], [place] [address] Aug, [facility] [address] [id number] [address] [place] [address], [place] [address] Jul, [facility] [address] [id number] [address] [place] [address] Jul, [facility] [address] [id number] [place], [place] [id number] Jul, [facility] [address] [id number] [address] [place] [address], [place] [address] Jul, [facility] [address] [id number] [address] [place] [address], [place] [address] Jul, [facility] [address] [id number] [place] [id number] Jul, [facility] [address] [id number] [place] [id number] Jul, [facility] [address] [id number] [address] [place] [address], [place] [address] Jul, [facility] [address] [id number] [address] [place] [address], [place] [address] Jul, [facility] [address] [id number] [address] [place] [address], [place] [address] Jul, [facility] [place] [address] [id number] [place] [id number] Jun, [facility] [address] [id number] [address] [place] [address], [place] [address] Jun, [facility] [address] [id number] [address] [place] [address], [place] [address] Jun, [facility] [address] [id number] [address] [place] [address], [place] [address] Jun, [facility] [address] [id number] [place] [id number] May, [facility] [address] [id number] [address] [place] [address], [place] [address] May, [facility] [address] [id number] [place] [id number] May, [facility] [address] [id number] [address] [place] [address], [place] [address] May, [facility] [address] [id number] [place] [id number] Apr, [facility] [address] [facility] [id number] [address] [place] [address] Apr, [facility] [address] [id number] [place] [id number] Mar, [facility] [address] [id number] [place], [place] [id number] Feb, [facility] SAM [address] [id number] [place], [place] [id number] Feb, [facility] [address] [id number] [place] [id number] Feb, [facility] [address] [id number] [place], [place] [id number] Jan, [facility] SAM [address] [id number] [place], [place] [id number] Dec, [facility] [address] [id number] [place] [id number] Dec, [facility] [address] [id number] [place], K S [id number] Dec, [facility] [address] [id number] [place] [id number] November, [facility] [address] [facility] [id number] [address] [place] [address] November, [facility] SAM [address] [id number] [place] [id number] November, [facility] [address] [id number] [place], [place] [id number] Oct, [facility] SAM [address] [id number] [place], [place] [id number] Oct, [facility] SAM [address] [id number] [place], [place] [id number] Sep, [facility] [address] [id number] [place] [id number] Jul, [facility] [address] [facility] [id number] [address] [place] [address] Jun, [facility] [address] [id number] [address] [place] [address], [place] [address] Jun, [facility] SAM [address] [id number] [place], [place] [id number] Jun, [facility] [address] [id number] [place] [id number] Jun, [facility] [address] [id number] [place], [place] [id number] Jun, [facility] [address] [id number] [facility] [address] Jun, [facility] [address] [id number] [place], [place] [id number] Jun, [facility] [address] [facility] [id number] [address] [place] [address], [place] [address] Jun, [facility] [address] [id number] [place] [id number] Jun, [facility] [address] [id number] [address] [place] [address], [place] [address] Jun, [facility] [address] [id number] [place] [id number] May, [facility] [address] [id number] [place] [id number] May, [facility] [address] [facility] [id number] [address] [place] [address], [place] [address] May, [facility] [address] [id number] [address] [place] [address] May, [facility] [address] [id number] [address] [place] [address], [place] [address] May, [facility] [address] [id number] [place] [id number] May, [facility] [address] [id number] [place] [id number] Mar, [facility] [address] [id number] [place], [place] [id number] Mar, [facility] [address] [id number] [place] [id number] Mar, [facility] [address] [id number] [place] [id number] Feb, [facility] [address] [id number] [place] [id number] Feb, [facility] [address] [id number] [place], [place] [id number] Dec, [facility] [address] [id number] [place] S [id number] November, [facility] [address] [id number] [place] [id number] November, [facility] [address] [id number] [place], [place] S [id number] November, [facility] [address] [id number] [place], [place] [id number] November, [facility] [address] [id number] [place], [place] [id number] November, [facility] [address] [id number] [place], [place] [id number] Oct, [facility] [address] [id number] [place] [id number] Jul, [facility] [address] [id number] [place] [id number] Jul, [facility] [address] [facility] [id number] [address] [place] [address] Jun, [facility] [address] [facility] [id number] [address] [place] [address] May, [facility] [address] [facility] [id number] [address] [place] [address] May, [facility] [address] [facility] [id number] [address] [place] [id number] May, [facility] [address] [facility] [id number] [address] [place] [phone] May, [facility] [address] [id number] [address] [place] [id number] 14 Apr, 2011 [facility] [address] [id number] [address] [place] [phone] 14 Apr, 2011 [facility] [address] [id number] [address] [place] [phone] 14 Apr, 2011 [facility] [address] [id number] [address] [place] [id number] 13 Mar, 2011 [facility] [address] [id number] [address] [place] [id number] 15 Feb, 2011 [facility] [address] [id number] [address] [place] [phone] Jun, [facility] [address] [facility] [id number] [address] [place] [phone] Jun, [facility] [address] [facility] [id number] [address] [place] [phone] Jun, IMMUNIZATIONS No Known Immunizations SOCIAL HISTORY [...] Hospitalization History above listed Hospitalization History [facility]--7 days in ICU-new tumors seen on brain scan 2012
--- OUTSIDE RECORDS SUMMARY | 2019-07-04 02:37 | XMS REPORT ---
Author Author Bianca WYNN [facility] Address [address] [place] [address] Care Team Providers Care Pediatric Surgeon Name Role Phone SHERON WYNN Unavailable PROBLEMS Type Condition ICD9-CM Code YJA30-GJ Code Onset Dates Condition S tatus SNOMED Code Problem Thoracic or lumbosacral neuritis or radiculitis, unspecifi ed 724.4 Active 824250131 Problem Headache 784.0 Active 18003936 Problem Polyneuropathy in diabetes 357.2 Act kamryn 56865656 Problem Renal and perinephric abscess 590.2 Active 174687216 Problem Type 2 diabetes mellitus with diabetic neuropathy E11.40 Active 26647437 Problem Unspecified epilepsy without mention of intractable epilep sy 345.90 Active 84736959 Problem Epilepsy without status epilepticus, not intract able, unspecified G40.909 Active 975313349 Problem Essential hypertension I10 Active 32953849 Problem Abdominal pain, unspecified abdominal location R10 .9 Active 80972380 Problem Chest pain, unspecified type R07.9 A ctive 55077738 Problem Syncope, unspecified syncope type R55 Active 569966801 Problem Right knee injury, initial encounter S89.91XA Active 996447696 Problem Sciatica, right M54.31 Active 2305 6005 Problem Acute pain of right knee M25.561 Activ e 08507082 Problem Renal stone N20.0 Active 98611501 Problem Diverticulosis of large intestine without hemorrhage K57.30 Active 069817709 Problem Other acute pancreatitis K85.8 Activ e 778590555 Problem Pain of upper abdomen R10.10 Active 27528307 Problem Biliary dyskinesia K82.8 Active 1 [id number] ALLERGIES No Information ENCOUNTERS Encounter Location Date Diagnosis [facility] [id number] [id number] [id number] Jan, Dental examination Z01.20 and Dental car ies K02.9 [facility] [address] [facility] [id number] [address] [place] [address] Sep, [facility] [address] [id number] [id number] Aug, [facility] [address] [facility] [id number] [address] [place] [address] May, [facility] [address] [facility] [id number] [address] [place] [address] Apr, [facility] [address] [id number] [place] [id number] Apr, [facility] [address] [id number] [place] [id number] Mar, Acute pain of right knee M25.561 [facility] [address] [id number] [place] [id number] Mar, Acute pain of right knee M25.561 [facility] [address] [facility] [id number] [address] [place] [address] Mar, [facility] [address] [id number] [place] [id number] Feb, Right knee injury, initial encounter S89 .91XA [facility] [address] [id number] [place] [id number] Feb, [facility] [address] [id number] [place] [id number] Jan, [facility] [address] [id number] [place] [id number] Jan, [facility] [address] [id number] [place] [id number] Dec, [facility] [address] [id number] [id number] Dec, Chest pain, unspecified type R07.9 ; Typ e 2 diabetes mellitus with diabetic neuropathy E11.40 ; Essential hypertension I10 ; Syncope, unspecified syncope type R55 and Hyperlipidemia, unspecified hyperlipidemia type E78.5 [facility] [address] [id number] [place] [id number] Dec, Biliary dyskinesia K82.8 [facility] [place] [address] [id number] [place] [id number] Dec, [facility] [place] [address] [id number] [place] [id number] Dec, Pain of upper abdomen R10.10 [facility] [place] [address] [id number] [place] [id number] Dec, Pain of upper abdomen R10.10 and Nausea and vomiting, unspecified intactability, vomiting of unspecified type R11.2 [facility] [place] [address] [id number] [place] [id number] Dec, Other acute pancreatitis K85.8 [facility] [place] [address] [facility] [id number] [place] [id number] Dec, Other acute pancreatitis K85.8 [facility] [place] [address] [facility] [id number] [place] [id number] November, Type 2 diabetes mellitus with diabetic n europathy E11.40 [facility] [address] [id number] [place] [id number] November, Other acute pancreatitis K85.8 and Type 2 diabetes mellitus with diabetic neuropathy E11.40 [facility] [place] [address] [id number] [place] [id number] November, Acute pancreatitis, unspecified pancreat itis type K85.9 and Type 2 diabetes mellitus with diabetic neuropathy E11.40 [facility] [address] [id number] [place] [id number] November, Abdominal pain, unspecified abdominal lo cation R10.9 [facility] [place] [address] [id number] [place] [id number] November, Diverticulosis of large intestine withou t hemorrhage K57.30 [facility] [address] [facility] [id number] [place] [id number] Oct, [facility] [address] [facility] [id number] [place] [id number] Oct, [facility] [address] [facility] [id number] [address] [place] [phone] Oct, [facility] [place] [address] [id number] [place] [id number] Oct, Chest pain R07.9 ; Type 2 diabetes cordell larry with diabetic neuropathy E11.40 ; H. pylori infection A04.8 and UTI (urinary tract infection) N39.0 [facility] [place] [address] [id number] [place] [id number] Oct, [facility] [address] [id number] [place] [id number] Sep, Chest pain R07.9 [facility] [address] [facility] [id number] [address] [place] [address] Sep, [facility] [place] [address] [id number] [place] [id number] Sep, [facility] [place] [address] [facility] [id number] [place] [id number] Sep, Abdominal pain, unspecified abdominal lo cation R10.9 and Sciatica, right M54.31 [facility] [address] [place] [address] [facility] [address] [id number][place] [id number] Sep, [facility] [place] [address] [facility] [id number] [place] [id number] Aug, [facility] [address] [facility] [id number] [address] [place] [address] Aug, [facility] [place] [address] [id number] [place] [id number] Aug, Diverticulitis of large intestine withou t perforation or abscess without bleeding K57.32 [facility] [address] [id number] [place] [id number] Jun, Renal stone N20.0 [facility] [place] [address] [id number] [place] [id number] Jun, Renal and perinephric abscess 590.2 [facility] [place] [address] [id number] [place] [id number] Jun, Renal stone N20.0 [facility] [address] [facility] [id number] [place] [id number] May, Foot pain, left M79.672 and Type 2 diabe alyssa mellitus with diabetic neuropathy E11.40 [facility] [address] [facility] [id number] [address] [place] [address] Apr, Left foot pain M79.672 [facility] [address] [facility] [id number] [place] [id number] Apr, [facility] [address] [facility] [id number] [place] [id number] Apr, Type 2 diabetes mellitus with diabetic n europathy E11.40 ; Left foot pain M79.672 ; Essential hypertension I10 and Epilepsy without status epilepticus, not intractable, unspecified G40.909 [facility] [id number] [place] [id number] Apr, [place] [address] [place] [id number] [place] [id number] Mar, [facility] [id number] [place] [id number] Feb, Cellulitis and abscess of face 682.0 [facility] [id number] [place] [id number] Feb, Cellulitis and abscess of face 682.0 [facility] [address] [place] [id number] [address] [place] [address] Oct, [facility] [address] [place] [id number] [address] [place] [address] Oct, [facility] [address] [facility] [id number] [address] [place] [address] Sep, [facility] [id number] [place] [id number] Sep, [facility] [address] [facility] [id number] [address] [place] [address] Aug, [facility] [address] [place] [id number] [place] [address], [place] [id number] Aug, [facility] [address] [id number] [address] [place] [address], [place] [address] Aug, [facility] [address] [id number] [address] [place] [address], [place] [address] Aug, [facility] [address] [id number] [address] [place] [address], [place] [address] Aug, [facility] [address] [id number] [place] [id number] Jul, [facility] [address] [id number] [address] [place] [address], [place] [address] Jul, [facility] [address] [id number] [place] [id number] Jun, [facility] [address] [facility] [id number] [address] [place] [address], [place] [address] Jun, [facility] [address] [id number] [address] [place] [address], [place] [address] Jun, [facility] [address] [id number] [place] [id number] Jun, [facility] [address] [id number] [place] [id number] Jun, [facility] [address] [facility] [id number] [address] [place] [address], [place] [address] Jun, [facility] [address] [id number] [place] [id number] May, [facility] [address] [id number] [address] [place] [address], [place] [address] May, [facility] [address] [id number] [place] [id number] Mar, [facility] [address] [id number] [address] [place] [address], [place] [address] Mar, [facility] [address] [id number] [place] [id number] Mar, [facility] [address] [id number] [address] [place] [address], [place] [address] Mar, [facility] [place] [address] [id number] [place] [id number] Feb, [facility] [address] [id number] [address] [place] [address], [place] [address] Feb, [facility] [address] [id number] [place] [id number] Feb, [facility] [address] [id number] [address] [place] [address], [place] [address] Feb, [facility] [address] [id number] [place] [id number] Jan, [facility] [address] [id number] [address] [place] [address], [place] [address] Jan, [facility] [address] [id number] [place] [id number] Jan, [facility] [address] [id number] [place] [id number] Jan, [facility] [address] [id number] [address] [place] [address], [place] [address] Jan, [facility] [address] [id number] [address] [place] [address], [place] [address] Jan, [facility] [address] [id number] [place] [id number] Dec, [facility] [address] [id number] [address] [place] [address], [place] [address] Dec, [facility] [address] [id number] [place] [id number] Dec, [facility] [address] [id number] [address] [place] [address], [place] [address] Dec, [facility] [address] [id number] [place] [id number] Dec, [facility] [address] [id number] [address] [place] [address], [place] [address] Dec, [facility] [address] [id number] [place] [id number] November, [facility] [address] [id number] [facility] [place] [address] November, [facility] [address] [id number] [place] [id number] November, [facility] [address] [id number] [address] [place] [address], [place] [address] November, [facility] [address] [id number] [place], [place] [id number] November, [facility] [address] [id number] [address] [place] [address], [place] [address] November, [facility] [address] [id number] [place], [place] [id number] Oct, [facility] [address] [id number] [address] [place] [address], [place] [address] Oct, [facility] [address] [id number] [place], [place] [id number] Sep, [facility] [address] [id number] [address] [place] [id number] Sep, [facility] [address] [id number] [address] [place] [address], [place] [address] Aug, [facility] [address] [id number] [address] [place] [address] Aug, [facility] [place] [address] [id number] [place] [id number] Aug, [facility] [address] [id number] [address] [place] [address], [place] [address] Aug, [facility] [address] [id number] [address] [place] [address], [place] [address] Jul, [facility] [address] [id number] [address] [place] [address] Jul, [facility] [address] [id number] [place] [id number] Jul, [facility] [address] [id number] [address] [place] [address], [place] [address] Jul, [facility] [address] [id number] [address] [place] [address], [place] [address] Jul, [facility] [address] [id number] [place] [id number] Jul, [facility] [address] [id number] [place] [id number] Jul, [facility] [address] [id number] [address] [place] [address], [place] [address] Jul, [facility] [address] [id number] [address] [place] [address], [place] [address] Jul, [facility] [address] [id number] [address] [place] [address], [place] [address] Jul, [facility] [place] [address] [id number] [place] [id number] Jun, [facility] [address] [id number] [address] [place] [address], [place] [address] Jun, [facility] [address] [id number] [address] [place] [address], [place] [address] Jun, [facility] [address] [id number] [address] [place] [address], [place] [address] Jun, [facility] [address] [id number] [place] [id number] May, [facility] [address] [id number] [address] [place] [address], [place] [address] May, [facility] [address] [id number] [place] [id number] May, [facility] [address] [id number] [address] [place] [address], [place] [address] May, [facility] [address] [id number] [place], [place] [id number] Apr, [facility] [address] [facility] [id number] [address] [place] [address] Apr, [facility] [address] [id number] [place] [id number] Mar, [facility] [address] [id number] [place] [id number] Feb, [facility] [address] [id number] [place], [place] S [id number] Feb, [facility] [address] [id number] [place] [id number] Feb, [facility] [address] [id number] [place] [id number] Jan, [facility] [address] [id number] [place], [place] S [id number] Dec, [facility] [address] [id number] [place], [place] [id number] Dec, [facility] [address] [id number] [place], [place] [id number] Dec, [facility] [address] [id number] [place] S [id number] November, [facility] [address] [facility] [id number] [address] [place] [address] November, [facility] [address] [id number] [place], [place] S [id number] November, [facility] [address] [id number] [place], [place] [id number] Oct, [facility] [address] [id number] [place], [place] [id number] Oct, [facility] [address] [id number] [place] [id number] Sep, [facility] [address] [id number] [place], [place] [id number] Jul, [facility] [address] [facility] [id number] [address] [place] [address] Jun, [facility] [address] [id number] [address] [place] [address], [place] [address] Jun, [facility] [address] [id number] [place] [id number] Jun, [facility] [address] [id number] [place] [id number] Jun, [facility] [address] [id number] [place], [place] [id number] Jun, [facility] [address] [id number] [facility] [place] [address] Jun, [facility] [address] [id number] [place] [id number] Jun, [facility] [address] [facility] [id number] [address] [place] [address], [place] [address] Jun, [facility] [address] [id number] [place] [id number] Jun, [facility] [address] [id number] [address] [place] [address], [place] [address] Jun, [facility] [address] [id number] [place] [id number] May, [facility] [address] [id number] [place] [id number] May, [facility] [address] [facility] [id number] [address] [place] [address], [place] [address] May, [facility] [address] [id number] [address] [place] [address] May, [facility] [address] [id number] [address] [place] [address], [place] [address] May, [facility] [address] [id number] [place] [id number] May, [facility] [address] [id number] [place] [id number] Mar, [facility] [address] [id number] [place], [place] [id number] Mar, [facility] [address] [id number] [place], [place] [id number] Mar, [facility] [address] [id number] [place], [place] [id number] Feb, [facility] [address] [id number] [place], [place] [id number] Feb, [facility] [address] [id number] [place], [place] [id number] Dec, [facility] [address] [id number] [place], [place] S [id number] November, [facility] [address] [id number] [place] [id number] November, [facility] [address] [id number] [place], [place] [id number] November, [facility] [address] [id number] [place], [place] [id number] November, [facility] [address] [id number] [place] [id number] November, [facility] [address] [id number] [place] [id number] Oct, [facility] [address] [id number] [place], [place] [id number] Jul, [facility] [address] [id number] [place], [place] [id number] Jul, [facility] [address] [facility] [id number] [address] [place] [address] Jun, [facility] [address] [facility] [id number] [address] [place] [address] May, [facility] [address] [facility] [id number] [address] [place] [address] May, [facility] [address] [facility] [id number] [address] [place] [address] May, [facility] [address] [facility] [id number] [address] [place] [address] May, [facility] [address] [facility] [id number] [address] [place] [address] 14 Apr, 2011 [facility] [address] [id number] [address] [place] [phone] 14 Apr, 2011 [facility] [address] [facility] [id number] [address] [place] [phone] 14 Apr, 2011 [facility] [address] [id number] [address] [place] [phone] 13 Mar, 2011 [facility] [address] [facility] [id number] [address] [place] [phone] 15 Feb, 2011 [facility] [address] [facility] [id number] [address] [place] [phone] 07 Jun, 2009 [facility] [address] [facility] [id number] [address] [place] [phone] Jun, [facility] [address] [facility] [id number] [address] [place] [phone] Jun, IMMUNIZATIONS No Known Immunizations SOCIAL HISTORY Never Assessed REASON FOR VISIT PLAN OF CARE VITAL SIGNS Height 62 in 2014-03-25 Weight 203 lbs 2014-03-25 Temperature 97.2 degrees Fahrenheit 2014-03-25 Heart Rate 88 bpm 2014-03-25 Respiratory Rate 20 2014-03-25 Blood pressure systolic 132 mmHg 2014-03-25 Blood pressure diastolic 100 mmHg 2014-03-25 MEDICATIONS Unknown Medications RESULTS No Results PROCEDURES Procedure Date Ordered Result Body Site CT ABD & PELVIS W/O CONTRAST Mar 25, 2014 INSTRUCTIONS MEDICATIONS ADMINISTERED No Known Medications MEDICAL [...] Hospitalization History above listed Hospitalization History [facility]--7 days in ICU-new tumors seen on brain scan 2012
--- OUTSIDE RECORDS SUMMARY | 2019-07-04 02:37 | XMS REPORT ---
Author Author Bianca WYNN [facility] Address [address] [place] [address] Care Team Providers Care Salesforce Consultant Name Role Phone SHERON WYNN Unavailable PROBLEMS Type Condition ICD9-CM Code [id number] Code Onset Dates Condition S tatus SNOMED Code Problem Thoracic or lumbosacral neuritis or radiculitis, unspecifi ed 724.4 Active 161130005 Problem Headache 784.0 Active 01181286 Problem Polyneuropathy in diabetes 357.2 Act kamryn 64743185 Problem Renal and perinephric abscess 590.2 Active 280110026 Problem Type 2 diabetes mellitus with diabetic neuropathy E11.40 Active 60593030 Problem Unspecified epilepsy without mention of intractable epilep sy 345.90 Active 17296437 Problem Epilepsy without status epilepticus, not intract able, unspecified G40.909 Active 004203068 Problem Essential hypertension I10 Active 67888997 Problem Abdominal pain, unspecified abdominal location R10 .9 Active 23030211 Problem Chest pain, unspecified type R07.9 A ctive 30984682 Problem Syncope, unspecified syncope type R55 Active 503082444 Problem Right knee injury, initial encounter S89.91XA Active 158614710 Problem Sciatica, right M54.31 Active 2305 6005 Problem Acute pain of right knee M25.561 Activ e 57319252 Problem Renal stone N20.0 Active 42630499 Problem Diverticulosis of large intestine without hemorrhage K57.30 Active 843337091 Problem Other acute pancreatitis K85.8 Activ e 886794449 Problem Pain of upper abdomen R10.10 Active 09526448 Problem Biliary dyskinesia K82.8 Active 1 [id number] ALLERGIES No Information ENCOUNTERS Encounter Location Date Diagnosis [facility] [id number] [id number] [place] [id number] Jan, Dental examination Z01.20 and Dental car ies K02.9 [facility] [place] [address] [facility] [id number] [address] [place] [address] Sep, [facility] [address] [id number] [id number] Aug, [facility] [address] [facility] [id number] [address] [place] [address] May, [facility] [place] [address] [facility] [id number] [address] [place] [address] Apr, [facility] [address] [id number] [place] [id number] Apr, [facility] [address] [id number] [place] [id number] Mar, Acute pain of right knee M25.561 [facility] [address] [id number] [place] [id number] Mar, Acute pain of right knee M25.561 [facility] [place] [address] [facility] [id number] [address] [place] [address] Mar, [facility] [address] [id number] [place] [id number] Feb, Right knee injury, initial encounter S89 .91XA [facility] [address] [id number] [place] [id number] Feb, [facility] [address] [id number] [place] [id number] Jan, [facility] [address] [id number] [place] [id number] Jan, [facility] [address] [id number] [place] [id number] Dec, [facility] [address] [id number] [id number] Dec, Chest pain, unspecified type R07.9 ; Typ e 2 diabetes mellitus with diabetic neuropathy E11.40 ; Essential hypertension I10 ; Syncope, unspecified syncope type R55 and Hyperlipidemia, unspecified hyperlipidemia type E78.5 [facility] [address] [id number] [place] [id number] Dec, Biliary dyskinesia K82.8 [facility] [place] [address] [id number] [place] [id number] Dec, [facility] [place] [address] [id number] [place] [id number] Dec, Pain of upper abdomen R10.10 [facility] [place] [address] [id number] [place] [id number] Dec, Pain of upper abdomen R10.10 and Nausea and vomiting, unspecified intactability, vomiting of unspecified type R11.2 [facility] [place] [address] [id number] [place] [id number] Dec, Other acute pancreatitis K85.8 [facility] [place] [address] [facility] [id number] [place] [id number] Dec, Other acute pancreatitis K85.8 [facility] [place] [address] [facility] [id number] [place] [id number] November, Type 2 diabetes mellitus with diabetic n europathy E11.40 [facility] [address] [id number] [place] [id number] November, Other acute pancreatitis K85.8 and Type 2 diabetes mellitus with diabetic neuropathy E11.40 [facility] [place] [address] [id number] [place] [id number] November, Acute pancreatitis, unspecified pancreat itis type K85.9 and Type 2 diabetes mellitus with diabetic neuropathy E11.40 [facility] [address] [id number] [place] [id number] November, Abdominal pain, unspecified abdominal lo cation R10.9 [facility] [place] [address] [id number] [place], [place] [id number] November, Diverticulosis of large intestine withou t hemorrhage K57.30 [facility] [address] [facility] [id number] [place] [id number] Oct, [facility] [address] [facility] [id number] [place], [place] [id number] Oct, [facility] [place] [address] [facility] [id number] [address] [place] [address] Oct, [facility] [place] [address] [id number] [place] [id number] Oct, Chest pain R07.9 ; Type 2 diabetes cordell larry with diabetic neuropathy E11.40 ; H. pylori infection A04.8 and UTI (urinary tract infection) N39.0 [facility] [place] [address] [id number] [place] [id number] Oct, [facility] [address] [id number] [place] [id number] Sep, Chest pain R07.9 [facility] [place] [address] [facility] [id number] [address] [place] [address] Sep, [facility] [place] [address] [id number] [place] [id number] Sep, [facility] [place] [address] [facility] [id number] [place] [id number] Sep, Abdominal pain, unspecified abdominal lo cation R10.9 and Sciatica, right M54.31 [facility] [address] [facility] [address] [id number] [place] [id number] Sep, [facility] [place] [address] [facility] [id number] [place] [id number] Aug, [facility] [place] [address] [facility] [id number] [address] [place] [address] Aug, [facility] [place] [address] [id number] [place] [id number] Aug, Diverticulitis of large intestine withou t perforation or abscess without bleeding K57.32 [facility] [address] [id number] [place] [id number] Jun, Renal stone N20.0 [facility] [place] [address] [id number] [place] [id number] Jun, Renal and perinephric abscess 590.2 [facility] [place] [address] [id number] [place] [id number] Jun, Renal stone N20.0 [facility] [address] [facility] [id number] [place] [id number] May, Foot pain, left M79.672 and Type 2 diabe alyssa mellitus with diabetic neuropathy E11.40 [facility] [place] [address] [facility] [id number] [address] [place] [address] Apr, Left foot pain M79.672 [facility] [address] [facility] [id number] [place] [id number] Apr, [facility] [address] [facility] [id number] [place] [id number] Apr, Type 2 diabetes mellitus with diabetic n europathy E11.40 ; Left foot pain M79.672 ; Essential hypertension I10 and Epilepsy without status epilepticus, not intractable, unspecified G40.909 [facility] [id number] [place] [id number] Apr, [place] [id number] [place] [id number] [place] [id number] Mar, [facility] [id number] [place] [id number] Feb, Cellulitis and abscess of face 682.0 [facility] [id number] [place] [id number] Feb, Cellulitis and abscess of face 682.0 [facility] [place] [address] [place] [id number] [address] [place] [address] Oct, [facility] [place] [address] [place] [id number] [address] [place] [address] Oct, [facility] [place] [address] [facility] [id number] [address] [place] [address] Sep, [facility] [id number] [place] [id number] Sep, [facility] [place] [address] [facility] [id number] [address] [place] [address] Aug, [facility] [address] [place] [id number] [place] [address], [place] [id number] Aug, [facility] [address] [id number] [address] [place] [address], [place] [address] Aug, [facility] [address] [id number] [address] [place] [address], [place] [address] Aug, [facility] [address] [id number] [address] [place] [address], [place] [address] Aug, [facility] [address] [id number] [place] [id number] Jul, [facility] [address] [id number] [address] [place] [address], [place] [address] Jul, [facility] SAM [address] [id number] [place] [id number] Jun, [facility] [address] [facility] [id number] [address] [place] [address], [place] [address] Jun, [facility] [address] [id number] [address] [place] [address], [place] [address] Jun, [facility] SAM [address] [id number] [place] [id number] Jun, [facility] [address] [id number] [place] [id number] Jun, [facility] [address] [facility] [id number] [address] [place] [address], [place] [address] Jun, [facility] [address] [id number] [place] [id number] May, [facility] [address] [id number] [address] [place] [address], [place] [address] May, [facility] [address] [id number] [place] [id number] Mar, [facility] [address] [id number] [address] [place] [address], [place] [address] Mar, [facility] SAM [address] [id number] [place] [id number] Mar, [facility] [address] [id number] [address] [place] [address], [place] [address] Mar, [facility] SAM [address] [id number] [place], [place] [id number] Feb, [facility] [address] [id number] [address] [place] [address], [place] [address] Feb, [facility] SAM [address] [id number] [place], [place] [id number] Feb, [facility] [address] [id number] [address] [place] [address], [place] [address] Feb, [facility] SAM [address] [id number] [place] [id number] Jan, [facility] [address] [id number] [address] [place] [address], [place] [address] Jan, [facility] SAM [address] [id number] [place], [place] [id number] Jan, [facility] SAM [address] [id number] [place], [place] [id number] Jan, [facility] [address] [id number] [address] [place] [address], [place] [address] Jan, [facility] [address] [id number] [address] [place] [address], [place] [address] Jan, [facility] SAM [address] [id number] [place], [place] [id number] Dec, [facility] [address] [id number] [address] [place] [address], [place] [address] Dec, [facility] SAM [address] [id number] [place], [place] S [id number] Dec, [facility] [address] [id number] [address] [place] [address], [place] [address] Dec, [facility] SAM [address] [id number] [place], [place] S [id number] Dec, [facility] [address] [id number] [address] [place] [address], [place] [address] Dec, [facility] SAM [address] [id number] [place], [place] [id number] November, [facility] [address] [id number] [facility] [place] [address] November, [facility] SAM [address] [id number] [place], [place] [id number] November, [facility] [address] [id number] [address] [place] [address], [place] [address] November, [facility] SAM [address] [id number] [place], [place] [id number] November, [facility] [address] [id number] [address] [place] [address], [place] [address] November, [facility] SAM [address] [id number] [place], [place] [id number] Oct, [facility] [address] [id number] [address] [place] [address], [place] [address] Oct, [facility] [address] [id number] [place], [place] [id number] Sep, [facility] [address] [id number] [address] [place] [address] Sep, [facility] [address] [id number] [address] [place] [address], [place] [address] Aug, [facility] [address] [id number] [address] [place] [address] Aug, [facility] [address] [id number] [place] [id number] Aug, [facility] [address] [id number] [address] [place] [address], [place] [address] Aug, [facility] [address] [id number] [address] [place] [address], [place] [address] Jul, [facility] [address] [id number] [address] [place] [address] Jul, [facility] [address] [id number] [place], [place] [id number] Jul, [facility] [address] [id number] [address] [place] [address], [place] [address] Jul, [facility] [address] [id number] [address] [place] [address], [place] [address] Jul, [facility] [address] [id number] [place] [id number] Jul, [facility] [address] [id number] [place] [id number] Jul, [facility] [address] [id number] [address] [place] [address], [place] [address] Jul, [facility] [address] [id number] [address] [place] [address], [place] [address] Jul, [facility] [address] [id number] [address] [place] [address], [place] [address] Jul, [facility] [place] [address] [id number] [place] [id number] Jun, [facility] [address] [id number] [address] [place] [address], [place] [address] Jun, [facility] [address] [id number] [address] [place] [address], [place] [address] Jun, [facility] [address] [id number] [address] [place] [address], [place] [address] Jun, [facility] [address] [id number] [place], [place] [id number] May, [facility] [address] [id number] [address] [place] [address], [place] [address] May, [facility] [address] [id number] [place], [place] [id number] May, [facility] [address] [id number] [address] [place] [address], [place] [address] May, [facility] [address] [id number] [place] [id number] Apr, [facility] [address] [facility] [id number] [address] [place] [address] Apr, [facility] SAM [address] [id number] [place], [place] [id number] Mar, [facility] ASM [address] [id number] [place], [place] [id number] Feb, [facility] SAM [address] [id number] [place], [place] [id number] Feb, [facility] SAM [address] [id number] [place], [place] [id number] Feb, [facility] [address] [id number] [place], [place] [id number] Jan, [facility] [address] [id number] [place], [place] [id number] Dec, [facility] [address] [id number] [place], [place] [id number] Dec, [facility] [address] [id number] [place], [place] S [id number] Dec, [facility] [address] [id number] [place], [place] [id number] November, [facility] [address] [facility] [id number] [address] [place] [address] November, [facility] [address] [id number] [place], [place] [id number] November, [facility] [address] [id number] [place], [place] [id number] Oct, [facility] [address] [id number] [place], [place] [id number] Oct, [facility] [address] [id number] [place], [place] S [id number] Sep, [facility] [address] [id number] [place], [place] [id number] Jul, [facility] [address] [facility] [id number] [address] [place] [address] Jun, [facility] [address] [id number] [address] [place] [address], [place] [address] Jun, [facility] [address] [id number] [place], [place] [id number] Jun, [facility] [address] [id number] [place] [id number] Jun, [facility] SAM [address] [id number] [place], [place] [id number] Jun, [facility] [address] [id number] [facility] [place] [address] Jun, [facility] SAM [address] [id number] [place], [place] [id number] Jun, [facility] [address] [facility] [id number] [address] [place] [address], [place] [address] Jun, [facility] [address] [id number] [place] [id number] Jun, [facility] [address] [id number] [address] [place] [address], [place] [address] Jun, [facility] [address] [id number] [place] [id number] May, [facility] [address] [id number] [place], [place] [id number] May, [facility] [address] [facility] [id number] [address] [place] [address], [place] [address] May, [facility] [address] [id number] [address] [place] [address] May, [facility] [address] [id number] [address] [place] [address], [place] [address] May, [facility] [address] [id number] [place] [id number] May, [facility] [address] [id number] [place], [place] [id number] Mar, [facility] [address] [id number] [place], [place] S [id number] Mar, [facility] [address] [id number] [place], [place] S [id number] Mar, [facility] [address] [id number] [place], [place] [id number] Feb, [facility] [address] [id number] [place], [place] [id number] Feb, [facility] [address] [id number] [place], K S [id number] Dec, [facility] [address] [id number] [place], [place] S [id number] November, [facility] [address] [id number] [place], [place] [id number] November, [facility] [address] [id number] [place], [place] [id number] November, [facility] SAM [address] [id number] [place], [place] [id number] November, [facility] [address] [id number] [place], [place] [id number] November, [facility] [address] [id number] [place], [place] [id number] Oct, [facility] [address] [id number] [place], [place] [id number] Jul, [facility] [address] [id number] [place], [place] [id number] Jul, [facility] [address] [facility] [id number] [address] [place] [address] Jun, [facility] [address] [facility] [id number] [address] [place] [address] May, [facility] [address] [facility] [id number] [address] [place] [address] May, [facility] [address] [facility] [id number] [address] [place] [address] May, [facility] [address] [facility] [id number] [address] [place] [address] May, [facility] [address] [id number] [address] [place] [address] 14 Apr, 2011 [facility] [address] [id number] [address] [place] [phone] 14 Apr, 2011 [facility] [place] [address] [id number] [address] [place] [phone] 14 Apr, 2011 [facility] [place] [address] [id number] [address] [place] [phone] 13 Mar, 2011 [facility] [place] [address] [id number] [address] [place] [phone] Feb, [facility] [place] [address] [facility] [id number] [address] [place] [phone] Jun, [facility] [place] [address] [facility] [id number] [address] [place] [phone] Jun, [facility] [place] [address] [facility] [id number] [address] [place] [phone] Jun, IMMUNIZATIONS No Known Immunizations SOCIAL HISTORY Never Assessed REASON FOR VISIT PLAN OF CARE VITAL SIGNS Height 62 in 2014-04-05 Weight 205 lbs 2014-04-05 Temperature 99 degrees Fahrenheit 2014-04-05 Heart Rate 76 bpm 2014-04-05 Respiratory Rate 16 2014-04-05 Blood pressure systolic 124 mmHg 2014-04-05 Blood pressure diastolic 74 mmHg 2014-04-05 MEDICATIONS Unknown Medications RESULTS No Results PROCEDURES [...] Hospitalization History above listed Hospitalization History Via [facility]--7 days in ICU-new tumors seen on brain scan 2012
--- OUTSIDE RECORDS SUMMARY | 2019-07-04 02:37 | XMS REPORT ---
Author Author Bianca Donnelly Doctor Organization [facility] Address Unknown Phone Unavailable Care Team Providers Care Parts Finisher Name Role Phone Migration, Doctor Unavailable Unavailable PROBLEMS Type Condition ICD9-CM Code OHY01-JW Code Onset Dates Condition S tatus SNOMED Code Problem Thoracic or lumbosacral neuritis or radiculitis, unspecifi ed 724.4 Active 325341435 Problem Headache 784.0 Active 63868557 Problem Polyneuropathy in diabetes 357.2 Act kamryn 56022024 Problem Renal and perinephric abscess 590.2 Active 222708012 Problem Type 2 diabetes mellitus with diabetic neuropathy E11.40 Active 31918513 Problem Unspecified epilepsy without mention of intractable epilep sy 345.90 Active 70530103 Problem Epilepsy without status epilepticus, not intract able, unspecified G40.909 Active 209582279 Problem Essential hypertension I10 Active 16144392 Problem Abdominal pain, unspecified abdominal location R10 .9 Active 40422723 Problem Chest pain, unspecified type R07.9 A ctive 27807754 Problem Syncope, unspecified syncope type R55 Active 890577444 Problem Right knee injury, initial encounter S89.91XA Active 197529982 Problem Sciatica, right M54.31 Active 2305 6005 Problem Acute pain of right knee M25.561 Activ e 06417309 Problem Renal stone N20.0 Active 85647793 Problem Diverticulosis of large intestine without hemorrhage K57.30 Active 417049491 Problem Other acute pancreatitis K85.8 Activ e 225323141 Problem Pain of upper abdomen R10.10 Active 04869520 Problem Biliary dyskinesia K82.8 Active 1 [id number] ALLERGIES No Information ENCOUNTERS Encounter Location Date Diagnosis [facility] [address] [id number] [id number] Jan, Dental examination Z01.20 and Dental car ies K02.9 [facility] [address] [id number] [place] [address] Sep, [facility] [address] [id number] [id number] Aug, [facility] [address] [facility] [id number] [address] [place] [address] May, [facility] [address] [facility] [id number] [address] [place] [address] Apr, [facility] [place] [address] [id number] [place] [id number] Apr, [facility] [address] [id number] [place] [id number] Mar, Acute pain of right knee M25.561 [facility] [address] [id number] [place] [id number] Mar, Acute pain of right knee M25.561 [facility] [address] [facility] [id number] [address] [place] [address] Mar, [facility] [place] [address] [id number] [place] [id number] Feb, Right knee injury, initial encounter S89 .91XA [facility] [address] [id number] [place] [id number] Feb, [facility] [address] [id number] [place] [id number] Jan, [facility] [place] [address] [id number] [place] [id number] Jan, [facility] [place] [address] [id number] [place] [id number] Dec, [facility] [address] [id number] [id number] Dec, Chest pain, unspecified type R07.9 ; Typ e 2 diabetes mellitus with diabetic neuropathy E11.40 ; Essential hypertension I10 ; Syncope, unspecified syncope type R55 and Hyperlipidemia, unspecified hyperlipidemia type E78.5 [facility] [place] [address] [id number] [place] [id number] Dec, Biliary dyskinesia K82.8 [facility] [address] [id number] [place] [id number] Dec, 2015 [facility] [address] [id number] [place] [id number] Dec, Pain of upper abdomen R10.10 [facility] [address] [id number] [place] [id number] Dec, 2015 Pain of upper abdomen R10.10 and Nausea and vomiting, unspecified intactability, vomiting of unspecified type R11.2 [facility] [address] [id number] [place] [id number] Dec, Other acute pancreatitis K85.8 [facility] [address] [id number] [place] [id number] Dec, Other acute pancreatitis K85.8 [facility] [address] [id number] [place] [id number] November, Type 2 diabetes mellitus with diabetic n europathy E11.40 [facility] [address] [id number] [place] [id number] November, Other acute pancreatitis K85.8 and Type 2 diabetes mellitus with diabetic neuropathy E11.40 [facility] [address] [id number] [place] [id number] November, Acute pancreatitis, unspecified pancreat itis type K85.9 and Type 2 diabetes mellitus with diabetic neuropathy E11.40 [facility] [address] [id number] [place] [id number] November, Abdominal pain, unspecified abdominal lo cation R10.9 [facility] [address] [id number] [place] [id number] November, Diverticulosis of large intestine withou t hemorrhage K57.30 [facility] [address] [id number] [place] [id number] Oct, [facility] [place] [address] [id number] [place] [id number] Oct, [facility] [address] [facility] [id number] [facility] [place] [address] Oct, [facility] [address] [facility] [id number] [place] [id number] Oct, Chest pain R07.9 ; Type 2 diabetes melli tus with diabetic neuropathy E11.40 ; H. pylori infection A04.8 and UTI (urinary tract infection) N39.0 [facility] [address] [id number] [place] [id number] Oct, [facility] [address] [id number] [place] [id number] Sep, Chest pain R07.9 [facility] [address] [facility] [id number] [address] [place] [address] Sep, [facility] [address] [id number] [place] [id number] Sep, [facility] [address] [facility] [id number] [place] [id number] Sep, Abdominal pain, unspecified abdominal lo cation R10.9 and Sciatica, right M54.[address] [id number] [id number] Sep, [facility] [address] [facility] [id number] [place] [id number] Aug, [facility] [address] [facility] [id number] [address] [place] [address] Aug, [facility] [address] [facility] [id number] [place] [id number] Aug, Diverticulitis of large intestine withou t perforation or abscess without bleeding K57.32 [facility] [address] [id number] [place] [id number] Jun, Renal stone N20.0 [facility] [place] [address] [id number] [place] [id number] Jun, Renal and perinephric abscess 590.2 [facility] [place] [address] [id number] [place] [id number] Jun, Renal stone N20.0 [facility] [place] [address] [id number] [place] [id number] May, Foot pain, left M79.672 and Type 2 diabe alyssa mellitus with diabetic neuropathy E11.40 [facility] [address] [id number] [address] [place] [address] Apr, Left foot pain M79.672 [facility] [address] [facility] [id number] [place] [id number] Apr, [facility] [address] [facility] [id number] [place] [id number] Apr, Type 2 diabetes mellitus with diabetic n europathy E11.40 ; Left foot pain M79.672 ; Essential hypertension I10 and Epilepsy without status epilepticus, not intractable, unspecified G40.909 [facility] [address] [facility] [id number] [place] [id number] Apr, [facility] [place] [id number][place] [id number] Mar, [facility] [id number] [place] [id number] Feb, Cellulitis and abscess of face 682.0 [facility] [address] [id number] [place] [address], [place] [id number] Feb, Cellulitis and abscess of face 682.0 [facility] [address] [id number] [address] [place] [address] Oct, [facility] [address] [id number] [address] [place] [phone] Oct, [facility] [address] [id number] [address] [place] [address] Sep, [facility] [address] [facility] [id number] [place] [id number] Sep, [facility] [address] [id number] [address] [place] [address] Aug, [facility] [id number] [place] [id number] Aug, [facility] [address] [place] [address] [place] [phone] Aug, [facility] [place] [facility] [address] [id number] [address] [place] [address], [place] [address] Aug, [facility] [place] [facility] [address] [facility] [id number] [address] [place] [address] Aug, [facility] [address] [id number] [place] [id number] Jul, [facility] [place] [facility] [address] [id number] [address] [place] [address], [place] [address] Jul, [facility] [address] [id number] [place] [id number] Jun, [facility] [place] [facility] [address] [facility] [id number] [address] [place] [phone] Jun, [facility] [address] [facility] [id number] [address] [place] [address], [place] [address] Jun, [facility] [address] [id number] [place] [id number] Jun, [facility] [address] [id number] [place] [id number] Jun, [facility] [place] [facility] [address] [facility] [id number] [address] [place] [phone] Jun, [facility] [address] [id number] [place] [id number] May, [facility] [place] [facility] [address] [id number] [address] [place] [address], [place] [address] May, [facility] [address] [id number] [place] [id number] Mar, [facility] [place] [facility] [address] [id number] [address] [place] [phone] Mar, [facility] [address] [id number] [place] [id number] Mar, [facility] [place] [facility] [address] [facility] [id number] [address] [place] [phone] Mar, [facility] [address] [id number] [place] [id number] Feb, [facility] [place] [facility] [address] [id number] [facility] [place] [address] Feb, [facility] [address] [id number] [place] [id number] Feb, [facility] [place] [facility] [address] [id number] [facility] [place] [address] Feb, [facility] [address] [id number] [place], [place] [id number] Jan, [facility] [place] [facility] [address] [id number] [address] [place] [address], [place] [address] Jan, [facility] [address] [id number] [place] [id number] Jan, [facility] [address] [id number] [place] [id number] Jan, [facility] [place] [facility] [address] [id number] [address] [place] [address], [place] [address] Jan, [facility] [place] [facility] [address] [id number] [address] [place] [address], [place] [address] Jan, [facility] [address] [id number] [place] [id number] Dec, [facility] [place] [facility] [address] [id number] [address] [place] [address], [place] [address] Dec, [facility] [address] [id number] [place] [id number] Dec, [facility] [place] [facility] [address] [id number] [address] [place] [address], [place] [address] Dec, [facility] [address] [id number] [place] [id number] Dec, [facility] [place] [facility] [address] [id number] [address] [place] [address], [place] [address] Dec, [facility] [address] [id number] [place] [id number] November, [facility] [address] [id number] [facility] [place] [address] November, [facility] [address] [id number] [place] [id number] November, [facility] [address] [id number] [facility] [place] [address] November, [facility] [address] [id number] [place], [place] [id number] November, [facility] [address] [id number] [facility] [place] [address] November, [facility] [address] [id number] [place] [id number] Oct, [facility] [place] [facility] [address] [id number] [facility] [place] [address] Oct, [facility] [address] [id number] [place] [id number] Sep, [facility] [place] [facility] [address] [id number] [address] [place] [address], [place] [address] Sep, [facility] [place] [facility] [address] [id number] [address] [place] [address], [place] [address] Aug, [facility] [place] [facility] [address] [id number] [address] [place] [address], [place] [address] Aug, [facility] [address] [id number] [place] [id number] Aug, [facility] [place] [facility] [address] [id number] [facility] [place] [address] Aug, [facility] [place] [facility] [address] [id number] [address] [place] [address], [place] [address] Jul, [facility] [place] [facility] [address] [id number] [facility] [place] [address] Jul, [facility] [address] [id number] [place] [id number] Jul, [facility] [place] [facility] [address] [id number] [address] [place] [address], [place] [address] Jul, [facility] [place] [facility] [address] [id number] [address] [place] [address], [place] [address] Jul, [facility] [address] [id number] [place] [id number] Jul, [facility] [address] [id number] [place] [id number] Jul, [facility] [address] [id number] [address] [place] [address], [place] [address] Jul, [facility] [place] [facility] [address] [id number] [address] [place] [address], [place] [address] Jul, [facility] [address] [id number] [address] [place] [address], [place] [address] Jul, [facility] [place] [address] [id number] [place] [id number] Jun, [facility] [place] [facility] [address] [id number] [address] [place] [address], [place] [address] Jun, [facility] [place] [facility] [address] [id number] [address] [place] [address], [place] [address] Jun, [facility] [place] [facility] [address] [id number] [address] [place] [address], [place] [address] Jun, [facility] [place] [address] [id number] [place] [id number] May, [facility] [place] [facility] [address] [id number] [address] [place] [address], [place] [address] May, [facility] [address] [id number] [place] [id number] May, [facility] [place] [facility] [address] [id number] [address] [place] [address], [place] [address] May, [facility] [place] [address] [id number] [place] [id number] Apr, [facility] [place] [facility] [address] [facility] [id number] [address] [place] [address] Apr, [facility] [address] [id number] [place] [id number] Mar, [facility] [address] [id number] [place] [id number] Feb, [facility] [address] [id number] [place] [id number] Feb, [facility] [address] [id number] [place] [id number] Feb, [facility] [address] [id number] [place] [id number] Jan, [facility] [address] [id number] [place] [id number] Dec, [facility] [address] [id number] [place] [id number] Dec, [facility] [address] [id number] [place] [id number] Dec, [facility] [address] [id number] [place], [place] [id number] November, [facility] [address] [facility] [id number] [address] [place] [address] November, [facility] [address] [id number] [place] [id number] November, [facility] [address] [id number] [place], [place] [id number] Oct, [facility] [address] [id number] [place] [id number] Oct, [facility] [address] [id number] [place] [id number] Sep, [facility] [address] [id number] [place] [id number] Jul, [facility] [address] [facility] [id number] [address] [place] [address] Jun, [facility] [address] [id number] [address] [place] [address] Jun, [facility] [address] [id number] [place] [id number] Jun, [facility] [address] [id number] [place] [id number] Jun, [facility] [address] [id number] [place], [place] [id number] Jun, [facility] [address] [id number] [address] [place] [address], [place] [address] Jun, [facility] [address] [id number] [place] [id number] Jun, [facility] [address] [facility] [id number] [address] [place] [address] Jun, [facility] [address] [id number] [place] [id number] Jun, [facility] [address] [facility] [id number] [address] [place] [address] Jun, [facility] [address] [id number] [place] [id number] May, [facility] [address] [id number] [place], [place] [id number] May, [facility] [address] [facility] [id number] [address] [place] [address] May, [facility] [address] [facility] [id number] [address] [place] [id number] May, [facility] [address] [facility] [id number] [address] [place] [address] May, [facility] [address] [id number] [place] [id number] May, [facility] [address] [id number] [place], [place] [id number] Mar, [facility] [address] [id number] [place], [place] [id number] Mar, [facility] [address] [id number] [place], K S [id number] Mar, [facility] [address] [id number] [place] [id number] Feb, [facility] [address] [id number] [place] [id number] Feb, [facility] [address] [id number] [place] [id number] Dec, [facility] [address] [id number] [place] [id number] November, [facility] [address] [id number] [place] [id number] November, [facility] [address] [id number] [place], [place] [id number] November, [facility] [address] [id number] [place] [id number] November, [facility] [address] [id number] [place], [place] S [id number] November, [facility] [address] [id number] [place], [place] [id number] Oct, [facility] [address] [id number] [place] [id number] Jul, [facility] [address] [id number] [place] [id number] Jul, [facility] [address] [facility] [id number] [address] [place] [id number] Jun, [facility] [address] [facility] [id number] [address] [place] [id number] May, [facility] [address] [facility] [id number] [address] [place] [id number] May, [facility] [address] [facility] [id number] [address] [place] [id number] May, [facility] [address] [facility] [id number] [address] [place] [address] May, [facility] [address] [facility] [id number] [address] [place] [id number] 14 Apr, 2011 [facility] [address] [id number] [address] [place] [phone] 14 Apr, 2011 [facility] [address] [id number] [address] [place] [id number] 14 Apr, 2011 [facility] [address] [id number] [address] [place] [id number] 13 Mar, 2011 [facility] [address] [id number] [address] [place] [id number] 15 Feb, 2011 [facility] [address] [id number] [address] [place] [id number] 07 Jun, 2009 [facility] [address] [facility] [id number] [address] [place] [phone] Jun, [facility] [address] [facility] [id number] [address] [place] [phone] Jun, IMMUNIZATIONS No Known Immunizations SOCIAL HISTORY [...] Hospitalization History above listed Hospitalization History [facility]--7 days in ICU-new tumors seen on brain scan 2012
--- OUTSIDE RECORDS SUMMARY | 2019-07-04 02:37 | XMS REPORT ---
Author Author Bianca WYNN [facility] Address [address] [place] [address] Care Team Providers Care Pin Sorter And Bagger Name Role Phone SHERON WYNN Unavailable PROBLEMS Type Condition ICD9-CM Code [id number] Code Onset Dates Condition S tatus SNOMED Code Problem Thoracic or lumbosacral neuritis or radiculitis, unspecifi ed 724.4 Active 719506139 Problem Headache 784.0 Active 37798579 Problem Polyneuropathy in diabetes 357.2 Act kamryn 83747731 Problem Renal and perinephric abscess 590.2 Active 768862824 Problem Type 2 diabetes mellitus with diabetic neuropathy E11.40 Active 66910609 Problem Unspecified epilepsy without mention of intractable epilep sy 345.90 Active 55558286 Problem Epilepsy without status epilepticus, not intract able, unspecified G40.909 Active 229666486 Problem Essential hypertension I10 Active 81791006 Problem Abdominal pain, unspecified abdominal location R10 .9 Active 56684845 Problem Chest pain, unspecified type R07.9 A ctive 25515893 Problem Syncope, unspecified syncope type R55 Active 768060527 Problem Right knee injury, initial encounter S89.91XA Active 227224436 Problem Sciatica, right M54.31 Active 2305 6005 Problem Acute pain of right knee M25.561 Activ e 11809813 Problem Renal stone N20.0 Active 92279820 Problem Diverticulosis of large intestine without hemorrhage K57.30 Active 674622434 Problem Other acute pancreatitis K85.8 Activ e 387773550 Problem Pain of upper abdomen R10.10 Active 05271908 Problem Biliary dyskinesia K82.8 Active 1 [id number] ALLERGIES No Information ENCOUNTERS Encounter Location Date Diagnosis [facility] [id number] [id number] [place] [id number] Jan, Dental examination Z01.20 and Dental car ies K02.9 [facility] [address] [facility] [id number] [address] [place] [address] Sep, [facility] [address] [id number] [id number] Aug, [facility] [address] [facility] [id number] [address] [place] [address] May, [facility] [address] [facility] [id number] [address] [place] [address] Apr, [facility] [address] [id number] [place] [id number] Apr, [facility] [address] [id number] [place] [id number] Mar, Acute pain of right knee M25.561 [facility] [address] [id number] [place] [id number] Mar, Acute pain of right knee M25.561 [facility] [address] [facility] [id number] [address] [place] [address] Mar, [facility] [address] [id number] [place] [id number] Feb, Right knee injury, initial encounter S89 .91XA [facility] [address] [id number] [place] [id number] Feb, [facility] [address] [id number] [place] [id number] Jan, [facility] [address] [id number] [place] [id number] Jan, [facility] [address] [id number] [place] [id number] Dec, [facility] [address] [id number] [id number] Dec, Chest pain, unspecified type R07.9 ; Typ e 2 diabetes mellitus with diabetic neuropathy E11.40 ; Essential hypertension I10 ; Syncope, unspecified syncope type R55 and Hyperlipidemia, unspecified hyperlipidemia type E78.5 [facility] [address] [id number] [place] [id number] Dec, Biliary dyskinesia K82.8 [facility] [place] [address] [id number] [place] [id number] Dec, [facility] [place] [address] [id number] [place] [id number] Dec, Pain of upper abdomen R10.10 [facility] [place] [address] [id number] [place] [id number] Dec, Pain of upper abdomen R10.10 and Nausea and vomiting, unspecified intactability, vomiting of unspecified type R11.2 [facility] [place] [address] [id number] [place] [id number] Dec, Other acute pancreatitis K85.8 [facility] [place] [address] [facility] [id number] [place] [id number] Dec, Other acute pancreatitis K85.8 [facility] [place] [address] [facility] [id number] [place] [id number] November, Type 2 diabetes mellitus with diabetic n europathy E11.40 [facility] [address] [id number] [place] [id number] November, Other acute pancreatitis K85.8 and Type 2 diabetes mellitus with diabetic neuropathy E11.40 [facility] [place] [address] [id number] [place] [id number] November, Acute pancreatitis, unspecified pancreat itis type K85.9 and Type 2 diabetes mellitus with diabetic neuropathy E11.40 [facility] [address] [id number] [place] [id number] November, Abdominal pain, unspecified abdominal lo cation R10.9 [facility] [place] [address] [id number] [place] [id number] November, Diverticulosis of large intestine withou t hemorrhage K57.30 [facility] [address] [facility] [id number] [place] [id number] Oct, [facility] [address] [facility] [id number] [place] [id number] Oct, [facility] [address] [facility] [id number] [address] [place] [address] Oct, [facility] [place] [address] [id number] [place] [id number] Oct, Chest pain R07.9 ; Type 2 diabetes cordell alrry with diabetic neuropathy E11.40 ; H. pylori infection A04.8 and UTI (urinary tract infection) N39.0 [facility] [place] [address] [id number] [place] [id number] Oct, [facility] [address] [id number] [place] [id number] Sep, Chest pain R07.9 [facility] [address] [facility] [id number] [address] [place] [address] Sep, [facility] [place] [address] [id number] [place] [id number] Sep, [facility] [place] [address] [facility] [id number] [place] [id number] Sep, Abdominal pain, unspecified abdominal lo cation R10.9 and Sciatica, right M54.31 [facility] [address] [facility] [address] [id number] [id number] Sep, [facility] [place] [address] [facility] [id number] [place] [id number] Aug, [facility] [address] [facility] [id number] [address] [place] [address] Aug, [facility] [place] [address] [id number] [place] [id number] Aug, Diverticulitis of large intestine withou t perforation or abscess without bleeding K57.32 [facility] [address] [id number] [place] [id number] Jun, Renal stone N20.0 [facility] [place] [address] [id number] [place] [id number] Jun, Renal and perinephric abscess 590.2 [facility] [place] [address] [id number] [place] [id number] Jun, Renal stone N20.0 [facility] [address] [facility] [id number] [place] [id number] May, Foot pain, left M79.672 and Type 2 diabe alyssa mellitus with diabetic neuropathy E11.40 [facility] [address] [facility] [id number] [address] [place] [address] Apr, Left foot pain M79.672 [facility] [address] [facility] [id number] [place] [id number] Apr, [facility] [address] [facility] [id number] [place] [id number] Apr, Type 2 diabetes mellitus with diabetic n europathy E11.40 ; Left foot pain M79.672 ; Essential hypertension I10 and Epilepsy without status epilepticus, not intractable, unspecified G40.909 [facility] [id number] [place] [id number] Apr, [place] [address] [place] [id number] [place] [id number] Mar, [facility] [id number] [place] [id number] Feb, Cellulitis and abscess of face 682.0 [facility] [id number] [place] [id number] Feb, Cellulitis and abscess of face 682.0 [facility] [address] [id number] [address] [place] [address] Oct, [facility] [address] [id number] [address] [place] [phone] Oct, [facility] [address] [facility] [id number] [address] [place] [address] Sep, [facility] [id number] [place] [id number] Sep, [facility] [address] [facility] [id number] [address] [place] [address] Aug, [facility] [id number] [place] [address], [place] [id number] Aug, [facility] [address] [id number] [address] [place] [address], [place] [address] Aug, [facility] [address] [id number] [address] [place] [address], [place] [address] Aug, [facility] [address] [id number] [address] [place] [address], [place] [address] Aug, [facility] [address] [id number] [place] [id number] Jul, [facility] [address] [id number] [address] [place] [address], [place] [address] Jul, [facility] [address] [id number] [place] [id number] Jun, [facility] [address] [facility] [id number] [address] [place] [address], [place] [address] Jun, [facility] [address] [id number] [address] [place] [address], [place] [address] Jun, [facility] [address] [id number] [place] [id number] Jun, [facility] [address] [id number] [place] [id number] Jun, [facility] [address] [facility] [id number] [address] [place] [address], [place] [address] Jun, [facility] [address] [id number] [place] [id number] May, [facility] [address] [id number] [address] [place] [address], [place] [address] May, [facility] [place] [address] [id number] [place] [id number] Mar, [facility] [address] [id number] [address] [place] [address], [place] [address] Mar, [facility] [address] [id number] [place] [id number] Mar, [facility] [address] [id number] [address] [place] [address], [place] [address] Mar, [facility] [address] [id number] [place], [place] [id number] Feb, [facility] [address] [id number] [address] [place] [address], [place] [address] Feb, [facility] [address] [id number] [place] [id number] Feb, [facility] [address] [id number] [address] [place] [address], [place] [address] Feb, [facility] [address] [id number] [place], [place] [id number] Jan, [facility] [address] [id number] [address] [place] [address], [place] [address] Jan, [facility] [address] [id number] [place] [id number] Jan, [facility] [address] [id number] [place] [id number] Jan, [facility] [address] [id number] [address] [place] [address], [place] [address] Jan, [facility] [address] [id number] [address] [place] [address], [place] [address] Jan, [facility] [address] [id number] [place] [id number] Dec, [facility] [address] [id number] [address] [place] [address], [place] [address] Dec, [facility] [address] [id number] [place], [place] [id number] Dec, [facility] [address] [id number] [address] [place] [address], [place] [address] Dec, [facility] [address] [id number] [place], [place] [id number] Dec, [facility] [address] [id number] [address] [place] [address], [place] [address] Dec, [facility] [address] [id number] [place] [id number] November, [facility] [address] [id number] [facility] [place] [address] November, [facility] [address] [id number] [place] [id number] November, [facility] [address] [id number] [address] [place] [address], [place] [address] November, [facility] [address] [id number] [place] [id number] November, [facility] [address] [id number] [address] [place] [address], [place] [address] November, [facility] [address] [id number] [place] [id number] Oct, [facility] [address] [id number] [address] [place] [address], [place] [address] Oct, [facility] [address] [id number] [place] [id number] Sep, [facility] [address] [id number] [address] [place] [address] Sep, [facility] [address] [id number] [address] [place] [address], [place] [address] Aug, [facility] [address] [id number] [address] [place] [address] Aug, [facility] [address] [id number] [place] [id number] Aug, [facility] [address] [id number] [address] [place] [address], [place] [address] Aug, [facility] [address] [id number] [address] [place] [address], [place] [address] Jul, [facility] [address] [id number] [address] [place] [address] Jul, [facility] [address] [id number] [place] [id number] Jul, [facility] [address] [id number] [address] [place] [address], [place] [address] Jul, [facility] [address] [id number] [address] [place] [address], [place] [address] Jul, [facility] [address] [id number] [place] [id number] Jul, [facility] [address] [id number] [place] [id number] Jul, [facility] [address] [id number] [address] [place] [address], [place] [address] Jul, [facility] [address] [id number] [address] [place] [address], [place] [address] Jul, [facility] [address] [id number] [address] [place] [address], [place] [address] Jul, [facility] [place] [address] [id number] [place] [id number] Jun, [facility] [address] [id number] [address] [place] [address], [place] [address] Jun, [facility] [address] [id number] [address] [place] [address], [place] [address] Jun, [facility] [address] [id number] [address] [place] [address], [place] [address] Jun, [facility] [address] [id number] [place] [id number] May, [facility] [address] [id number] [address] [place] [address], [place] [address] May, [facility] [address] [id number] [place] [id number] May, [facility] [address] [id number] [address] [place] [address], [place] [address] May, [facility] [address] [id number] [place] [id number] Apr, [facility] [address] [facility] [id number] [address] [place] [address] Apr, [facility] [address] [id number] [place] [id number] Mar, [facility] [address] [id number] [place] [id number] Feb, [facility] [address] [id number] [place], [place] [id number] Feb, [facility] [address] [id number] [place] [id number] Feb, [facility] [address] [id number] [place] [id number] Jan, [facility] [address] [id number] [place] [id number] Dec, [facility] [address] [id number] [place] [id number] Dec, [facility] [address] [id number] [place] [id number] Dec, [facility] [address] [id number] [place] [id number] November, [facility] [address] [facility] [id number] [address] [place] [address] November, [facility] [address] [id number] [place] [id number] November, [facility] [address] [id number] [place] [id number] Oct, [facility] [address] [id number] [place] [id number] Oct, [facility] [address] [id number] [place] [id number] Sep, [facility] [address] [id number] [place] [id number] Jul, [facility] [address] [facility] [id number] [address] [place] [address] Jun, [facility] [address] [id number] [address] [place] [address], [place] [address] Jun, [facility] [address] [id number] [place] [id number] Jun, [facility] [address] [id number] [place] [id number] Jun, [facility] [address] [id number] [place] [id number] Jun, [facility] [address] [id number] [facility] [place] [address] Jun, [facility] [address] [id number] [place] [id number] Jun, [facility] [address] [facility] [id number] [address] [place] [address], [place] [address] Jun, [facility] [address] [id number] [place] [id number] Jun, [facility] [address] [id number] [address] [place] [address], [place] [address] Jun, [facility] [address] [id number] [place] [id number] May, [facility] [address] [id number] [place] [id number] May, [facility] [address] [facility] [id number] [address] [place] [address], [place] [address] May, [facility] [address] [id number] [address] [place] [address] May, [facility] [address] [id number] [address] [place] [address], [place] [address] May, [facility] [address] [id number] [place] [id number] May, [facility] [address] [id number] [place] [id number] Mar, [facility] [address] [id number] [place], [place] [id number] Mar, [facility] [address] [id number] [place] [id number] Mar, [facility] [address] [id number] [place], [place] S [id number] Feb, [facility] [address] [id number] [place], [place] [id number] Feb, [facility] [address] [id number] [place], [place] S [id number] Dec, [facility] [address] [id number] [place] [id number] November, [facility] [address] [id number] [place] [id number] November, [facility] [address] [id number] [place] [id number] November, [facility] [address] [id number] [place], [place] [id number] November, [facility] [address] [id number] [place] [id number] November, [facility] [address] [id number] [place], [place] [id number] Oct, [facility] [address] [id number] [place] [id number] Jul, [facility] [address] [id number] [place] [id number] Jul, [facility] [address] [facility] [id number] [address] [place] [address] Jun, [facility] [address] [facility] [id number] [address] [place] [address] May, [facility] [address] [facility] [id number] [address] [place] [address] May, [facility] [address] [facility] [id number] [address] [place] [address] May, [facility] [address] [facility] [id number] [address] [place] [address] 11 May, 2011 [facility] [address] [id number] [address] [place] [address] 14 Apr, 2011 [facility] [address] [id number] [address] [place] [address] 14 Apr, 2011 [facility] [address] [facility] [id number] [address] [place] [address] 14 Apr, 2011 [facility] [address] [id number] [address] [place] [address] 13 Mar, 2011 [facility] [address] [facility] [id number] [address] [place] [address] 15 Feb, 2011 [facility] [address] [facility] [id number] [address] [place] [id number] 07 Jun, 2009 [facility] [address] [facility] [id number] [address] [place] [id number] Jun, [facility] [address] [facility] [id number] [address] [place] [id number] Jun, IMMUNIZATIONS No Known Immunizations SOCIAL HISTORY Never Assessed REASON FOR VISIT PLAN OF CARE VITAL SIGNS Height 62 in 2014-06-01 Weight 204.5 lbs 2014-06-01 Temperature 98.3 degrees Fahrenheit 2014-06-01 Heart Rate 108 bpm 2014-06-01 Respiratory Rate 14 2014-06-01 Blood pressure systolic 116 mmHg 2014-06-01 Blood pressure diastolic 84 mmHg 2014-06-01 MEDICATIONS Unknown Medications RESULTS No Results PROCEDURES Procedure Date Ordered Result Body Site GLYCATED HEMOGLOBIN TEST Jun 01, 2014 GLUCOSE BLOOD TEST Jun 01, 2014 URINALYSIS, AUTO, W/O SCOPE Jun 01, 2014 INSTRUCTIONS MEDICATIONS ADMINISTERED No Known Medications [...] Hospitalization History above listed Hospitalization History Via [facility]--7 days in ICU-new tumors seen on brain scan 2012
--- OUTSIDE RECORDS SUMMARY | 2019-07-04 02:38 | XMS REPORT ---
Author Author Bianca WYNN [facility] Address [address] [place] [address] Care Team Providers Care Yarn Comber Name Role Phone SHERON WYNN Unavailable PROBLEMS Type Condition ICD9-CM Code [id number] Code Onset Dates Condition S tatus SNOMED Code Problem Thoracic or lumbosacral neuritis or radiculitis, unspecifi ed 724.4 Active 511444532 Problem Headache 784.0 Active 84808162 Problem Polyneuropathy in diabetes 357.2 Act kamryn 84491547 Problem Renal and perinephric abscess 590.2 Active 143954209 Problem Type 2 diabetes mellitus with diabetic neuropathy E11.40 Active 07825110 Problem Unspecified epilepsy without mention of intractable epilep sy 345.90 Active 42414112 Problem Epilepsy without status epilepticus, not intract able, unspecified G40.909 Active 100489351 Problem Essential hypertension I10 Active 32460439 Problem Abdominal pain, unspecified abdominal location R10 .9 Active 88609023 Problem Chest pain, unspecified type R07.9 A ctive 77176680 Problem Syncope, unspecified syncope type R55 Active 498189604 Problem Right knee injury, initial encounter S89.91XA Active 802042824 Problem Sciatica, right M54.31 Active 2305 6005 Problem Acute pain of right knee M25.561 Activ e 98468613 Problem Renal stone N20.0 Active 65390289 Problem Diverticulosis of large intestine without hemorrhage K57.30 Active 193406730 Problem Other acute pancreatitis K85.8 Activ e 879540406 Problem Pain of upper abdomen R10.10 Active 99799483 Problem Biliary dyskinesia K82.8 Active 1 [id number] ALLERGIES No Information ENCOUNTERS Encounter Location Date Diagnosis [facility] [id number] [id number] [place] [id number] Jan, Dental examination Z01.20 and Dental car ies K02.9 [facility] [place] [address] [facility] [id number] [address] [place] [address] Sep, [facility] [address] [id number] [id number] Aug, [facility] [address] [facility] [id number] [address] [place] [address] May, [facility] [place] [address] [facility] [id number] [address] [place] [address] Apr, [facility] [address] [id number] [place] [id number] Apr, [facility] [address] [id number] [place] [id number] Mar, Acute pain of right knee M25.561 [facility] [address] [id number] [place] [id number] Mar, Acute pain of right knee M25.561 [facility] [place] [address] [facility] [id number] [address] [place] [address] Mar, [facility] [address] [id number] [place] [id number] Feb, Right knee injury, initial encounter S89 .91XA [facility] [address] [id number] [place] [id number] Feb, [facility] [address] [id number] [place] [id number] Jan, [facility] [address] [id number] [place] [id number] Jan, [facility] [address] [id number] [place] [id number] Dec, [facility] [address] [id number] [id number] Dec, Chest pain, unspecified type R07.9 ; Typ e 2 diabetes mellitus with diabetic neuropathy E11.40 ; Essential hypertension I10 ; Syncope, unspecified syncope type R55 and Hyperlipidemia, unspecified hyperlipidemia type E78.5 [facility] [address] [id number] [place] [id number] Dec, Biliary dyskinesia K82.8 [facility] [place] [address] [id number] [place] [id number] Dec, [facility] [place] [address] [id number] [place] [id number] Dec, Pain of upper abdomen R10.10 [facility] [place] [address] [id number] [place] [id number] Dec, Pain of upper abdomen R10.10 and Nausea and vomiting, unspecified intactability, vomiting of unspecified type R11.2 [facility] [place] [address] [id number] [place] [id number] Dec, Other acute pancreatitis K85.8 [facility] [place] [address] [facility] [id number] [place] [id number] Dec, Other acute pancreatitis K85.8 [facility] [place] [address] [facility] [id number] [place] [id number] November, Type 2 diabetes mellitus with diabetic n europathy E11.40 [facility] [address] [id number] [place] [id number] November, Other acute pancreatitis K85.8 and Type 2 diabetes mellitus with diabetic neuropathy E11.40 [facility] [place] [address] [id number] [place] [id number] November, Acute pancreatitis, unspecified pancreat itis type K85.9 and Type 2 diabetes mellitus with diabetic neuropathy E11.40 [facility] [address] [id number] [place], [place] [id number] November, Abdominal pain, unspecified abdominal lo cation R10.9 [facility] [place] [address] [id number] [place] [id number] November, Diverticulosis of large intestine withou t hemorrhage K57.30 [facility] [address] [facility] [id number] [place] [id number] Oct, [facility] [address] [facility] [id number] [place], [place] [id number] Oct, [facility] [place] [address] [facility] [id number] [address] [place] [address] Oct, [facility] [place] [address] [id number] [place] [id number] Oct, Chest pain R07.9 ; Type 2 diabetes cordell larry with diabetic neuropathy E11.40 ; H. pylori infection A04.8 and UTI (urinary tract infection) N39.0 [facility] [place] [address] [id number] [place] [id number] Oct, [facility] [address] [id number] [place] [id number] Sep, Chest pain R07.9 [facility] [place] [address] [facility] [id number] [address] [place] [address] Sep, [facility] [place] [address] [id number] [place] [id number] Sep, [facility] [place] [address] [facility] [id number] [place] [id number] Sep, Abdominal pain, unspecified abdominal lo cation R10.9 and Sciatica, right M54.31 [facility] [address] [facility] [address] [id number] [id number] Sep, [facility] [place] [address] [facility] [id number] [place] [id number] Aug, [facility] [place] [address] [facility] [id number] [address] [place] [address] Aug, [facility] [place] [address] [id number] [place] [id number] Aug, Diverticulitis of large intestine withou t perforation or abscess without bleeding K57.32 [facility] [address] [id number] [place] [id number] Jun, Renal stone N20.0 [facility] [place] [address] [id number] [place] [id number] Jun, Renal and perinephric abscess 590.2 [facility] [place] [address] [id number] [place] [id number] Jun, Renal stone N20.0 [facility] [address] [facility] [id number] [place] [id number] May, Foot pain, left M79.672 and Type 2 diabe alyssa mellitus with diabetic neuropathy E11.40 [facility] [place] [address] [facility] [id number] [address] [place] [address] Apr, Left foot pain M79.672 [facility] [address] [facility] [id number] [place] [id number] Apr, [facility] [address] [facility] [id number] [place] [id number] Apr, Type 2 diabetes mellitus with diabetic n europathy E11.40 ; Left foot pain M79.672 ; Essential hypertension I10 and Epilepsy without status epilepticus, not intractable, unspecified G40.909 [facility] [id number] [place] [id number] Apr, [id number] [id number] [place] [id number] Mar, [facility] [id number] [place] [id number] Feb, Cellulitis and abscess of face 682.0 [facility] [id number] [place] [id number] Feb, Cellulitis and abscess of face 682.0 [facility] [place] [address] [id number] [address] [place] [address] Oct, [facility] [place] [address] [id number] [address] [place] [address] Oct, [facility] [place] [address] [facility] [id number] [address] [place] [address] Sep, [facility] [id number] [place] [id number] Sep, [facility] [place] [address] [facility] [id number] [address] [place] [address] Aug, [facility] [id number] [place] [address], [place] [id number] Aug, [facility] [address] [id number] [address] [place] [address], [place] [address] Aug, [facility] [address] [id number] [address] [place] [address], [place] [address] Aug, [facility] [address] [id number] [address] [place] [address], [place] [address] Aug, [facility] [address] [id number] [place] [id number] Jul, [facility] [address] [id number] [address] [place] [address], [place] [address] Jul, [facility] [address] [id number] [place] [id number] Jun, [facility] [address] [facility] [id number] [address] [place] [address], [place] [address] Jun, [facility] [address] [id number] [address] [place] [address], [place] [address] Jun, [facility] [address] [id number] [place] [id number] Jun, [facility] [address] [id number] [place] [id number] Jun, [facility] [address] [facility] [id number] [address] [place] [address], [place] [address] Jun, [facility] [address] [id number] [place] [id number] May, [facility] [address] [id number] [address] [place] [address], [place] [address] May, [facility] [address] [id number] [place] [id number] Mar, [facility] [address] [id number] [address] [place] [address], [place] [address] Mar, [facility] [address] [id number] [place] [id number] Mar, [facility] [address] [id number] [address] [place] [address], [place] [address] Mar, [facility] [address] [id number] [place] [id number] Feb, [facility] [address] [id number] [address] [place] [address], [place] [address] Feb, [facility] [address] [id number] [place] [id number] Feb, [facility] [address] [id number] [address] [place] [address], [place] [address] Feb, [facility] [address] [id number] [place], [place] [id number] Jan, [facility] [address] [id number] [address] [place] [address], [place] [address] Jan, [facility] SAM [address] [id number] [place] [id number] Jan, [facility] [address] [id number] [place], [place] [id number] Jan, [facility] [address] [id number] [address] [place] [address], [place] [address] Jan, [facility] [address] [id number] [address] [place] [address], [place] [address] Jan, [facility] [address] [id number] [place], [place] [id number] Dec, [facility] [address] [id number] [address] [place] [address], [place] [address] Dec, [facility] [address] [id number] [place], [place] [id number] Dec, [facility] [address] [id number] [address] [place] [address], [place] [address] Dec, [facility] [address] [id number] [place] [id number] Dec, [facility] [address] [id number] [address] [place] [address], [place] [address] Dec, [facility] SAM [address] [id number] [place], [place] [id number] November, [facility] [address] [id number] [facility] [place] [address] November, [facility] SAM [address] [id number] [place], [place] [id number] November, [facility] [address] [id number] [address] [place] [address], [place] [address] November, [facility] [address] [id number] [place], [place] [id number] November, [facility] [address] [id number] [address] [place] [address], [place] [address] November, [facility] SAM [address] [id number] [place], [place] [id number] Oct, [facility] [address] [id number] [address] [place] [address], [place] [address] Oct, [facility] SAM [address] [id number] [place], [place] [id number] Sep, [facility] [address] [id number] [address] [place] [address] Sep, [facility] [address] [id number] [address] [place] [address], [place] [address] Aug, [facility] [address] [id number] [address] [place] [address] Aug, [facility] [address] [id number] [place] [id number] Aug, [facility] [address] [id number] [address] [place] [address], [place] [address] Aug, [facility] [address] [id number] [address] [place] [address], [place] [address] Jul, [facility] [address] [id number] [address] [place] [address] Jul, [facility] [address] [id number] [place], [place] [id number] Jul, [facility] [address] [id number] [address] [place] [address], [place] [address] Jul, [facility] [address] [id number] [address] [place] [address], [place] [address] Jul, [facility] [address] [id number] [place] [id number] Jul, [facility] [address] [id number] [place] [id number] Jul, [facility] [address] [id number] [address] [place] [address], [place] [address] Jul, [facility] [address] [id number] [address] [place] [address], [place] [address] Jul, [facility] [address] [id number] [address] [place] [address], [place] [address] Jul, [facility] [place] [address] [id number] [place] [id number] Jun, [facility] [address] [id number] [address] [place] [address], [place] [address] Jun, [facility] [address] [id number] [address] [place] [address], [place] [address] Jun, [facility] [address] [id number] [address] [place] [address], [place] [address] Jun, [facility] [address] [id number] [place], [place] [id number] May, [facility] [address] [id number] [address] [place] [address], [place] [address] May, [facility] [address] [id number] [place] [id number] May, [facility] [address] [id number] [address] [place] [address], [place] [address] May, [facility] [address] [id number] [place] [id number] Apr, [facility] [address] [facility] [id number] [address] [place] [address] Apr, [facility] [address] [id number] [place] [id number] Mar, [facility] [address] [id number] [place], [place] S [id number] Feb, [facility] [address] [id number] [place] [id number] Feb, [facility] [address] [id number] [place] [id number] Feb, [facility] [address] [id number] [place], [place] S [id number] Jan, [facility] [address] [id number] [place], [place] [id number] Dec, [facility] [address] [id number] [place], [place] [id number] Dec, [facility] [address] [id number] [place] [id number] Dec, [facility] [address] [id number] [place], [place] [id number] November, [facility] [address] [facility] [id number] [address] [place] [address] November, [facility] [address] [id number] [place], [place] [id number] November, [facility] [address] [id number] [place], [place] [id number] Oct, [facility] [address] [id number] [place] [id number] Oct, [facility] [address] [id number] [place], [place] S [id number] Sep, [facility] [address] [id number] [place], [place] [id number] Jul, [facility] [address] [facility] [id number] [address] [place] [address] Jun, [facility] [address] [id number] [address] [place] [address], [place] [address] Jun, [facility] [address] [id number] [place], [place] [id number] Jun, [facility] [address] [id number] [place] [id number] Jun, [facility] [address] [id number] [place], [place] [id number] Jun, [facility] [address] [id number] [facility] [place] [address] Jun, [facility] [address] [id number] [place], [place] [id number] Jun, [facility] [address] [facility] [id number] [address] [place] [address], [place] [address] Jun, [facility] [address] [id number] [place] [id number] Jun, [facility] [address] [id number] [address] [place] [address], [place] [address] Jun, [facility] [address] [id number] [place] [id number] May, [facility] [address] [id number] [place] [id number] May, [facility] [address] [facility] [id number] [address] [place] [address], [place] [address] May, [facility] [address] [id number] [address] [place] [address] May, [facility] [address] [id number] [address] [place] [address], [place] [address] May, [facility] [address] [id number] [place] [id number] May, [facility] [address] [id number] [place], [place] [id number] Mar, [facility] [address] [id number] [place], [place] [id number] Mar, [facility] [address] [id number] [place], [place] [id number] Mar, [facility] [address] [id number] [place], [place] [id number] Feb, [facility] [address] [id number] [place], [place] [id number] Feb, [facility] [address] [id number] [place], [place] [id number] Dec, [facility] [address] [id number] [place], [place] [id number] November, [facility] [address] [id number] [place], [place] [id number] November, [facility] [address] [id number] [place], [place] [id number] November, [facility] [address] [id number] [place], [place] [id number] November, [facility] [address] [id number] [place], [place] [id number] November, [facility] [address] [id number] [place], [place] [id number] Oct, [facility] [address] [id number] [place] [id number] Jul, [facility] [address] [id number] [place] [id number] Jul, [facility] [address] [facility] [id number] [address] [place] [address] Jun, [facility] [address] [facility] [id number] [address] [place] [address] May, [facility] [address] [facility] [id number] [address] [place] [address] May, [facility] [address] [facility] [id number] [address] [place] [address] May, [facility] [address] [facility] [id number] [address] [place] [address] May, [facility] [place] [address] [id number] [address] [place] [address] 14 Apr, 2011 [facility] [place] [address] [id number] [address] [place] [address] 14 Apr, 2011 [facility] [place] [address] [id number] [address] [place] [phone] 14 Apr, 2011 [facility] [place], [facility] [address] [id number] [address] [place] [phone] 13 Mar, 2011 [facility] [place], [facility] [address] [id number] [address] [place] [phone] 15 Feb, 2011 [facility] [place], [facility] [address] [id number] [address] [place] [phone] Jun, [facility] [place], [facility] [address] [facility] [id number] [address] [place] [phone] Jun, [facility] [place], [facility] [address] [facility] [id number] [address] [place] [phone] Jun, IMMUNIZATIONS No Known Immunizations SOCIAL HISTORY [...] Hospitalization History above listed Hospitalization History [facility]--7 days in ICU-new tumors seen on brain scan 2012
--- OUTSIDE RECORDS SUMMARY | 2019-07-04 02:38 | XMS REPORT ---
Author Author Bianca Donnelly Doctor Organization [facility] Address Unknown Phone Unavailable Care Team Providers Care Superintendent Construction Name Role Phone Migration, Doctor Unavailable Unavailable PROBLEMS Type Condition ICD9-CM Code [id number] Code Onset Dates Condition S tatus SNOMED Code Problem Thoracic or lumbosacral neuritis or radiculitis, unspecifi ed 724.4 Active 717703650 Problem Headache 784.0 Active 54446531 Problem Polyneuropathy in diabetes 357.2 Act kamryn 84704549 Problem Renal and perinephric abscess 590.2 Active 313509282 Problem Type 2 diabetes mellitus with diabetic neuropathy E11.40 Active 61941079 Problem Unspecified epilepsy without mention of intractable epilep sy 345.90 Active 46615522 Problem Epilepsy without status epilepticus, not intract able, unspecified G40.909 Active 620699125 Problem Essential hypertension I10 Active 22811716 Problem Abdominal pain, unspecified abdominal location R10 .9 Active 80386270 Problem Chest pain, unspecified type R07.9 A ctive 92593968 Problem Syncope, unspecified syncope type R55 Active 196347058 Problem Right knee injury, initial encounter S89.91XA Active 048216907 Problem Sciatica, right M54.31 Active 2305 6005 Problem Acute pain of right knee M25.561 Activ e 11632903 Problem Renal stone N20.0 Active 29544072 Problem Diverticulosis of large intestine without hemorrhage K57.30 Active 913392477 Problem Other acute pancreatitis K85.8 Activ e 004482525 Problem Pain of upper abdomen R10.10 Active 44924446 Problem Biliary dyskinesia K82.8 Active 1 [id number] ALLERGIES No Information ENCOUNTERS Encounter Location Date Diagnosis [facility] [address] [id number] [id number] Jan, Dental examination Z01.20 and Dental car ies K02.9 [facility] [address] [id number] [place] [address] Sep, [facility] [address] [id number] [id number] Aug, [facility] [address] [facility] [id number] [address] [place] [address] May, [facility] [address] [facility] [id number] [address] [place] [address] Apr, [facility] [place] [address] [id number] [place] [id number] Apr, [facility] [address] [id number] [place] [id number] Mar, Acute pain of right knee M25.561 [facility] [address] [id number] [place] [id number] Mar, Acute pain of right knee M25.561 [facility] [address] [facility] [id number] [address] [place] [address] Mar, [facility] [place] [address] [id number] [place] [id number] Feb, Right knee injury, initial encounter S89 .91XA [facility] [address] [id number] [place] [id number] Feb, [facility] [address] [id number] [place] [id number] Jan, [facility] [place] [address] [id number] [place] [id number] Jan, [facility] [place] [address] [id number] [place] [id number] Dec, [facility] [address] [address] [id number] [id number] Dec, Chest pain, unspecified type R07.9 ; Typ e 2 diabetes mellitus with diabetic neuropathy E11.40 ; Essential hypertension I10 ; Syncope, unspecified syncope type R55 and Hyperlipidemia, unspecified hyperlipidemia type E78.5 [facility] [place] [address] [id number] [place] [id number] Dec, Biliary dyskinesia K82.8 [facility] [address] [id number] [place] [id number] 15 Dec, 2015 [facility] [address] [id number] [place] [id number] Dec, Pain of upper abdomen R10.10 [facility] [address] [id number] [place] [id number] 09 Dec, 2015 Pain of upper abdomen R10.10 and Nausea and vomiting, unspecified intactability, vomiting of unspecified type R11.2 [facility] [address] [id number] [place] [id number] Dec, Other acute pancreatitis K85.8 [facility] [address] [id number] [place] [id number] Dec, Other acute pancreatitis K85.8 [facility] [address] [id number] [place] [id number] November, Type 2 diabetes mellitus with diabetic n europathy E11.40 [facility] [address] [id number] [place] [id number] November, Other acute pancreatitis K85.8 and Type 2 diabetes mellitus with diabetic neuropathy E11.40 [facility] [address] [id number] [place] [id number] November, Acute pancreatitis, unspecified pancreat itis type K85.9 and Type 2 diabetes mellitus with diabetic neuropathy E11.40 [facility] [address] [id number] [place] [id number] November, Abdominal pain, unspecified abdominal lo cation R10.9 [facility] [address] [id number] [place] [id number] November, Diverticulosis of large intestine withou t hemorrhage K57.30 [facility] [address] [id number] [place] [id number] Oct, [facility] [place] [address] [id number] [place] [id number] Oct, [facility] [address] [facility] [id number] [facility] [place] [address] Oct, [facility] [address] [facility] [id number] [place] [id number] Oct, Chest pain R07.9 ; Type 2 diabetes melli tus with diabetic neuropathy E11.40 ; H. pylori infection A04.8 and UTI (urinary tract infection) N39.0 [facility] [address] [id number] [place] [id number] Oct, [facility] [address] [id number] [place] [id number] Sep, Chest pain R07.9 [facility] [address] [facility] [id number] [address] [place] [address] Sep, [facility] [address] [id number] [place] [id number] Sep, [facility] [address] [facility] [id number] [place] [id number] Sep, Abdominal pain, unspecified abdominal lo cation R10.9 and Sciatica, right M54.[address] [id number] [id number] Sep, [facility] [address] [facility] [id number] [place] [id number] Aug, [facility] [address] [facility] [id number] [address] [place] [address] Aug, [facility] [address] [facility] [id number] [place] [id number] Aug, Diverticulitis of large intestine withou t perforation or abscess without bleeding K57.32 [facility] [address] [id number] [place] [id number] Jun, Renal stone N20.0 [facility] [place] [address] [id number] [place] [id number] Jun, Renal and perinephric abscess 590.2 [facility] [place] [address] [id number] [place] [id number] Jun, Renal stone N20.0 [facility] [place] [address] [id number] [place] [id number] May, Foot pain, left M79.672 and Type 2 diabe alyssa mellitus with diabetic neuropathy E11.40 [facility] [address] [id number] [place] [address] Apr, Left foot pain M79.672 [facility] [address] [facility] [id number] [place] [id number] Apr, [facility] [address] [facility] [id number] [place] [id number] Apr, Type 2 diabetes mellitus with diabetic n europathy E11.40 ; Left foot pain M79.672 ; Essential hypertension I10 and Epilepsy without status epilepticus, not intractable, unspecified G40.909 [facility] [address] [facility] [id number] [place] [id number] Apr, Jaron [facility] [id number] [id number] Mar, [facility] [id number] [place] [id number] Feb, Cellulitis and abscess of face 682.0 [facility] [address] [id number] [place] [address], [place] [id number] Feb, Cellulitis and abscess of face 682.0 [facility] [address] [id number] [place] [address] Oct, [facility] [address] [id number] [address] [place] [address] Oct, [facility] [address] [id number] [address] [place] [address] Sep, [facility] [address] [facility] [id number] [place] [id number] Sep, [facility] [address] [id number] [address] [place] [address] Aug, [facility] [id number] [place] [id number] Aug, [facility] [address] [place] [address] Aug, [facility] [address] [id number] [address] [place] [address], [place] [address] Aug, [facility] [address] [facility] [id number] [address] [place] [address] Aug, [facility] [address] [id number] [place] [id number] Jul, [facility] [address] [id number] [address] [place] [address], [place] [address] Jul, [facility] [address] [id number] [place] [id number] Jun, [facility] [address] [facility] [id number] [address] [place] [phone] Jun, [facility] [address] [facility] [id number] [address] [place] [address], [place] [address] Jun, [facility] [address] [id number] [place] [id number] Jun, [facility] [address] [id number] [place] [id number] Jun, [facility] [address] [facility] [id number] [address] [place] [address] Jun, [facility] [address] [id number] [place] [id number] May, [facility] [address] [id number] [address] [place] [address], [place] [address] May, [facility] [address] [id number] [place] [id number] Mar, [facility] [address] [id number] [address] [place] [address] Mar, [facility] [address] [id number] [place] [id number] Mar, [facility] [address] [facility] [id number] [address] [place] [address] Mar, [facility] [address] [id number] [place] [id number] Feb, [facility] [address] [id number] [facility] [place] [address] Feb, [facility] [address] [id number] [place] [id number] Feb, [facility] [address] [id number] [facility] [place] [address] Feb, [facility] [address] [id number] [place] [id number] Jan, [facility] [address] [id number] [address] [place] [address], [place] [address] Jan, [facility] [address] [id number] [place] [id number] Jan, [facility] [address] [id number] [place] [id number] Jan, [facility] [address] [id number] [address] [place] [address], [place] [address] Jan, [facility] [address] [id number] [address] [place] [address], [place] [address] Jan, [facility] [address] [id number] [place] [id number] Dec, [facility] [address] [id number] [address] [place] [address], [place] [address] Dec, [facility] [address] [id number] [place] [id number] Dec, [facility] [address] [id number] [address] [place] [address], [place] [address] Dec, [facility] [address] [id number] [place] [id number] Dec, [facility] [address] [id number] [address] [place] [address], [place] [address] Dec, [facility] [address] [id number] [place] [id number] November, [facility] [address] [id number] [facility] [place] [address] November, [facility] [address] [id number] [place] [id number] November, [facility] [address] [id number] [facility] [place] [address] November, [facility] [address] [id number] [place] [id number] November, [facility] [address] [id number] [facility] [place] [address] November, [facility] [address] [id number] [place], [place] [id number] Oct, [facility] [address] [id number] [facility] [place] [address] Oct, [facility] [address] [id number] [place] [id number] Sep, [facility] [address] [id number] [address] [place] [address], [place] [address] Sep, [facility] [address] [id number] [address] [place] [address], [place] [address] Aug, [facility] [address] [id number] [address] [place] [address], [place] [address] Aug, [facility] [address] [id number] [place] [id number] Aug, [facility] [address] [id number] [facility] [place] [address] Aug, [facility] [address] [id number] [address] [place] [address], [place] [address] Jul, [facility] [address] [id number] [facility] [place] [address] Jul, [facility] [address] [id number] [place] [id number] Jul, [facility] [address] [id number] [address] [place] [address], [place] [address] Jul, [facility] [address] [id number] [address] [place] [address], [place] [address] Jul, [facility] [address] [id number] [place] [id number] Jul, [facility] [address] [id number] [place] [id number] Jul, [facility] [address] [id number] [address] [place] [address], [place] [address] Jul, [facility] [address] [id number] [address] [place] [address], [place] [address] Jul, [facility] [address] [id number] [address] [place] [address], [place] [address] Jul, [facility] [place] [address] [id number] [place] [id number] Jun, [facility] [address] [id number] [address] [place] [address], [place] [address] Jun, [facility] [address] [id number] [address] [place] [address], [place] [address] Jun, [facility] [address] [id number] [address] [place] [address], [place] [address] Jun, [facility] [place] [address] [id number] [place] [id number] May, [facility] [address] [id number] [address] [place] [address], [place] [address] May, [facility] [address] [id number] [place] [id number] May, [facility] [address] [id number] [address] [place] [address], [place] [address] May, [facility] [place] [address] [id number] [place] [id number] Apr, [facility] [address] [facility] [id number] [address] [place] [address] Apr, [facility] [address] [id number] [place] [id number] Mar, [facility] [address] [id number] [place] [id number] Feb, [facility] [address] [id number] [place], [place] [id number] Feb, [facility] [address] [id number] [place], [place] [id number] Feb, [facility] [address] [id number] [place] [id number] Jan, [facility] [address] [id number] [place], [place] [id number] Dec, [facility] [address] [id number] [place] [id number] Dec, [facility] [address] [id number] [place] [id number] Dec, [facility] [address] [id number] [place] [id number] November, [facility] [address] [facility] [id number] [address] [place] [address] November, [facility] [address] [id number] [place] [id number] November, [facility] [address] [id number] [place], [place] [id number] Oct, [facility] [address] [id number] [place], [place] [id number] Oct, [facility] [address] [id number] [place], [place] [id number] Sep, [facility] [address] [id number] [place], [place] [id number] Jul, [facility] [address] [facility] [id number] [address] [place] [address] Jun, [facility] [address] [id number] [address] [place] [address] Jun, [facility] [address] [id number] [place] [id number] Jun, [facility] [address] [id number] [place], [place] [id number] Jun, [facility] [address] [id number] [place] [id number] Jun, [facility] [address] [id number] [address] [place] [address], [place] [address] Jun, [facility] [address] [id number] [place] [id number] Jun, [facility] [address] [facility] [id number] [address] [place] [address] Jun, [facility] [address] [id number] [place] [id number] Jun, [facility] [address] [facility] [id number] [address] [place] [address] Jun, [facility] [address] [id number] [place] [id number] May, [facility] [address] [id number] [place] [id number] May, [facility] [address] [facility] [id number] [address] [place] [address] May, [facility] [address] [facility] [id number] [address] [place] [address] May, [facility] [address] [facility] [id number] [address] [place] [address] May, [facility] [address] [id number] [place] [id number] May, [facility] [address] [id number] [place] [id number] Mar, [facility] [address] [id number] [place] [id number] Mar, [facility] [address] [id number] [place], [place] [id number] Mar, [facility] [address] [id number] [place], [place] [id number] Feb, [facility] [address] [id number] [place] [id number] Feb, [facility] [address] [id number] [place], [place] [id number] Dec, [facility] [address] [id number] [place], [place] [id number] November, [facility] [address] [id number] [place], [place] [id number] November, [facility] [address] [id number] [place], [place] [id number] November, [facility] [address] [id number] [place], K [place] [id number] November, [facility] [address] [id number] [place], [place] [id number] November, [facility] [address] [id number] [place], [place] [id number] Oct, [facility] [address] [id number] [place], [place] [id number] Jul, [facility] [address] [id number] [place] [id number] Jul, [facility] [address] [facility] [id number] [address] [place] [address] Jun, [facility] [address] [facility] [id number] [address] [place] [address] May, [facility] [address] [facility] [id number] [address] [place] [address] May, [facility] [address] [facility] [id number] [address] [place] [address] May, [facility] [address] [facility] [id number] [address] [place] [address] May, [facility] [address] [facility] [id number] [address] [place] [address] 14 Apr, 2011 [facility] [address] [id number] [address] [place] [address] 14 Apr, 2011 [facility] [address] [id number] [address] [place] [address] 14 Apr, 2011 [facility] [address] [id number] [address] [place] [address] 13 Mar, 2011 [facility] [address] [id number] [address] [place] [address] 15 Feb, 2011 [facility] [address] [id number] [address] [place] [address] 07 Jun, 2009 [facility] [address] [facility] [id number] [address] [place] [address] Jun, [facility] [address] [facility] [id number] [address] [place] [address] Jun, IMMUNIZATIONS No Known Immunizations SOCIAL HISTORY [...] Hospitalization History above listed Hospitalization History [facility]--7 days in ICU-new tumors seen on brain scan 2012
--- OUTSIDE RECORDS SUMMARY | 2019-07-04 02:38 | XMS REPORT ---
Author Author Bianca WYNN [facility] Address [address] [place] [address] Care Team Providers Care Tennis Court Attendant Name Role Phone SHERON WYNN Unavailable PROBLEMS Type Condition ICD9-CM Code DWF15-TN Code Onset Dates Condition S tatus SNOMED Code Problem Thoracic or lumbosacral neuritis or radiculitis, unspecifi ed 724.4 Active 786970662 Problem Headache 784.0 Active 56265734 Problem Polyneuropathy in diabetes 357.2 Act kamryn 42530347 Problem Renal and perinephric abscess 590.2 Active 747384302 Problem Type 2 diabetes mellitus with diabetic neuropathy E11.40 Active 95794743 Problem Unspecified epilepsy without mention of intractable epilep sy 345.90 Active 16051443 Problem Epilepsy without status epilepticus, not intract able, unspecified G40.909 Active 624286062 Problem Essential hypertension I10 Active 82811108 Problem Abdominal pain, unspecified abdominal location R10 .9 Active 99870019 Problem Chest pain, unspecified type R07.9 A ctive 86272696 Problem Syncope, unspecified syncope type R55 Active 033259671 Problem Right knee injury, initial encounter S89.91XA Active 534938260 Problem Sciatica, right M54.31 Active 2305 6005 Problem Acute pain of right knee M25.561 Activ e 17467375 Problem Renal stone N20.0 Active 78287765 Problem Diverticulosis of large intestine without hemorrhage K57.30 Active 697025908 Problem Other acute pancreatitis K85.8 Activ e 670778377 Problem Pain of upper abdomen R10.10 Active 79200115 Problem Biliary dyskinesia K82.8 Active 1 [id number] ALLERGIES No Information ENCOUNTERS Encounter Location Date Diagnosis [facility] [address] [id number] [place] [id number] Jan, Dental examination Z01.20 and Dental car ies K02.9 [facility] [address] [facility] [id number] [address] [place] [address] Sep, [facility] [address] [id number] [id number] Aug, [facility] [address] [facility] [id number] [address] [place] [address] May, [facility] [address] [facility] [id number] [address] [place] [address] Apr, [facility] [address] [id number] [place] [id number] Apr, [facility] [address] [id number] [place] [id number] Mar, Acute pain of right knee M25.561 [facility] [address] [id number] [place] [id number] Mar, Acute pain of right knee M25.561 [facility] [address] [facility] [id number] [address] [place] [address] Mar, [facility] [address] [id number] [place] [id number] Feb, Right knee injury, initial encounter S89 .91XA [facility] [address] [id number] [place] [id number] Feb, [facility] [address] [id number] [place] [id number] Jan, [facility] [address] [id number] [place] [id number] Jan, [facility] [address] [id number] [place] [id number] Dec, [facility] [address] [id number] [id number] Dec, Chest pain, unspecified type R07.9 ; Typ e 2 diabetes mellitus with diabetic neuropathy E11.40 ; Essential hypertension I10 ; Syncope, unspecified syncope type R55 and Hyperlipidemia, unspecified hyperlipidemia type E78.5 [facility] [address] [id number] [place] [id number] Dec, Biliary dyskinesia K82.8 [facility] [place] [address] [id number] [place] [id number] Dec, [facility] [place] [address] [id number] [place] [id number] Dec, Pain of upper abdomen R10.10 [facility] [place] [address] [id number] [place] [id number] Dec, Pain of upper abdomen R10.10 and Nausea and vomiting, unspecified intactability, vomiting of unspecified type R11.2 [facility] [place] [address] [id number] [place] [id number] Dec, Other acute pancreatitis K85.8 [facility] [place] [address] [facility] [id number] [place] [id number] Dec, Other acute pancreatitis K85.8 [facility] [place] [address] [facility] [id number] [place] [id number] November, Type 2 diabetes mellitus with diabetic n europathy E11.40 [facility] [address] [id number] [place] [id number] November, Other acute pancreatitis K85.8 and Type 2 diabetes mellitus with diabetic neuropathy E11.40 [facility] [place] [address] [id number] [place] [id number] November, Acute pancreatitis, unspecified pancreat itis type K85.9 and Type 2 diabetes mellitus with diabetic neuropathy E11.40 [facility] [address] [id number] [place] [id number] November, Abdominal pain, unspecified abdominal lo cation R10.9 [facility] [place] [address] [id number] [place] [id number] November, Diverticulosis of large intestine withou t hemorrhage K57.30 [facility] [address] [facility] [id number] [place] [id number] Oct, [facility] [address] [facility] [id number] [place] [id number] Oct, [facility] [address] [facility] [id number] [address] [place] [address] Oct, [facility] [place] [address] [id number] [place] [id number] Oct, Chest pain R07.9 ; Type 2 diabetes cordell larry with diabetic neuropathy E11.40 ; H. pylori infection A04.8 and UTI (urinary tract infection) N39.0 [facility] [place] [address] [id number] [place] [id number] Oct, [facility] [address] [id number] [place] [id number] Sep, Chest pain R07.9 [facility] [address] [facility] [id number] [address] [place] [address] Sep, [facility] [place] [address] [id number] [place] [id number] Sep, [facility] [place] [address] [facility] [id number] [place] [id number] Sep, Abdominal pain, unspecified abdominal lo cation R10.9 and Sciatica, right M54.31 [facility] [address] [facility] [address] [id number] [id number] Sep, [facility] [place] [address] [facility] [id number] [place] [id number] Aug, [facility] [address] [facility] [id number] [address] [place] [address] Aug, [facility] [place] [address] [id number] [place] [id number] Aug, Diverticulitis of large intestine withou t perforation or abscess without bleeding K57.32 [facility] [address] [id number] [place] [id number] Jun, Renal stone N20.0 [facility] [place] [address] [id number] [place] [id number] Jun, Renal and perinephric abscess 590.2 [facility] [place] [address] [id number] [place] [id number] Jun, Renal stone N20.0 [facility] [address] [facility] [id number] [place] [id number] May, Foot pain, left M79.672 and Type 2 diabe alyssa mellitus with diabetic neuropathy E11.40 [facility] [address] [facility] [id number] [address] [place] [address] Apr, Left foot pain M79.672 [facility] [address] [facility] [id number] [place] [id number] Apr, [facility] [address] [facility] [id number] [place] [id number] Apr, Type 2 diabetes mellitus with diabetic n europathy E11.40 ; Left foot pain M79.672 ; Essential hypertension I10 and Epilepsy without status epilepticus, not intractable, unspecified G40.909 [facility] [id number] [place] [id number] Apr, [place] [address] [place] [id number] [place] [id number] Mar, [facility] [id number] [place] [id number] Feb, Cellulitis and abscess of face 682.0 [facility] [id number] [place] [id number] Feb, Cellulitis and abscess of face 682.0 [facility] [address] [place] [address] [id number] [address] [place] [address] Oct, [facility] [address] [id number] [address] [place] [address] Oct, [facility] [address] [facility] [id number] [address] [place] [address] Sep, [facility] [id number] [place] [id number] Sep, [facility] [address] [facility] [id number] [address] [place] [address] Aug, [facility] [address] [id number] [place] [address], [place] [id number] Aug, [facility] [address] [id number] [address] [place] [address], [place] [address] Aug, [facility] [address] [id number] [address] [place] [address], [place] [address] Aug, [facility] [address] [id number] [address] [place] [address], [place] [address] Aug, [facility] [address] [id number] [place] [id number] Jul, [facility] [address] [id number] [address] [place] [address], [place] [address] Jul, [facility] [address] [id number] [place] [id number] Jun, [facility] [address] [facility] [id number] [address] [place] [address], [place] [address] Jun, [facility] [address] [id number] [address] [place] [address], [place] [address] Jun, [facility] [address] [id number] [place] [id number] Jun, [facility] [address] [id number] [place] [id number] Jun, [facility] [address] [facility] [id number] [address] [place] [address], [place] [address] Jun, [facility] [address] [id number] [place] [id number] May, [facility] [address] [id number] [address] [place] [address], [place] [address] May, [facility] [address] [id number] [place] [id number] Mar, [facility] [address] [id number] [address] [place] [address], [place] [address] Mar, [facility] [address] [id number] [place] [id number] Mar, [facility] [address] [id number] [address] [place] [address], [place] [address] Mar, [facility] [address] [id number] [place] [id number] Feb, [facility] [address] [id number] [address] [place] [address], [place] [address] Feb, [facility] [address] [id number] [place], [place] [id number] Feb, [facility] [address] [id number] [address] [place] [address], [place] [address] Feb, [facility] [address] [id number] [place] [id number] Jan, [facility] [address] [id number] [address] [place] [address], [place] [address] Jan, [facility] [address] [id number] [place] [id number] Jan, [facility] [address] [id number] [place] [id number] Jan, [facility] [address] [id number] [address] [place] [address], [place] [address] Jan, [facility] [address] [id number] [address] [place] [address], [place] [address] Jan, [facility] [address] [id number] [place] [id number] Dec, [facility] [address] [id number] [address] [place] [address], [place] [address] Dec, [facility] [address] [id number] [place] [id number] Dec, [facility] [address] [id number] [address] [place] [address], [place] [address] Dec, [facility] [address] [id number] [place] [id number] Dec, [facility] [address] [id number] [address] [place] [address], [place] [address] Dec, [facility] [address] [id number] [place] [id number] November, [facility] [address] [id number] [facility] [place] [address] November, [facility] [address] [id number] [place] [id number] November, [facility] [address] [id number] [address] [place] [address], [place] [address] November, [facility] [address] [id number] [place], [place] [id number] November, [facility] [address] [id number] [address] [place] [address], [place] [address] November, [facility] [address] [id number] [place] [id number] Oct, [facility] [address] [id number] [address] [place] [address], [place] [address] Oct, [facility] [address] [id number] [place] [id number] Sep, [facility] [address] [id number] [address] [place] [address] Sep, [facility] [address] [id number] [address] [place] [address], [place] [address] Aug, [facility] [address] [id number] [address] [place] [address] Aug, [facility] [address] [id number] [place] [id number] Aug, [facility] [address] [id number] [address] [place] [address], [place] [address] Aug, [facility] [address] [id number] [address] [place] [address], [place] [address] Jul, [facility] [address] [id number] [address] [place] [address] Jul, [facility] [address] [id number] [place], [place] [id number] Jul, [facility] [address] [id number] [address] [place] [address], [place] [address] Jul, [facility] [address] [id number] [address] [place] [address], [place] [address] Jul, [facility] [address] [id number] [place] [id number] Jul, [facility] [address] [id number] [place] [id number] Jul, [facility] [address] [id number] [address] [place] [address], [place] [address] Jul, [facility] [address] [id number] [address] [place] [address], [place] [address] Jul, [facility] [address] [id number] [address] [place] [address], [place] [address] Jul, [facility] [place] [address] [id number] [place] [id number] Jun, [facility] [address] [id number] [address] [place] [address], [place] [address] Jun, [facility] [address] [id number] [address] [place] [address], [place] [address] Jun, [facility] [address] [id number] [address] [place] [address], [place] [address] Jun, [facility] [address] [id number] [place] [id number] May, [facility] [address] [id number] [address] [place] [address], [place] [address] May, [facility] [address] [id number] [place] [id number] May, [facility] [address] [id number] [address] [place] [address], [place] [address] May, [facility] [address] [id number] [place], [place] [id number] Apr, [facility] [address] [facility] [id number] [address] [place] [address] Apr, [facility] [address] [id number] [place] [id number] Mar, [facility] [address] [id number] [place] [id number] Feb, [facility] [address] [id number] [place], [place] [id number] Feb, [facility] [address] [id number] [place] [id number] Feb, [facility] [address] [id number] [place] [id number] Jan, [facility] [address] [id number] [place] [id number] Dec, [facility] [address] [id number] [place] [id number] Dec, [facility] [address] [id number] [place] [id number] Dec, [facility] [address] [id number] [place] [id number] November, [facility] [address] [facility] [id number] [address] [place] [address] November, [facility] [address] [id number] [place] [id number] November, [facility] [address] [id number] [place] [id number] Oct, [facility] [address] [id number] [place] [id number] Oct, [facility] [address] [id number] [place], [place] [id number] Sep, [facility] [address] [id number] [place], [place] [id number] Jul, [facility] [address] [facility] [id number] [address] [place] [address] Jun, [facility] [address] [id number] [address] [place] [address], [place] [address] Jun, [facility] [address] [id number] [place] [id number] Jun, [facility] [address] [id number] [place] [id number] Jun, [facility] [address] [id number] [place], [place] [id number] Jun, [facility] [address] [id number] [facility] [place] [address] Jun, [facility] [address] [id number] [place] [id number] Jun, [facility] [address] [facility] [id number] [address] [place] [address], [place] [address] Jun, [facility] [address] [id number] [place] [id number] Jun, [facility] [address] [id number] [address] [place] [address], [place] [address] Jun, [facility] [address] [id number] [place] [id number] May, [facility] [address] [id number] [place] [id number] May, [facility] [address] [facility] [id number] [address] [place] [address], [place] [address] May, [facility] [address] [id number] [address] [place] [address] May, [facility] [address] [id number] [address] [place] [address], [place] [address] May, [facility] [address] [id number] [place] [id number] May, [facility] [address] [id number] [place] [id number] Mar, [facility] [address] [id number] [place], [place] [id number] Mar, [facility] [address] [id number] [place], [place] [id number] Mar, [facility] [address] [id number] [place] [id number] Feb, [facility] [address] [id number] [place], [place] [id number] Feb, [facility] [address] [id number] [place], [place] [id number] Dec, [facility] [address] [id number] [place], [place] [id number] November, [facility] [address] [id number] [place], [place] [id number] November, [facility] [address] [id number] [place], [place] [id number] November, [facility] [address] [id number] [place], [place] [id number] November, [facility] [address] [id number] [place], [place] [id number] November, [facility] [address] [id number] [place] [id number] Oct, [facility] [address] [id number] [place], [place] [id number] Jul, [facility] [address] [id number] [place] [id number] Jul, [facility] [address] [facility] [id number] [address] [place] [address] Jun, [facility] [address] [facility] [id number] [address] [place] [address] May, [facility] [address] [facility] [id number] [address] [place] [address] May, [facility] [address] [facility] [id number] [address] [place] [address] May, [facility] [address] [facility] [id number] [address] [place] [address] May, [facility] [address] [facility] [id number] [address] [place] [phone] 14 Apr, 2011 [facility] [address] [id number] [address] [place] [id number] 14 Apr, 2011 [facility] [address] [facility] [id number] [address] [place] [id number] 14 Apr, 2011 [facility] [address] [facility] [id number] [address] [place] [id number] 13 Mar, 2011 [facility] [address] [facility] [id number] [address] [place] [phone] 15 Feb, 2011 [facility] [address] [facility] [id number] [address] [place] [phone] Jun, [facility] [address] [facility] [id number] [address] [place] [id number] Jun, [facility] [address] [facility] [id number] [address] [place] [phone] Jun, IMMUNIZATIONS No Known Immunizations SOCIAL HISTORY Never Assessed REASON FOR VISIT PLAN OF CARE VITAL SIGNS Height 62 in 2014-08-25 Weight 203.4 lbs 2014-08-25 Temperature 97.9 degrees Fahrenheit 2014-08-25 Heart Rate 76 bpm 2014-08-25 Respiratory Rate 20 2014-08-25 Blood pressure systolic 112 mmHg 2014-08-25 Blood pressure diastolic 60 mmHg 2014-08-25 MEDICATIONS Unknown Medications RESULTS No Results PROCEDURES [...] Hospitalization History above listed Hospitalization History [facility]--7 days in ICU-new tumors seen on brain scan 2012
--- OUTSIDE RECORDS SUMMARY | 2019-07-04 02:38 | XMS REPORT ---
Author Author Bianca WYNN [facility] Address [address] [place] [address] Care Team Providers Care Operations Label Clerk Name Role Phone SHERON WYNN Unavailable PROBLEMS Type Condition ICD9-CM Code BDB25-EB Code Onset Dates Condition S tatus SNOMED Code Problem Thoracic or lumbosacral neuritis or radiculitis, unspecifi ed 724.4 Active 007254115 Problem Headache 784.0 Active 32420740 Problem Polyneuropathy in diabetes 357.2 Act kamryn 71793925 Problem Renal and perinephric abscess 590.2 Active 610907640 Problem Type 2 diabetes mellitus with diabetic neuropathy E11.40 Active 67437013 Problem Unspecified epilepsy without mention of intractable epilep sy 345.90 Active 20092154 Problem Epilepsy without status epilepticus, not intract able, unspecified G40.909 Active 362727970 Problem Essential hypertension I10 Active 40210760 Problem Abdominal pain, unspecified abdominal location R10 .9 Active 10522276 Problem Chest pain, unspecified type R07.9 A ctive 99580680 Problem Syncope, unspecified syncope type R55 Active 434634232 Problem Right knee injury, initial encounter S89.91XA Active 763831616 Problem Sciatica, right M54.31 Active 2305 6005 Problem Acute pain of right knee M25.561 Activ e 11722877 Problem Renal stone N20.0 Active 51916139 Problem Diverticulosis of large intestine without hemorrhage K57.30 Active 138648256 Problem Other acute pancreatitis K85.8 Activ e 500355921 Problem Pain of upper abdomen R10.10 Active 16179277 Problem Biliary dyskinesia K82.8 Active 1 [id number] ALLERGIES No Information ENCOUNTERS Encounter Location Date Diagnosis [facility] [id number] [id number] [place] [id number] Jan, Dental examination Z01.20 and Dental car ies K02.9 [facility] [address] [facility] [id number] [address] [place] [address] Sep, [facility] [address] [id number] [id number] Aug, [facility] [address] [facility] [id number] [address] [place] [address] May, [facility] [address] [facility] [id number] [address] [place] [address] Apr, [facility] [address] [id number] [place] [id number] Apr, [facility] [address] [id number] [place] [id number] Mar, Acute pain of right knee M25.561 [facility] [address] [id number] [place] [id number] Mar, Acute pain of right knee M25.561 [facility] [address] [facility] [id number] [address] [place] [address] Mar, [facility] [address] [id number] [place] [id number] Feb, Right knee injury, initial encounter S89 .91XA [facility] [address] [id number] [place] [id number] Feb, [facility] [address] [id number] [place] [id number] Jan, [facility] [address] [id number] [place] [id number] Jan, [facility] [address] [id number] [place] [id number] Dec, [facility] [address] [id number] [id number] Dec, Chest pain, unspecified type R07.9 ; Typ e 2 diabetes mellitus with diabetic neuropathy E11.40 ; Essential hypertension I10 ; Syncope, unspecified syncope type R55 and Hyperlipidemia, unspecified hyperlipidemia type E78.5 [facility] [address] [id number] [place] [id number] Dec, Biliary dyskinesia K82.8 [facility] [place] [address] [id number] [place] [id number] Dec, [facility] [place] [address] [id number] [place] [id number] Dec, Pain of upper abdomen R10.10 [facility] [place] [address] [id number] [place] [id number] Dec, Pain of upper abdomen R10.10 and Nausea and vomiting, unspecified intactability, vomiting of unspecified type R11.2 [facility] [place] [address] [id number] [place] [id number] Dec, Other acute pancreatitis K85.8 [facility] [place] [address] [facility] [id number] [place] [id number] Dec, Other acute pancreatitis K85.8 [facility] [place] [address] [facility] [id number] [place] [id number] November, Type 2 diabetes mellitus with diabetic n europathy E11.40 [facility] [address] [id number] [place] [id number] November, Other acute pancreatitis K85.8 and Type 2 diabetes mellitus with diabetic neuropathy E11.40 [facility] [place] [address] [id number] [place] [id number] November, Acute pancreatitis, unspecified pancreat itis type K85.9 and Type 2 diabetes mellitus with diabetic neuropathy E11.40 [facility] [address] [id number] [place] [id number] November, Abdominal pain, unspecified abdominal lo cation R10.9 [facility] [place] [address] [id number] [place] [id number] November, Diverticulosis of large intestine withou t hemorrhage K57.30 [facility] [address] [facility] [id number] [place] [id number] Oct, [facility] [address] [facility] [id number] [place] [id number] Oct, [facility] [address] [facility] [id number] [address] [place] [address] Oct, [facility] [place] [address] [id number] [place] [id number] Oct, Chest pain R07.9 ; Type 2 diabetes cordell larry with diabetic neuropathy E11.40 ; H. pylori infection A04.8 and UTI (urinary tract infection) N39.0 [facility] [place] [address] [id number] [place] [id number] Oct, [facility] [place] [address] [id number] [place] [id number] Sep, Chest pain R07.9 [facility] [address] [facility] [id number] [address] [place] [address] Sep, [facility] [place] [address] [id number] [place] [id number] Sep, [facility] [place] [address] [facility] [id number] [place] [id number] Sep, Abdominal pain, unspecified abdominal lo cation R10.9 and Sciatica, right M54.31 [facility] [address] [facility] [address] [id number] [id number] Sep, [facility] [place] [address] [facility] [id number] [place] [id number] Aug, [facility] [address] [facility] [id number] [address] [place] [address] Aug, [facility] [place] [address] [id number] [place] [id number] Aug, Diverticulitis of large intestine withou t perforation or abscess without bleeding K57.32 [facility] [address] [id number] [place] [id number] Jun, Renal stone N20.0 [facility] [place] [address] [id number] [place] [id number] Jun, Renal and perinephric abscess 590.2 [facility] [place] [address] [id number] [place] [id number] Jun, Renal stone N20.0 [facility] [address] [facility] [id number] [place] [id number] May, Foot pain, left M79.672 and Type 2 diabe alyssa mellitus with diabetic neuropathy E11.40 [facility] [address] [facility] [id number] [address] [place] [address] Apr, Left foot pain M79.672 [facility] [address] [facility] [id number] [place] [id number] Apr, [facility] [address] [facility] [id number] [place] [id number] Apr, Type 2 diabetes mellitus with diabetic n europathy E11.40 ; Left foot pain M79.672 ; Essential hypertension I10 and Epilepsy without status epilepticus, not intractable, unspecified G40.909 [facility] [id number] [place] [id number] Apr, [place] [address] [place] [id number] [place] [id number] Mar, [facility] [id number] [place] [id number] Feb, Cellulitis and abscess of face 682.0 [facility] [id number] [place] [id number] Feb, Cellulitis and abscess of face 682.0 [facility] [address] [id number] [address] [place] [address] Oct, [facility] [address] [place] [id number] [address] [place] [address] Oct, [facility] [address] [facility] [id number] [address] [place] [address] Sep, [facility] [id number] [place] [id number] Sep, [facility] [address] [facility] [id number] [address] [place] [address] Aug, [facility] [address] [place] [id number] [place] [address], [place] [id number] Aug, [facility] [address] [id number] [address] [place] [address], [place] [address] Aug, [facility] [address] [id number] [address] [place] [address], [place] [address] Aug, [facility] [address] [id number] [address] [place] [address], [place] [address] Aug, [facility] [address] [id number] [place] [id number] Jul, [facility] [address] [id number] [address] [place] [address], [place] [address] Jul, [facility] [address] [id number] [place] [id number] Jun, [facility] [address] [facility] [id number] [address] [place] [address], [place] [address] Jun, [facility] [address] [id number] [address] [place] [address], [place] [address] Jun, [facility] ASM [address] [id number] [place] [id number] Jun, [facility] SAM [address] [id number] [place] [id number] Jun, [facility] [address] [facility] [id number] [address] [place] [address], [place] [address] Jun, [facility] [address] [id number] [place] [id number] May, [facility] [address] [id number] [address] [place] [address], [place] [address] May, [facility] [address] [id number] [place] [id number] Mar, [facility] [address] [id number] [address] [place] [address], [place] [address] Mar, [facility] [address] [id number] [place] [id number] Mar, [facility] [address] [id number] [address] [place] [address], [place] [address] Mar, [facility] [address] [id number] [place] [id number] Feb, [facility] [address] [id number] [address] [place] [address], [place] [address] Feb, [facility] [address] [id number] [place] [id number] Feb, [facility] [address] [id number] [address] [place] [address], [place] [address] Feb, [facility] [address] [id number] [place] [id number] Jan, [facility] [address] [id number] [address] [place] [address], [place] [address] Jan, [facility] [address] [id number] [place] [id number] Jan, [facility] SAM [address] [id number] [place], [place] [id number] Jan, [facility] [address] [id number] [address] [place] [address], [place] [address] Jan, [facility] [address] [id number] [address] [place] [address], [place] [address] Jan, [facility] SAM [address] [id number] [place] [id number] Dec, [facility] [address] [id number] [address] [place] [address], [place] [address] Dec, [facility] SAM [address] [id number] [place] [id number] Dec, [facility] [address] [id number] [address] [place] [address], [place] [address] Dec, [facility] SAM [address] [id number] [place], [place] [id number] Dec, [facility] [address] [id number] [address] [place] [address], [place] [address] Dec, [facility] SAM [address] [id number] [place] [id number] November, [facility] [address] [id number] [facility] [place] [address] November, [facility] [address] [id number] [place] [id number] November, [facility] [address] [id number] [address] [place] [address], [place] [address] November, [facility] SAM [address] [id number] [place] [id number] November, [facility] [address] [id number] [address] [place] [address], [place] [address] November, [facility] SAM [address] [id number] [place] [id number] Oct, [facility] [address] [id number] [address] [place] [address], [place] [address] Oct, [facility] SAM [address] [id number] [place], [place] [id number] Sep, [facility] [place] [address] [id number] [address] [place] [address] Sep, [facility] [address] [id number] [address] [place] [address], [place] [address] Aug, [facility] [address] [id number] [address] [place] [address] Aug, [facility] [address] [id number] [place] [id number] Aug, [facility] [address] [id number] [address] [place] [address], [place] [address] Aug, [facility] [address] [id number] [address] [place] [address], [place] [address] Jul, [facility] [address] [id number] [address] [place] [address] Jul, [facility] [address] [id number] [place] [id number] Jul, [facility] [address] [id number] [address] [place] [address], [place] [address] Jul, [facility] [address] [id number] [address] [place] [address], [place] [address] Jul, [facility] [address] [id number] [place] [id number] Jul, [facility] [address] [id number] [place] [id number] Jul, [facility] [address] [id number] [address] [place] [address], [place] [address] Jul, [facility] [address] [id number] [address] [place] [address], [place] [address] Jul, [facility] [address] [id number] [address] [place] [address], [place] [address] Jul, [facility] [place] [address] [id number] [place] [id number] Jun, [facility] [address] [id number] [address] [place] [address], [place] [address] Jun, [facility] [address] [id number] [address] [place] [address], [place] [address] Jun, [facility] [address] [id number] [address] [place] [address], [place] [address] Jun, [facility] [address] [id number] [place] [id number] May, [facility] [address] [id number] [address] [place] [address], [place] [address] May, [facility] [address] [id number] [place] [id number] May, [facility] [address] [id number] [address] [place] [address], [place] [address] May, [facility] [address] [id number] [place] [id number] Apr, [facility] [address] [facility] [id number] [address] [place] [address] Apr, [facility] [address] [id number] [place] [id number] Mar, [facility] [address] [id number] [place], [place] [id number] Feb, [facility] [address] [id number] [place] [id number] Feb, [facility] [address] [id number] [place], [place] [id number] Feb, [facility] [address] [id number] [place], [place] [id number] Jan, [facility] [address] [id number] [place] [id number] Dec, [facility] [address] [id number] [place] [id number] Dec, [facility] [address] [id number] [place], K S [id number] Dec, [facility] [address] [id number] [place] [id number] November, [facility] [address] [facility] [id number] [address] [place] [address] November, [facility] [address] [id number] [place] [id number] November, [facility] [address] [id number] [place] [id number] Oct, [facility] [address] [id number] [place], [place] [id number] Oct, [facility] [address] [id number] [place] [id number] Sep, [facility] [address] [id number] [place] [id number] Jul, [facility] [address] [facility] [id number] [address] [place] [address] Jun, [facility] [address] [id number] [address] [place] [address], [place] [address] Jun, [facility] [address] [id number] [place] [id number] Jun, [facility] [address] [id number] [place] [id number] Jun, [facility] [address] [id number] [place] [id number] Jun, [facility] [address] [id number] [facility] [place] [address] Jun, [facility] [address] [id number] [place] [id number] Jun, [facility] [address] [facility] [id number] [address] [place] [address], [place] [address] Jun, [facility] [address] [id number] [place] [id number] Jun, [facility] [address] [id number] [address] [place] [address], [place] [address] Jun, [facility] [address] [id number] [place] [id number] May, [facility] [address] [id number] [place] [id number] May, [facility] [address] [facility] [id number] [address] [place] [address], [place] [address] May, [facility] [address] [id number] [address] [place] [address] May, [facility] [address] [id number] [address] [place] [address], [place] [address] May, [facility] [address] [id number] [place] [id number] May, [facility] [address] [id number] [place] [id number] Mar, [facility] [address] [id number] [place], [place] [id number] Mar, [facility] [address] [id number] [place], [place] [id number] Mar, [facility] [address] [id number] [place], [place] [id number] Feb, [facility] [address] [id number] [place], [place] [id number] Feb, [facility] [address] [id number] [place], [place] [id number] Dec, [facility] [address] [id number] [place], [place] [id number] November, [facility] [address] [id number] [place] [id number] November, [facility] [address] [id number] [place] [id number] November, [facility] [address] [id number] [place] [id number] November, [facility] [address] [id number] [place] [id number] November, [facility] [address] [id number] [place] [id number] Oct, [facility] [address] [id number] [place], [place] [id number] Jul, [facility] [address] [id number] [place] [id number] Jul, [facility] [address] [facility] [id number] [address] [place] [address] Jun, [facility] [address] [facility] [id number] [address] [place] [address] May, [facility] [address] [facility] [id number] [address] [place] [address] May, [facility] [address] [facility] [id number] [address] [place] [address] May, [facility] [address] [facility] [id number] [address] [place] [address] May, [facility] [address] [facility] [id number] [address] [place] [address] 14 Apr, 2011 [facility] [address] [id number] [address] [place] [address] 14 Apr, 2011 [facility] [address] [facility] [id number] [address] [place] [address] 14 Apr, 2011 [facility] [address] [facility] [id number] [address] [place] [address] 13 Mar, 2011 [facility] [address] [facility] [id number] [address] [place] [phone] Feb, [facility] [address] [facility] [id number] [address] [place] [id number] Jun, [facility] [address] [facility] [id number] [address] [place] [phone] Jun, [facility] [address] [facility] [id number] [address] [place] [id number] Jun, IMMUNIZATIONS No Known Immunizations SOCIAL HISTORY Never Assessed REASON FOR VISIT PLAN OF CARE VITAL SIGNS Height 62 in 2014-09-22 Weight 198.81 lbs 2014-09-22 Temperature 98.1 degrees Fahrenheit 2014-09-22 Heart Rate 72 bpm 2014-09-22 Respiratory Rate 16 2014-09-22 Blood pressure systolic 114 mmHg 2014-09-22 Blood pressure diastolic 70 mmHg 2014-09-22 MEDICATIONS Unknown Medications RESULTS No Results PROCEDURES [...] Hospitalization History above listed Hospitalization History [facility]--7 days in ICU-new tumors seen on brain scan 2012
--- OUTSIDE RECORDS SUMMARY | 2019-07-04 02:38 | XMS REPORT ---
Author Author Bianca Donnelly Doctor Organization [facility] Address Unknown Phone Unavailable Care Team Providers Care [employer] Attendant Name Role Phone Migration, Doctor Unavailable Unavailable PROBLEMS Type Condition ICD9-CM Code KFB95-AV Code Onset Dates Condition S tatus SNOMED Code Problem Thoracic or lumbosacral neuritis or radiculitis, unspecifi ed 724.4 Active 729772573 Problem Headache 784.0 Active 41034354 Problem Polyneuropathy in diabetes 357.2 Act kamryn 74768736 Problem Renal and perinephric abscess 590.2 Active 294920641 Problem Type 2 diabetes mellitus with diabetic neuropathy E11.40 Active 95599682 Problem Unspecified epilepsy without mention of intractable epilep sy 345.90 Active 23470801 Problem Epilepsy without status epilepticus, not intract able, unspecified G40.909 Active 045023772 Problem Essential hypertension I10 Active 53758832 Problem Abdominal pain, unspecified abdominal location R10 .9 Active 25374998 Problem Chest pain, unspecified type R07.9 A ctive 72746089 Problem Syncope, unspecified syncope type R55 Active 025498736 Problem Right knee injury, initial encounter S89.91XA Active 150091009 Problem Sciatica, right M54.31 Active 2305 6005 Problem Acute pain of right knee M25.561 Activ e 60607987 Problem Renal stone N20.0 Active 33177346 Problem Diverticulosis of large intestine without hemorrhage K57.30 Active 249450795 Problem Other acute pancreatitis K85.8 Activ e 814303172 Problem Pain of upper abdomen R10.10 Active 04953955 Problem Biliary dyskinesia K82.8 Active 1 [id number] ALLERGIES No Information ENCOUNTERS Encounter Location Date Diagnosis [facility] [id number] [id number] [id number] Jan, Dental examination Z01.20 and Dental car ies K02.9 [facility] [address] [id number] [place] [address] Sep, [facility] [address] [id number] [id number] Aug, [facility] [address] [facility] [id number] [address] [place] [address] May, [facility] [address] [facility] [id number] [address] [place] [address] Apr, [facility] [place] [address] [id number] [place] [id number] Apr, [facility] [address] [id number] [place] [id number] Mar, Acute pain of right knee M25.561 [facility] [address] [id number] [place] [id number] Mar, Acute pain of right knee M25.561 [facility] [address] [facility] [id number] [address] [place] [address] Mar, [facility] [place] [address] [id number] [place] [id number] Feb, Right knee injury, initial encounter S89 .91XA [facility] [address] [id number] [place] [id number] Feb, [facility] [address] [id number] [place] [id number] Jan, [facility] [place] [address] [id number] [place] [id number] Jan, [facility] [place] [address] [id number] [place] [id number] Dec, [facility] [address] [id number] [place] [id number] Dec, Chest pain, unspecified type R07.9 ; Typ e 2 diabetes mellitus with diabetic neuropathy E11.40 ; Essential hypertension I10 ; Syncope, unspecified syncope type R55 and Hyperlipidemia, unspecified hyperlipidemia type E78.5 [facility] [place] [address] [id number] [place] [id number] Dec, Biliary dyskinesia K82.8 [facility] [address] [id number] [place] [id number] 15 Dec, 2015 [facility] [address] [id number] [place] [id number] Dec, Pain of upper abdomen R10.10 [facility] [address] [id number] [place] [id number] 09 Dec, 2015 Pain of upper abdomen R10.10 and Nausea and vomiting, unspecified intactability, vomiting of unspecified type R11.2 [facility] [address] [id number] [place] [id number] Dec, Other acute pancreatitis K85.8 [facility] [address] [id number] [place] [id number] Dec, Other acute pancreatitis K85.8 [facility] [address] [id number] [place] [id number] November, Type 2 diabetes mellitus with diabetic n europathy E11.40 [facility] [address] [id number] [place] [id number] November, Other acute pancreatitis K85.8 and Type 2 diabetes mellitus with diabetic neuropathy E11.40 [facility] [address] [id number] [place] [id number] November, Acute pancreatitis, unspecified pancreat itis type K85.9 and Type 2 diabetes mellitus with diabetic neuropathy E11.40 [facility] [address] [id number] [place] [id number] November, Abdominal pain, unspecified abdominal lo cation R10.9 [facility] [address] [id number] [place] [id number] November, Diverticulosis of large intestine withou t hemorrhage K57.30 [facility] [address] [id number] [place] [id number] Oct, [facility] [place] [address] [id number] [place] [id number] Oct, [facility] [address] [facility] [id number] [facility] [place] [address] Oct, [facility] [address] [facility] [id number] [place] [id number] Oct, Chest pain R07.9 ; Type 2 diabetes melli tus with diabetic neuropathy E11.40 ; H. pylori infection A04.8 and UTI (urinary tract infection) N39.0 [facility] [address] [id number] [place] [id number] Oct, [facility] [address] [id number] [place] [id number] Sep, Chest pain R07.9 [facility] [address] [facility] [id number] [address] [place] [address] Sep, [facility] [address] [id number] [place] [id number] Sep, [facility] [address] [facility] [id number] [place] [id number] Sep, Abdominal pain, unspecified abdominal lo cation R10.9 and Sciatica, right M54.[address] [id number] [id number] Sep, [facility] [address] [facility] [id number] [place] [id number] Aug, [facility] [address] [facility] [id number] [address] [place] [address] Aug, [facility] [address] [facility] [id number] [place] [id number] Aug, Diverticulitis of large intestine withou t perforation or abscess without bleeding K57.32 [facility] [address] [id number] [place] [id number] Jun, Renal stone N20.0 [facility] [place] [address] [id number] [place] [id number] Jun, Renal and perinephric abscess 590.2 [facility] [place] [address] [id number] [place] [id number] Jun, Renal stone N20.0 [facility] [place] [address] [id number] [place] [id number] May, Foot pain, left M79.672 and Type 2 diabe alyssa mellitus with diabetic neuropathy E11.40 [facility] [address] [id number] [address] [place] [address] Apr, Left foot pain M79.672 [facility] [address] [facility] [id number] [place] [id number] Apr, [facility] [address] [facility] [id number] [place] [id number] Apr, Type 2 diabetes mellitus with diabetic n europathy E11.40 ; Left foot pain M79.672 ; Essential hypertension I10 and Epilepsy without status epilepticus, not intractable, unspecified G40.909 [facility] [address] [facility] [id number] [place] [id number] Apr, [facility] [id number] [id number] Mar, [facility] [id number] [place] [id number] Feb, Cellulitis and abscess of face 682.0 [facility] [id number] [place] [address], [place] [id number] Feb, Cellulitis and abscess of face 682.0 [facility] [address] [id number] [address] [place] [address] Oct, [facility] [address] [id number] [address] [place] [address] Oct, [facility] [address] [id number] [address] [place] [address] Sep, [facility] 120 [facility][1] [id number] [place] [id number] Sep, [facility] [address] [id number] [address] [place] [address] Aug, [facility] [id number] [place] [id number] Aug, [facility] [id number] [place] [address] Aug, [facility] [address] [id number] [address] [place] [address], [place] [address] Aug, [facility] [address] [facility] [id number] [address] [place] [address] Aug, [facility] [address] [id number] [place] [id number] Jul, [facility] [address] [id number] [address] [place] [address], [place] [address] Jul, [facility] [address] [id number] [place] [id number] Jun, [facility] [address] [facility] [id number] [address] [place] [address] Jun, [facility] [address] [facility] [id number] [address] [place] [address], [place] [address] Jun, [facility] [address] [id number] [place] [id number] Jun, [facility] [address] [id number] [place] [id number] Jun, [facility] [address] [facility] [id number] [address] [place] [address] Jun, [facility] [address] [id number] [place] [id number] May, [facility] [address] [id number] [address] [place] [address], [place] [address] May, [facility] [address] [id number] [place] [id number] Mar, [facility] [address] [id number] [address] [place] [address] Mar, [facility] [address] [id number] [place] [id number] Mar, [facility] [address] [facility] [id number] [address] [place] [address] Mar, [facility] [address] [id number] [place] [id number] Feb, [facility] [address] [id number] [facility] [address] Feb, [facility] [address] [id number] [place] [id number] Feb, [facility] [address] [id number] [facility] [place] [address] Feb, [facility] [address] [id number] [place], [place] [id number] Jan, [facility] [address] [id number] [address] [place] [address], [place] [address] Jan, [facility] [address] [id number] [place], [place] [id number] Jan, [facility] [address] [id number] [place] [id number] Jan, [facility] [address] [id number] [address] [place] [address], [place] [address] Jan, [facility] [address] [id number] [address] [place] [address], [place] [address] Jan, [facility] [address] [id number] [place], [place] [id number] Dec, [facility] [address] [id number] [address] [place] [address], [place] [address] Dec, [facility] [address] [id number] [place] [id number] Dec, [facility] [address] [id number] [address] [place] [address], [place] [address] Dec, [facility] [address] [id number] [place], [place] [id number] Dec, [facility] [address] [id number] [address] [place] [address], [place] [address] Dec, [facility] [address] [id number] [place], [place] [id number] November, [facility] [address] [id number] [facility] [place] [address] November, [facility] [address] [id number] [place], [place] [id number] November, [facility] [address] [id number] [facility] [place] [address] November, [facility] [address] [id number] [place], [place] [id number] November, [facility] [address] [id number] [facility] [place] [address] November, [facility] [address] [id number] [place] [id number] Oct, [facility] [address] [id number] [facility] [address] Oct, [facility] [address] [id number] [place] [id number] Sep, [facility] [address] [id number] [address] [place] [address], [place] [address] Sep, [facility] [address] [id number] [address] [place] [address], [place] [address] Aug, [facility] [address] [id number] [address] [place] [address], [place] [address] Aug, [facility] [address] [id number] [place] [id number] Aug, [facility] [address] [id number] [facility] [address] Aug, [facility] [address] [id number] [address] [place] [address], [place] [address] Jul, [facility] [address] [id number] [facility] [place] [address] Jul, [facility] [address] [id number] [place] [id number] Jul, [facility] [address] [id number] [address] [place] [address], [place] [address] Jul, [facility] [address] [id number] [address] [place] [address], [place] [address] Jul, [facility] [address] [id number] [place] [id number] Jul, [facility] [address] [id number] [place] [id number] Jul, [facility] [address] [id number] [address] [place] [address], [place] [address] Jul, [facility] [address] [id number] [address] [place] [address], [place] [address] Jul, [facility] [address] [id number] [address] [place] [address], [place] [address] Jul, [facility] [place] [address] [id number] [place] [id number] Jun, [facility] [address] [id number] [address] [place] [address], [place] [address] Jun, [facility] [address] [id number] [address] [place] [address], [place] [address] Jun, [facility] [address] [id number] [address] [place] [address], [place] [address] Jun, [facility] [place] [address] [id number] [place] [id number] May, [facility] [address] [id number] [address] [place] [address], [place] [address] May, [facility] [address] [id number] [place] [id number] May, [facility] [address] [id number] [address] [place] [address], [place] [address] May, [facility] [place] [address] [id number] [place] [id number] Apr, [facility] [address] [facility] [id number] [address] [place] [address] Apr, [facility] [address] [id number] [place] [id number] Mar, [facility] [address] [id number] [place], [place] [id number] Feb, [facility] [address] [id number] [place] [id number] Feb, [facility] [address] [id number] [place], [place] [id number] Feb, [facility] [address] [id number] [place], [place] [id number] Jan, [facility] [address] [id number] [place], [place] [id number] Dec, [facility] [address] [id number] [place] [id number] Dec, [facility] [address] [id number] [place], [place] [id number] Dec, [facility] [address] [id number] [place], [place] [id number] November, [facility] [address] [facility] [id number] [address] [place] [address] November, [facility] [address] [id number] [place] [id number] November, [facility] [address] [id number] [place], [place] [id number] Oct, [facility] [address] [id number] [place], [place] [id number] Oct, [facility] [address] [id number] [place] [id number] Sep, [facility] [address] [id number] [place], [place] [id number] Jul, [facility] [address] [facility] [id number] [address] [place] [address] Jun, [facility] [address] [id number] [address] [place] [address] Jun, [facility] [address] [id number] [place], [place] [id number] Jun, [facility] [address] [id number] [place] [id number] Jun, [facility] [address] [id number] [place] [id number] Jun, [facility] [address] [id number] [address] [place] [address], [place] [address] Jun, [facility] [address] [id number] [place], [place] [id number] Jun, [facility] [address] [facility] [id number] [address] [place] [address] Jun, [facility] [address] [id number] [place] [id number] Jun, [facility] [address] [facility] [id number] [address] [place] [address] Jun, [facility] [address] [id number] [place] [id number] May, [facility] [address] [id number] [place] [id number] May, [facility] [address] [facility] [id number] [address] [place] [address] May, [facility] [address] [facility] [id number] [address] [place] [address] May, [facility] [address] [facility] [id number] [address] [place] [address] May, [facility] [address] [id number] [place] [id number] May, [facility] [address] [id number] [place] [id number] Mar, [facility] [address] [id number] [place] [id number] Mar, [facility] [address] [id number] [place] [id number] Mar, [facility] [address] [id number] [place], [place] [id number] Feb, [facility] [address] [id number] [place], [place] [id number] Feb, [facility] [address] [id number] [place] [id number] Dec, [facility] [address] [id number] [place], [place] [id number] November, [facility] [address] [id number] [place] [id number] November, [facility] [address] [id number] [place], [place] [id number] November, [facility] [address] [id number] [place], [place] [id number] November, [facility] [address] [id number] [place], [place] [id number] November, [facility] [address] [id number] [place] [id number] Oct, [facility] [address] [id number] [place], [place] S [id number] Jul, [facility] [address] [id number] [place], [place] [id number] Jul, [facility] [address] [facility] [id number] [address] [place] [address] Jun, [facility] [address] [facility] [id number] [address] [place] [address] May, [facility] [address] [facility] [id number] [address] [place] [address] May, [facility] [address] [facility] [id number] [address] [place] [address] May, [facility] [address] [facility] [id number] [address] [place] [address] May, [facility] [address] [facility] [id number] [address] [place] [address] 14 Apr, 2011 [facility] [address] [id number] [address] [place] [address] 14 Apr, 2011 [facility] [address] [id number] [address] [place] [address] 14 Apr, 2011 [facility] [address] [id number] [address] [place] [address] 13 Mar, 2011 [facility] [address] [id number] [address] [place] [address] 15 Feb, 2011 [facility] [address] [id number] [address] [place] [id number] 07 Jun, 2009 [facility] [address] [facility] [id number] [address] [place] [address] 19 Jun, 2008 [facility] [address] [facility] [id number] [address] [place] [address] Jun, IMMUNIZATIONS No Known Immunizations SOCIAL HISTORY Never Assessed REASON FOR VISIT [facility] PLAN OF CARE VITAL SIGNS MEDICATIONS Unknown [...] Hospitalization History above listed Hospitalization History Via [facility]--7 days in ICU-new tumors seen on brain scan 2012
--- OUTSIDE RECORDS SUMMARY | 2019-07-04 02:38 | XMS REPORT ---
Author Author Bianca WYNN [facility] Address [address] [place] [address] Care Team Providers Care Product Marketing Specialist Name Role Phone SHERON WYNN Unavailable PROBLEMS Type Condition ICD9-CM Code [id number] Code Onset Dates Condition S tatus SNOMED Code Problem Thoracic or lumbosacral neuritis or radiculitis, unspecifi ed 724.4 Active 482573375 Problem Headache 784.0 Active 95754529 Problem Polyneuropathy in diabetes 357.2 Act kamryn 27063989 Problem Renal and perinephric abscess 590.2 Active 060997352 Problem Type 2 diabetes mellitus with diabetic neuropathy E11.40 Active 87187285 Problem Unspecified epilepsy without mention of intractable epilep sy 345.90 Active 89236980 Problem Epilepsy without status epilepticus, not intract able, unspecified G40.909 Active 093756751 Problem Essential hypertension I10 Active 64146376 Problem Abdominal pain, unspecified abdominal location R10 .9 Active 11509401 Problem Chest pain, unspecified type R07.9 A ctive 26761511 Problem Syncope, unspecified syncope type R55 Active 465122835 Problem Right knee injury, initial encounter S89.91XA Active 894773995 Problem Sciatica, right M54.31 Active 2305 6005 Problem Acute pain of right knee M25.561 Activ e 12012385 Problem Renal stone N20.0 Active 46058084 Problem Diverticulosis of large intestine without hemorrhage K57.30 Active 744152380 Problem Other acute pancreatitis K85.8 Activ e 770905567 Problem Pain of upper abdomen R10.10 Active 64583829 Problem Biliary dyskinesia K82.8 Active 1 [id number] ALLERGIES No Information ENCOUNTERS Encounter Location Date Diagnosis [facility] [address] [id number] [place] [id number] Jan, Dental examination Z01.20 and Dental car ies K02.9 [facility] [address] [facility] [id number] [address] [place] [address] Sep, [facility] [address] [id number] [id number] Aug, [facility] [address] [facility] [id number] [address] [place] [address] May, [facility] [address] [facility] [id number] [address] [place] [address] Apr, [facility] [address] [id number] [place] [id number] Apr, [facility] [address] [id number] [place] [id number] Mar, Acute pain of right knee M25.561 [facility] [address] [id number] [place] [id number] Mar, Acute pain of right knee M25.561 [facility] [address] [facility] [id number] [address] [place] [address] Mar, [facility] [address] [id number] [place] [id number] Feb, Right knee injury, initial encounter S89 .91XA [facility] [address] [id number] [place] [id number] Feb, [facility] [address] [id number] [place] [id number] Jan, [facility] [address] [id number] [place] [id number] Jan, [facility] [address] [id number] [place] [id number] Dec, [facility] [address] [id number][place] [id number] Dec, Chest pain, unspecified type R07.9 ; Typ e 2 diabetes mellitus with diabetic neuropathy E11.40 ; Essential hypertension I10 ; Syncope, unspecified syncope type R55 and Hyperlipidemia, unspecified hyperlipidemia type E78.5 [facility] [address] [id number] [place] [id number] Dec, Biliary dyskinesia K82.8 [facility] [place] [address] [id number] [place] [id number] Dec, [facility] [place] [address] [id number] [place] [id number] Dec, Pain of upper abdomen R10.10 [facility] [place] [address] [id number] [place] [id number] Dec, Pain of upper abdomen R10.10 and Nausea and vomiting, unspecified intactability, vomiting of unspecified type R11.2 [facility] [place] [address] [id number] [place] [id number] Dec, Other acute pancreatitis K85.8 [facility] [place] [address] [facility] [id number] [place] [id number] Dec, Other acute pancreatitis K85.8 [facility] [place] [address] [facility] [id number] [place] [id number] November, Type 2 diabetes mellitus with diabetic n europathy E11.40 [facility] [address] [id number] [place] [id number] November, Other acute pancreatitis K85.8 and Type 2 diabetes mellitus with diabetic neuropathy E11.40 [facility] [place] [address] [id number] [place] [id number] November, Acute pancreatitis, unspecified pancreat itis type K85.9 and Type 2 diabetes mellitus with diabetic neuropathy E11.40 [facility] [address] [id number] [place] [id number] November, Abdominal pain, unspecified abdominal lo cation R10.9 [facility] [place] [address] [id number] [place] [id number] November, Diverticulosis of large intestine withou t hemorrhage K57.30 [facility] [address] [facility] [id number] [place] [id number] Oct, [facility] [address] [facility] [id number] [place] [id number] Oct, [facility] [address] [facility] [id number] [address] [place] [address] Oct, [facility] [place] [address] [id number] [place] [id number] Oct, Chest pain R07.9 ; Type 2 diabetes cordell larry with diabetic neuropathy E11.40 ; H. pylori infection A04.8 and UTI (urinary tract infection) N39.0 [facility] [place] [address] [id number] [place] [id number] Oct, [facility] [address] [id number] [place] [id number] Sep, Chest pain R07.9 [facility] [address] [facility] [id number] [address] [place] [address] Sep, [facility] [place] [address] [id number] [place] [id number] Sep, [facility] [place] [address] [facility] [id number] [place] [id number] Sep, Abdominal pain, unspecified abdominal lo cation R10.9 and Sciatica, right M54.31 [facility] [address] [facility] [address] [id number] [id number] Sep, [facility] [place] [address] [facility] [id number] [place] [id number] Aug, [facility] [address] [facility] [id number] [address] [place] [address] Aug, [facility] [place] [address] [id number] [place] [id number] Aug, Diverticulitis of large intestine withou t perforation or abscess without bleeding K57.32 [facility] [address] [id number] [place] [id number] Jun, Renal stone N20.0 [facility] [place] [address] [id number] [place] [id number] Jun, Renal and perinephric abscess 590.2 [facility] [place] [address] [id number] [place] [id number] Jun, Renal stone N20.0 [facility] [address] [facility] [id number] [place] [id number] May, Foot pain, left M79.672 and Type 2 diabe alyssa mellitus with diabetic neuropathy E11.40 [facility] [address] [facility] [id number] [address] [place] [address] Apr, Left foot pain M79.672 [facility] [address] [facility] [id number] [place] [id number] Apr, [facility] [address] [facility] [id number] [place] [id number] Apr, Type 2 diabetes mellitus with diabetic n europathy E11.40 ; Left foot pain M79.672 ; Essential hypertension I10 and Epilepsy without status epilepticus, not intractable, unspecified G40.909 [facility] [id number] [place] [id number] Apr, [place] [address] [place] [id number] [place] [id number] Mar, [facility] [id number] [place] [id number] Feb, Cellulitis and abscess of face 682.0 [facility] [id number] [place] [id number] Feb, Cellulitis and abscess of face 682.0 [facility] [address] [place] [place] [id number] [address] [place] [address] Oct, [facility] [address] [place] [id number] [address] [place] [address] Oct, [facility] [address] [facility] [id number] [address] [place] [address] Sep, [facility] [id number] [place] [id number] Sep, [facility] [address] [facility] [id number] [address] [place] [address] Aug, [facility] [address] [place] [id number] [place] [address], [place] [id number] Aug, [facility] [address] [id number] [address] [place] [address], [place] [address] Aug, [facility] [address] [id number] [address] [place] [address], [place] [address] Aug, [facility] [address] [id number] [address] [place] [address], [place] [address] Aug, [facility] [address] [id number] [place] [id number] Jul, [facility] [address] [id number] [address] [place] [address], [place] [address] Jul, [facility] [address] [id number] [place] [id number] Jun, [facility] [address] [facility] [id number] [address] [place] [address], [place] [address] Jun, [facility] [address] [id number] [address] [place] [address], [place] [address] Jun, [facility] [address] [id number] [place] [id number] Jun, [facility] [address] [id number] [place] [id number] Jun, [facility] [address] [facility] [id number] [address] [place] [address], [place] [address] Jun, [facility] [address] [id number] [place] [id number] May, [facility] [address] [id number] [address] [place] [address], [place] [address] May, [facility] [address] [id number] [place] [id number] Mar, [facility] [address] [id number] [address] [place] [address], [place] [address] Mar, [facility] [address] [id number] [place] [id number] Mar, [facility] [address] [id number] [address] [place] [address], [place] [address] Mar, [facility] [address] [id number] [place] [id number] Feb, [facility] [address] [id number] [address] [place] [address], [place] [address] Feb, [facility] SAM [address] [id number] [place] [id number] Feb, [facility] [address] [id number] [address] [place] [address], [place] [address] Feb, [facility] SAM [address] [id number] [place] [id number] Jan, [facility] [address] [id number] [address] [place] [address], [place] [address] Jan, [facility] SAM [address] [id number] [place] [id number] Jan, [facility] [address] [id number] [place] [id number] Jan, [facility] [address] [id number] [address] [place] [address], [place] [address] Jan, [facility] [address] [id number] [address] [place] [address], [place] [address] Jan, [facility] SAM [address] [id number] [place] [id number] Dec, [facility] [address] [id number] [address] [place] [address], [place] [address] Dec, [facility] SAM [address] [id number] [place] [id number] Dec, [facility] [address] [id number] [address] [place] [address], [place] [address] Dec, [facility] SAM [address] [id number] [place] [id number] Dec, [facility] [address] [id number] [address] [place] [address], [place] [address] Dec, [facility] SAM [address] [id number] [place] [id number] November, [facility] [address] [id number] [facility] [place] [address] November, [facility] SAM [address] [id number] [place] [id number] November, [facility] [address] [id number] [address] [place] [address], [place] [address] November, [facility] SAM [address] [id number] [place] [id number] November, [facility] [address] [id number] [address] [place] [address], [place] [address] November, [facility] SAM [address] [id number] [place] [id number] Oct, [facility] [address] [id number] [address] [place] [address], [place] [address] Oct, [facility] SAM [address] [id number] [place], [place] [id number] Sep, [facility] [address] [id number] [address] [place] [address] Sep, [facility] [address] [id number] [address] [place] [address], [place] [address] Aug, [facility] [address] [id number] [address] [place] [address] Aug, [facility] [address] [id number] [place] [id number] Aug, [facility] [address] [id number] [address] [place] [address], [place] [address] Aug, [facility] [address] [id number] [address] [place] [address], [place] [address] Jul, [facility] [address] [id number] [address] [place] [address] Jul, [facility] [address] [id number] [place] [id number] Jul, [facility] [address] [id number] [address] [place] [address], [place] [address] Jul, [facility] [address] [id number] [address] [place] [address], [place] [address] Jul, [facility] [address] [id number] [place] [id number] Jul, [facility] [address] [id number] [place] [id number] Jul, [facility] [address] [id number] [address] [place] [address], [place] [address] Jul, [facility] [address] [id number] [address] [place] [address], [place] [address] Jul, [facility] [address] [id number] [address] [place] [address], [place] [address] Jul, [facility] [place] [address] [id number] [place] [id number] Jun, [facility] [address] [id number] [address] [place] [address], [place] [address] Jun, [facility] [address] [id number] [address] [place] [address], [place] [address] Jun, [facility] [address] [id number] [address] [place] [address], [place] [address] Jun, [facility] [address] [id number] [place] [id number] May, [facility] [address] [id number] [address] [place] [address], [place] [address] May, [facility] [address] [id number] [place] [id number] May, [facility] [address] [id number] [address] [place] [address], [place] [address] May, [facility] [address] [id number] [place], [place] [id number] Apr, [facility] [address] [facility] [id number] [address] [place] [address] Apr, [facility] [address] [id number] [place] [id number] Mar, [facility] [address] [id number] [place] [id number] Feb, [facility] [address] [id number] [place], [place] S [id number] Feb, [facility] [address] [id number] [place] [id number] Feb, [facility] [address] [id number] [place] [id number] Jan, [facility] [address] [id number] [place] [id number] Dec, [facility] [address] [id number] [place] [id number] Dec, [facility] [address] [id number] [place] [id number] Dec, [facility] [address] [id number] [place] [id number] November, [facility] [address] [facility] [id number] [address] [place] [address] November, [facility] [address] [id number] [place] [id number] November, [facility] [address] [id number] [place] [id number] Oct, [facility] [address] [id number] [place] [id number] Oct, [facility] [address] [id number] [place], [place] S [id number] Sep, [facility] [address] [id number] [place], [place] [id number] Jul, [facility] [address] [facility] [id number] [address] [place] [address] Jun, [facility] [address] [id number] [address] [place] [address], [place] [address] Jun, [facility] [address] [id number] [place] [id number] Jun, [facility] [address] [id number] [place] [id number] Jun, [facility] [address] [id number] [place], [place] [id number] Jun, [facility] [address] [id number] [facility] [place] [address] Jun, [facility] ASM [address] [id number] [place] [id number] Jun, [facility] [address] [facility] [id number] [address] [place] [address], [place] [address] Jun, [facility] [address] [id number] [place] [id number] Jun, [facility] [address] [id number] [address] [place] [address], [place] [address] Jun, [facility] [address] [id number] [place] [id number] May, [facility] [address] [id number] [place] [id number] May, [facility] [address] [facility] [id number] [address] [place] [address], [place] [address] May, [facility] [address] [id number] [address] [place] [address] May, [facility] [address] [id number] [address] [place] [address], [place] [address] May, [facility] [address] [id number] [place] [id number] May, [facility] [address] [id number] [place] [id number] Mar, [facility] [address] [id number] [place], [place] [id number] Mar, [facility] [address] [id number] [place], [place] [id number] Mar, [facility] [address] [id number] [place], [place] [id number] Feb, [facility] [address] [id number] [place], [place] [id number] Feb, [facility] [address] [id number] [place], [place] [id number] Dec, [facility] [address] [id number] [place], K S [id number] November, [facility] [address] [id number] [place], K S [id number] November, [facility] [address] [id number] [place] [id number] November, [facility] [address] [id number] [place], [place] [id number] November, [facility] [address] [id number] [place] [id number] November, [facility] [address] [id number] [place], [place] [id number] Oct, [facility] [address] [id number] [place] [id number] Jul, [facility] [address] [id number] [place], [place] S [id number] Jul, [facility] [address] [facility] [id number] [address] [place] [address] Jun, [facility] [address] [facility] [id number] [address] [place] [address] May, [facility] [address] [facility] [id number] [address] [place] [address] May, [facility] [address] [facility] [id number] [address] [place] [address] May, [facility] [address] [facility] [id number] [address] [place] [address] 11 May, 2011 [facility] [address] [id number] [address] [place] [address] 14 Apr, 2011 [facility] [address] [id number] [address] [place] [address] 14 Apr, 2011 [facility] [address] [facility] [id number] [address] [place] [address] 14 Apr, 2011 [facility] [address] [id number] [address] [place] [address] 13 Mar, 2011 [facility] [address] [facility] [id number] [address] [place] [address] 15 Feb, 2011 [facility] [address] [facility] [id number] [address] [place] [phone] 07 Jun, 2009 [facility] [address] [facility] [id number] [address] [place] [address] Jun, [facility] [address] [facility] [id number] [address] [place] [address] Jun, IMMUNIZATIONS No Known Immunizations SOCIAL HISTORY Never Assessed REASON FOR VISIT PLAN OF CARE VITAL SIGNS Height 62 in 2014-08-03 Weight 203 lbs 2014-08-03 Temperature 98.4 degrees Fahrenheit 2014-08-03 Heart Rate 80 bpm 2014-08-03 Respiratory Rate 20 2014-08-03 Blood pressure systolic 118 mmHg 2014-08-03 Blood pressure diastolic 80 mmHg 2014-08-03 MEDICATIONS Unknown Medications RESULTS No Results PROCEDURES Procedure Date Ordered Result Body Site MRI LUMBAR SPINE W/O DYE Aug 03, 2014 INSTRUCTIONS MEDICATIONS ADMINISTERED No Known Medications [...] Hospitalization History above listed Hospitalization History [facility]--7 days in ICU-new tumors seen on brain scan 2012
--- OUTSIDE RECORDS SUMMARY | 2019-07-04 02:40 | XMS REPORT | Continuity of Care Document ---
Author Organization Unknown Address Unknown Phone Unavailable Allergies Active Description Code Type Severity Reaction Onset Reported/Identified Relationship to Patient Clinical Status Yes Dilantin Drug Allergy 02/19/2011 Yes Dilantin Drug Allergy N/A N/A 02/19/2011 Yes sulfa drug Drug Allergy 02/19/2011 Yes phenytoin sodium [id number] Drug Allergy Unknown N/A 08/09/2015 Yes SULFA SULFA Unknown N/A 08/09/2015 Yes Sulfa (Sulfonamide Antibiotics) [id number] Drug Allergy Unknown N/A 016 Yes Phenytoin Sodium Extended [id number] Drug Allergy Unknown N/A 02/23/2017 Medications There is no data. Problems Date Dx Coded Attending Type Code Diagnosis Diagnosed By 03/18/2008 TAYLA ALONSO MD 250. 00 DIABETES MELLITUS TYPE 2 03/18/2008 TAYLA ALONSO MD 250. 80 HYPOGLY DIABETES UNSP 03/18/2008 TAYLA ALONSO MD 789. 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 03/18/2008 250.00 BARBARA BETES MELLITUS TYPE 2 03/18/2008 250.80 HYP OGLY DIABETES UNSP 03/18/2008 789.00 COL IC INFANTILE 03/18/2008 TAYLA ALONSO MD 250. 00 DIABETES MELLITUS TYPE 2 03/18/2008 TAYLA ALONSO MD 250. 80 HYPOGLY DIABETES UNSP 03/18/2008 TAYLA ALONSO MD 789. 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 03/18/2008 250.00 BARBARA BETES MELLITUS TYPE 2 03/18/2008 250.80 HYP OGLY DIABETES UNSP 03/18/2008 789.00 COL IC INFANTILE 03/18/2008 TAYLA ALONSO MD 250. 00 DIABETES MELLITUS TYPE 2 03/18/2008 TAYLA ALONSO MD 250. 80 HYPOGLY DIABETES UNSP 03/18/2008 TAYLA ALONSO MD 789. 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 03/18/2008 250.00 BARBARA BETES MELLITUS TYPE 2 03/18/2008 250.80 HYP OGLY DIABETES UNSP 03/18/2008 789.00 COL IC INFANTILE 03/18/2008 250.00 BARBARA BETES MELLITUS TYPE 2 03/18/2008 250.80 HYP OGLY DIABETES UNSP 03/18/2008 789.00 COL IC INFANTILE 03/18/2008 ALCAZAR DO, MIKE K 250.00 [...] WYNN APRN R 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 03/18/2008 SHERON WYNN APRN R 250.00 DIABETES MELLITUS TYPE 2 03/18/2008 SHERON WYNN APRN R 250.80 HYPOGLY DIABETES UNSP 03/18/2008 SHERON WYNN APRN R 789.00 COLI INFANTILE 03/18/2008 ALCAZAR DO, MIKE K 250.00 DIABETES MELLITUS TYPE 2 03/18/2008 ALCAZAR DO, MIKE K 250.80 HYPOGLY DIABETES UNSP 03/18/2008 ALCAZAR DO, MIKE K 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 03/18/2008 SHERON WYNN APRN R 250.00 DIABETES MELLITUS TYPE 2 03/18/2008 TIANNA LONGSHERON Rock R 250.80 HYPOGLY DIABETES UNSP 03/18/2008 TIANNA LONGSHERON Rock 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 03/18/2008 TIANNA LONGSHERON Rock [...] 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 06/25/2008 TAYLA ALONSO MD 401. 1 ESSENTIAL HYPERTENSION BENIGN 06/25/2008 TAYLA ALONSO MD 788. 41 URINARY FREQUENCY 06/25/2008 TAYLA ALONSO MD 788. 43 NOCTURIA 06/25/2008 TAYLA ALONSO MD 788. 63 URINARY URGENCY 06/25/2008 401.1 ESSE NTIAL HYPERTENSION BENIGN 06/25/2008 788.41 URI NARY FREQUENCY 06/25/2008 788.43 NOC TURIA 06/25/2008 788.63 URI NARY URGENCY 06/25/2008 TAYLA ALONSO MD 401. 1 ESSENTIAL HYPERTENSION BENIGN 06/25/2008 TAYLA ALONSO MD 788. 41 URINARY FREQUENCY 06/25/2008 TAYLA ALONSO MD 788. 43 NOCTURIA 06/25/2008 TAYLA ALONSO MD 788. 63 URINARY URGENCY 06/25/2008 401.1 ESSE NTIAL HYPERTENSION BENIGN 06/25/2008 788.41 URI NARY FREQUENCY 06/25/2008 788.43 NOC TURIA 06/25/2008 788.63 URI NARY URGENCY 06/25/2008 TAYLA ALONSO MD 401. 1 ESSENTIAL HYPERTENSION BENIGN 06/25/2008 TAYLA ALONSO MD 788. 41 URINARY FREQUENCY 06/25/2008 TAYLA ALONSO MD 788. 43 NOCTURIA 06/25/2008 TAYLA ALONSO MD 788. 63 URINARY URGENCY 06/25/2008 401.1 ESSE NTIAL HYPERTENSION BENIGN 06/25/2008 788.41 URI NARY FREQUENCY 06/25/2008 788.43 NOC TURIA 06/25/2008 788.63 URI NARY URGENCY 06/25/2008 401.1 ESSE NTIAL HYPERTENSION BENIGN 06/25/2008 788.41 URI NARY FREQUENCY 06/25/2008 788.43 NOC TURIA 06/25/2008 788.63 URI NARY URGENCY 06/25/2008 ALCAZAR DO, MIKE K 401.1 [...] WYNN APRN R 788.63 URINARY URGENCY 06/25/2008 WYNN SHERON BRUNSON R 401.1 ESSENTIAL HYPERTENSION BENIGN 06/25/2008 WYNN SHERON BRUNSON R 788.41 URINARY FREQUENCY 06/25/2008 WYNN SHERON BRUNSON R 788.43 NOCTURIA 06/25/2008 WYNN MUSIC COMPOSERSHERON Rock R 788.63 URINARY URGENCY 06/25/2008 ALCAZAR DO, MIKE K 401.1 ESSENTIAL HYPERTENSION BENIGN 06/25/2008 ALCAZAR DO, MIKE K 788.41 URINARY FREQUENCY 06/25/2008 ALCAZAR DO, MIKE K 788.43 NOCTURIA 06/25/2008 ALCAZAR DO, MIKE K 788.63 URINARY URGENCY 06/25/2008 WYNN MUSIC COMPOSERSHERON Rock R 401.1 ESSENTIAL HYPERTENSION BENIGN 06/25/2008 WYNN SHERON BRUNSON R 788.41 URINARY FREQUENCY 06/25/2008 WYNN MUSIC COMPOSERSHERON Rock R 788.43 NOCTURIA 06/25/2008 WYNN SHERON BRUNSON R 788.63 URINARY URGENCY 06/25/2008 WYNN SHERON BRUNSON R 401.1 ESSENTIAL HYPERTENSION BENIGN 06/25/2008 WYNN SHERON BRUNSON R 788.41 URINARY FREQUENCY 06/25/2008 WYNN MUSIC COMPOSER, SHERON R 788.43 NOCTURIA 06/25/2008 WYNN MUSIC COMPOSERSHERON Rock R 788.63 URINARY URGENCY 06/25/2008 ALCAZAR DO, [...] MIKE K 788.63 URINARY URGENCY 06/25/2008 WYNN SHERON BRUNSON R 401.1 ESSENTIAL HYPERTENSION BENIGN 06/25/2008 WYNN SHERON BRUNSON R 788.41 URINARY FREQUENCY 06/25/2008 WYNN SHERON BRUNSON R 788.43 NOCTURIA 06/25/2008 WYNN MUSIC COMPOSERSHERON Rock R 788.63 URINARY URGENCY 06/25/2008 ALCAZAR DO, [...] K 788.63 URINARY URGENCY 02/02/2011 Ot 571.8 [employer] [place] LIVER DIS NEC 02/02/2011 Ot 789.00 ABD OMINAL PAIN, UNSPECIFIED SITE 02/19/2011 TAYLA ALONSO MD 250. 02 DIABETES MELLITUS TYPE 2 - UNCOMPLICATED, UNCONTROLLED 02/19/2011 TAYLA ALONSO MD 535. 50 GASTRITIS UNSPEC 02/19/2011 TAYLA ALONSO MD 574. 20 CALCULUS OF GALLBLADDER WITHOUT CHOLECYSTITIS WITHOUT OBSTRUCTION 02/19/2011 TAYLA ALONSO MD 787. 1 HEARTBURN 02/19/2011 250.02 BARBARA BETES MELLITUS TYPE 2 - UNCOMPLICATED, UNCONTROLLED 02/19/2011 535.50 GAS TRITIS UNSPEC 02/19/2011 574.20 ELIANE CULUS OF GALLBLADDER WITHOUT CHOLECYSTITIS WITHOUT OBSTRUCTION 02/19/2011 787.1 HEAR TBURN 02/19/2011 TAYLA ALONSO MD 250. 02 DIABETES MELLITUS TYPE 2 - UNCOMPLICATED, UNCONTROLLED 02/19/2011 TAYLA ALONSO MD 535. 50 GASTRITIS UNSPEC 02/19/2011 TAYLA ALONSO MD 574. 20 CALCULUS OF GALLBLADDER WITHOUT CHOLECYSTITIS WITHOUT OBSTRUCTION 02/19/2011 TAYLA ALONSO MD 787. 1 HEARTBURN 02/19/2011 250.02 BARBARA BETES MELLITUS TYPE 2 - UNCOMPLICATED, UNCONTROLLED 02/19/2011 535.50 GAS TRITIS UNSPEC 02/19/2011 574.20 ELIANE CULUS OF GALLBLADDER WITHOUT CHOLECYSTITIS WITHOUT OBSTRUCTION 02/19/2011 787.1 HEAR TBURN 02/19/2011 TAYLA ALONSO MD 250. 02 DIABETES MELLITUS TYPE 2 - UNCOMPLICATED, UNCONTROLLED 02/19/2011 TAYLA ALONSO MD 535. 50 GASTRITIS UNSPEC 02/19/2011 TAYLA ALONSO MD 574. 20 CALCULUS OF GALLBLADDER WITHOUT CHOLECYSTITIS WITHOUT OBSTRUCTION 02/19/2011 TAYLA ALONSO MD 787. 1 HEARTBURN 02/19/2011 250.02 BARBARA BETES MELLITUS TYPE 2 - UNCOMPLICATED, UNCONTROLLED 02/19/2011 535.50 GAS TRITIS UNSPEC 02/19/2011 574.20 ELIANE CULUS OF GALLBLADDER WITHOUT CHOLECYSTITIS WITHOUT OBSTRUCTION 02/19/2011 787.1 HEAR TBURN 02/19/2011 250.02 BARBARA BETES MELLITUS TYPE 2 - UNCOMPLICATED, UNCONTROLLED 02/19/2011 535.50 GAS TRITIS UNSPEC 02/19/2011 574.20 ELIANE CULUS OF GALLBLADDER WITHOUT CHOLECYSTITIS WITHOUT OBSTRUCTION 02/19/2011 787.1 HEAR TBURN 02/19/2011 OTTONIEL DO, MIKE K 250.02 DIABETES MELLITUS TYPE [...] 02/19/2011 SHERON WYNN APRN 787.1 HEARTBURN 02/19/2011 SHERON WYNN APRN R 250.02 DIABETES MELLITUS TYPE 2 - UNCOMPLICATED, UNCONTROLLED 02/19/2011 WYNN SHERON BRUNSON R 535.50 GASTRITIS UNSPEC 02/19/2011 WYNN SHERON BRUNSON R 574.20 CALCULUS OF GALLBLADDER WITHOUT CHOLECYSTITIS WITHOUT OBSTRUCTION 02/19/2011 WYNN SHERON BRUNSON R 787.1 HEARTBURN 02/19/2011 OTTONIEL OCAMPO MIKE K 250.02 DIABETES MELLITUS TYPE 2 - UNCOMPLICATED, UNCONTROLLED 02/19/2011 OTTONIEL OCAMPO MIKE K 535.50 GASTRITIS UNSPEC 02/19/2011 OTTONIEL OCAMPO MIKE K 574.20 CALCULUS OF GALLBLADDER WITHOUT CHOLECYSTITIS WITHOUT OBSTRUCTION 02/19/2011 OTTONIEL OCAMPO MIKE K 787.1 HEARTBURN 02/19/2011 WYNN SHERON BRUNSON R 250.02 DIABETES MELLITUS TYPE 2 - UNCOMPLICATED, UNCONTROLLED 02/19/2011 WYNN SHERON BRUNSON R 535.50 GASTRITIS UNSPEC 02/19/2011 WYNN SHERON BRUNSON R 574.20 CALCULUS OF GALLBLADDER WITHOUT CHOLECYSTITIS WITHOUT OBSTRUCTION 02/19/2011 WYNN SHERON BRUNSON 787.1 HEARTBURN 02/19/2011 WYNN SHERON BRUNSON R 250.02 DIABETES MELLITUS TYPE 2 - UNCOMPLICATED, UNCONTROLLED 02/19/2011 WYNN SHERON BRUNSON R 535.50 GASTRITIS UNSPEC 02/19/2011 WYNN SHERON BRNUSON R 574.20 CALCULUS OF GALLBLADDER WITHOUT CHOLECYSTITIS WITHOUT OBSTRUCTION 02/19/2011 WYNN SHERON BRUNSON R 787.1 HEARTBURN 02/19/2011 OTTONIEL OCAMPO MIKE K 250.02 DIABETES MELLITUS TYPE 2 - UNCOMPLICATED, UNCONTROLLED 02/19/2011 OTTONIEL OCAMPO MIKE K 535.50 GASTRITIS UNSPEC 02/19/2011 OTTONIEL DO MIKE K 574.20 CALCULUS OF GALLBLADDER [...] BRUNSON R 535.50 GASTRITIS UNSPEC 02/19/2011 WYNN MUSIC COMPOSERSHERON Rock R 574.20 CALCULUS OF GALLBLADDER WITHOUT [...] ALCAZAR DO, MIKE K 787.1 HEARTBURN 02/19/2011 WYNN SHERON BRUNSON R 250.02 DIABETES MELLITUS TYPE 2 - UNCOMPLICATED, UNCONTROLLED 02/19/2011 WYNN SHERON BRUNSON R 535.50 GASTRITIS UNSPEC 02/19/2011 WYNN SHERON BRUNSON R 574.20 CALCULUS OF GALLBLADDER WITHOUT CHOLECYSTITIS WITHOUT OBSTRUCTION 02/19/2011 SHERON WYNN APRN R 787.1 HEARTBURN 02/19/2011 WYNN SHERON BRUNSON R 250.02 DIABETES MELLITUS TYPE 2 - UNCOMPLICATED, UNCONTROLLED 02/19/2011 WYNN SHERON BRUNSON 535.50 GASTRITIS UNSPEC 02/19/2011 WYNN MUSIC COMPOSER, SHERON R 574.20 CALCULUS OF GALLBLADDER WITHOUT CHOLECYSTITIS WITHOUT OBSTRUCTION 02/19/2011 WYNN MUSIC COMPOSERSHERON R 787.1 HEARTBURN 02/19/2011 MIKE ALCAZAR DO K 250.02 DIABETES MELLITUS TYPE 2 - UNCOMPLICATED, UNCONTROLLED 02/19/2011 CHAYA ALCAZAR DOA K 535.50 GASTRITIS UNSPEC 02/19/2011 CHAYA ALCAZAR DOA K 574.20 CALCULUS OF GALLBLADDER WITHOUT CHOLECYSTITIS WITHOUT OBSTRUCTION 02/19/2011 MIKE ALCAZAR DO K 787.1 HEARTBURN 03/06/2011 TAYLA ALONSO MD V67. 9 UNSPECIFIED FOLLOW-UP EXAMINATION 03/06/2011 V67.9 UNSP ECIFIED FOLLOW- UP EXAMINATION 03/06/2011 TAYLA ALONSO MD V67. 9 UNSPECIFIED FOLLOW-UP EXAMINATION 03/06/2011 V67.9 UNSP ECIFIED FOLLOW- UP EXAMINATION 03/06/2011 TAYLA ALONSO MD V67. 9 UNSPECIFIED FOLLOW-UP EXAMINATION 03/06/2011 V67.9 UNSP ECIFIED FOLLOW- UP EXAMINATION 03/06/2011 V67.9 UNSP ECIFIED FOLLOW- UP EXAMINATION 03/06/2011 MIKE ALCAZAR DO K V67.9 UNSPECIFIED FOLLOW-UP EXAMINATION 03/06/2011 MIKE ALCAZAR DO K V67.9 UNSPECIFIED FOLLOW-UP EXAMINATION 03/06/2011 MIKE ALCAZAR DO K V67.9 UNSPECIFIED FOLLOW-UP EXAMINATION 03/06/2011 MIKE ALCAZAR DO K V67.9 UNSPECIFIED FOLLOW-UP EXAMINATION 03/06/2011 WYNN MUSIC COMPOSERSHERON Rcok R V67.9 UNSPECIFIED FOLLOW-UP EXAMINATION 03/06/2011 WYNN MUSIC COMPOSERSHERON Rock R V67.9 UNSPECIFIED FOLLOW-UP EXAMINATION 03/06/2011 WYNN MUSIC COMPOSERSHERON Rock R V67.9 UNSPECIFIED FOLLOW-UP EXAMINATION 03/06/2011 MIKE ALCAZAR DO K V67.9 UNSPECIFIED FOLLOW-UP EXAMINATION 03/06/2011 WYNN MUSIC COMPOSERSHERON Rock R V67.9 UNSPECIFIED FOLLOW-UP EXAMINATION 03/06/2011 WYNN MUSIC COMPOSERSHERON Rock R V67.9 UNSPECIFIED FOLLOW-UP EXAMINATION 03/06/2011 MIKE ALCAZAR DO K V67.9 UNSPECIFIED FOLLOW-UP EXAMINATION 03/06/2011 ALCAZAR DO, MIKE K V67.9 UNSPECIFIED FOLLOW-UP EXAMINATION 03/06/2011 SHERON WYNN APRN V67.9 UNSPECIFIED FOLLOW-UP EXAMINATION 03/06/2011 ALCAZAR DO, MIKE K V67.9 UNSPECIFIED FOLLOW-UP EXAMINATION 03/06/2011 ALCAZAR DO, MIKE K V67.9 UNSPECIFIED FOLLOW-UP EXAMINATION 03/06/2011 ALCAZAR DO, MIKE K V67.9 UNSPECIFIED FOLLOW-UP EXAMINATION 03/06/2011 ALCAZAR DO, MIKE K V67.9 UNSPECIFIED FOLLOW-UP EXAMINATION 03/06/2011 SHERON WYNN APRN V67.9 UNSPECIFIED FOLLOW-UP EXAMINATION 03/06/2011 SHERON WYNN APRN V67.9 UNSPECIFIED FOLLOW-UP EXAMINATION 03/06/2011 ALCAZAR DO, MIKE K V67.9 UNSPECIFIED FOLLOW-UP EXAMINATION 03/11/2011 Ot 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 01 ABDOMINAL PAIN RIGHT UPPER QUADRANT 03/20/2011 TAYLA ALONSO MD 789. 07 ABDOMINAL PAIN GENERALIZED 03/20/2011 789.01 ABD OMINAL PAIN RIGHT UPPER QUADRANT 03/20/2011 789.07 ABD OMINAL PAIN GENERALIZED 03/20/2011 TAYLA ALONSO MD 789. 01 ABDOMINAL PAIN RIGHT UPPER QUADRANT 03/20/2011 TAYLA ALONSO MD 789. 07 ABDOMINAL PAIN GENERALIZED 03/20/2011 789.01 ABD OMINAL PAIN RIGHT UPPER QUADRANT 03/20/2011 789.07 ABD OMINAL PAIN GENERALIZED 03/20/2011 TAYLA ALONSO MD 789. 01 ABDOMINAL PAIN RIGHT UPPER QUADRANT 03/20/2011 TAYLA ALONSO MD 789. 07 ABDOMINAL PAIN GENERALIZED 03/20/2011 789.01 ABD OMINAL PAIN RIGHT UPPER QUADRANT 03/20/2011 789.07 ABD OMINAL PAIN GENERALIZED 03/20/2011 789.01 ABD OMINAL PAIN RIGHT UPPER QUADRANT 03/20/2011 789.07 ABD OMINAL PAIN GENERALIZED 03/20/2011 MIKE ALCAZAR DO 789.01 ABDOMINAL PAIN RIGHT UPPER QUADRANT 03/20/2011 [...] K 789.07 ABDOMINAL PAIN GENERALIZED 03/20/2011 WYNN MUSIC COMPOSER, SHERON R 789.01 ABDOMINAL PAIN RIGHT UPPER QUADRANT 03/20/2011 WYNN MUSIC COMPOSER, SHERON R 789.07 ABDOMINAL PAIN GENERALIZED 03/20/2011 WYNN MUSIC COMPOSER, SHERON R 789.01 ABDOMINAL PAIN RIGHT UPPER QUADRANT 03/20/2011 WYNN MUSIC COMPOSER, SHERON R 789.07 ABDOMINAL PAIN GENERALIZED 03/20/2011 WYNN MUSIC COMPOSER, SHERON R 789.01 ABDOMINAL PAIN RIGHT UPPER QUADRANT 03/20/2011 WYNN MUSIC COMPOSERSHERON R 789.07 ABDOMINAL PAIN GENERALIZED 03/20/2011 ALCAZAR DO, MIKE K 789.01 ABDOMINAL PAIN RIGHT UPPER QUADRANT 03/20/2011 ALCAZAR DO, MIKE K 789.07 ABDOMINAL PAIN GENERALIZED 03/20/2011 WYNN MUSIC COMPOSER, SHERON R 789.01 ABDOMINAL PAIN RIGHT UPPER QUADRANT 03/20/2011 WYNN MUSIC COMPOSER, SHERON R 789.07 ABDOMINAL PAIN GENERALIZED 03/20/2011 WYNN MUSIC COMPOSER, SHERON R 789.01 ABDOMINAL PAIN RIGHT UPPER QUADRANT 03/20/2011 WYNN MUSIC COMPOSER, SHERON R 789.07 ABDOMINAL PAIN GENERALIZED 03/20/2011 ALCAZAR DO, MIKE K 789.01 ABDOMINAL PAIN RIGHT UPPER QUADRANT 03/20/2011 ALCAZAR DO, MIKE K 789.07 ABDOMINAL PAIN GENERALIZED 03/20/2011 ALCAZAR DO, MIKE K 789.01 ABDOMINAL PAIN RIGHT UPPER QUADRANT 03/20/2011 ALCAZAR DO, MIKE K 789.07 ABDOMINAL PAIN GENERALIZED 03/20/2011 WYNN MUSIC COMPOSERSHERON R 789.01 ABDOMINAL PAIN RIGHT UPPER QUADRANT 03/20/2011 WYNN MUSIC COMPOSERSHERON R 789.07 ABDOMINAL PAIN GENERALIZED 03/20/2011 ALCAZAR [...] K 789.07 ABDOMINAL PAIN GENERALIZED 03/20/2011 WYNN MUSIC COMPOSER, SHERON R 789.01 ABDOMINAL PAIN RIGHT UPPER QUADRANT 03/20/2011 WYNN MUSIC COMPOSER, SHERON R 789.07 ABDOMINAL PAIN GENERALIZED 03/20/2011 WYNN MUSIC COMPOSER, SHERON R 789.01 ABDOMINAL PAIN RIGHT UPPER QUADRANT 03/20/2011 WYNN MUSIC COMPOSER, SHERON R 789.07 ABDOMINAL PAIN GENERALIZED 03/20/2011 ALCAZAR DO, MIKE K 789.01 ABDOMINAL PAIN RIGHT UPPER QUADRANT 03/20/2011 ALCAZAR DO, MIKE K 789.07 ABDOMINAL PAIN GENERALIZED 05/18/2011 TAYLA ALONSO MD 272. 4 HYPERLIPIDEMIA 05/18/2011 272.4 HYPE RLIPIDEMIA 05/18/2011 TAYLA ALONSO MD 272. 4 HYPERLIPIDEMIA 05/18/2011 272.4 HYPE RLIPIDEMIA 05/18/2011 TAYLA ALONSO MD 272. 4 HYPERLIPIDEMIA 05/18/2011 272.4 HYPE RLIPIDEMIA 05/18/2011 272.4 HYPE RLIPIDEMIA 05/18/2011 ALCAZAR DO, MIKE K 272.4 HYPERLIPIDEMIA 05/18/2011 ALCAZAR DO, MIKE K 272.4 HYPERLIPIDEMIA 05/18/2011 ALCAZAR DO, MIKE K 272.4 HYPERLIPIDEMIA 05/18/2011 ALCAZAR DO, MIKE K 272.4 HYPERLIPIDEMIA 05/18/2011 WYNN MUSIC COMPOSERSHERON R 272.4 HYPERLIPIDEMIA 05/18/2011 WYNN MUSIC COMPOSER, SHERON R 272.4 HYPERLIPIDEMIA 05/18/2011 WYNN MUSIC COMPOSER, SHERON R 272.4 HYPERLIPIDEMIA 05/18/2011 ALCAZAR DO, MIKE K 272.4 HYPERLIPIDEMIA 05/18/2011 WYNN MUSIC COMPOSER, SHERON R 272.4 HYPERLIPIDEMIA 05/18/2011 SHERON WYNN APRN R 272.4 HYPERLIPIDEMIA 05/18/2011 ALCAZAR DO, MIKE K 272.4 HYPERLIPIDEMIA 05/18/2011 ALCAZAR DO, MIKE K 272.4 HYPERLIPIDEMIA 05/18/2011 SHERON WYNN APRN R 272.4 HYPERLIPIDEMIA 05/18/2011 ALCAZAR DO, MIKE K 272.4 HYPERLIPIDEMIA 05/18/2011 ALCAZAR DO, MIKE K 272.4 HYPERLIPIDEMIA 05/18/2011 ALCAZAR DO, MIKE K 272.4 HYPERLIPIDEMIA 05/18/2011 ALCAZAR DO, MIKE K 272.4 HYPERLIPIDEMIA 05/18/2011 SHERON WYNN APRN R 272.4 HYPERLIPIDEMIA 05/18/2011 WYNNSHERON Orellana APRN R 272.4 HYPERLIPIDEMIA 05/18/2011 ALCAZAR DO, MIKE K 272.4 HYPERLIPIDEMIA 03/11/2012 TAYLA ALONSO MD 401. 9 HYPERTENSION (SYSTEMIC) 03/11/2012 TAYLA ALONSO MD 788. 1 pain during urination (dysuria) 03/11/2012 401.9 HYPE RTENSION (SYSTEMIC) 03/11/2012 788.1 pain during urination (dysuria) 03/11/2012 TAYLA ALONSO MD 401. 9 HYPERTENSION (SYSTEMIC) 03/11/2012 TAYLA ALONSO MD 788. 1 pain during urination (dysuria) 03/11/2012 401.9 HYPE RTENSION (SYSTEMIC) 03/11/2012 788.1 pain during urination (dysuria) 03/11/2012 TAYLA ALONSO MD 401. 9 HYPERTENSION (SYSTEMIC) 03/11/2012 TAYLA ALONSO MD 788. 1 pain during urination (dysuria) 03/11/2012 401.9 HYPE RTENSION (SYSTEMIC) 03/11/2012 788.1 pain during urination (dysuria) 03/11/2012 401.9 HYPE RTENSION (SYSTEMIC) 03/11/2012 788.1 pain during urination (dysuria) 03/11/2012 OTTONIEL OCAMPO MIKE K 401.9 HYPERTENSION (SYSTEMIC) 03/11/2012 OTTONIEL OCAMPO MIKE K 788.1 pain during urination (dysuria) 03/11/2012 OTTONIEL DO MIKE K 401.9 HYPERTENSION (SYSTEMIC) 03/11/2012 OTTONIEL DO MIKE K 788.1 pain during urination (dysuria) 03/11/2012 ALCAZAR DO, MIKE K 401.9 HYPERTENSION (SYSTEMIC) 03/11/2012 ALCAZAR DO, MIKE K 788.1 pain during urination (dysuria) 03/11/2012 ALCAZAR DO, MIKE K 401.9 HYPERTENSION (SYSTEMIC) 03/11/2012 ALCAZAR DO, MIKE K 788.1 pain during urination (dysuria) 03/11/2012 SHERON WYNN APRN R 401.9 HYPERTENSION (SYSTEMIC) 03/11/2012 WYNN SHERON BRUNSON R 788.1 pain during urination (dysuria) 03/11/2012 WYNN BOY SHERON R 401.9 HYPERTENSION (SYSTEMIC) 03/11/2012 WYNN SHERON BRUNSON R 788.1 pain during urination (dysuria) 03/11/2012 WYNN SHERON BRUNSON R 401.9 HYPERTENSION (SYSTEMIC) 03/11/2012 WYNN SHERON BRUNSON R 788.1 pain during urination (dysuria) 03/11/2012 OTTONIEL DOCHAYAA K 401.9 HYPERTENSION (SYSTEMIC) 03/11/2012 OTTONIEL DO MIKE K 788.1 pain during urination (dysuria) 03/11/2012 SHERON WYNN APRN R 401.9 HYPERTENSION (SYSTEMIC) 03/11/2012 WYNN SHERON BRUNSON R 788.1 pain during urination (dysuria) 03/11/2012 SHERON WYNN APRN R 401.9 HYPERTENSION (SYSTEMIC) 03/11/2012 WYNN [...] DO, MIKE K 401.9 HYPERTENSION (SYSTEMIC) 03/11/2012 LACAZAR DO, MIKE K 788.1 pain during urination [...] SHERON WYNN APRN 401.9 HYPERTENSION (SYSTEMIC) 03/11/2012 WYNN SHERON BRUNSON 788.1 pain during urination (dysuria) 03/11/2012 ALCAZAR DO, MIKE K 401.9 HYPERTENSION (SYSTEMIC) 03/11/2012 ALCAZAR DO, MIKE K 788.1 pain during urination (dysuria) 07/24/2012 727.43 BRIA GLION LEFT WRIST 07/24/2012 CELESTE SNOW, TAYLA 727. 43 GANGLION LEFT WRIST 07/24/2012 727.43 BRIA GLION LEFT WRIST 07/24/2012 727.43 BRIA GLION LEFT WRIST 07/24/2012 ALCAZAR DO, MIKE K 727.43 GANGLION LEFT WRIST 07/24/2012 ALCAZAR DO, MIKE K 727.43 GANGLION LEFT WRIST 07/24/2012 ALCAZAR DO, MIKE K 727.43 GANGLION LEFT WRIST 07/24/2012 ALCAZAR DO, MIKE K 727.43 GANGLION LEFT WRIST 07/24/2012 SHERON WYNN APRN 727.43 GANGLION LEFT WRIST 07/24/2012 WYNN SHERON BRUNSON 727.43 GANGLION LEFT WRIST 07/24/2012 WYNN SHERON BRUNSON 727.43 GANGLION LEFT WRIST 07/24/2012 ALCAZAR CHAYA OCAMPOA K 727.43 GANGLION LEFT WRIST 07/24/2012 WYNN SHERON BRUNSON 727.43 GANGLION LEFT WRIST 07/24/2012 WYNN MUSIC COMPOSER, SHERON R 727.43 GANGLION LEFT WRIST 07/24/2012 ALCAZAR DO, MIKE K 727.43 GANGLION LEFT WRIST 07/24/2012 ALCAZAR DO, MIKE K 727.43 GANGLION LEFT WRIST 07/24/2012 WYNN MUSIC COMPOSER, SHERON R 727.43 GANGLION LEFT WRIST 07/24/2012 ALCAZAR DO, MIKE K 727.43 GANGLION LEFT WRIST 07/24/2012 ALCAZAR DO, MIKE K 727.43 GANGLION LEFT WRIST 07/24/2012 ALCAZAR DO, MIKE K 727.43 GANGLION LEFT WRIST 07/24/2012 ALCAZAR DO, MIKE K 727.43 GANGLION LEFT WRIST 07/24/2012 WYNN MUSIC COMPOSER, SHERON R 727.43 GANGLION LEFT WRIST 07/24/2012 WYNN MUSIC COMPOSER, SHERON R 727.43 GANGLION LEFT WRIST 07/24/2012 ALCAZAR DO, MIKE K 727.43 GANGLION LEFT WRIST 09/30/2012 CELESTE SNOW, TAYLA 357. 2 POLYNEUROPATHY DIABETIC 09/30/2012 357.2 POLY NEUROPATHY DIABETIC 09/30/2012 357.2 POLY NEUROPATHY DIABETIC 09/30/2012 ALCAZAR DO, MIKE K 357.2 POLYNEUROPATHY DIABETIC 09/30/2012 ALCAZAR DO, MIKE K 357.2 POLYNEUROPATHY DIABETIC 09/30/2012 ALCAZAR DO, MIEK K 357.2 POLYNEUROPATHY DIABETIC 09/30/2012 ALCAZAR DO, MIKE K 357.2 POLYNEUROPATHY DIABETIC 09/30/2012 WYNNSHERON ARCHER APRN R 357.2 POLYNEUROPATHY DIABETIC 09/30/2012 WYNNSHERON ARCHER APRN R 357.2 POLYNEUROPATHY DIABETIC 09/30/2012 SHERON WYNN APRN R 357.2 POLYNEUROPATHY DIABETIC 09/30/2012 ALCAZAR DO, MIKE K 357.2 POLYNEUROPATHY DIABETIC 09/30/2012 SHERON WYNN APRN R 357.2 POLYNEUROPATHY DIABETIC 09/30/2012 SHERON WYNN APRN R 357.2 POLYNEUROPATHY DIABETIC 09/30/2012 ALCAZAR DO, MIKE K 357.2 POLYNEUROPATHY DIABETIC 09/30/2012 ALCAZAR DO, MIKE K 357.2 POLYNEUROPATHY DIABETIC 09/30/2012 WYNNSHERON ARCHER APRN R 357.2 POLYNEUROPATHY DIABETIC 09/30/2012 ALCAZAR DO, MIKE K 357.2 POLYNEUROPATHY DIABETIC 09/30/2012 MIKE ALCAZAR DO K 357.2 POLYNEUROPATHY DIABETIC 09/30/2012 MIKE ALCAZAR DO K 357.2 POLYNEUROPATHY DIABETIC 09/30/2012 MIKE ALCAZAR DO K 357.2 POLYNEUROPATHY DIABETIC 09/30/2012 SHERON WYNN APRN 357.2 POLYNEUROPATHY DIABETIC 09/30/2012 SHERON WYNN APRN 357.2 POLYNEUROPATHY DIABETIC 09/30/2012 MIKE ALCAZAR DO 357.2 POLYNEUROPATHY DIABETIC 12/09/2012 LUPE SNOW, PAO [...] Ot V58.69 OTH MED,LT,CURRENT USE 12/11/2012 780.2 xavi ting (syncope) 12/11/2012 780.2 xavi ting (syncope) 12/11/2012 MIKE ALCAZAR DO K 780.2 fainting (syncope) 12/11/2012 MIKE ALCAZAR DO K 780.2 fainting (syncope) 12/11/2012 MIKE ALCAZAR DO K 780.2 fainting (syncope) 12/11/2012 MIKE ALCAZAR DO K 780.2 fainting (syncope) 12/11/2012 SHERON WYNN APRN 780.2 fainting (syncope) 12/11/2012 SHERON WYNN APRN 780.2 fainting (syncope) 12/11/2012 WYNN MUSIC COMPOSER, SHERON R 780.2 fainting (syncope) 12/11/2012 ALCAZAR DO, MIKE K 780.2 fainting (syncope) 12/11/2012 WYNN MUSIC COMPOSER, SHERON R 780.2 fainting (syncope) 12/11/2012 WYNN MUSIC COMPOSER, SHERON R 780.2 fainting (syncope) 12/11/2012 ALCAZAR DO, MIKE K 780.2 fainting (syncope) 12/11/2012 ALCAZAR DO, MIKE K 780.2 fainting (syncope) 12/11/2012 WYNN MUSIC COMPOSER, SHERON R 780.2 fainting (syncope) 12/11/2012 ALCAZAR DO, MIKE K 780.2 fainting (syncope) 12/11/2012 ALCAZAR DO, MIKE K 780.2 fainting (syncope) 12/11/2012 ALCAZAR DO, MIKE K 780.2 fainting (syncope) 12/11/2012 ALCAZAR DO, MIKE K 780.2 fainting (syncope) 12/11/2012 WYNN MUSIC COMPOSER, SHERON R 780.2 fainting (syncope) 12/11/2012 WYNN MUSIC COMPOSER, SHERON R 780.2 fainting (syncope) 12/11/2012 ALCAZAR DO, MIKE K 780.2 fainting (syncope) 02/23/2013 784.0 HEADACHE 02/23/2013 ALCAZAR DO, MIKE K 784.0 HEADACHE 02/23/2013 ALCAZAR DO, MIKE K 784.0 HEADACHE 02/23/2013 ALCAZAR DO, MIKE K 784.0 HEADACHE 02/23/2013 ALCAZAR DO, MIKE K 784.0 HEADACHE 02/23/2013 WYNN MUSIC COMPOSER, SHERON R 784.0 HEADACHE 02/23/2013 WYNN MUSIC COMPOSER, SHERON R 784.0 HEADACHE 02/23/2013 WYNN MUSIC COMPOSER, SHERON R 784.0 HEADACHE 02/23/2013 ALCAZAR DO, MIKE K 784.0 HEADACHE 02/23/2013 WYNN MUSIC COMPOSER, SHERON R 784.0 HEADACHE 02/23/2013 WYNN MUSIC COMPOSER, SHERON R 784.0 HEADACHE 02/23/2013 ALCAZAR DO, MIKE K 784.0 HEADACHE 02/23/2013 ALCAZAR DO, MIKE K 784.0 HEADACHE 02/23/2013 WYNN MUSIC COMPOSER, SHERON R 784.0 HEADACHE 02/23/2013 ALCAZAR DO, MIKE K 784.0 HEADACHE 02/23/2013 ALCAZAR DO, MIKE K 784.0 HEADACHE 02/23/2013 ALCAZAR DO, MIKE K 784.0 HEADACHE 02/23/2013 ALCAZAR DO, MIKE K 784.0 HEADACHE 02/23/2013 WYNN MUSIC COMPOSER, SHERON Mercado 784.0 HEADACHE 02/23/2013 WYNN MUSIC COMPOSER, SHERON Mercado 784.0 HEADACHE 02/23/2013 ALCAZAR DO, MIKE K 784.0 HEADACHE 07/15/2013 ALCAZAR DO, MIKE K 719.45 PAIN- HIP 07/15/2013 WYNN MUSIC COMPOSERSHERON 719.45 PAIN- HIP 07/15/2013 WYNN MUSIC COMPOSERSHERON 719.45 PAIN- HIP 07/15/2013 WYNN MUSIC COMPOSER, SHERON Mercado 719.45 PAIN- HIP 07/15/2013 ALCAZAR DO, MIKE K 719.45 PAIN- HIP 07/15/2013 WYNN MUSIC COMPOSERSHERON 719.45 PAIN- HIP 07/15/2013 WYNN MUSIC COMPOSERSHERON 719.45 PAIN- HIP 07/15/2013 ALCAZAR DO, MIKE K 719.45 PAIN- HIP 07/15/2013 ALCAZAR DO, MIKE K 719.45 PAIN- HIP 07/15/2013 WYNN MUSIC COMPOSERSHERON 719.45 PAIN- HIP 07/15/2013 ALCAZAR DO, MIKE K 719.45 PAIN- HIP 07/15/2013 ALCAZAR DO, MIKE K 719.45 PAIN- HIP 07/15/2013 ALCAZAR DO, MIKE K 719.45 PAIN- HIP 07/15/2013 ALCAZAR DO, MIKE K 719.45 PAIN- HIP 07/15/2013 WYNN MUSIC COMPOSERSHERON 719.45 PAIN- HIP 07/15/2013 WYNN MUSIC COMPOSERSHERON 719.45 PAIN- HIP 07/15/2013 ALCAZAR DO, MIKE K 719.45 PAIN- HIP 10/19/2013 ALCAZAR DO, MIKE K 692.9 DERMATITIS CONTACT UNSPECIFIED 10/19/2013 WYNN MUSIC COMPOSERSHERON 692.9 DERMATITIS CONTACT UNSPECIFIED 10/19/2013 WYNN MUSIC COMPOSERSHERON 692.9 DERMATITIS CONTACT UNSPECIFIED 10/19/2013 ALCAZAR DO, MIKE K 692.9 DERMATITIS CONTACT UNSPECIFIED 10/19/2013 ALCAZAR DO, MIKE K 692.9 DERMATITIS CONTACT UNSPECIFIED 10/19/2013 WYNNSHERON ARCHER APRN R 692.9 DERMATITIS CONTACT UNSPECIFIED 10/19/2013 ALCAZAR DO, MIKE K 692.9 DERMATITIS CONTACT UNSPECIFIED 10/19/2013 ALCAZAR DO, MIKE K 692.9 DERMATITIS CONTACT UNSPECIFIED 10/19/2013 ALCAZAR DO, MIKE K 692.9 DERMATITIS CONTACT UNSPECIFIED 10/19/2013 ALCAZAR DO, MIKE K 692.9 DERMATITIS CONTACT UNSPECIFIED 10/19/2013 WYNNSHERON Orellana APRN R 692.9 DERMATITIS CONTACT UNSPECIFIED 10/19/2013 WYNN SHERON BRUNSON 692.9 DERMATITIS CONTACT UNSPECIFIED 10/19/2013 ALCAZAR DO, MIKE K 692.9 DERMATITIS CONTACT UNSPECIFIED 11/10/2013 STEVE AL MUSIC COMPOSER Ot 592 .0 CALCULUS OF KIDNEY 11/10/2013 STEVE AL MUSIC COMPOSER Ot 724 .2 LUMBAGO 11/16/2013 SHERON WYNN APRN R 590.2 KIDNEY STONES 11/16/2013 SHERON WYNN APRN 590.2 KIDNEY STONES 11/16/2013 ALCAZAR DO, MIKE K 590.2 KIDNEY STONES 11/16/2013 ALCAZAR DO, MIKE K 590.2 KIDNEY STONES 11/16/2013 SHERON YWNN APRN R 590.2 KIDNEY STONES 11/16/2013 ALCAZAR DO, MIKE K 590.2 KIDNEY STONES 11/16/2013 ALCAZAR DO, MIKE K 590.2 KIDNEY STONES 11/16/2013 ALCAZAR DO, MIKE K 590.2 KIDNEY STONES 11/16/2013 ALCAZAR DO, MIKE K 590.2 KIDNEY STONES 11/16/2013 WYNNSHERON ARCHER APRN R 590.2 KIDNEY STONES 11/16/2013 WYNN SHERON BRUNSON R 590.2 KIDNEY STONES 11/16/2013 ALCAZAR DO, MIKE K 590.2 KIDNEY STONES 11/28/2013 MARNIE SNOW, PAULO Weldon Ot 592.1 CALCULUS OF URETER 11/28/2013 MARNIE SNOW, PAULO Weldon Ot 789.09 ABDOMINAL PAIN, OTHER SPECIFIED SITE 06/16/2014 ALCAZAR DO, MIKE K 345.90 SEIZURE DISORDER 06/16/2014 MIKE ALCAZAR DO K 345.90 SEIZURE DISORDER 06/16/2014 TIANNA BRUNSON SHERON R 345.90 SEIZURE DISORDER 06/16/2014 WYNN MUSIC COMPOSER, SHERON R 345.90 SEIZURE DISORDER 06/16/2014 MIKE ALCAZAR DO K 345.90 SEIZURE DISORDER 06/29/2014 SHERON WYNN R CFNP Ot 592.0 07/06/2014 TIANNA SHERON R CFNP Ot 592.0 08/03/2014 TIANNA BRUNSONSHERON R 724.4 BACK PAIN WITH RADIATION 08/03/2014 WYNN MUSIC COMPOSER, SHERON R 724.4 BACK PAIN WITH RADIATION 08/03/2014 MIKE ALCAZAR DO K 724.4 BACK PAIN WITH RADIATION 06/19/2015 Ot 789.00 06/19/2015 Ot 562.10 06/19/2015 Ot 593.2 06/19/2015 TIANNASHERON R CFNP Ot 784.0 06/19/2015 WYNNSHERON R CFNP Ot V12.41 06/19/2015 WYNNSHERON R CFNP Ot 784.0 06/19/2015 WYNNSHERON R CFNP Ot V12.41 06/19/2015 WYNNSHERON R CFNP Ot 592.0 06/19/2015 WYNNSHERON R CFNP Ot 592.0 06/19/2015 STEVE AL APRN Ot K44 .9 DIAPHRAGMATIC HERNIA WITHOUT OBSTRUCTION 06/19/2015 STEVE AL APRN Ot K57.90 DVRTCLOS OF INTEST, PART UNSP, W/O PERF 06/19/2015 STEVE AL APRN Ot N20 .2 CALCULUS OF KIDNEY WITH CALCULUS OF URET 06/19/2015 Ot 789.00 06/19/2015 Ot 562.10 06/19/2015 Ot 593.2 06/19/2015 WYNNSHERON ARCHER R CFNP Ot 784.0 06/19/2015 WYNNSHERON R CFNP Ot V12.41 06/19/2015 WYNNSHERON R CFNP Ot 784.0 06/19/2015 WYNNSHERON ARCHER R CFNP Ot V12.41 06/19/2015 WYNNSHERON R CFNP Ot 592.0 06/19/2015 WYNN, SHERON R CFNP Ot 592.0 08/10/2015 MARNIE SNOW, PAULO Weldon Ot K57.32 DVTRCLI OF LG INT W/O PERFORATION OR ABS 08/10/2015 MARNIE SNOW, PAULO Weldno Ot Z87.442 PERSONAL HISTORY OF URINARY CALCULI 09/19/2015 Ot 789.00 09/19/2015 Ot 562.10 09/19/2015 Ot 593.2 09/19/2015 WYNN, SHERON R CFNP Ot 784.0 [...] R00.0 TACHYCARDIA, UNSPECIFIED 09/20/2015 DARLENE SNOW, ALEXANDRA Leiws Ot R07.89 OTHER CHEST PAIN 09/20/2015 DARLENE SNOW, ALEXANDRA Lewis Ot R10.13 EPIGASTRIC PAIN 09/20/2015 DARLENE SNOW, ALEXANDRA Lewis Ot Z79.4 [employer]ES REPRESENT[employer] (CURRENT) USE OF INSULIN 09/20/2015 Ot 789.00 [...] 562.10 09/20/2015 Ot 593.2 09/20/2015 WYNN, SHERON Mercado CFNP Ot 784.0 09/20/2015 WYNN, SHERON Mercado CFNP Ot V12.41 09/20/2015 WYNN, SHERON Mercado CFNP Ot 784.0 09/20/2015 WYNN, SHERON R CFNP Ot V12.41 09/20/2015 WYNN, SHERON Mercado CFNP Ot 592.0 09/20/2015 TIANNA SHERON Mercado CFNP Ot 592.0 10/10/2015 Ot E11.9 TYPE 2 DIABETES MELLITUS WITHOUT COMPLIC 10/10/2015 Ot I10 ESSENT IAL (PRIMARY) HYPERTENSION 10/10/2015 Ot R10.13 EPI GASTRIC PAIN 10/10/2015 Ot Z79.4 [facility] (CURRENT) USE OF INSULIN 10/11/2015 Ot E11.9 10/11/2015 Ot I10 10/11/2015 Ot R10.13 10/11/2015 Ot Z79.4 10/13/2015 ABDIRASHID JC DO Ot R10.13 10/14/2015 ABDIRASHID JC DO Ot R10.13 10/19/2015 Ot E11.9 10/19/2015 Ot I10 10/19/2015 Ot R10.13 10/19/2015 Ot Z79.4 12/12/2015 SHERON WYNN Jess CFNP Ot K85.8 OTHER ACUTE PANCREATITIS 12/15/2015 Ot 789.00 ABD OMINAL PAIN, UNSPECIFIED SITE 12/15/2015 Ot 562.10 DIV ERTICULOSIS COLON (W/O MENT OF HEMORR 12/15/2015 Ot 593.2 CYST OF KIDNEY, ACQUIRED 12/15/2015 WYNNSHERON CFNP Ot 784.0 HEADACHE 12/15/2015 WYNNSHERON CFNP Ot V12.41 HX BENIGN NEOPLASM/BRAIN 12/15/2015 WYNNSHERON CFNP Ot 784.0 HEADACHE 12/15/2015 WYNNSHERON CFNP Ot V12.41 HX BENIGN NEOPLASM/BRAIN 12/15/2015 WYNNSHERON CFNP Ot 592.0 CALCULUS OF KIDNEY 12/15/2015 WYNNSHERON CFNP Ot 592.0 CALCULUS OF KIDNEY 12/15/2015 ABDIRASHID JC DO Ot R10.13 EPIGASTRIC PAIN 12/15/2015 WYNNSHERON ARCHER R CFNP Ot K85.8 OTHER ACUTE PANCREATITIS 12/15/2015 JUANCHO JC DOA K Ot R10.11 RIGHT UPPER QUADRANT PAIN 12/15/2015 Ot 789.00 ABD OMINAL PAIN, UNSPECIFIED SITE 12/15/2015 Ot 562.10 DIV ERTICULOSIS COLON (W/O MENT OF HEMORR 12/15/2015 Ot 593.2 CYST OF KIDNEY, ACQUIRED 12/15/2015 WYNN, SHERON R CFNP Ot 784.0 HEADACHE 12/15/2015 WYNN, SHERON R CFNP Ot V12.41 HX BENIGN NEOPLASM/BRAIN 12/15/2015 WYNN, SHERON R CFNP Ot 784.0 HEADACHE 12/15/2015 WYNN, SHERON R CFNP Ot V12.41 HX BENIGN NEOPLASM/BRAIN 12/15/2015 WYNN, SHERON R CFNP Ot 592.0 CALCULUS OF KIDNEY 12/15/2015 WYNN, SHERON R CFNP Ot 592.0 CALCULUS OF KIDNEY 12/15/2015 ABDIRASHID JC DO K Ot R10.13 EPIGASTRIC PAIN 12/15/2015 WYNN, SHERON R CFNP Ot K85.8 OTHER ACUTE PANCREATITIS 12/16/2015 Ot 789.00 ABD OMINAL PAIN, UNSPECIFIED SITE 12/16/2015 Ot 562.10 DIV ERTICULOSIS COLON (W/O MENT OF HEMORR 12/16/2015 Ot 593.2 CYST OF KIDNEY, ACQUIRED 12/16/2015 WYNN, SHERON R CFNP Ot 784.0 HEADACHE 12/16/2015 WYNN, SHERON R CFNP Ot V12.41 HX BENIGN NEOPLASM/BRAIN 12/16/2015 WYNN, SHERON R CFNP Ot 784.0 HEADACHE 12/16/2015 WYNN, SHERON R CFNP Ot V12.41 HX BENIGN NEOPLASM/BRAIN 12/16/2015 WYNN, SHERON R CFNP Ot 592.0 CALCULUS OF KIDNEY 12/16/2015 WYNN, SHERON R CFNP Ot 592.0 CALCULUS OF KIDNEY 12/16/2015 JUANCHO JC DOA K Ot R10.13 EPIGASTRIC PAIN 12/16/2015 WYNN, SHERON R CFNP Ot K85.8 OTHER ACUTE PANCREATITIS 12/16/2015 ALEXANDRA COLON MD Ot E86.0 DEHYDRATION 12/16/2015 ALEXANDRA COLON MD Ot R42 DIZZINESS AND GIDDINESS 12/16/2015 ALEXANDRA COLON MD Ot R55 SYNCOPE AND COLLAPSE 12/16/2015 Ot 789.00 ABD OMINAL PAIN, UNSPECIFIED SITE 12/16/2015 Ot 562.10 DIV ERTICULOSIS COLON (W/O MENT OF HEMORR 12/16/2015 Ot 593.2 CYST OF KIDNEY, ACQUIRED 12/16/2015 SHERON WYNN R CFNP Ot 784.0 HEADACHE 12/16/2015 WYNN, SHERON R CFNP Ot V12.41 HX BENIGN NEOPLASM/BRAIN 12/16/2015 WYNN, SHERON R CFNP Ot 784.0 HEADACHE 12/16/2015 WYNN, SHERON R CFNP Ot V12.41 HX BENIGN NEOPLASM/BRAIN 12/16/2015 WYNN, SHERON R CFNP Ot 592.0 CALCULUS OF KIDNEY 12/16/2015 WYNN SHERON R CFNP Ot 592.0 CALCULUS OF KIDNEY 12/16/2015 ABDIRASHID JC DO Ot R10.13 EPIGASTRIC PAIN 12/16/2015 SHERON WYNN R CFNP Ot K85.8 OTHER ACUTE PANCREATITIS 12/19/2015 ABDIRASHID JC DO K Ot R10.11 RIGHT UPPER QUADRANT PAIN 12/19/2015 ALEXANDRA COLON MD Ot E86.0 DEHYDRATION 12/19/2015 ALEXANDRA COLON MD Ot R42 DIZZINESS AND GIDDINESS 12/19/2015 ALEXANDRA COLON MD Ot R55 SYNCOPE AND COLLAPSE 12/23/2015 TIANNA SHERON R CFNP Ot R10.10 UPPER ABDOMINAL PAIN, UNSPECIFIED 12/23/2015 TIANNA SHERON R CFNP Ot R10.10 UPPER ABDOMINAL PAIN, UNSPECIFIED 01/02/2016 Ot 789.00 ABD OMINAL PAIN, UNSPECIFIED SITE 01/02/2016 Ot 562.10 DIV ERTICULOSIS COLON (W/O MENT OF HEMORR 01/02/2016 Ot 593.2 CYST OF KIDNEY, ACQUIRED 01/02/2016 SHERON WYNN R CFNP Ot 784.0 HEADACHE 01/02/2016 WYNN, SHERON R CFNP Ot V12.41 HX BENIGN NEOPLASM/BRAIN 01/02/2016 SHERON WYNN CFNP Ot 784.0 HEADACHE 01/02/2016 SHERON WYNN CFNP Ot V12.41 HX BENIGN NEOPLASM/BRAIN 01/02/2016 SHERON WYNN CFNP Ot 592.0 CALCULUS OF KIDNEY 01/02/2016 SHERON WYNN CFNP Ot 592.0 CALCULUS OF KIDNEY 01/02/2016 ABDIRASHID JC DO Ot R10.13 EPIGASTRIC PAIN 01/02/2016 SHERON WYNN CFNP Ot K85.8 OTHER ACUTE PANCREATITIS 01/02/2016 SHERON WYNN CFNP Ot R10.10 UPPER ABDOMINAL PAIN, UNSPECIFIED 01/02/2016 ABDIRASHID JC DO Ot R10.13 EPIGASTRIC PAIN 01/02/2016 SHERON WYNN CFNP Ot K85.8 OTHER ACUTE PANCREATITIS 01/02/2016 SHERON WYNN CFNP Ot R10.10 UPPER ABDOMINAL PAIN, UNSPECIFIED 01/02/2016 PAM SNOW FACC, KIAH FACP CCDS Ot E11.9 TYPE 2 DIABETES MELLITUS WITHOUT COMPLIC 01/02/2016 PAM SNOW FACC, ALI FACP CCDS Ot E78.5 HYPERLIPIDEMIA, UNSPECIFIED 01/02/2016 PAM SNOW FACC, ALI FACP CCDS Ot G40.909 EPILEPSY, UNSP, NOT INTRACTABLE, WITHOUT 01/02/2016 PAM SNOW FACC, ALI FACP CCDS Ot I10 ESSENTIAL (PRIMARY) HYPERTENSION 01/02/2016 PAM SNOW FACC, KIAH FACP CCDS Ot R07.9 CHEST PAIN, UNSPECIFIED 01/02/2016 PAM SNOW FACC, ALI FACP CCDS Ot R55 SYNCOPE AND COLLAPSE 01/02/2016 PAM SNOW FACC, ALI FACP CCDS Ot Z79.899 OTHER [facility] (CURRENT) DRUG THERAPY 01/03/2016 Ot E11.9 TYPE 2 DIABETES MELLITUS WITHOUT COMPLIC 01/03/2016 Ot I10 ESSENT IAL (PRIMARY) HYPERTENSION 01/03/2016 Ot R10.13 EPI GASTRIC PAIN 01/03/2016 Ot Z79.4 [facility] (CURRENT) USE OF INSULIN 01/03/2016 SHERON WYNN CFNP Ot K85.8 OTHER ACUTE PANCREATITIS 01/19/2016 PAM SNOW FACC, ALI FACP CCDS Ot E11.9 TYPE 2 DIABETES MELLITUS WITHOUT COMPLIC 01/19/2016 [facility] E78.5 HYPERLIPIDEMIA, UNSPECIFIED 01/19/2016 PAM SNOW FACC, [facility] G40.909 EPILEPSY, UNSP, NOT INTRACTABLE, WITHOUT 01/19/2016 PAM SNOW FACC, ALI FACP CCDS Ot I10 ESSENTIAL (PRIMARY) HYPERTENSION 01/19/2016 PAM SNOW FACC, [facility] R07.9 CHEST PAIN, UNSPECIFIED 01/19/2016 PAM SNOW FACC, K[facility] R55 SYNCOPE AND COLLAPSE 01/19/2016 PAM SNOW FACC, [facility] Z79.899 OTHER [facility] (CURRENT) DRUG THERAPY 01/23/2016 BERTIN SMITH DO Ot K87 DISORD OF GB, BILIARY TRAC AND PANCREAS 01/23/2016 BERTIN SMITH DO Ot Z01.818 ENCOUNTER FOR OTHER PREPROCEDURAL EXAMIN 01/24/2016 BERTIN SMITH DO Ot K87 DISORD OF GB, BILIARY TRAC AND PANCREAS 01/24/2016 BERTIN SMITH DO Ot Z01.818 ENCOUNTER FOR OTHER PREPROCEDURAL EXAMIN 01/26/2016 BERTIN SMITH DO Ot E11. 9 TYPE 2 DIABETES MELLITUS WITHOUT COMPLIC 01/26/2016 BERTIN SMITH DO Ot K81. 1 CHRONIC CHOLECYSTITIS 01/26/2016 BERTIN SMITH DO Ot K82. 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 01/28/2016 DIETER OLMOS DO Ot L29.8 OTHER PRURITUS 01/28/2016 DIETER OLMOS DO Ot Z90.49 ACQUIRED ABSENCE OF OTHER SPECIFIED PART 01/28/2016 Ot 789.00 ABD OMINAL PAIN, UNSPECIFIED SITE 01/28/2016 Ot 562.10 DIV ERTICULOSIS COLON (W/O MENT OF HEMORR 01/28/2016 Ot 593.2 CYST OF KIDNEY, ACQUIRED 01/28/2016 WYNN, SHERON R CFNP Ot 784.0 HEADACHE 01/28/2016 TIANNA SHERON Mercado CFNP Ot V12.41 HX BENIGN NEOPLASM/BRAIN 01/28/2016 TIANNA SHERON Mercado CFNP Ot 784.0 HEADACHE 01/28/2016 TIANNA SHERON R CFNP Ot V12.41 HX BENIGN NEOPLASM/BRAIN 01/28/2016 TIANNA SHERON Mercado CFNP Ot 592.0 CALCULUS OF KIDNEY 01/28/2016 TIANNA SHERON Mercado CFNP Ot 592.0 CALCULUS OF KIDNEY 01/28/2016 ABDIRASHID JC DO Ot R10.13 EPIGASTRIC PAIN 01/28/2016 TIANNA SHERON Mercado CFNP Ot K85.8 OTHER ACUTE PANCREATITIS 01/28/2016 WYNNSHERON CFNP Ot R10.10 UPPER ABDOMINAL PAIN, UNSPECIFIED 01/30/2016 DIETER OLMOS DO Ot G89.18 OTHER ACUTE POSTPROCEDURAL PAIN 01/30/2016 DIETER OLMOS DO, Ot K57.30 DVRTCLOS OF LG INT W/O PERFORATION OR AB 01/30/2016 DIETER OLMOS DO, Ot L29.8 OTHER PRURITUS 01/30/2016 DIETER OLMOS DO Ot Z90.49 ACQUIRED ABSENCE OF OTHER SPECIFIED PART 02/02/2016 BERTIN SMITH DO Ot E11. 9 TYPE 2 DIABETES MELLITUS WITHOUT COMPLIC 02/02/2016 BERTIN SMITH DO, Ot K81. 1 CHRONIC CHOLECYSTITIS 02/22/2016 BERTIN SMITH DO Ot K87 DISORD OF GB, BILIARY TRAC AND PANCREAS 02/22/2016 BERTIN SMITH DO, Ot Z01.818 ENCOUNTER FOR OTHER PREPROCEDURAL EXAMIN 04/09/2016 WYNN, SHERON Mercado CFNP Ot M25.561 PAIN IN RIGHT KNEE 04/12/2016 TIANNA SHERON Mercado CFNP Ot M25.561 PAIN IN RIGHT KNEE 02/14/2017 TIANNA SHERON Mercado CFNP Ot 784.0 HEADACHE 02/14/2017 TIANNA SHERON R CFNP Ot V12.41 HX BENIGN NEOPLASM/BRAIN 02/14/2017 TIANNA SHERON Mercado CFNP Ot 784.0 HEADACHE 02/14/2017 TIANNA SHERON R CFNP Ot V12.41 HX BENIGN NEOPLASM/BRAIN 02/14/2017 WYNN, SHERON R CFNP Ot 592.0 CALCULUS OF KIDNEY 02/14/2017 WYNN, SHERON R CFNP Ot 592.0 CALCULUS OF KIDNEY 02/14/2017 HOSEA DO, ABDIRASHID K Ot R10.13 EPIGASTRIC PAIN 02/14/2017 WYNN, SHERON R CFNP Ot K85.8 OTHER ACUTE PANCREATITIS 02/14/2017 WYNN, SHERON R CFNP Ot R10.10 UPPER ABDOMINAL PAIN, UNSPECIFIED 02/14/2017 WYNN, SHERON R CFNP Ot M25.561 PAIN IN RIGHT KNEE 02/23/2017 WYNN, SHERON R CFNP Ot 784.0 HEADACHE 02/23/2017 WYNN, SHERON R CFNP Ot V12.41 HX BENIGN NEOPLASM/BRAIN 02/23/2017 WYNN, SHERON R CFNP Ot 784.0 HEADACHE 02/23/2017 WYNN, SHERON R CFNP Ot V12.41 HX BENIGN NEOPLASM/BRAIN 02/23/2017 WYNN, SHERON R CFNP Ot 592.0 CALCULUS OF KIDNEY 02/23/2017 WYNN, SHERON R CFNP Ot 592.0 CALCULUS OF KIDNEY 02/23/2017 HOSEA DO, ABDIRASHID K Ot R10.13 EPIGASTRIC PAIN 02/23/2017 WYNN, SHERON R CFNP Ot K85.8 OTHER ACUTE PANCREATITIS 02/23/2017 WYNN, SHERON R CFNP Ot R10.10 UPPER ABDOMINAL PAIN, UNSPECIFIED 02/23/2017 WYNN, SHERON R CFNP Ot M25.561 PAIN IN RIGHT KNEE 02/23/2017 LILLIAM RODRIGUES PATIENT COMPANION Ot Z12.31 ENCNTR SCREEN MAMMOGRAM FOR MALIGNANT NE 02/23/2017 WYNN, SHERON R CFNP Ot 784.0 HEADACHE 02/23/2017 WYNN, SHERON R CFNP Ot V12.41 HX BENIGN NEOPLASM/BRAIN 02/23/2017 WYNN, SHERON R CFNP Ot 784.0 HEADACHE 02/23/2017 WYNN, SHERON R CFNP Ot V12.41 HX BENIGN NEOPLASM/BRAIN 02/23/2017 WYNN, SHERON R CFNP Ot 592.0 CALCULUS OF KIDNEY 02/23/2017 WYNN, SHERON R CFNP Ot 592.0 CALCULUS OF KIDNEY 02/23/2017 HOSEA OCAMPO, ABDIRASHID K Ot R10.13 EPIGASTRIC PAIN 02/23/2017 TIANNA SHERON RUIZ Ot K85.8 OTHER ACUTE PANCREATITIS 02/23/2017 WYNNSHERON ARCHER Ot R10.10 UPPER ABDOMINAL PAIN, UNSPECIFIED 02/23/2017 WYNN SHERON RUIZ Ot M25.561 PAIN IN RIGHT KNEE 02/23/2017 LILLIAM RODRIGUES Manuel HARTMANN Ot Z12.31 ENCNTR SCREEN MAMMOGRAM FOR MALIGNANT NE 02/23/2017 TERESA AGUAYO Ot E11.40 TYPE 2 DIABETES MELLITUS WITH DIABETIC N 02/23/2017 TERESA AGUAYO Ot E78.00 PURE HYPERCHOLESTEROLEMIA, UNSPECIFIED 02/23/2017 TERESA AGUAYO Ot G40.909 EPILEPSY, UNSP, NOT INTRACTABLE, WITHOUT 02/23/2017 TERESA AGUAYO Ot I 10 ESSENTIAL (PRIMARY) HYPERTENSION 02/23/2017 TERESA AGUAYO Ot K02.9 DENTAL CARIES, UNSPECIFIED 02/23/2017 TERESA AGUAYO Ot K04.7 PERIAPICAL ABSCESS WITHOUT SINUS 02/23/2017 TERESA AGUAYO Ot R68.84 JAW PAIN 02/23/2017 TERESA AGUAYO Ot Z79.4 [facility] (CURRENT) USE OF INSULIN 02/23/2017 TERESA AGUAYO Ot Z79.82 [facility] (CURRENT) USE OF ASPIRIN 02/23/2017 TERESA AGUAYO Ot 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 02/23/2017 TERESA [...] NOT INTRACTABLE, WITHOUT 02/26/2017 TERESA AGUAYO Ot I 10 ESSENTIAL (PRIMARY) HYPERTENSION 02/26/2017 TERESA AGUAYO Ot K02.9 DENTAL CARIES, UNSPECIFIED 02/26/2017 TERESA AGUAYO Ot K04.7 PERIAPICAL ABSCESS WITHOUT SINUS 02/26/2017 TERESA AGUAYO Ot R68.84 JAW PAIN 02/26/2017 TERESA AGUAYO Ot Z79.4 [employer] (CURRENT) USE OF INSULIN 02/26/2017 TERESA AGUAYO Ot Z79.82 [employer]ES [employer] (CURRENT) USE OF ASPIRIN 02/26/2017 TERESA AGUAYO Ot 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 02/26/2017 TERESA [...] CFNP Ot 592.0 CALCULUS OF KIDNEY 04/24/2017 ABDIRASHID JC DO Ot R10.13 EPIGASTRIC PAIN 04/24/2017 SHERON WYNN Ot K85.8 OTHER ACUTE PANCREATITIS 04/24/2017 SHERON WYNN Ot R10.10 UPPER ABDOMINAL PAIN, UNSPECIFIED 04/24/2017 SHERON WYNN Ot M25.561 PAIN IN RIGHT KNEE 04/24/2017 LILLIAM RODRIGUES Ot Z12.31 ENCNTR SCREEN MAMMOGRAM FOR MALIGNANT NE 04/24/2017 LILLIAM RODRIGUES PATIENT COMPANION Ot R92.8 OTH ABN AND INCONCLUSIVE FINDINGS ON DX 04/25/2017 TERESA AGUAYO Ot E11.40 TYPE 2 DIABETES MELLITUS WITH DIABETIC N 04/25/2017 TERESA AGUAYO Ot E78.00 PURE HYPERCHOLESTEROLEMIA, UNSPECIFIED 04/25/2017 TERESA AGUAYO Ot G40.909 EPILEPSY, UNSP, NOT INTRACTABLE, WITHOUT 04/25/2017 TERESA AGUAYO Ot I 10 ESSENTIAL (PRIMARY) HYPERTENSION 04/25/2017 TERESA AGUAYO Ot K02.9 DENTAL CARIES, UNSPECIFIED 04/25/2017 TERESA AGUAYO Ot K04.7 PERIAPICAL ABSCESS WITHOUT SINUS 04/25/2017 TERESA AGUAYO Ot R68.84 JAW PAIN 04/25/2017 TERESA AGUAYO Ot Z79.4 [employer] (CURRENT) USE OF INSULIN 04/25/2017 TERESA AGUAYO Ot Z79.82 [facility] (CURRENT) USE OF ASPIRIN 04/25/2017 TERESA AGUAYO Ot Z79.84 [facility] (CURRENT) USE OF ORAL HYPOGLYC 04/25/2017 TERESA [...] BOTH CERVIX AND UTER 08/02/2017 SHERON WYNN Ot 784.0 HEADACHE 08/02/2017 SHERON WYNN CFNP Ot V12.41 HX BENIGN NEOPLASM/BRAIN 08/02/2017 SHERON WYNN CFNP Ot 784.0 HEADACHE 08/02/2017 SHERON WYNN CFNP Ot V12.41 HX BENIGN NEOPLASM/BRAIN 08/02/2017 SHERON WYNN CFNP Ot 592.0 CALCULUS OF KIDNEY 08/02/2017 SHERON WYNN CFNP Ot 592.0 CALCULUS OF KIDNEY 08/02/2017 HOSEA DO, ABDIRASHID K Ot R10.13 EPIGASTRIC PAIN 08/02/2017 SHERON WYNN CFNP Ot K85.8 OTHER ACUTE PANCREATITIS 08/02/2017 SHERON WYNN CFNP Ot R10.10 UPPER ABDOMINAL PAIN, UNSPECIFIED 08/02/2017 SHERON WYNN CFNP Ot M25.561 PAIN IN RIGHT KNEE 08/02/2017 LILLIAM RODRIGUESP Ot Z12.31 ENCNTR SCREEN MAMMOGRAM FOR MALIGNANT NE 08/02/2017 LILLIAM RODRIGUESP Ot R92.8 OTH ABN AND INCONCLUSIVE FINDINGS ON DX 08/06/2017 KEKE BRUNSON MD H Ot M47.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 08/06/2017 ASHLEY BRUNSON MDAMEN H Ot M48.02 SPINAL STENOSIS, CERVICAL REGION 08/06/2017 ASHLEY BRUNSON MDAMEN H Ot M51.26 OTHER INTERVERTEBRAL DISC DISPLACEMENT, 08/06/2017 ASHLEY BRUNSON MDAMEN H Ot M51.36 OTHER INTERVERTEBRAL DISC DEGENERATION, 08/23/2017 LILLIAM RODRIGUES Ot R92.1 MAMMOGRAPHIC CALCIFCN FOUND ON DIAGNOSTI 04/24/2018 ASHLEY BRUNSON MDAMEN H Ot M47.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 04/24/2018 KEKE BRUNSON MD H Ot M48.02 SPINAL STENOSIS, CERVICAL REGION 04/24/2018 ASHLEY BRUNSON MDAMEN H Ot M51.26 OTHER INTERVERTEBRAL DISC DISPLACEMENT, 04/24/2018 ASHLEY BRUNSON MDAMEN H Ot M51.36 OTHER INTERVERTEBRAL DISC DEGENERATION, 04/24/2018 LILLIAM RODRIGUESP Ot R92.1 MAMMOGRAPHIC CALCIFCN FOUND ON DIAGNOSTI 04/24/2018 NANNETTE MD, BENJAMEN H Ot M47.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 04/24/2018 KEKE BRUNSON MD H Ot M48.02 SPINAL STENOSIS, CERVICAL REGION 04/24/2018 KEKE BRUNSON MD H Ot M51.26 OTHER INTERVERTEBRAL DISC DISPLACEMENT, 04/24/2018 KEKE BRUNSON MD H Ot M51.36 OTHER INTERVERTEBRAL DISC DEGENERATION, 04/24/2018 LILLIAM RODRIGUES Ot R92.1 MAMMOGRAPHIC CALCIFCN FOUND ON DIAGNOSTI 04/28/2018 KEKE BRUNSON MD H Ot M47.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 04/28/2018 ASHLEY BRUNSON MDAMEN H Ot M48.02 SPINAL STENOSIS, CERVICAL REGION 04/28/2018 KEKE BRUNSON MD H Ot M51.26 OTHER INTERVERTEBRAL DISC DISPLACEMENT, 04/28/2018 KEKE BRUNSON MD H Ot M51.36 OTHER INTERVERTEBRAL DISC DEGENERATION, 04/28/2018 LILLIAM RODRIGUES Ot R92.1 MAMMOGRAPHIC CALCIFCN FOUND ON DIAGNOSTI 04/30/2018 KEKE BRUNSON MD H Ot R92.1 MAMMOGRAPHIC CALCIFCN FOUND ON DIAGNOSTI 05/12/2018 KEKE BRUNSON MD H Ot R92.1 MAMMOGRAPHIC CALCIFCN FOUND ON DIAGNOSTI 11/28/2018 ALEXANDRA COLON MD Ot E11.40 TYPE 2 DIABETES MELLITUS WITH DIABETIC N 11/28/2018 ALEXANDRA COLON MD, Ot E78.00 PURE HYPERCHOLESTEROLEMIA, UNSPECIFIED 11/28/2018 ALEXANDRA COLON MD, Ot G40.909 EPILEPSY, UNSP, NOT INTRACTABLE, WITHOUT 11/28/2018 ALEXANDRA COLON MD, Ot I10 ESSENTIAL (PRIMARY) HYPERTENSION 11/28/2018 ALEXANDRA COLON MD, Ot M79.7 FIBROMYALGIA 11/28/2018 ALEXANDRA COLON MD, Ot S20.361A INSECT BITE (NONVENOMOUS) OF R FRNT WL O 11/28/2018 ALEXANDRA COLON MD, Ot S40.861A INSECT BITE (NONVENOMOUS) OF RIGHT UPPER 11/28/2018 ALEXANDRA COLON MD, Ot W57.XXXA BIT/STUNG BY NONVENOM INSECT OTH NONVE 11/28/2018 ALEXANDRA COLON MD, Ot Z79.4 [facility] (CURRENT) USE OF INSULIN 11/28/2018 ALEXANDRA COLON MD, Ot Z79.82 [facility] (CURRENT) USE OF ASPIRIN 11/28/2018 ALEXANDRA COLON MD, Ot Z86.011 PERSONAL HISTORY OF BENIGN NEOPLASM OF T 11/28/2018 ALEXANDRA COLON MD, Ot Z87.19 PERSONAL HISTORY OF OTHER DISEASES OF TH 11/28/2018 ALEXANDRA COLON MD, Ot Z87.442 PERSONAL HISTORY OF URINARY CALCULI 11/28/2018 ALEXANDRA COLON MD, Ot Z88.2 ALLERGY STATUS TO SULFONAMIDES STATUS 11/28/2018 ALEXANDRA COLON MD, Ot Z88.8 ALLERGY STATUS TO OTH DRUG/MEDS/BIOL SUB 11/28/2018 ALEXANDRA COLON MD, Ot Z90.710 ACQUIRED ABSENCE OF BOTH CERVIX AND UTER 11/28/2018 ALEXANDRA COLON MD Ot Z98.890 OTHER SPECIFIED POSTPROCEDURAL STATES 12/05/2018 ALEXANDRA COLON MD Ot E11.40 TYPE 2 DIABETES MELLITUS WITH DIABETIC N 12/05/2018 ALEXANDRA COLON MD, Ot E78.00 PURE HYPERCHOLESTEROLEMIA, UNSPECIFIED 12/05/2018 ALEXANDRA COLON MD, Ot G40.909 EPILEPSY, UNSP, NOT INTRACTABLE, WITHOUT 12/05/2018 ALEXANDRA COLON MD Ot I10 ESSENTIAL (PRIMARY) HYPERTENSION 12/05/2018 ALEXANDRA COLON MD Ot M79.7 FIBROMYALGIA 12/05/2018 ALEXANDRA COLON MD Ot S20.361A INSECT BITE (NONVENOMOUS) OF R FRNT WL O 12/05/2018 ALEXANDRA COLON MD, Ot S40.861A INSECT BITE (NONVENOMOUS) OF RIGHT UPPER 12/05/2018 ALEXANDRA COLON MD Ot W57.XXXA BIT/STUNG BY NONVENOM INSECT OTH NONVE 12/05/2018 ALEXANDRA COLON MD, Ot Z79.4 [facility] (CURRENT) USE OF INSULIN 12/05/2018 ALEXANDRA COLON MD, Ot Z79.82 [facility] (CURRENT) USE OF ASPIRIN 12/05/2018 ALEXANDRA COLON MD, Ot Z86.011 PERSONAL HISTORY OF BENIGN NEOPLASM OF T 12/05/2018 ALEXANDRA COLON MD Ot Z87.19 PERSONAL HISTORY OF OTHER DISEASES OF TH 12/05/2018 ALEXANDRA COLON MD Ot Z87.442 PERSONAL HISTORY OF URINARY CALCULI 12/05/2018 ALEXANDRA COLON MD Ot Z88.2 ALLERGY STATUS TO SULFONAMIDES STATUS 12/05/2018 ALEXANDRA COLON MD Ot Z88.8 ALLERGY STATUS TO OTH DRUG/MEDS/BIOL SUB 12/05/2018 ALEXANDRA COLON MD Ot Z90.710 ACQUIRED ABSENCE OF BOTH CERVIX AND UTER 12/05/2018 ALEXANDRA COLON MD Ot Z98.890 OTHER SPECIFIED POSTPROCEDURAL STATES 05/19/2019 NANNETTE SNOW, KEKE Ronquillo Ot Z12.31 ENCNTR SCREEN MAMMOGRAM FOR MALIGNANT NE 06/09/2019 PAM SNOW FACC, ALI FACP CCDS Ot E11.9 TYPE 2 DIABETES MELLITUS WITHOUT COMPLIC 06/09/2019 PAM SNOW FACC, ALI FACP CCDS Ot E78.5 HYPERLIPIDEMIA, UNSPECIFIED 06/09/2019 PAM SNOW FACC, ALI FACP CCDS Ot I10 ESSENTIAL (PRIMARY) HYPERTENSION 06/09/2019 PAM SNOW FACC, KIAH FACP CCDS Ot R07.9 CHEST PAIN, UNSPECIFIED 06/09/2019 PAM SNOW FACC, ALI FACP CCDS Ot R55 SYNCOPE AND COLLAPSE 06/09/2019 PAM SNOW FACC, ALI FACP CCDS Ot Z79.84 [facility] (CURRENT) USE OF ORAL HYPOGLYC 06/09/2019 PAM SNOW FACC, ALI FACP CCDS Ot 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 06/09/2019 PAM SNOW FACC, ALI FACP CCDS Ot Z80.1 FAMILY HISTORY OF MALIG NEOPLASM OF TRAC 06/09/2019 PAM SNOW FACC, KIAH FACP CCDS Ot Z82.49 FAMILY HX OF ISCHEM HEART DIS AND OTH DI 06/09/2019 PAM SNOW FACC, ALI FACP CCDS Ot Z83.3 FAMILY HISTORY OF DIABETES MELLITUS 06/09/2019 PAM SNOW FACC, ALI FACP CCDS Ot Z88.2 ALLERGY STATUS TO SULFONAMIDES STATUS 06/09/2019 PAM SNOW FACC, ALI FACP CCDS Ot Z88.8 ALLERGY STATUS TO OT DRUG/MEDS/BIOL SUB 06/09/2019 PAM SNOW FACC, KIAH ROSAELSP CCDS Ot Z90.49 ACQUIRED ABSENCE OF OTHER SPECIFIED PART 06/09/2019 KIAH OROZCO MD, FACC FACP CCDS Ot Z90.710 ACQUIRED ABSENCE OF BOTH CERVIX AND UTER 06/15/2019 WYNNSHERON CFNP Ot 592.0 CALCULUS OF KIDNEY 06/15/2019 HOSEA DO, ABDIRASHID K Ot R10.13 EPIGASTRIC PAIN 06/15/2019 WYNNSHERON CFNP Ot K85.8 OTHER ACUTE PANCREATITIS 06/15/2019 WYNNSHERON ARCHER CFNP Ot R10.10 UPPER ABDOMINAL PAIN, UNSPECIFIED 06/15/2019 SHERON WYNN CFNP Ot M25.561 PAIN IN RIGHT KNEE 06/15/2019 LILLIAM RODRIGUES PATIENT COMPANION Ot Z12.31 ENCNTR SCREEN MAMMOGRAM FOR MALIGNANT NE 06/15/2019 LILLIAM RODRIGUES PATIENT COMPANION Ot R92.8 OT ABN AND INCONCLUSIVE FINDINGS ON DX 06/24/2019 KIAH OROZCO MD, FACC FACP CCDS Ot E11.9 TYPE 2 DIABETES MELLITUS WITHOUT COMPLIC 06/24/2019 KIAH OROZCO MD, FACC FACP CCDS Ot I10 ESSENTIAL (PRIMARY) HYPERTENSION 06/24/2019 KIAH OROZCO MD, FACC FACP CCDS Ot R00.2 PALPITATIONS 06/24/2019 KIAH OROZCO MD, FACC FACP CCDS Ot R55 SYNCOPE AND COLLAPSE 06/24/2019 KIAH OROZCO MD, FACC FACP CCDS Ot Z79.82 [facility] (CURRENT) USE OF ASPIRIN 06/24/2019 KIAH OROZCO MD, FACC FACP CCDS Ot 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 06/24/2019 KIAH OROZCO MD, FACC FACP CCDS Ot E11.9 TYPE 2 DIABETES MELLITUS WITHOUT COMPLIC 06/24/2019 KIAH OROZCO MD, FACC FACP CCDS Ot I10 ESSENTIAL (PRIMARY) HYPERTENSION 06/24/2019 KIAH OROZCO MD, FACC FACP CCDS Ot R00.2 PALPITATIONS 06/24/2019 KIAH OROZCO MD, FACC FACP CCDS Ot R55 SYNCOPE AND COLLAPSE 06/24/2019 KIAH OROZCO MD, FACC FACP CCDS Ot Z79.82 [facility] (CURRENT) USE OF ASPIRIN 06/24/2019 PAM SNOW FACC, KIAH SALDAÑA CCDS Ot Z79.84 [facility] (CURRENT) USE OF ORAL HYPOGLYC Procedures Code [place] [address] MICR O ALBUMIN-IN HOUSE 05/27/2012 96985 A1C (IN-HOUSE) 05/27/2012 42722 ROUT INE VENIPUNCTURE 06/24/2012 93491 CBC 06/24/2012 00488 LIPI D PANEL 06/24/2012 02511 CMP 06/24/2012 [id number] GF R CALC (RESULT ONLY) 06/24/2012 57192 GANG LION CYST-ASP/INJ 07/24/2012 64471 A1C (IN-HOUSE) 09/30/2012 63298 A1C (IN-HOUSE) 02/23/2013 56376 MRI BRAIN W/O & W/DYE 03/30/2013 57855 A1C (IN-HOUSE) 07/15/2013 94732 UA L JESSY DIP 11/16/[address] A BDOMEN & PELVIS W/O CONTRAST 11/17/2013 54684 UA L JESSY DIP 12/01/2013 82754 ROUT INE VENIPUNCTURE 12/09/2013 82297 A1C (IN-HOUSE) 12/09/2013 15037 MICR O ALBUMIN-IN HOUSE 12/09/20137698924 GF R CALC (RESULT ONLY) 12/09/2013 24267 CMP 12/09/2013 72172 LIPI D PANEL 12/09/2013 20243 UA L JESSY DIP 12/28/2013 38571 UA L JESSY DIP 01/19/2014 64203 UA L JESSY DIP 02/18/[address] A BDOMEN & PELVIS W/O CONTRAST 03/30/2014 06138 A1C (IN-HOUSE) 06/01/2014 71226 UA L JESSY DIP 06/01/2014 11748 GLUC OSE FINGER STICK 06/01/2014 05349 MRI SPINE (LUMBAR) W/O CONTRAST 08/07/2014 58106 A1C (IN-HOUSE) 10/20/2014 Results Test Result Range Automated blood complete blood count (he mogram) panel - 06/09/19 07:11 Blood leukocytes automated count (number/volume) 8.9 10*3/uL 4.3-11.0 Blood erythrocytes automated count (number/volume) 4.20 10*6/uL 4.35-5.85 Venous blood hemoglobin measurement (mass/volume) 12.9 g/dL 11.5-16.0 Blood hematocrit (volume fraction) 39 % 35-52 Automated erythrocyte mean corpuscular volume 92 [ foz_us] 80-99 Automated erythrocyte mean corpuscular h emoglobin (mass per erythrocyte) 31 pg 25-34 Automated erythrocyte mean corpuscular h emoglobin concentration measurement (mass/volume) 33 g/dL 32-36 Automated erythrocyte distribution width ratio 12. 5 % 10.0- 14.5 Automated blood platelet count (count/volume) 385 10*3/uL 130-400 Automated blood platelet mean volume measurement 9.1 [foz_us] 7.4-10.4 PT panel in platelet poor plasma by coag ulation assay - 06/09/19 07:11 Prothrombin time (PT) in platelet poor plasma by coagu lation assay 11.7 s 12.2-14.7 INR in platelet poor plasma or blood by coagulation as say 0.8 0.8-1.4 Activated partial thromboplastin time (a PTT) in platelet poor plasma bycoagulation assay - 06/09/19 07:11 Activated partial thromboplastin time (a PTT) in platelet poor plasma bycoagulation assay 27 s 24-35 Comprehensive metabolic panel - 06/09/19 07:11 Serum or plasma sodium measurement (moles/volume) 141 mmol/L 135-145 Serum or plasma potassium measurement (moles/volume) 3.9 mmol/L 3.6-5.0 Serum or plasma chloride measurement (moles/volume) 102 mmol/L 98-107 Carbon dioxide 25 mmol/L 21-32 Serum or plasma anion gap determination (moles/volume) 14 mmol/L 5-14 Serum or plasma urea nitrogen measurement (mass/volume ) 14 mg/dL 7-18 Serum or plasma creatinine measurement (mass/volume) 0.96 mg/dL 0.60-1.30 Serum or plasma urea nitrogen/creatinine mass ratio 15 NRG Serum or plasma creatinine measurement w ith calculation of estimated glomerular filtration rate 60 NRG Serum or plasma glucose measurement (mass/volume) 205 mg/dL 70-105 Serum or plasma calcium measurement (mass/volume) 9.4 mg/dL 8.5-10.1 Serum or plasma total bilirubin measurement (mass/volu me) 0.4 mg/dL 0.1-1.0 Serum or plasma alkaline phosphatase aliya surement (enzymatic activity/volume) 79 U/L 40-136 Serum or plasma aspartate aminotransfera se measurement (enzymatic activity/volume) 13 U/L 5-34 Serum or plasma alanine aminotransferase measurement (enzymatic activity/volume) 20 U/L 0-55 Serum or plasma protein measurement (mass/volume) 7.3 g/dL 6.4-8.2 Serum or plasma albumin measurement (mass/volume) 4.5 g/dL 3.2-4.5 CALCIUM CORRECTED 9.0 mg/dL 8.5-10.1 Lipid 1996 panel - 06/09/19 07:11 Serum or plasma triglyceride measurement (mass/volume) 273 mg/dL <150 Serum or plasma cholesterol measurement (mass/volume) 197 mg/dL < 200 Serum or plasma cholesterol in HDL measurement (mass/v olume) 42 mg/dL 40-60 Cholesterol in LDL [mass/volume] in serum or plasma by direct assay 121 mg/dL 1-129 Serum or plasma cholesterol in VLDL measurement (mass/ volume) 55 mg/dL 5-40 THYROID STIMULATING HORMONE - 06/09/19 0 7:11 THYROID STIMULATING HORMONE 2.68 u[iU]/mL 0.35-4.94 Methicillin resistant Staphylococcus aur eus (MRSA) screening culture - 06/09/19 07:11 MRSA SCREEN RESULT MRSA ISOLATED NRG Encounters ACCT No. Visit Date/Time Discharge Status Pt. Type Provider Facility Loc./Unit Complaint [id number] 10/13/2018 14:59:56 10/13/2018 23:59: 59 CLS Outpatient Ng, Richard [id number] 06/23/2019 10:45:00 23:59:59 CLS Outpatient PAM SNOW FACC, KIAH SALDAÑA CC DS [facility] CATH CHEST DISCO MFORT [id number] 06/15/2019 07:35:00 23:59:59 CLS Outpatient KIAH OROZCO MD, FACC, FACP CC DS [facility] CARD SYNCOPE AND COLLAPSE [id number] 06/09/2019 06:47:00 12/03/2 019 13:20:00 DIS Outpatient PAM SNOW FACC, KIAH SALDAÑA CC DS [facility] CATH ANGINA,HTN, DM,SOB [id number] 05/15/2019 14:00:00 23:59:59 CLS Outpatient NANNETTE SNOW, KEKE Ronquillo [facility] RAD SCREENING [id number] 11/28/2018 21:53:00 23:16:00 DIS Emergency ALEXANDRA COLON MD [facility] ER POSSIBLE SPIDER BITE BY RT ARM PIT [id number] 04/28/2018 13:45:00 23:59:59 CLS Outpatient NANNETTE SNOW, KEKE Ronquillo [facility] RAD ABN MAMMO R92.8 [id number] 08/22/2017 07:59:00 018 23:59:59 CLS Outpatient LILLIAM RODRIGUES [facility] RAD 6 MONTH F/U [id number] 08/02/2017 07:21:00 018 23:59:59 CLS Outpatient NANNETTE SNOW, KEKE Ronquillo [facility] RAD CERVICAL STENOS IS [id number] 03/07/2017 07:47:00 017 23:59:59 CLS Outpatient LILLIAM RODRIGUES [facility] RAD DENSE BREAST [id number] 02/23/2017 14:26:00 017 17:40:00 DIS Emergency TERESA AGUAYO [facility] ER TOOTH PAIN [id number] 02/14/2017 09:15:00 017 23:59:59 CLS Outpatient LILLIAM RODRIGUES [facility] RAD SCREENING [id number] 04/07/2016 09:54:00 016 23:59:59 CLS Outpatient SHERON WYNN [facility] RAD ACUTE PAIN OF R T KNEE [id number] 01/28/2016 00:23:00 016 03:36:00 DIS Emergency DIETER OLMOS DO [facility] ER STOMACH PAIN POST SURGE RY [id number] 01/26/2016 05:48:00 016 14:30:00 DIS Outpatient SMITH BERTIN OCAMPO [facility] SDC ABNORMAL EJECTION FRACT ION [id number] 01/23/2016 10:23:00 016 10:36:00 DIS Outpatient BERTIN SMITH DO [facility] PREOP ABNORMAL EJECTION FRACT ION [id number] 01/02/2016 07:59:00 016 15:30:00 DIS Outpatient PAM SNOW FACC, KIAH SALDAÑA CC DS [facility] CATH ANGINA,SYNC OPE,SOB [id number] 12/22/2015 10:17:00 23:59:59 CLS Outpatient SHERON WYNN [facility] CARD PAIN OF UPPER A BDOMEN [id number] 12/16/2015 19:36:00 21:33:00 DIS Emergency ALEXANDRA COLON MD [facility] ER PASSED OUT/DIZZ Y/NAUSEA/PAIN IN LOWER BACK [id number] 12/15/2015 18:14:00 22:04:00 DIS Emergency ABDIRASHID JC DO [facility] ER CHEST PAIN/NUMBNESS/VOM ITTING [id number] 12/09/2015 09:36:00 23:59:59 CLS Outpatient SHERON WYNN [facility] RAD ACUTE PANCREATI TIS [id number] 10/13/2015 08:17:00 23:59:59 CLS Outpatient ABDIRASHID JC DO [facility] RAD EPIGASTRIC PAIN [id number] 09/19/2015 20:24:00 00:24:00 DIS Emergency ALEXANDRA COLON MD [facility] ER CP [id number] 08/09/2015 22:17:00 00:59:00 DIS Emergency MARNIE SNOW, PAULO Weldon [facility] ER LOWER ABD PAIN [id number] 06/19/2015 18:56:00 015 20:14:00 DIS Emergency STEVE AL MUSIC COMPOSER [facility] ER LOW BACK PAIN/VOMITING [id number] 03/29/2014 13:10:00 014 23:59:59 CLS Outpatient SHERON WYNN [facility] RAD RENAL STONE SEA H [id number] 11/28/2013 13:54:00 014 16:49:00 DIS Emergency MARNIE SNOW, PAULO Weldon [facility] ER BACK PAIN-KIDNE Y STONES [id number] 11/16/2013 15:05:00 014 23:59:59 CLS Outpatient SHERON WYNN [facility] RAD RENAL STONE [id number] 11/10/2013 15:22:00 014 17:21:00 DIS Emergency STEVE AL APRN [facility] ER BACK PAIN [id number] 09/30/2013 10:17:00 23:59:59 CLS Outpatient [id number] 04/13/2013 11:23:00 23:59:59 CLS Outpatient SHERON WYNN [facility] RAD CHRONIC HEADACH ES, HX BRAIN TUMOR [id number] 04/13/2013 08:19:00 23:59:59 CLS Outpatient SHERON WYNN [facility] LAB CHRONIC HEADACH ES,HX TUMOR W SHAILA [id number] 12/06/2012 17:03:00 12:00:00 DIS Inpatient PAO ANDRADE MD [facility] CSD SYNCOPE,CHEST P AIN [id number] 10/09/2015 22:26:00 Document Registration [id number] 03/28/2011 11:07:00 Document Registration [id number] 03/26/2011 07:39:00 Document Registration [id number] 03/10/2011 23:11:00 Document Registration [id number] 02/02/2011 20:46:00 Document Registration [id number] 10/20/2014 08:54:00 10/20/2014 23:59: 59 CLS Outpatient ALCAZAR DOMIKE [id number] 09/22/2014 08:14:00 09/22/2014 23:59: 59 CLS Outpatient WYNN MUSIC COMPOSERSHERON [place] [id number] 08/03/2014 11:20:00 08/03/2014 23:59: 59 CLS Outpatient WYNN SHERON BRUNSON [id number] 06/29/2014 12:45:00 06/29/2014 23:59: 59 CLS Outpatient ALCAZAR DO MIKE Hicks [id number] 06/01/2014 13:49:00 06/01/2014 23:59: 59 CLS Outpatient ALCAZAR DOCHAYAPaul Hicks [id number] 04/05/2014 15:38:00 04/05/2014 23:59: 59 CLS Outpatient ALCAZAR DO MIKE Hicks [id number] 02/18/2014 10:59:00 02/18/2014 23:59: 59 CLS Outpatient ALCAZAR DO MIKE Hicks [id number] 01/19/2014 14:49:00 01/19/2014 23:59: 59 CLS Outpatient WYNN MUSIC COMPOSERSHERON [place] [id number] 12/28/2013 10:30:00 12/28/2013 23:59: 59 CLS Outpatient ALCAZAR DOCHAYAPaul Hicks [id number] 12/09/2013 09:10:00 12/09/2013 23:59: 59 CLS Outpatient ALCAZAR DO MIKE Hicks [id number] 12/01/2013 09:20:00 12/01/2013 23:59: 59 CLS Outpatient WYNN SHERON BRUNSON [id number] 11/16/2013 10:48:00 11/16/2013 23:59: 59 CLS Outpatient WYNN SHERON BRUNSON [id number] 10/19/2013 10:35:00 10/19/2013 23:59: 59 CLS Outpatient ALCAZAR DO MIKE Hicks [id number] 09/04/2013 00:00:00 09/04/2013 23:59: 59 CLS Outpatient WYNN SHERON BRUNSON [id number] 07/29/2013 00:00:00 07/29/2013 23:59: 59 CLS Outpatient TIANNA BRUNSON SHERON Mercado [id number] 07/15/2013 09:15:00 07/15/2013 23:59: 59 CLS Outpatient MIKE ALCAZAR DO Kurt [id number] 07/07/2013 00:00:00 07/07/2013 23:59: 59 CLS Outpatient TIANNA BRUNSON SHERON Mercado [id number] 05/21/2013 13:18:00 05/21/2013 23:59: 59 CLS Outpatient OTTONIEL OCAMPOMIKE [id number] 04/20/2013 12:09:00 04/20/2013 23:59: 59 CLS Outpatient MIKE ALCAZAR DO [id number] 03/30/2013 13:39:00 03/30/2013 23:59: 59 CLS Outpatient ALCAZRA MIKE [id number] 09/30/2012 08:52:00 09/30/2012 23:59: 59 CLS Outpatient TAYLA ALONSO MD [id number] 07/24/2012 09:43:00 07/24/2012 23:59: 59 CLS Outpatient [id number] 06/24/2012 09:32:00 06/24/2012 23:59: 59 CLS Outpatient TAYLA ALONSO MD [id number] 05/27/2012 14:31:00 05/27/2012 23:59: 59 CLS Outpatient [id number] 03/11/2012 08:56:00 03/11/2012 23:59:5 9 CLS Outpatient TAYLA ALONSO MD [id number] 02/23/2013 14:44:00 Document Registration [id number] 12/11/2012 10:12:00 Document Registration
== END 2019-06-09 13:20 | disposition home or self-care (01) ==
LOC: CATH 06:47 → SDC 09:26 → CATH 13:20
PROVIDERS: ATTEND Internal Medicine Cardiovascular Disease
DX: R07.9 Chest pain, unspecified (principal); R55 Syncope and collapse; E78.5 Hyperlipidemia, unspecified; E11.9 Type 2 diabetes mellitus without complications; I10 Essential (primary) hypertension; Z90.49 Acquired absence of other specified parts of digestive tract; Z88.8 Allergy status to other drugs, medicaments and biological substances; Z88.2 Allergy status to sulfonamides; Z79.84 Long term (current) use of oral hypoglycemic drugs; Z82.49 Family history of ischemic heart disease and other diseases of the circulatory system; Z79.899 Other long term (current) drug therapy; Z90.710 Acquired absence of both cervix and uterus; Z80.1 Family history of malignant neoplasm of trachea, bronchus and lung; Z83.3 Family history of diabetes mellitus
CPT/HCPCS: 36415; 80053; 80061; 84443; 85027; 85610; 85730; 87081; 93005; 93458; 93926

== ENCOUNTER → 2019-06-15 | Outpatient (CLI) | payer BC, OTHER ==
[~2019-06-15] MED LIST changes: +ATOR40TA70 PO; +EZET10TA17; -EZET10TA5; +INSU100I14 SQ; +LISI1TAB25 PO; -LISI1TAB8 PO; +LORA-714 PO; +OMEP-280 PO; -OMEP20CA13 PO; -TAMS0.4C98 PO; -TRAM50TA2 PO; +TRM50T PO
== END ==
LOC: CARD 07:35
PROVIDERS: ATTEND Internal Medicine Cardiovascular Disease
DX: E11.9 Type 2 diabetes mellitus without complications (principal); I10 Essential (primary) hypertension; R55 Syncope and collapse; R00.2 Palpitations
CPT/HCPCS: 93225; 93226; 93306

== ENCOUNTER → 2019-06-23 | Day surgery (SDC) | payer BC, OTHER ==
[~2019-06-23] VITALS: Ht 160 cm; Wt 90.0 kg
[~2019-06-23] MED LIST changes: -EZET10TA17; +EZET10TA5; +LIDOCAINE 1% INJ 20 ML 20 ML VIAL ONE; -LISI1TAB25 PO; +LISI1TAB8 PO; -OMEP-280 PO; +OMEP20CA13 PO; +TAMS0.4C98 PO; +TRAM50TA2 PO; -TRM50T PO
[2019-06-23 11:12] VITALS: BP 115/62
--- NOTE | 2019-06-23 12:40 | OPERATIVE REPORT ---
DATE OF SERVICE: 06/23/2019 PREOPERATIVE DIAGNOSIS: Palpitations and syncope. POSTOPERATIVE DIAGNOSIS: Palpitations and syncope. PROCEDURE: Implantable loop recorder implantation. DESCRIPTION OF PROCEDURE: Informed consent was obtained. [facility] The left prepectoral area was prepared and draped in the usual sterile fashion. The tools provided with the Perfect [employer] Reveal LINQ device were used to make a pocket anterior to the fourth intercostal space into which the device was placed and the wound edges were closed with Dermabond and Steri-Strips. The serial number of the device is [id number]. The patient tolerated the procedure well. Job ID: [id number] DocumentID: [id number] Dictated Date: 06/23/2019 11:54:36 Research Associate Policy Date: 06/23/2019 12:39:18 Dictated By: KIAH OROZCO MD, MA, FACP, FACC,
== END | disposition home or self-care (01) ==
LOC: CATH 10:45
PROVIDERS: ATTEND Internal Medicine Cardiovascular Disease
DX: R00.2 Palpitations (principal); R55 Syncope and collapse; E11.9 Type 2 diabetes mellitus without complications; I10 Essential (primary) hypertension; Z79.82 Long term (current) use of aspirin; Z79.84 Long term (current) use of oral hypoglycemic drugs
CPT/HCPCS: 33285

== ENCOUNTER → 2020-05-20 | Outpatient (CLI) | payer BC, OTHER ==
[~2020-05-20] MED LIST changes: +ASPI-1238 PO; -ASPI-983 PO; +EZET10TA17; -EZET10TA5; -LIDOCAINE 1% INJ 20 ML 20 ML VIAL ONE; +LISI1TAB46 PO; -LISI1TAB8 PO; -OMEP20CA13 PO; +OMEP20CA18 PO; -PANT40TA3; +PANT40TA52; -TAMS0.4C98 PO; -TRAM50TA2 PO; +TRM50T PO
--- NOTE | 2020-05-20 10:51 | Diagnostic Imaging Report ---
INDICATION: Routine screening. COMPARISON is made with prior mammograms 05/15/2019 and 04/28/2018. 2-D and 3-D bilateral screening mammography was performed with CAD. Scattered fibroglandular densities are identified bilaterally. Cardiac monitoring device is noted in the medial left breast. There are scattered benign calcifications throughout both breasts. Circumscribed benign nodule posterior right breast appears stable. No spiculated mass or malignant appearing microcalcifications are seen. Axillae are unremarkable. IMPRESSION: BI-RADS Category 2. No mammographic features suspicious for malignancy are identified. ACR BI-RADS Category 2: Benign findings. Result letter will be mailed to the patient. Note: At least 10% of breast cancer is not imaged by mammography. Dictated by: Dictated on workstation # [id number]
== END ==
LOC: RAD 07:30
PROVIDERS: ATTEND Nurse Practitioner Family
DX: Z12.31 Encounter for screening mammogram for malignant neoplasm of breast (principal)
CPT/HCPCS: 77063; 77067

== ENCOUNTER → 2021-05-31 | Outpatient (CLI) | payer OTHER ==
[~2021-05-31] MED LIST changes: -AMIT10TA6 PO; +AMT10T PO; +DICY20TA PO; -DICY20TA10 PO; -LISI-552 PO; +LISI20TA26 PO; +LORA-53 PO; -LORA-714 PO
--- NOTE | 2021-05-31 12:28 | Diagnostic Imaging Report ---
INDICATION: Routine screening. COMPARISON: 05/20/2020 and 05/15/2019. TECHNIQUE: 2D and 3D bilateral screening mammography was performed with CAD. FINDINGS: Scattered fibroglandular densities are identified bilaterally. Scattered benign calcifications throughout both breasts are again noted. The benign nodule in the far posterior outer right breast is stable. No new mass or malignant-appearing microcalcifications are seen. The axillae are unremarkable. IMPRESSION: No mammographic features suspicious for malignancy are identified. ACR BI-RADS Category 2: Benign findings. Result letter will be mailed to the patient. Note: At least 10% of breast cancer is not imaged by mammography. Dictated by: Dictated on workstation # [id number]
== END ==
LOC: RAD 10:48
PROVIDERS: ATTEND Student in an Organized Health Care Education/Training Program
DX: Z12.31 Encounter for screening mammogram for malignant neoplasm of breast (principal)
CPT/HCPCS: 77063; 77067

== ENCOUNTER → 2022-05-01 | Outpatient (CLI) | payer MEDICAID ==
[~2022-05-01] MED LIST changes: +CATHETER FLUSH 10 ML SYR IVP PRN; +EZET-81 PO; -EZET1TAB21 PO; +LORA-1389 PO; -LORA-53 PO; +REGADENOSON 0.4 MG/5 ML SYR (LEXISCAN) IV ONE
[2022-05-01 09:19] VITALS: BP 182/108
--- NOTE | 2022-05-01 20:52 | STRESS TEST ---
DATE OF SERVICE: 05/01/2022 RESTING AND POST REGADENOSON TECHNETIUM-99M TETROFOSMIN SPECT CT IMAGING ORDERING PHYSICIAN: Leola Adams APRN PRIMARY PHYSICIAN: Dr. Theo Soria. OTHER PHYSICIAN: Dr. Orozco. CLINICAL DIAGNOSES: Palpitations. Baseline images were carried out after injection of 10.96 mCi of technetium-99m Tetrofosmin. This was followed by 0.4 mg regadenoson and 31.6 mCi of technetium-99m Tetrofosmin for stress imaging. The electrocardiogram showed sinus rhythm at baseline. It did not change significantly with regadenoson infusion. The patient noted mild shortness of breath and chest discomfort with regadenoson, which resolved in a few minutes. Review of images at rest and following stress does not indicate any significant perfusion defects consistent with myocardial ischemia or infarction. Gated images show normal global left ventricular systolic function with normal regional wall motion. Left ventricular ejection fraction is calculated to be 60%. CONCLUSIONS: 1. No evidence of any significant myocardial ischemia or infarction study. 2. Normal regional wall motion. 3. Normal global left ventricular systolic function with a calculated ejection fraction of 60%. Job ID: [id number] DocumentID: [id number] Dictated Date: 05/01/2022 16:20:19 Mine Engineering Supervisor Date: 05/01/2022 20:51:24 Dictated By: KIAH OROZCO MD, MA, FACP, FACC,
== END ==
LOC: CARD 07:45
PROVIDERS: ATTEND Nurse Practitioner Family
DX: R00.2 Palpitations (principal)
CPT/HCPCS: 78452; 93017; A9502

== ENCOUNTER → 2023-04-23 | Day surgery (SDC) | payer MEDICARE, MEDICAID ==
[~2023-04-23] VITALS: Ht 160 cm; Wt 98.8 kg
[~2023-04-23] MED LIST changes: -CATHETER FLUSH 10 ML SYR IVP PRN; -EZET10TA17; +EZET10TA83; +LIDOCAINE 1% INJ 20 ML VIAL INJ ONE; +LIDOCAINE 1% INJ 20 ML VIAL ONE; -REGADENOSON 0.4 MG/5 ML SYR (LEXISCAN) IV ONE; +SIMV-334; -SIMV40TA
[2023-04-23 07:04] VITALS: BP 141/85
--- NOTE | 2023-04-23 16:03 | OPERATIVE REPORT ---
DATE OF SERVICE: 04/23/2023 The patient is a 57-year-old lady who has an implantable loop recorder in place, which has reached end of life and she wanted it removed. [facility]. We felt for the device and it was found to be somewhat deep in the subcutaneous tissue and we felt it would be best referred to surgery. We did not make any attempts to remove it or even deliver any local anesthesia. We called Dr. Tong who is going to see the patient soon and have the device removed. The patient agreed to this. Job ID: [id number] DocumentID: [id number] Dictated Date: 04/23/2023 09:07:47 Draw Bench Operator Date: 04/23/2023 16:01:00 Dictated By: KIAH OROZCO MD; SERENITY; FACP; FACC;
== END ==
LOC: CATH 06:46 → EDSTATUS 08:00
PROVIDERS: ATTEND Internal Medicine Cardiovascular Disease
DX: R55 Syncope and collapse (principal); R00.2 Palpitations; R00.0 Tachycardia, unspecified; R07.89 Other chest pain; I10 Essential (primary) hypertension; E11.9 Type 2 diabetes mellitus without complications; E78.5 Hyperlipidemia, unspecified; G47.33 Obstructive sleep apnea (adult) (pediatric); Z98.890 Other specified postprocedural states; Z99.81 Dependence on supplemental oxygen; Z95.818 Presence of other cardiac implants and grafts
CPT/HCPCS: 33286